=== PATIENT | male | born 1940 | race Caucasian/White ===

== ENCOUNTER 2020-03-16 12:53 | Outpatient (REF) | payer MEDICARE, OTHER, SELFPAY ==
--- NOTE | 2020-03-16 | MR_ITS ---
EXAMINATION: MRI OF THE BRAIN WITHOUT CONTRAST CLINICAL INFORMATION: MCI with memory loss. COMPARISON: CT scan of the head 09/13/2017. MRI scan of the brain 05/27/2010. TECHNIQUE: MRI of the brain was obtained using routine sequences without contrast. FINDINGS: No diffusion abnormalities are identified to suggest an acute or subacute infarct. No mass effect or midline shift is seen. The ventricles and sulci are commensurately prominent consistent with mild diffuse volume loss. This appears more prominent compared to prior imaging. There are scattered areas of increased T2 and FLAIR signal in the periventricular and subcortical white matter, consistent with progressive chronic microvascular ischemic changes. 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 There is mild prominence of the extra-axial CSF around the cerebral convexities. There are no discrete fluid collections. The brainstem appears normal. No pathologic magnetic susceptibility artifact is identified on the gradient refocused acquisition. The craniovertebral junction, marrow signal, and midline structures are normal. There have been bilateral lens extractions. The major intracranial flow-voids at the level of the unga of [place] are preserved. The dural venous sinus flow-voids are maintained. The mastoid air cells and paranasal sinuses are well-aerated. IMPRESSION: 1. There are no acute bleeds or territorial infarcts. No masses are demonstrated. 2. There are progressive chronic microvascular ischemic changes and diffuse volume loss.
== END 2020-03-16 12:54 | disposition home or self-care (01) ==
LOC: HO.MRI 12:53
PROVIDERS: PCP Internal Medicine; Visit Provider Nurse Practitioner Family
DX: G31.84 Mild cognitive impairment of uncertain or unknown etiology (principal)
CPT/HCPCS: 70551

== ENCOUNTER → 2020-04-19 10:29 | Outpatient (BNVA) | payer MEDICARE, OTHER, SELFPAY | PROVIDERS: PCP Internal Medicine; Visit Provider Internal Medicine Cardiovascular Disease | DX: R06.02 Shortness of breath (principal); I42.8 Other cardiomyopathies; I48.20 Chronic atrial fibrillation, unspecified; I44.7 Left bundle-branch block, unspecified | CPT/HCPCS: 99212 ==

== ENCOUNTER 2020-04-20 07:54 | Outpatient (REF) | payer MEDICARE, OTHER, SELFPAY ==
[2020-04-20 11:10] LABS: MANUAL DIFF FLAG NO
[2020-04-20 11:18] LABS: Basophils Percent Auto 0.3 % (0-2); Eosinophils Absolute Auto 0.2 X10*3/uL (0.0-0.4); Eosinophils Percent Auto 3.3 % (0-4); Hematocrit 44.7 % (42-52); Hemoglobin 14.9 g/dl (14.0-18.0); Imm Gran Abs Auto 0.03 X10*3/uL (0.00-0.03); Imm Gran Pct Auto 0.4 % (0.0-0.4); Lymphocytes Absolute Auto 1.4 X10*3/uL (1.2-4.9); Lymphocytes Percent Auto 20.4 % (20-40); Mean Corpuscular HGB Conc 33.3 g/dl (31.0-36.0); Mean Corpuscular Hemoglobin 31.2 pg (27.0-33.0); Mean Corpuscular Volume 93.7 fL (80-98); Mean Platelet Volume 10.9 fL (9.4-12.4); Monocytes Absolute Auto 0.8 X10*3/uL (0.1-1.2); Monocytes Percent Auto 11.9 % (2-11); Neutrophils Absolute Auto 4.3 X10*3/uL (2.0-8.3); Neutrophils Percent Auto 63.7 % (45-73); Platelet Count 203 X10*3/uL (160-400); Red Blood Count 4.77 X10*6/uL (4.60-5.80); Red Cell Distribution Width 13.4 % (11.0-16.0); White Blood Count 6.7 X10*3/uL (4.8-10.8)
[2020-04-20 11:35] LABS: Alanine Aminotransferase 29 U/L (0-40); Albumin Level 4.4 g/dL (3.5-5.0); Alkaline Phosphatase 83 U/L (39-117); Anion Gap 14 (12-20); Aspartate Amino Transferase 31 U/L (5-37); Bilirubin Total 0.6 mg/dL (0.0-1.0); Blood Urea Nitrogen 23 mg/dL (9-16); Carbon Dioxide 28 mmol/L (22-29); Chloride 103 mmol/L (96-108); Cholesterol 187 mg/dL; Estimated Glomerular Filt Rate 58; Glucose Fasting 77 mg/dL (60-99); HDL Cholesterol 54 mg/dL; LDL Cholesterol Calculated 114 mg/dl; Potassium 4.2 mmol/l (3.3-5.1); Sodium 141 mmol/L (135-145); Total Protein 7.3 g/dL (6.5-8.0); Triglycerides 99 mg/dL
[2020-04-20 11:52] LABS: Digoxin 0.3 ng/mL (0.8-2.0)
[2020-04-20 11:58] LABS: B Type Natriuretic Peptide 208 pg/mL (<100)
[2020-04-20 12:00] LABS: T4 Thyroxine 7.6 ug/dL (4.5-12.0); Thyroid Stimulating Hormone 3.68 uIU/mL (0.32-4.0)
== END 2020-04-20 07:55 | disposition home or self-care (01) ==
LOC: HO.HMGCLDS 07:54
PROVIDERS: PCP Internal Medicine; Visit Provider Internal Medicine Cardiovascular Disease
DX: I42.8 Other cardiomyopathies (principal); R06.02 Shortness of breath; I48.20 Chronic atrial fibrillation, unspecified; I42.9 Cardiomyopathy, unspecified; I48.91 Unspecified atrial fibrillation; I48.0 Paroxysmal atrial fibrillation
CPT/HCPCS: 36415; 80053; 80061; 80162; 83880; 84436; 84443; 85025

== ENCOUNTER → 2020-05-11 09:33 | Outpatient (REF) | payer MEDICARE, OTHER, SELFPAY ==
--- NOTE | 2020-05-11 09:38 | CA_ITS ---
Transthoracic Echocardiogram Patient (Last, First, Middle): Ki Tellez D Gender: Male Date of : 1940 Age: 80 Procedure Date: 05/11/2020 Procedure Type: Transthoracic Echocardiogram Location: OP Height: 180.34 cm Weight: 68.04 kg BSA: 1.87 m2 Heart Rate: bpm BP: 120 / 56 mmHg Field Nurse: Referring MD: Mor Mehta MD Symptoms: I48.20 - Chronic atrial fibrillation, unspecified Study Quality: Good ECG Rhythm: Sinus Conclusions: - The left ventricular systolic function is mild to moderately decreased. The visually estimated ejection fraction is between 40-45%. - There is mild to moderate aortic valve regurgitation. - There is mild to moderate mitral valve regurgitation. - There is mild tricuspid valve regurgitation. 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 Findings Left Ventricle Normal left ventricular cavity size. There is mildly increased left ventricular wall thickness. The left ventricular systolic function is mild to moderately decreased. The visually estimated ejection fraction is between 40-45%. There is paradoxical septal motion consistent with a left bundle branch block. Diastolic function is indeterminate on the basis of available data. Right Ventricle Normal right ventricular cavity size and systolic function. Atria The left atrium is mildly dilated. The right atrium is normal in size. Aortic Valve There is a normal trileaflet aortic valve. There is no aortic valve stenosis. There is mild to moderate aortic valve regurgitation. Mitral Valve The mitral valve appears normal. There is mild to moderate mitral valve regurgitation. There is no mitral valve stenosis. Pulmonic Valve The pulmonic valve was not well visualized. There is mild pulmonic valve regurgitation. Tricuspid Valve Normal tricuspid valve structure. There is mild tricuspid valve regurgitation. The pulmonary artery systolic pressure is normal. Great Vessels There is mild dilatation of the ascending aorta measuring 3.90 cm. Venous The inferior vena cava is normal in size and collapses greater than 50% with inspiration. Pericardium/Pleural There is no evidence of pericardial effusion. Prior Study Comparison No significant change compared to prior study dated: 09/30/2019. Measurements 2D Linear Measurements IVSd: 1.20 0.6-0.9/0.6-1.0 cm LVIDd: 4.64 3.9-5.3/4.2-5.9 cm LVIDd Index: 2.48 2.4-3.2/2.2-3.1 cm/m2 LVIDs: 3.69 2.0-3.6 cm LVPWd: 1.21 0.7-1.1 cm Ao Root: 3.60 2.1-3.5 cm LA Diam: 4.40 2.7-3.8/3.0-4.0 cm LAIDs Index: 2.35 1.5-2.3 cm/m2 LV Mass: 260.53 67-162/88-224 g LV Mass Index: 139.32 43-95/49-115 g/m2 LVOT Diam: 2.20 3.0+(-)1.3 cm 2D Systolic Function EF 4C: 40.20 >55% EF 2C: 58.40 >55% EF BiP: 47.30 >55% Mitral Valve MV Pk E: 0.89 MV Decel Time: 332.00 E'Medial: 5.32 E/E' Med: 16.70 Aortic Valve AoV Pk Bo: 1.02 AoV Mn Bo: 0.68 AoV VTI: 0.22 AoV Pk Grad: 4.00 Aov Mn Grad: 2.00 YUDELKA Cont.VTI: 2.80 LVOT LVOT Pk Bo: 0.74 LVOT Mn Bo: 0.49 LVOT VTI: 0.16 LVOT Pk Grad: 2.00 LVOT Mn Grad: 1.00 LVOT Diam: 2.20 LVOT Area: 3.80 Diastolic Function MV Pk E: 0.89 E'Medial: 5.32 E/E' Med: 16.70 Tricuspid Valve TR Pk Bo: 2.56 TR Pk Grad: 26.00 RA Press: 3.00 RVSP: 29.00 Great Vessels Aorta Ao Root-2D: 3.60 2.0-3.7 cm Ao Asc: 3.90 2.1-3.4 cm Pulmonary Valve PV Pk Bo: 1.07 Peak PV Grad: 5.00 Updated in Other Vendor System with Status of Final Baljit Wilson MD electronically signed on 05/11/2020 5:26:47 PM with status of Final
== END ==
LOC: HO.CARD 09:33
PROVIDERS: PCP Internal Medicine; Visit Provider Internal Medicine Cardiovascular Disease
DX: I44.7 Left bundle-branch block, unspecified (principal); I48.20 Chronic atrial fibrillation, unspecified; R06.02 Shortness of breath
CPT/HCPCS: 93306

== ENCOUNTER 2020-05-17 13:41 | Outpatient (REF) | payer MEDICARE, OTHER, SELFPAY ==
[2020-05-17 16:01] LABS: Prostate Specific Antigen < 0.05 ng/mL (<0.05-4.0)
== END 2020-05-17 13:42 | disposition home or self-care (01) ==
LOC: HO.HMGCLDS 13:41
PROVIDERS: PCP Internal Medicine; Visit Provider Urology
DX: Z85.46 Personal history of malignant neoplasm of prostate (principal); Z12.5 Encounter for screening for malignant neoplasm of prostate
CPT/HCPCS: 84153

== ENCOUNTER → 2020-05-18 14:10 | Outpatient (BNVA) | payer MEDICARE, OTHER, SELFPAY | PROVIDERS: PCP Internal Medicine; Visit Provider Internal Medicine Cardiovascular Disease | DX: I48.20 Chronic atrial fibrillation, unspecified (principal); I10 Essential (primary) hypertension; I42.8 Other cardiomyopathies; I44.7 Left bundle-branch block, unspecified; I35.1 Nonrheumatic aortic (valve) insufficiency | CPT/HCPCS: 99212 ==

== ENCOUNTER → 2020-05-24 11:21 | Outpatient (BNVA) | payer MEDICARE, OTHER, SELFPAY | PROVIDERS: PCP Internal Medicine; Visit Provider Urology | DX: Z13.89 Encounter for screening for other disorder (principal) | CPT/HCPCS: Q3014 ==

== ENCOUNTER 2020-10-19 09:10 | Outpatient (REF) | payer MEDICARE, OTHER, SELFPAY ==
[2020-10-19 11:27] LABS: MANUAL DIFF FLAG NO
[2020-10-19 11:33] LABS: Basophils Percent Auto 0.3 % (0-2); Eosinophils Absolute Auto 0.3 X10*3/uL (0.0-0.4); Eosinophils Percent Auto 3.7 % (0-4); Hemoglobin 14.9 g/dl (14.0-18.0); Imm Gran Abs Auto 0.02 X10*3/uL (0.00-0.03); Imm Gran Pct Auto 0.3 % (0.0-0.4); Lymphocytes Absolute Auto 1.3 X10*3/uL (1.2-4.9); Lymphocytes Percent Auto 18.1 % (20-40); Mean Corpuscular HGB Conc 32.4 g/dl (31.0-36.0); Mean Corpuscular Hemoglobin 30.8 pg (27.0-33.0); Mean Platelet Volume 10.8 fL (9.4-12.4); Monocytes Absolute Auto 0.8 X10*3/uL (0.1-1.2); Monocytes Percent Auto 10.9 % (2-11); Neutrophils Absolute Auto 4.8 X10*3/uL (2.0-8.3); Neutrophils Percent Auto 66.7 % (45-73); Platelet Count 210 X10*3/uL (160-400); Red Blood Count 4.84 X10*6/uL (4.60-5.80); Red Cell Distribution Width 13.3 % (11.0-16.0); White Blood Count 7.2 X10*3/uL (4.8-10.8)
[2020-10-19 11:51] LABS: B Type Natriuretic Peptide 319 pg/mL (<100)
[2020-10-19 12:12] LABS: Alanine Aminotransferase 27 U/L (0-40); Albumin Level 4.5 g/dL (3.5-5.0); Alkaline Phosphatase 97 U/L (39-117); Anion Gap 14 (12-20); Aspartate Amino Transferase 32 U/L (5-37); Bilirubin Total 0.8 mg/dL (0.0-1.0); Blood Urea Nitrogen 19 mg/dL (9-16); Calcium 9.3 mg/dL (8.4-10.2); Carbon Dioxide 28 mmol/L (22-29); Chloride 103 mmol/L (96-108); Cholesterol 191 mg/dL; Estimated Glomerular Filt Rate > 60; Free T4 (Free Thyroxine) 0.96 ng/dL (0.71-1.85); Glucose Random 77 mg/dL (60-115); HDL Cholesterol 58 mg/dL; LDL Cholesterol Calculated 105 mg/dl; Magnesium 2.3 mg/dL (1.6-2.6); Potassium 4.8 mmol/L (3.3-5.1); Sodium 140 mmol/L (135-145); Thyroid Stimulating Hormone 3.85 uIU/mL (0.32-4.0); Total Protein 7.6 g/dL (6.5-8.0); Triglycerides 143 mg/dL
[2020-10-19 12:40] LABS: Folate 18.8 ng/mL (> or = 4.0); Vitamin B12 644 pg/mL (200-900)
== END 2020-10-19 09:11 | disposition home or self-care (01) ==
LOC: HO.HMGCLDS 09:10
PROVIDERS: PCP Internal Medicine; Visit Provider Internal Medicine
DX: E78.00 Pure hypercholesterolemia, unspecified (principal); I48.20 Chronic atrial fibrillation, unspecified; R06.02 Shortness of breath; I10 Essential (primary) hypertension
CPT/HCPCS: 36415; 80053; 80061; 82607; 82746; 83735; 83880; 84439; 84443; 85025

== ENCOUNTER 2020-10-27 13:30 | Outpatient (RCR) | payer MEDICARE, OTHER, SELFPAY | END 2020-10-28 13:40 | disposition left against medical advice (07) | LOC: HO.SH 13:30 | PROVIDERS: Visit Provider Internal Medicine | DX: I69.911 Memory deficit following unspecified cerebrovascular disease (principal) | CPT/HCPCS: 92507 ==

== ENCOUNTER → 2020-11-16 12:27 | Outpatient (BNVA) | payer MEDICARE, OTHER, SELFPAY | PROVIDERS: PCP Internal Medicine; Visit Provider Internal Medicine Cardiovascular Disease | DX: I42.8 Other cardiomyopathies (principal); I48.20 Chronic atrial fibrillation, unspecified | CPT/HCPCS: 99212 ==

== ENCOUNTER 2020-11-17 09:16 | Outpatient (REF) | payer MEDICARE, OTHER, SELFPAY ==
[2020-11-17 11:37] LABS: Hematocrit 43.8 % (42-52); Hemoglobin 14.2 g/dl (14.0-18.0); Mean Corpuscular HGB Conc 32.4 g/dl (31.0-36.0); Mean Corpuscular Hemoglobin 30.2 pg (27.0-33.0); Mean Corpuscular Volume 93.2 fL (80-98); Mean Platelet Volume 10.8 fL (9.4-12.4); Platelet Count 196 X10*3/uL (160-400); Red Cell Distribution Width 13.5 % (11.0-16.0); White Blood Count 6.7 X10*3/uL (4.8-10.8)
[2020-11-17 11:45] LABS: Anion Gap 14 (12-20); Blood Urea Nitrogen 22 mg/dL (9-16); Calcium 9.2 mg/dL (8.4-10.2); Carbon Dioxide 27 mmol/L (22-29); Chloride 104 mmol/L (96-108); Estimated Glomerular Filt Rate > 60; Glucose Random 79 mg/dL (60-115); Potassium 4.5 mmol/L (3.3-5.1); Sodium 140 mmol/L (135-145)
[2020-11-17 13:30] LABS: Digoxin 0.3 ng/mL (0.8-2.0)
== END 2020-11-17 09:17 | disposition home or self-care (01) ==
LOC: HO.HMGCLDS 09:16
PROVIDERS: Internal Medicine Cardiovascular Disease; PCP Internal Medicine; Visit Provider Internal Medicine
DX: I42.8 Other cardiomyopathies (principal); I48.20 Chronic atrial fibrillation, unspecified
CPT/HCPCS: 36415; 80048; 80162; 85027

== ENCOUNTER 2020-11-22 10:57 | Outpatient (REF) | payer MEDICARE, OTHER, SELFPAY ==
--- NOTE | 2020-11-23 12:04 | MHC.AU.ANO ---
Adult Audiological Evaluation Date of Visit: 11/22/20 Circular Gang Saw Operator Used: Not Applicable Reason for Appointment: Ki was seen today for an audiologic re-evaluation, accompanied by his Angela. He was previously tested at this office in September 2015 with results showing bilateral symmetrical high frequency hearing loss. Hearing aids were recommended at that time and advised going through the '[facility] to receive hearing aids. Ki was not eligible for amplification through the [facility] and he chose not to pursue hearing aids. Angela reports increased hearing difficulties as well as newly diagnosed cognitive impairment. 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 Speech discrimination ability was 76% for the right ear and 72% for the left ear at 60 dB HL Ear History: Ear used on the phone: Right Ear Blocked/Full Sensation in Ear(s): Left Ear History of occupational noise exposure?: related noise exposure History: History: Yes Branch: [employer] Years in : 4-8 Years Medical History: Medical History: Prostate Cancer treated with surgery in 2004, Cognitive Impairment, Atrial Fibrilation, Mumps, Question of Stroke Allergies: YVONNE Inhibitors, Lisinopril, Diltiazem Medication List: Metoprolol, Pradaxa, Valsartan, Digoxin, Prevastatin Sodium, Alprazolam Otoscopy: Right Ear: Unremarkable Left Ear: Unremarkable Tympanometry: Tympanometry performed due to: Patient reports sensation that right ear is blocked. Right Ear: Normal Middle Ear System (Type A) Left Ear: Normal Middle Ear System (Type A) Otoacoustic Emissions Not performed at today's visit. Hearing Evaluation: Transducer(s) Used: Insert Earphones Bone Conduction Method: Conventional Audiometry Stimuli Used: Pure Tones Right Ear: Description of Hearing: Borderline normal hearing threshold at 250 Hz dropping to a profound high frequency sensorineural hearing loss Left Ear: Description of Hearing: Mild dropping to profound sensorineural hearing loss. There is a 5-20 dB decrease for most frequencies compared to right ear thresholds. Speech Recognition Threshold (SRT): Method Used: Monitored Live Voice Stimuli Used: Spondee Words Right Ear: 30 dB HL Left Ear: 35 dB HL Word Discrimination: Method: Recorded Lists Word Lists Used: NU-6 Right Ear: 84% at 70 dB HL Left Ear: 48% at 75 dB HL 64% at 80 dB HL Comparison: Compared to the most recent evaluation: Thresholds have decreased bilaterally, left ear greater than right. Word discrimination scores have decreased in the left ear. Interpretation of Results: The asymmetric profound high frequency sensorineural hearing loss with significant blocked sensation of the left ear is related to Ki's decreased speech discrimination ability. It is also likely Ki's newly diagnosed cognitive impairment will contribute to his speech understanding ability. Recommendations: - Due to asymmetric thresholds and speech discrimination, as well as blocked sensation of the left ear, advise medical consultation with Building Carpenter/Recruitment Director - Trial with amplification is recommended. - Medical clearance from a physician is required before fitting. - After obtaining medical clearance, if Ki would like to pursue amplification from this office, he may schedule a Hearing Aid Evaluation appointment - Audiological re-evaluation in one year. Will send a reminder card. Diagnosis: Primary Diagnosis: H90.3 Bilateral Sensorineural Hearing Loss Services Performed: Comprehensive Audiological Evaluation (CPT 10896) Tympanometry (CPT 80587) Signature: Provider: Cristiano Coffey, [facility]
--- NOTE | 2020-11-23 12:08 | MHC.AU.MED ---
Medical Clearance for Hearing Instrumentation Date: 11/23/20 Patient Name: Ki Tellez Date of : 1940 Primary Care Provider: Referring Provider: Joleen Boyd MD We have seen your patient on 11/23/20 and have determined that they are a candidate for amplification (See accompanying report). Specifically, they would benefit from: Hearing aid use in both ears There is a statute that addresses Medical Evaluation Requirements prior to fitting a patient with a hearing aid. According to [place] statute 265 CMR:6.03(1), (a) General. Except as provided in 265 CMR 6.03(1)(b), a coverage analyst shall not sell a hearing aid unless the prospective user has presented to the coverage analyst a written statement signed by a licensed physician that states that the patient's hearing loss has been medically evaluated and the patient may be considered a candidate for a hearing aid. The medical evaluation must have taken place within the preceding six months. Please note: Due to the [place] Statute referenced above, we cannot accept a signature other than that of a licensed physician. ASSOCIATE TRAINER and PA signatures cannot be accepted. I am in agreement with the above recommendation. There is no medical contraindication for hearing instrumentation. Physician Signature Date Physician Name (Printed)
== END 2020-11-22 10:58 | disposition home or self-care (01) ==
LOC: HO.SH 10:57
PROVIDERS: Visit Provider Internal Medicine
DX: H90.3 Sensorineural hearing loss, bilateral (principal)
CPT/HCPCS: 92557; 92567

== ENCOUNTER 2021-01-19 11:44 | Outpatient (REF) | payer MEDICARE, OTHER, SELFPAY ==
[2021-01-19 14:30] LABS: Blood Urea Nitrogen 23 mg/dL (9-16); Estimated Glomerular Filt Rate 56
== END 2021-01-19 11:45 | disposition home or self-care (01) ==
LOC: HO.HMGCLDS 11:44
PROVIDERS: Absent Provider Otolaryngology; PCP Internal Medicine; Visit Provider Internal Medicine
DX: H90.3 Sensorineural hearing loss, bilateral (principal)
CPT/HCPCS: 36415; 82565; 84520; 87086

== ENCOUNTER 2021-01-21 13:34 | Outpatient (REF) | payer MEDICARE, OTHER, SELFPAY ==
--- NOTE | ~2021-01-21 | MR_ITS ---
EXAMINATION: MR BRAIN WITHOUT AND WITH CONTRAST CLINICAL INFORMATION: Sensorineural hearing loss bilaterally. COMPARISON: Brain MRI from 03/16/2020. TECHNIQUE: Multiplanar, multisequential imaging was obtained without and with intravenous contrast. Intravenous contrast: Gadavist 7 mL. FINDINGS: No diffusion abnormality is seen. Very mild chronic white matter microangiopathic changes are stable with generalized right globe volume loss. No hydrocephalus. No mass effect or midline shift is evident. No extra-axial fluid collections are noted. The brainstem and cerebellum are normal. 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 There is no abnormal parenchymal or leptomeningeal enhancement. The VII and VIII cranial nerve complexes are normal in course and caliber. No signal abnormality is visualized within the inner ear structures on the precontrast axial T1-weighted sequence. Fluid signal is preserved within the cochlea, semicircular canals, and vestibule on the high-resolution axial FIESTA sequence. No cerebellopontine angle lesion is noted. There is no abnormal labyrinthine or intracanalicular enhancement on postcontrast imaging. The craniovertebral junction, marrow signal, and midline structures are normal. The gradient refocused acquisition is normal. The visualized portions of the major intracranial flow voids at the level of the tribe of [place] are preserved. The dural venous sinus flow voids are maintained. The mastoid air cells and paranasal sinuses are well aerated. MR/MR head/brain wo/w con IMPRESSION: No retrocochlear pathology. Mild chronic white matter microangiopathy and generalized parenchymal volume loss. No acute intracranial process.
== END 2021-01-21 13:35 | disposition home or self-care (01) ==
LOC: HO.MRI 13:34
PROVIDERS: PCP Internal Medicine; Visit Provider Otolaryngology
DX: H90.3 Sensorineural hearing loss, bilateral (principal)
CPT/HCPCS: 70553; A9585

== ENCOUNTER 2021-02-17 10:29 | Outpatient (REF) | payer SELFPAY ==
--- NOTE | 2021-02-17 11:51 | MHC.AU.HAS ---
Hearing Aid Evaluation Date of Visit: 02/17/21 Historical Information: Description of Hearing: Asymmetric normal /mild low frequency, dropping to profound high frequency sensorineural hearing loss with the left ear being 5-20 dB poorer than the right ear. Current personal amplification information, if applicable: None Summary: Patient was seen by Dr. Mejia and had an MRI which indicated no retrocohlear pathology. Medical clearance for binaural hearing aids was provided. He is accompanied by his Angela who is encouraging the hearing aid trial due to Ki's communication difficulties. Ki is not happy about the need for amplification, but is willing to do the trial period. Provided extensive counseling today regarding realistic expectations and the need for every day, all day use of the hearing aids. Discussed appropriate hearing aids and recommend the high level of technology as patient would have difficulty manipulating volume/program button, and his cognitive decline. Had patient practice insertion of the LILIYA with dome and he is able to insert. will help with care and batteries as needed. Hearing Aid Prescription: Based on the individual?s shared listening needs, communication environments, dexterity, desire for connectivity, and personal preferences, the following prescription for amplification has been made: Right ear: Business Executive: Phonak Model: Audeo P 90-13T Battery Size: 13 Color: Black Time Signal Wirer: #2 Medium Type of Dome: Open Left ear: Business Executive: Phonak Model: Audeo P 90-13T Battery Size: 13 Color: Black Time Signal Wirer: #2 Medium Type of Dome: Power Accessories/Assistive Technology Recommended: None Plan of Care: Patient wishes to purchase hearing aids as prescribed Action Taken/Action Needed: Hearing Instrument Fitting to be scheduled when materials arrive Primary Diagnosis: H90.3 Bilateral Sensorineural Hearing Loss Signature: Provider: Cristiano Coffey, [facility]
== END 2021-02-17 10:30 | disposition home or self-care (01) ==
LOC: HO.HAP 10:29
PROVIDERS: Visit Provider Internal Medicine
DX: Z46.1 Encounter for fitting and adjustment of hearing aid (principal); H90.3 Sensorineural hearing loss, bilateral
CPT/HCPCS: 92591

== ENCOUNTER 2021-03-02 10:30 | Outpatient (REF) | payer SELFPAY | END 2021-03-02 10:31 | disposition home or self-care (01) | LOC: HO.HAP 10:30 | PROVIDERS: PCP Internal Medicine; Visit Provider Otolaryngology | DX: Z46.1 Encounter for fitting and adjustment of hearing aid (principal); H90.3 Sensorineural hearing loss, bilateral | CPT/HCPCS: V5261 ==

== ENCOUNTER 2021-03-18 13:06 | Outpatient (REF) | payer SELFPAY | END 2021-03-18 13:07 | disposition home or self-care (01) | LOC: HO.HAP 13:06 | PROVIDERS: Visit Provider Internal Medicine | DX: Z13.89 Encounter for screening for other disorder (principal) ==

== ENCOUNTER 2021-04-27 15:57 | Outpatient (REF) | payer SELFPAY | END 2021-04-27 15:58 | disposition home or self-care (01) | LOC: HO.HAP 15:57 | PROVIDERS: Visit Provider Internal Medicine | DX: Z13.89 Encounter for screening for other disorder (principal) ==

== ENCOUNTER → 2021-05-05 13:04 | Outpatient (REF) | payer MEDICARE, OTHER, SELFPAY ==
--- NOTE | 2021-05-05 13:07 | CA_ITS ---
Transthoracic Echocardiogram Patient (Last, First, Middle): Ki Tellez D Gender: Male Date of : 1940 Age: 81 Procedure Date: 05/05/2021 Procedure Type: Transthoracic Echocardiogram Location: OP Height: 180.34 cm Weight: 68.04 kg BSA: 1.87 m2 Heart Rate: bpm BP: 158 / 72 mmHg Buffing Machine Tender: IDRIS Referring MD: Mor Mehta MD Weaver Wire Loom: Mor Mehta MD Symptoms: I42.8 - Other cardiomyopathies Study Quality: Fair ECG Rhythm: Atrial Fibrillation Conclusions: - 1. Normal LV systolic function with LVEF of 55-60% 2. Mild biatrial enlargement 3. Mild aortic regurgitation 4. Normal RV systolic pressure 5. Mildly dilated ascending aorta at 4.1 cm 6. No pericardial effusion Findings Left Ventricle Normal left ventricular size, thickness, and systolic function. The visually estimated ejection fraction is between 55-60%. Diastolic function is indeterminate on the basis of available data. Right Ventricle Normal right ventricular cavity size and systolic function. Atria Mild biatrial enlargement. There is no evidence of interatrial shunt. Aortic Valve There is mild thickening of the aortic valve. There is no aortic valve stenosis. There is mild aortic valve regurgitation. Mitral Valve There is mild anterior and posterior mitral leaflet thickening. There is mild mitral annular calcification. There is mild mitral valve regurgitation. There is no mitral valve stenosis. Pulmonic Valve The pulmonic valve was not well visualized. Tricuspid Valve Likely normal tricuspid valve structure and function. There is mild tricuspid valve regurgitation. The right ventricular systolic pressure is normal. The right ventricular systolic pressure is 30 mmHg. Normal right atrial pressure. There is no evidence of pulmonary hypertension. Great Vessels The pulmonary artery was not well visualized. There is mild dilatation of the ascending aorta measuring 4.10 cm. Venous The inferior vena cava is normal in size and collapses greater than 50% with inspiration. Pericardium/Pleural There is no evidence of pericardial effusion. Prior Study Comparison Changes noted compared to prior study dated: 05/11/2020. LV systolic function is in normal range Measurements 2D Linear Measurements IVSd: 1.16 0.6-0.9/0.6-1.0 cm LVIDd: 4.97 3.9-5.3/4.2-5.9 cm LVIDd Index: 2.66 2.4-3.2/2.2-3.1 cm/m2 LVIDs: 2.88 2.0-3.6 cm LVPWd: 1.15 0.7-1.1 cm Ao Root: 3.60 2.1-3.5 cm LA Diam: 4.10 2.7-3.8/3.0-4.0 cm LAIDs Index: 2.19 1.5-2.3 cm/m2 LV Mass: 273.59 67-162/88-224 g LV Mass Index: 146.30 43-95/49-115 g/m2 LVOT Diam: 2.20 3.0+(-)1.3 cm 2D Systolic Function EF 4C: 54.60 >55% EF 2C: 64.00 >55% EF BiP: 60.80 >55% Mitral Valve MV Pk E: 0.82 MV Decel Time: 202.00 E'Lateral: 12.60 E'Medial: 6.59 E/E' Med: 12.50 E/E' Lat: 6.50 PHT: 59.00 MVA PHT: 3.73 Decel Carver: 4.09 Aortic Valve AoV Pk Bo: 1.13 AoV Pk Grad: 5.00 LVOT LVOT Pk Bo: 0.93 LVOT Mn Bo: 0.61 LVOT VTI: 0.19 LVOT Pk Grad: 3.00 LVOT Mn Grad: 2.00 LVOT Diam: 2.20 LVOT Area: 3.80 Diastolic Function MV Pk E: 0.82 E'Medial: 6.59 E/E' Med: 12.50 E' Laterial: 12.60 E/E' Lat: 6.50 Right Ventricle TAPSE (mm): 2.16 Tricuspid Valve TR Pk Bo: 2.60 TR Pk Grad: 27.00 RA Press: 3.00 RVSP: 30.00 Great Vessels Aorta Ao Root-2D: 3.60 2.0-3.7 cm Ao Asc: 4.10 2.1-3.4 cm Updated in Other Vendor System with Status of Final Mor Mehta MD electronically signed on 05/05/2021 3:03:26 PM with status of Final
[2021-05-05 15:44] LABS: Prostate Specific Antigen < 0.05 ng/mL (<0.05-4.0)
== END ==
LOC: HO.CARD 13:04
PROVIDERS: Absent Provider Urology; PCP Internal Medicine; Visit Provider Internal Medicine Cardiovascular Disease
DX: Z12.5 Encounter for screening for malignant neoplasm of prostate (principal); I42.8 Other cardiomyopathies; C61 Malignant neoplasm of prostate
CPT/HCPCS: 36415; 84153; 93306

== ENCOUNTER → 2021-05-12 08:35 | Outpatient (BNVA) | payer MEDICARE, OTHER, SELFPAY | PROVIDERS: PCP Internal Medicine; Visit Provider Urology | DX: C61 Malignant neoplasm of prostate (principal) | CPT/HCPCS: Q3014 ==

== ENCOUNTER → 2021-06-10 11:27 | Outpatient (BNVA) | payer MEDICARE, OTHER, SELFPAY | PROVIDERS: PCP Internal Medicine; Referring Provider Internal Medicine; Visit Provider Internal Medicine Cardiovascular Disease | DX: I48.20 Chronic atrial fibrillation, unspecified (principal); I42.8 Other cardiomyopathies; Z79.01 Long term (current) use of anticoagulants | CPT/HCPCS: 93005; 99212 ==

== ENCOUNTER 2021-06-16 08:57 | Outpatient (REF) | payer MEDICARE, OTHER, SELFPAY ==
[2021-06-16 11:35] LABS: Hematocrit 46.2 % (42.0-52.0); Mean Corpuscular HGB Conc 32.5 g/dl (31.0-36.0); Mean Corpuscular Volume 95.5 fL (80.0-98.0); Mean Platelet Volume 11.1 fL (9.4-12.4); Platelet Count 204 X10*3/uL (160-400); Red Blood Count 4.84 X10*6/uL (4.60-5.80); Red Cell Distribution Width 13.8 % (11.0-16.0); White Blood Count 7.1 X10*3/uL (4.8-10.8)
[2021-06-16 11:57] LABS: Anion Gap 11 (12-20); Blood Urea Nitrogen 22 mg/dL (9-16); Calcium 9.2 mg/dL (8.4-10.2); Carbon Dioxide 30 mmol/L (22-29); Chloride 105 mmol/L (96-108); Estimated Glomerular Filt Rate 60; Glucose Random 82 mg/dL (60-115); Potassium 4.6 mmol/L (3.3-5.1); Sodium 141 mmol/L (135-145)
[2021-06-16 13:38] LABS: Digoxin < 0.3 ng/mL (0.8-2.0)
== END 2021-06-16 08:58 | disposition home or self-care (01) ==
LOC: HO.HMGCLDS 08:57
PROVIDERS: PCP Internal Medicine; Visit Provider Internal Medicine Cardiovascular Disease
DX: I48.20 Chronic atrial fibrillation, unspecified (principal); Z79.899 Other long term (current) drug therapy
CPT/HCPCS: 36415; 80048; 80162; 85027

== ENCOUNTER 2021-07-06 09:01 | Outpatient (REF) | payer MEDICARE, OTHER, SELFPAY ==
[2021-07-06 11:22] LABS: MANUAL DIFF FLAG NO
[2021-07-06 11:27] LABS: Basophils Percent Auto 0.3 % (0-2); Eosinophils Absolute Auto 0.3 X10*3/uL (0.0-0.4); Eosinophils Percent Auto 4.5 % (0-4); Hematocrit 43.2 % (42.0-52.0); Hemoglobin 14.1 g/dl (14.0-18.0); Imm Gran Abs Auto 0.03 X10*3/uL (0.00-0.03); Imm Gran Pct Auto 0.5 % (0.0-0.4); Lymphocytes Percent Auto 15.5 % (20-40); Mean Corpuscular HGB Conc 32.6 g/dl (31.0-36.0); Mean Corpuscular Hemoglobin 30.7 pg (27.0-33.0); Mean Corpuscular Volume 94.1 fL (80.0-98.0); Mean Platelet Volume 11.1 fL (9.4-12.4); Monocytes Absolute Auto 0.7 X10*3/uL (0.1-1.2); Neutrophils Absolute Auto 4.4 x10*3/uL (2.0-8.3); Neutrophils Percent Auto 68.2 % (45-73); Platelet Count 201 X10*3/uL (160-400); Red Blood Count 4.59 X10*6/uL (4.60-5.80); Red Cell Distribution Width 13.8 % (11.0-16.0); White Blood Count 6.5 X10*3/uL (4.8-10.8)
[2021-07-06 12:05] LABS: B Type Natriuretic Peptide 321 pg/mL (<100)
[2021-07-06 13:42] LABS: Alanine Aminotransferase 28 U/L (0-40); Albumin Level 4.4 g/dL (3.5-5.0); Alkaline Phosphatase 84 U/L (39-117); Anion Gap 11 (12-20); Aspartate Amino Transferase 33 U/L (5-37); Bilirubin Total 0.7 mg/dL (0.0-1.0); Carbon Dioxide 30 mmol/L (22-29); Chloride 107 mmol/L (96-108); Estimated Glomerular Filt Rate 55; Glucose Random 82 mg/dL (60-115); Potassium 4.6 mmol/L (3.3-5.1); Sodium 143 mmol/L (135-145); Total Protein 7.2 g/dL (6.5-8.0)
[2021-07-06 14:54] LABS: Blood Urea Nitrogen 17 mg/dL (9-16); Calcium 9.7 mg/dL (8.4-10.2)
== END 2021-07-06 09:02 | disposition home or self-care (01) ==
LOC: HO.HMGCLDS 09:01
PROVIDERS: Visit Provider Internal Medicine
DX: I42.8 Other cardiomyopathies (principal)
CPT/HCPCS: 36415; 80053; 83880; 85025

== ENCOUNTER 2021-10-10 12:29 | Outpatient (REF) | payer SELFPAY ==
--- NOTE | 2021-10-10 13:20 | MHC.AU.HFU ---
Hearing Instrument Follow-Up- Binaural Date of Visit: 10/10/21 Right Ear: Funeral Director'S Assistant: Phonak Model: Audeo P 90-13T Serial Number: [id number] Repair Warranty: 05/21/2024 Loss and Damage Warranty: 05/21/2024 Battery Size: 13 Color: Black Tour Counselor: #2 Medium Type of Dome: Small Power Type of Wax Guard: CeruShield Dispensed By: [facility] Date of Fittin03/02/2021 Left Ear: Funeral Director'S Assistant: Phonak Model: Audeo P 90-13T Serial Number: [id number] Repair Warranty: 05/21/2024 Loss and Damage Warranty: 05/21/2024 Battery Size: 13 Color: Black Tour Counselor: #2 Medium Type of Dome: Medium Power Type of Wax Guard: CeruShield Dispensed By: [facility] Date of Fittin03/02/2021 Follow-Up Summary: Hearing Aid Check - Patient's reports she is intermittently hearing an echo from the aids and patient is starting to have increased speech understanding difficulty. Both receivers are partially occluded with cerumen. Cleaned aids, microphones, contacts, and changed domes and wax guards with improved sound quality. Otoscopy shows cerumen around both canal benton, but able to visualize the tympanic membranes so did not perform cerumen removal today. Advised them to use the [id number] Ear Wax MD drops once a month to help reduced the amount of cerumen which my interfere with the sound quality of the aids. Also reminded if she hears the echo to make sure the aids are completely in the ear canals. If the aids are not in the canals properly, the aids produce an echo and sound/speech may be more muffled. Recommendations: Hearing instrument follow-up or maintenance as needed. Please contact our clinic with any questions or concerns. Diagnosis Code(s):Primary Diagnosis: H90.3 Bilateral Sensorineural Hearing Loss Signature:Provider: Ramirez Coffey [facility]
== END 2021-10-10 12:30 | disposition home or self-care (01) ==
LOC: HO.HAP 12:29
PROVIDERS: Visit Provider Internal Medicine
DX: Z13.89 Encounter for screening for other disorder (principal)

== ENCOUNTER → 2021-12-20 09:59 | Outpatient (BNVA) | payer MEDICARE, OTHER, SELFPAY | PROVIDERS: PCP Internal Medicine; Referring Provider Internal Medicine; Visit Provider Internal Medicine Cardiovascular Disease | DX: I48.20 Chronic atrial fibrillation, unspecified (principal); I44.7 Left bundle-branch block, unspecified; I42.8 Other cardiomyopathies; I77.810 Thoracic aortic ectasia | CPT/HCPCS: 99212 ==

== ENCOUNTER 2021-12-20 10:29 | Outpatient (REF) | payer MEDICARE, OTHER, SELFPAY ==
[2021-12-20 11:37] LABS: Anion Gap 12 (12-20); Blood Urea Nitrogen 19 mg/dL (9-16); Calcium 9.3 mg/dL (8.4-10.2); Carbon Dioxide 29 mmol/L (22-29); Chloride 105 mmol/L (96-108); Estimated Glomerular Filt Rate 60; Glucose Random 94 mg/dL (60-115); Potassium 4.3 mmol/L (3.3-5.1); Sodium 142 mmol/L (135-145)
[2021-12-20 12:12] LABS: Digoxin < 0.3 ng/mL (0.8-2.0)
== END 2021-12-20 10:30 | disposition home or self-care (01) ==
LOC: HO.LAB 10:29
PROVIDERS: PCP Internal Medicine; Visit Provider Internal Medicine Cardiovascular Disease
DX: I48.20 Chronic atrial fibrillation, unspecified (principal); Z79.899 Other long term (current) drug therapy
CPT/HCPCS: 36415; 80048; 80162; 99212

== ENCOUNTER 2022-01-05 08:52 | Outpatient (REF) | payer MEDICARE, OTHER, SELFPAY ==
[2022-01-05 11:37] LABS: MANUAL DIFF FLAG NO
[2022-01-05 11:47] LABS: Basophils Percent Auto 0.3 % (0-2); Eosinophils Absolute Auto 0.3 X10*3/uL (0.0-0.4); Eosinophils Percent Auto 3.4 % (0-4); Hematocrit 43.3 % (42.0-52.0); Hemoglobin 14.4 g/dl (14.0-18.0); Imm Gran Abs Auto 0.01 X10*3/uL (0.00-0.03); Imm Gran Pct Auto 0.1 % (0.0-0.4); Lymphocytes Absolute Auto 1.2 X10*3/uL (1.2-4.9); Lymphocytes Percent Auto 15.7 % (20-40); Mean Corpuscular HGB Conc 33.3 g/dl (31.0-36.0); Mean Corpuscular Hemoglobin 30.7 pg (27.0-33.0); Mean Corpuscular Volume 92.3 fL (80.0-98.0); Mean Platelet Volume 10.7 fL (9.4-12.4); Monocytes Absolute Auto 0.9 X10*3/uL (0.1-1.2); Monocytes Percent Auto 11.3 % (2-11); Neutrophils Absolute Auto 5.3 x10*3/uL (2.0-8.3); Neutrophils Percent Auto 69.2 % (45-73); Platelet Count 184 X10*3/uL (160-400); Red Blood Count 4.69 X10*6/uL (4.60-5.80); Red Cell Distribution Width 13.7 % (11.0-16.0); White Blood Count 7.7 X10*3/uL (4.8-10.8)
[2022-01-05 12:25] LABS: B Type Natriuretic Peptide 253 pg/mL (<100)
[2022-01-05 12:26] LABS: Alanine Aminotransferase 24 U/L (0-40); Albumin Level 4.3 g/dL (3.5-5.0); Alkaline Phosphatase 92 U/L (39-117); Anion Gap 15 (12-20); Aspartate Amino Transferase 28 U/L (5-37); Bilirubin Total 0.6 mg/dL (0.0-1.0); Blood Urea Nitrogen 18 mg/dL (9-16); Carbon Dioxide 26 mmol/L (22-29); Chloride 104 mmol/L (96-108); Cholesterol 181 mg/dL; Estimated Glomerular Filt Rate > 60; Glucose Random 86 mg/dL (60-115); HDL Cholesterol 54 mg/dL; LDL Cholesterol Calculated 100 mg/dl; Potassium 4.1 mmol/L (3.3-5.1); Sodium 141 mmol/L (135-145); Total Protein 7.2 g/dL (6.5-8.0); Triglycerides 138 mg/dL
[2022-01-05 12:33] LABS: Free T4 (Free Thyroxine) 0.99 ng/dL (0.71-1.85); Prostate Specific Antigen Scr < 0.05 ng/mL (<0.05-4.0); Thyroid Stimulating Hormone 4.53 uIU/mL (0.32-4.0)
[2022-01-05 14:10] LABS: Folate > 20.0 ng/mL (> or = 4.0); Vitamin B12 523 pg/mL (200-900)
== END 2022-01-05 08:53 | disposition home or self-care (01) ==
LOC: HO.HMGCLDS 08:52
PROVIDERS: PCP Internal Medicine; Visit Provider Internal Medicine
DX: E78.00 Pure hypercholesterolemia, unspecified (principal); Z12.5 Encounter for screening for malignant neoplasm of prostate
CPT/HCPCS: 36415; 80053; 80061; 82607; 82746; 83880; 84153; 84439; 84443; 85025

== ENCOUNTER 2022-04-18 13:27 | Outpatient (REF) | payer MEDICARE, OTHER, SELFPAY ==
--- NOTE | 2022-04-18 16:44 | MHC.AU.HFU ---
Hearing Instrument Follow-Up- Binaural Date of Visit: 04/18/22 Right Ear: Wind Farm Support Specialist: Phonak Audeo P 90-13T Black Serial #[id number] Repair Warranty: 05/21/2024 Loss and Damage Warranty: 05/21/2024 Service Plan: 05/21/2024 Battery Size: 13 Color: Black Land Appraiser: #2 Medium Type of Dome: Small Power Type of Mold: Small Power Dome Type of Wax Guard: CeruShield Dispensed By: [facility] Date of Fittin03/02/2021 Left Ear: Wind Farm Support Specialist:Phonak Audeo P 90-13T Black Serial #[id number] Repair Warranty: 05/21/2024 Loss and Damage Warranty: 05/21/2024 Service Plan: 05/21/2024 Battery Size: 13 Color: Black Land Appraiser: #2 Medium Type of Dome: Medium Power Type of Mold: Medium Power Dome Type of Wax Guard: CeruShield Dispensed By: [facility] Date of Fittin03/02/2021 Follow-Up Summary: Prior to audiologic re-evaluation, cleaned hearing aids, changed wax guards and domes, cleaned microphones and contacts. Both aids amplifying clearly. Reprogrammed both aids to today's test results. Recommendations: Recommendations: Hearing instrument follow-up or maintenance as needed. Please contact our clinic with any questions or concerns. Diagnosis Code(s): Primary Diagnosis: H90.3 Bilateral Sensorineural Hearing Loss Signature: Provider: Aryan Coffey, [facility]
== END 2022-04-18 13:28 | disposition home or self-care (01) ==
LOC: HO.SH 13:27
PROVIDERS: Visit Provider Internal Medicine
DX: Z01.118 Encounter for examination of ears and hearing with other abnormal findings (principal); H90.3 Sensorineural hearing loss, bilateral
CPT/HCPCS: 92557; 92567

== ENCOUNTER 2022-05-08 13:20 | Outpatient (REF) | payer MEDICARE, OTHER, SELFPAY ==
[2022-05-08 15:12] LABS: Prostate Specific Antigen < 0.10 ng/mL (<0.05-4.0)
== END 2022-05-08 13:21 | disposition home or self-care (01) ==
LOC: HO.HMGCLDS 13:20
PROVIDERS: PCP Internal Medicine; Visit Provider Urology
DX: Z12.5 Encounter for screening for malignant neoplasm of prostate (principal); N40.1 Benign prostatic hyperplasia with lower urinary tract symptoms; N13.8 Other obstructive and reflux uropathy
CPT/HCPCS: 36415; 84153

== ENCOUNTER 2022-05-12 14:44 | Outpatient (REF) | payer MEDICARE, OTHER, SELFPAY ==
[2022-05-12 16:53] LABS: Urine Cytology See Pathology rpt
== END 2022-05-12 14:45 | disposition home or self-care (01) ==
LOC: HO.LAB 14:44
PROVIDERS: Visit Provider Urology
DX: R31.29 Other microscopic hematuria (principal); C61 Malignant neoplasm of prostate
CPT/HCPCS: 88112; 99212

== ENCOUNTER → 2022-05-31 13:02 | Outpatient (REF) | payer MEDICARE, OTHER, SELFPAY ==
--- NOTE | 2022-05-31 13:11 | CA_ITS ---
Transthoracic Echocardiogram Patient (Last, First, Middle): Ki Tellez D Gender: Male Date of : 1940 Age: 82 Procedure Date: 05/31/2022 Procedure Type: Transthoracic Echocardiogram Location: OP Height: 180.34 cm Weight: 63.5 kg BSA: 1.81 m2 Heart Rate: 45 bpm BP: 150 / 90 mmHg Operative Supervisor: CHAITANYA Referring MD: Mor Mehta MD Symptoms: I48.20 - Chronic atrial fibrillation, unspecified Study Quality: Fair ECG Rhythm: Atrial Fibrillation Conclusions: - The left ventricular systolic function is mildly decreased. The calculated ejection fraction is 51% by biplane method. - No obvious valvular pathology seen on this study. - There is mild dilatation of the ascending aorta measuring 4.00 cm. - The inferior vena cava is mildly dilated and does not collapse with inspiration. Findings Left Ventricle Normal left ventricular cavity size. There is normal left ventricular wall thickness. The left ventricular systolic function is mildly decreased. The calculated ejection fraction is 51% by biplane method. There is mild global hypokinesis. Diastolic function is indeterminate on the basis of available data. Right Ventricle Mildly increased right ventricular cavity size. There is normal right ventricular systolic function. Atria The left atrium is normal in size. The right atrium is severely dilated. Aortic Valve There is a normal trileaflet aortic valve. There is no aortic valve stenosis. There is mild aortic valve regurgitation. Mitral Valve The mitral valve appears normal. There is trace mitral valve regurgitation. There is no mitral valve stenosis. Pulmonic Valve The pulmonic valve is likely normal. Tricuspid Valve Normal tricuspid valve structure. There is mild tricuspid valve regurgitation. There is no evidence of pulmonary hypertension. Great Vessels There is mild dilatation of the ascending aorta measuring 4.00 cm. Venous The inferior vena cava is mildly dilated and does not collapse with inspiration. Pericardium/Pleural There is no evidence of pericardial effusion. Prior Study Comparison Changes noted compared to prior study dated: 05/05/2021. Slight decrease in LVEF (but comparable to older studies); see IVC comments; right atrial size change. Recommendations, Care & Conclusions No obvious valvular pathology seen on this study. Measurements 2D Linear Measurements IVSd: 0.84 0.6-0.9/0.6-1.0 cm LVIDd: 5.44 3.9-5.3/4.2-5.9 cm LVIDd Index: 3.01 2.4-3.2/2.2-3.1 cm/m2 LVIDs: 3.36 2.0-3.6 cm LVPWd: 1.00 0.7-1.1 cm LA Diam: 3.80 2.7-3.8/3.0-4.0 cm LAIDs Index: 2.10 1.5-2.3 cm/m2 LV Mass: 232.35 67-162/88-224 g LV Mass Index: 128.37 43-95/49-115 g/m2 LVOT Diam: 2.20 3.0+(-)1.3 cm 2D Systolic Function EF 4C: 46.00 >55% EF 2C: 54.90 >55% EF BiP: 50.80 >55% Mitral Valve MV Pk E: 0.95 MV PK A: 0.33 MV Decel Time: 250.00 E/A: 2.90 E'Lateral: 12.00 E'Medial: 6.74 E/E' Med: 14.10 E/E' Lat: 7.90 PHT: 73.00 MVA PHT: 3.01 Decel Wirt: 3.80 Aortic Valve AoV Pk Bo: 0.99 AoV Mn Bo: 0.74 AoV VTI: 0.17 AoV Pk Grad: 4.00 Aov Mn Grad: 2.00 YUDELKA Cont.VTI: 2.96 AI Pk Bo: 4.90 AI Wirt: 1.47 LVOT LVOT Pk Bo: 0.70 LVOT Mn Bo: 0.51 LVOT VTI: 0.13 LVOT Pk Grad: 2.00 LVOT Mn Grad: 1.00 LVOT Diam: 2.20 LVOT Area: 3.80 Diastolic Function MV Pk E: 0.95 MV Pk A: 0.33 E/A: 2.90 E'Medial: 6.74 E/E' Med: 14.10 E' Laterial: 12.00 E/E' Lat: 7.90 Right Ventricle TAPSE (mm): 20.70 TVS' Bo: 10.70 Tricuspid Valve TR Pk Bo: 2.04 TR Pk Grad: 17.00 RA Press: 15.00 RVSP: 32.00 Great Vessels Aorta Sinus of Valsalva: 3.90 2.0-3.5 cm Ao Asc: 4.00 2.1-3.4 cm Pulmonary Valve PV Pk Bo: 1.03 Peak PV Grad: 4.00 Updated in Other Vendor System with Status of Final Baljit Wilson MD electronically signed on 06/02/2022 2:46:39 PM with status of Final
== END ==
LOC: HO.CARD 13:02
PROVIDERS: Visit Provider Internal Medicine Cardiovascular Disease
DX: I42.8 Other cardiomyopathies (principal); I44.7 Left bundle-branch block, unspecified; I48.20 Chronic atrial fibrillation, unspecified
CPT/HCPCS: 93306

== ENCOUNTER 2022-06-02 13:05 | Outpatient (REF) | payer MEDICARE, OTHER, SELFPAY ==
--- NOTE | ~2022-06-02 | US_ITS ---
EXAMINATION: US RETROPERITONEAL LIMITED (RENAL ONLY) CLINICAL INFORMATION: Other microscopic hematuria. COMPARISON: Ultrasound abdomen complete 03/26/2018. CT abdomen and pelvis 03/13/2016. X-ray KUB 03/12/2014. TECHNIQUE: Real-time imaging of the kidneys. Limited visualization due to bowel gas and body habitus. FINDINGS: RIGHT KIDNEY: 11.5 x 5.1 x 5.8 cm (SAG x AP x TRV). Lower pole 3.3 x 2.9 x 2.8 cm cyst, previously 2.5 x 2.2 x 2.8 cm. Prominent renal pyramids. Multiple tiny scattered echogenic foci may represent tiny vascular calcifications, artifact or calculi. LEFT KIDNEY: 11.4 x 4.9 x 5.3 cm (SAG x AP x TRV). Multiple renal cysts, largest upper pole 1.1 x 1.0 x 0.9 cm cyst difficult to fully characterize due to limited visualization and small size. Prominent renal pyramids. Multiple tiny scattered echogenic foci may represent tiny vascular calcifications, artifact or calculi. US/US retroperitoneal limited IMPRESSION: Bilateral renal cysts as detailed above, some of which are difficult to characterize due to limited visualization. CT scan recommended for further evaluation for this patient with hematuria. Prominent bilateral renal pyramids. Multiple tiny bilateral scattered echogenic renal foci may represent tiny vascular calcifications, artifact or calculi.
== END 2022-06-02 13:06 | disposition home or self-care (01) ==
LOC: HO.HMGCX 13:05
PROVIDERS: PCP Internal Medicine; Visit Provider Urology
DX: R31.29 Other microscopic hematuria (principal)
CPT/HCPCS: 76775

== ENCOUNTER → 2022-06-23 10:52 | Outpatient (BNVA) | payer MEDICARE, OTHER, SELFPAY | PROVIDERS: PCP Internal Medicine; Visit Provider Urology | DX: C61 Malignant neoplasm of prostate (principal) | CPT/HCPCS: Q3014 ==

== ENCOUNTER 2022-06-26 10:06 | Outpatient (REF) | payer MEDICARE, OTHER, SELFPAY ==
[2022-06-26 12:02] LABS: Digoxin 0.4 ng/mL (0.8-2.0)
[2022-06-26 12:28] LABS: Anion Gap 16 (12-20); Blood Urea Nitrogen 20 mg/dL (9-16); Calcium 9.4 mg/dL (8.4-10.2); Carbon Dioxide 29 mmol/L (22-29); Chloride 103 mmol/L (96-108); Estimated Glomerular Filt Rate 54; Glucose Random 182 mg/dL (60-115); Potassium 4.5 mmol/L (3.3-5.1); Sodium 143 mmol/L (135-145)
== END 2022-06-26 10:07 | disposition home or self-care (01) ==
LOC: HO.LAB 10:06
PROVIDERS: PCP Internal Medicine; Referring Provider Internal Medicine; Visit Provider Internal Medicine Cardiovascular Disease
DX: I48.20 Chronic atrial fibrillation, unspecified (principal); I42.8 Other cardiomyopathies; I77.810 Thoracic aortic ectasia; Z79.899 Other long term (current) drug therapy
CPT/HCPCS: 36415; 80048; 80162; 93005; 99212

== ENCOUNTER 2022-07-11 09:10 | Outpatient (REF) | payer MEDICARE, OTHER, SELFPAY ==
[2022-07-11 11:28] LABS: MANUAL DIFF FLAG NO
[2022-07-11 11:37] LABS: Basophils Percent Auto 0.4 % (0-2); Eosinophils Absolute Auto 0.3 X10*3/uL (0.0-0.4); Eosinophils Percent Auto 3.1 % (0-4); Hematocrit 42.3 % (42.0-52.0); Hemoglobin 14.2 g/dl (14.0-18.0); Imm Gran Abs Auto 0.03 X10*3/uL (0.00-0.03); Imm Gran Pct Auto 0.4 % (0.0-0.4); Lymphocytes Absolute Auto 1.4 X10*3/uL (1.2-4.9); Lymphocytes Percent Auto 16.9 % (20-40); Mean Corpuscular HGB Conc 33.6 g/dl (31.0-36.0); Mean Corpuscular Volume 92.4 fL (80.0-98.0); Mean Platelet Volume 10.2 fL (9.4-12.4); Monocytes Absolute Auto 0.8 X10*3/uL (0.1-1.2); Monocytes Percent Auto 9.5 % (2-11); Neutrophils Absolute Auto 5.7 x10*3/uL (2.0-8.3); Neutrophils Percent Auto 69.7 % (45-73); Platelet Count 260 X10*3/uL (160-400); Red Blood Count 4.58 X10*6/uL (4.60-5.80); Red Cell Distribution Width 13.7 % (11.0-16.0); White Blood Count 8.1 X10*3/uL (4.8-10.8)
[2022-07-11 12:05] LABS: Alanine Aminotransferase 25 U/L (0-40); Albumin Level 4.1 g/dL (3.5-5.0); Alkaline Phosphatase 97 U/L (39-117); Anion Gap 13 (12-20); Aspartate Amino Transferase 31 U/L (5-37); Bilirubin Total 0.5 mg/dL (0.0-1.0); Blood Urea Nitrogen 19 mg/dL (9-16); Carbon Dioxide 29 mmol/L (22-29); Chloride 104 mmol/L (96-108); Estimated Glomerular Filt Rate 53; Free T4 (Free Thyroxine) 1.01 ng/dL (0.71-1.85); Glucose Random 91 mg/dL (60-115); Potassium 4.7 mmol/L (3.3-5.1); Sodium 141 mmol/L (135-145); Thyroid Stimulating Hormone 3.22 uIU/mL (0.32-4.0); Total Protein 6.8 g/dL (6.5-8.0)
[2022-07-11 12:12] LABS: Digoxin 0.5 ng/mL (0.8-2.0)
== END 2022-07-11 09:11 | disposition home or self-care (01) ==
LOC: HO.HMGCLDS 09:10
PROVIDERS: PCP Internal Medicine; Visit Provider Internal Medicine
DX: I48.20 Chronic atrial fibrillation, unspecified (principal); Z79.899 Other long term (current) drug therapy
CPT/HCPCS: 36415; 80053; 80162; 84439; 84443; 85025

== ENCOUNTER 2022-12-25 10:49 | Outpatient (AMB) | payer MEDICARE, OTHER, SELFPAY ==
[2022-12-25 11:04] VITALS: BP 116/74; PULSE 37; BMI 22.5
--- NOTE | 2022-12-25 11:04 | MHC.OFFVIS ---
Intake Vital Signs 12/25/22 11:04 Height 5 ft 10 in Weight 156 lb 8.451 oz BMI 22.5 BP 116/74 Blood Pressure Location Lt brachial Position Sitting Pulse 37 L Intake Visit Reasons: 6M follow up Intake Note: 6 month follow-up feeling good Ela Teacher Required: No Allergies Kota Inhibitor Allergy (Intermediate, Verified 07/19/22 13:05) cough Diltiazem HCl CD Allergy (Unknown, Verified 07/19/22 13:05) unknown lisinopril Allergy (Unknown, Verified 07/19/22 13:05) cough dorzolamide Adverse Reaction (Intermediate, Verified 07/19/22 13:05) red eye Medication List - Last Reconciled 12/25/22 by Mor Mehta MD [CPAP As directed] dabigatran etexilate (Pradaxa) 150 mg PO BID 90 days digoxin 125 mcg PO DAILY donepezil 5 mg PO BEDTIME melatonin 5 mg PO PRN metoprolol tartrate 100 mg PO BID pravastatin 20 mg PO DAILY sertraline 50 mg PO valsartan 80 mg PO DAILY HPI HPI Comments History of Present Illness Details Ki comes for follow-up. No overt signs of heart failure. Denies any worsening shortness of breath, orthopnea, PND. Does complain of fatigue and the says that he is excessively sleepy. There might be issue with his CPAP machine, this is unclear. Her came in today and noted to have significant slow heart rate. He has been taking all his medications. No lightheadedness, syncope. No palpitations. No bleeding issues or neurologic events. [facility] Medical History Anxiety Aortic regurgitation Cholelithiasis Chronic atrial fibrillation Cognitive impairment CRVO (central retinal vein occlusion) Generalized anxiety disorder GERD (gastroesophageal reflux disease) History of prostate cancer HTN (hypertension) Hypercholesterolemia Insomnia Left bundle branch block Nonischemic cardiomyopathy Obstructive sleep apnea Prostate cancer Surgical History History of inguinal hernia repair History of prostatectomy Family History Father Diabetes Stroke Mother Diabetes Other Mental health disorder Substance use disorder Social History Housing: House Alcohol intake: never Patient Tobacco Use Status: Never used Tobacco e-Cigarette/Vaping Use: Never Used Second Hand Smoke Exposure: No service: No Current occupational status: retired Current occupational exposures/hazards: No Cognitive needs: No Hearing needs: Yes Vision needs: Yes Review of Systems Const Denies chills, Denies fatigue, Denies fever(s), Denies frequent falls, Denies weakness, Denies weight gain and Denies weight loss ENT Denies dizziness Card Denies chest pain, Denies leg edema, Denies lightheadedness, Denies palpitations, Denies dyspnea, Denies dyspnea on exertion, Denies orthopnea and Denies other (loss of consciousness) Resp Denies cough, Denies dyspnea and Denies dyspnea on exertion GI Denies hematochezia and Denies change in stool character Musc Denies abnormal gait, Denies muscle weakness, Denies numbness, Denies radiating pain into limb and Denies tingling Neuro Denies abnormal gait, Denies dizziness, Denies frequent falls, Denies numbness, Denies tingling and Denies weakness Endo Denies fatigue and Denies palpitations Physical Exam Vital Signs: Last Vital Signs Pulse 37 L 12/25/22 11:04 BP 116/74 12/25/22 11:04 BMI result Body Mass Index 22.5 Const General: cooperative, comfortable, no acute distress, alert, awake and well groomed Nutritional Appearance: thin Orientation/consciousness: patient oriented x3 Limitations: no limitations Neck Neck: Yes trachea midline, Yes supple and Yes no JVD Resp Effort & Inspection: normal respiratory effort Auscultation: clear to auscultation bilaterally Cardio Jugular venous distension: no JVD Rate: bradycardic Rhythm: abnormal rhythm irregularly irregular Heart sounds: S1 normal heart sound present and S2 normal heart sound present GI Auscultation: normal bowel sounds Skin General skin exam: no rashes or lesions noted and ecchymosis Neuro General: patient oriented x3 and no focal motor deficits Extrem General: Yes no clubbing, cyanosis or edema Psych Appearance: grossly normal Office Procedures EKG Details: EKG shows atrial fibrillation with slow ventricular response with heart rate of 37 beats per minute with left anterior fascicular block with lateral ST depression with T-wave inversion suggestive of digoxin effect [id number], Complete Assessment & Plan Assessment & Plan (1) Chronic atrial fibrillation: Comment: Echo January 2017 aortic regurg, MR, TR moderate EF 40-45% December 2017 echo LV dysfunction 40-45% moderate AR, MR, May 2018 34-40% AR, MR, TR echo August 2018 moderate LV dysfunction September 2019 moderate to severe left ventricular dysfunction mild AR, Holter May 2018 pauses 3-5 second Code(s): I48.20 - Chronic atrial fibrillation, unspecified Plan: Chronic atrial fibrillation with overcorrected rate. Will discontinue digoxin therapy at this point time. Also reduce metoprolol to 50 mg b.i.d.. Follow-up Holter monitor in 1 weeks time. Is no indication for pacing therapy at this point time. No signs or symptoms of heart failure. Continue full oral anticoagulation, currently on Pradaxa 150 mg b.i.d.. Quarterly renal function test should be pursued. (2) Nonischemic cardiomyopathy: Code(s): I42.8 - Other cardiomyopathies Plan: Nonischemic cardiomyopathy low normal LV ejection fraction 51% without any signs or symptoms of heart failure. Continue neurohormonal modulation with valsartan and metoprolol. Metoprolol has been reduced. Signs and symptoms of heart failure were discussed. (3) Ascending aorta dilatation: Comment: 4.1 cm 04/2021, May 2022The left ventricular systolic function is mildly decreased. The calculated ejection fraction is 51% by biplane method. - No obvious valvular pathology seen on this study. - There is mild dilatation of the ascending aorta measuring 4.00 cm. - The inferior vena cava is mildly dilated and does not collapse with inspiration. Code(s): I77.810 - Thoracic aortic ectasia Plan: Mild ascending aortic enlargement. No interventions required at this point time. Continue aggressive blood pressure control which is currently well optimized. Will follow up in the clinic in 3 months time, sooner p.r.n.. Thank you for allowing me to partake in his care Orders: Orders ECG 3 day holter monitor Today I48.20 - Chronic atrial fibrillation, unspecified Basic Metabolic Panel Today I48.20 - Chronic atrial fibrillation, unspecified Medications: Changed From metoprolol tartrate 100 mg PO BID 180 tabs 3RF To metoprolol tartrate 50 mg (1/2 x 100 mg) PO BID 180 tabs 3RF Discontinued digoxin Discontinued Reason: Doctor's Order 125 mcg PO DAILY 90 tabs 3RF Coding Level of Care Code Est Pt Level 4 (48598) Diagnoses Chronic atrial fibrillation I48.20 Nonischemic cardiomyopathy I42.8 Ascending aorta dilatation I77.810 CPT Codes EKG - CPT: 54225-[id number], Complete ([id number])
== END 2022-12-25 11:38 | disposition home or self-care (01) ==
PROVIDERS: Visit Provider Internal Medicine Cardiovascular Disease
DX: I48.20 Chronic atrial fibrillation, unspecified (principal); I42.8 Other cardiomyopathies; I77.810 Thoracic aortic ectasia
CPT/HCPCS: 93010; 99214

== ENCOUNTER 2022-12-25 10:49 | Outpatient (REF) | payer MEDICARE, OTHER, SELFPAY ==
[2022-12-25 14:57] LABS: Anion Gap 18 (12-20); Blood Urea Nitrogen 22 mg/dL (9-16); Calcium 10.1 mg/dL (8.4-10.2); Carbon Dioxide 24 mmol/L (22-29); Chloride 104 mmol/L (96-108); Estimated Glomerular Filt Rate 50; Glucose Random 77 mg/dL (60-115); Potassium 4.5 mmol/L (3.3-5.1); Sodium 141 mmol/L (135-145)
== END 2022-12-25 10:50 | disposition home or self-care (01) ==
LOC: HO.LAB 10:49
PROVIDERS: PCP Internal Medicine; Visit Provider Internal Medicine Cardiovascular Disease
DX: I48.20 Chronic atrial fibrillation, unspecified (principal); I42.8 Other cardiomyopathies; I77.810 Thoracic aortic ectasia
CPT/HCPCS: 36415; 80048; 93005; 99212

== ENCOUNTER 2023-01-02 14:50 | Outpatient (AMB) | payer MEDICARE, OTHER, SELFPAY ==
--- NOTE | 2023-01-02 14:57 | MHC.OFFVIS ---
Intake Vital Signs 01/02/23 14:58 Height 5 ft 10 in Weight 158 lb 4 oz BMI 22.7 BP 130/70 Blood Pressure Location Rt brachial Position Sitting Pulse 51 Pulse Source Pulse Oximeter Pulse Oximetry (%) 97 Oxygen Delivery Method Room Air Intake Visit Reasons: ENP-PT on CPAP - Confirmed Intake Note: Patient presents for evaluation for sleep apnea Allergies Kota Inhibitor Allergy (Intermediate, Verified 01/02/23 15:05) cough Diltiazem HCl CD Allergy (Unknown, Verified 01/02/23 15:05) unknown lisinopril Allergy (Unknown, Verified 01/02/23 15:05) cough dorzolamide Adverse Reaction (Intermediate, Verified 01/02/23 15:05) red eye HPI HPI Comments History of Present Illness Details 82 y/o male patient with Alzheimer and IVY presents with his for new in-person visit to manage IVY and readjust CPAP pressure. Home sleep study result was significant for moderate to severe degree of sleep apnea. (in 01/01/2019) The AHI was 28/hr and oxygen jose was 82%. He started APAP at [id number] and compliant with CPAP. However, his noticed that patient sleeps more during daytime and falls asleep easily. He sleeps more than 10 hrs at night without difficulties, but having more frequent nightmares recently. The CPAP compliance and therapy response (12/03/22-01/01/23) reviewed. The median pressure was 8.1 and the AHI was 13.6/hr. The apnea index was central 6 and obstructive 0.8. Pt's states that patient is very anxious to have titration study and does not want to undergo titration study. [facility] Medical History (Updated 01/15/23 @ 13:14 by Esther Truong CNP) Anxiety Aortic regurgitation Cholelithiasis Chronic atrial fibrillation Cognitive impairment CRVO (central retinal vein occlusion) Generalized anxiety disorder GERD (gastroesophageal reflux disease) History of prostate cancer HTN (hypertension) Hypercholesterolemia Insomnia Left bundle branch block Nonischemic cardiomyopathy Obstructive sleep apnea Prostate cancer Surgical History (Updated 01/02/23 @ 15:07 by ABHI Wells) History of inguinal hernia repair History of prostatectomy Hx of cholecystectomy Family History Father Diabetes Stroke Mother Diabetes Other Mental health disorder Substance use disorder Social History Housing: House Alcohol intake: never Patient Tobacco Use Status: Never used Tobacco e-Cigarette/Vaping Use: Never Used Second Hand Smoke Exposure: No service: No Current occupational status: retired Current occupational exposures/hazards: No Cognitive needs: No Hearing needs: Yes Vision needs: Yes Review of Systems Const All systems reviewed & are unremarkable except as noted in HPI and below Physical Exam Vital Signs: Last Vital Signs Pulse 51 01/02/23 14:58 BP 130/70 01/02/23 14:58 Pulse Ox 97 01/02/23 14:58 Oxygen Delivery Method Room Air 01/02/23 14:58 BMI result Body Mass Index 22.7 Const General: cooperative Nutritional Appearance: average body habitus Orientation/consciousness: patient oriented x3 Neck Neck: Yes full ROM and Yes supple Resp Effort & Inspection: normal respiratory effort and able to speak in complete sentences Neuro Other: hard of hearing. General: patient oriented x3 and moves all extremities Cranial nerves: Yes Normal facial strength present, Yes Midline tongue present, Yes Symmetric palate elevation present, Yes Ability to bilaterally rotate head present and Yes Ability to bilaterally elevate shoulders present Cognition (Neuro): normal cognition Psych Appearance: grossly normal Mental Status: mental status grossly normal Speech and movement: Normal speech and movement present Affect: Anxious affect present Attitude: cooperative Assessment & Plan Assessment & Plan (1) Obstructive sleep apnea: Comment: is on CPAP. Moderate to severe degree of sleep apnea. The AHI was 28/hr and oxygen jose was 82%. Code(s): G47.33 - Obstructive sleep apnea (adult) (pediatric) (2) Hypersomnia: Code(s): G47.10 - Hypersomnia, unspecified Plan Changed the CPAP pressure to 8cmH2O. Stressed compliance, use CPAP nightly and more than 4 hours. Advised patient to increase physical activity and engage more social and cognitive activities. Coding Level of Care Code New Pt Level 3 (50208) Diagnoses Obstructive sleep apnea G47.33 Hypersomnia G47.10
[2023-01-02 14:58] VITALS: BP 130/70; PULSE 51; O2SAT 97; BMI 22.7
== END 2023-01-02 15:34 | disposition home or self-care (01) ==
LOC: HO.HSMC 14:50
PROVIDERS: PCP Internal Medicine; Visit Provider Nurse Practitioner Family
DX: G47.33 Obstructive sleep apnea (adult) (pediatric) (principal); G47.10 Hypersomnia, unspecified
CPT/HCPCS: 99203

== ENCOUNTER → 2023-01-02 14:50 | Outpatient (BNVA) | payer MEDICARE, OTHER, SELFPAY | PROVIDERS: PCP Internal Medicine; Visit Provider Nurse Practitioner Family | DX: G47.33 Obstructive sleep apnea (adult) (pediatric) (principal); G47.10 Hypersomnia, unspecified; Z99.89 Dependence on other enabling machines and devices | CPT/HCPCS: 99202 ==

== ENCOUNTER → 2023-01-08 10:28 | Outpatient (REF) | payer MEDICARE, OTHER, SELFPAY ==
--- NOTE | 2023-01-08 10:31 | HM_ITS ---
Conclusion: 1. Patient was monitored for total period of 3 days 2. Baseline was atrial fibrillation with average heart of 74 beats per minute with overall good rate control 3. Multiple pauses noted, longest 4.2 seconds during late morning hours, none significant of greater than 5 seconds 4. Occasional PVCs noted with 2 salvos of 3 beat which could represent AFib with aberrant conduction 5. No patient reported events MTDD
== END ==
LOC: HO.CARD 10:28
PROVIDERS: PCP Internal Medicine; Visit Provider Internal Medicine Cardiovascular Disease
DX: I48.20 Chronic atrial fibrillation, unspecified (principal)
CPT/HCPCS: 93242

== ENCOUNTER → 2023-01-08 10:31 | Outpatient (BNV) | payer MEDICARE, OTHER, SELFPAY | PROVIDERS: PCP Internal Medicine; Visit Provider Internal Medicine Cardiovascular Disease | DX: I48.20 Chronic atrial fibrillation, unspecified (principal) | CPT/HCPCS: 93244 ==

== ENCOUNTER 2023-01-17 09:29 | Outpatient (REF) | payer MEDICARE, OTHER, SELFPAY ==
[2023-01-17 11:11] LABS: MANUAL DIFF FLAG NO
[2023-01-17 11:33] LABS: Basophils Percent Auto 0.4 % (0-2); Eosinophils Absolute Auto 0.3 X10*3/uL (0.0-0.4); Hematocrit 45.1 % (42.0-52.0); Hemoglobin 14.9 g/dl (14.0-18.0); Imm Gran Abs Auto 0.03 X10*3/uL (0.00-0.03); Imm Gran Pct Auto 0.4 % (0.0-0.4); Lymphocytes Absolute Auto 1.4 X10*3/uL (1.2-4.9); Lymphocytes Percent Auto 18.9 % (20-40); Mean Corpuscular Hemoglobin 30.6 pg (27.0-33.0); Mean Corpuscular Volume 92.6 fL (80.0-98.0); Mean Platelet Volume 10.8 fL (9.4-12.4); Monocytes Absolute Auto 0.7 X10*3/uL (0.1-1.2); Monocytes Percent Auto 9.3 % (2-11); Platelet Count 209 X10*3/uL (160-400); Red Blood Count 4.87 X10*6/uL (4.60-5.80); Red Cell Distribution Width 14.2 % (11.0-16.0); White Blood Count 7.5 X10*3/uL (4.8-10.8)
[2023-01-17 11:58] LABS: B Type Natriuretic Peptide 238 pg/mL (<100)
[2023-01-17 12:43] LABS: Folate 16.9 ng/mL (> or = 4.0); Vitamin B12 685 pg/mL (200-900)
[2023-01-17 12:47] LABS: Alanine Aminotransferase 37 U/L (0-40); Albumin Level 4.4 g/dL (3.5-5.0); Alkaline Phosphatase 96 U/L (39-117); Anion Gap 13 (12-20); Aspartate Amino Transferase 35 U/L (5-37); Bilirubin Total 0.5 mg/dL (0.0-1.0); Blood Urea Nitrogen 20 mg/dL (9-16); Calcium 9.7 mg/dL (8.4-10.2); Carbon Dioxide 27 mmol/L (22-29); Chloride 104 mmol/L (96-108); Cholesterol 198 mg/dL (<200); Estimated Glomerular Filt Rate 59; Glucose Random 84 mg/dL (60-115); HDL Cholesterol 58 mg/dL (>40); LDL Cholesterol Calculated 116 mg/dL (<100); Potassium 4.1 mmol/L (3.3-5.1); Sodium 140 mmol/L (135-145); Total Protein 7.7 g/dL (6.5-8.0); Triglycerides 121 mg/dL (<150)
[2023-01-17 12:48] LABS: Free T4 (Free Thyroxine) 0.88 ng/dL (0.71-1.85); Thyroid Stimulating Hormone 3.09 uIU/mL (0.32-4.0)
== END 2023-01-17 09:30 | disposition home or self-care (01) ==
LOC: HO.HMGCLDS 09:29
PROVIDERS: PCP Internal Medicine; Visit Provider Internal Medicine
DX: E78.00 Pure hypercholesterolemia, unspecified (principal); I10 Essential (primary) hypertension
CPT/HCPCS: 36415; 80053; 80061; 82607; 82746; 83880; 84439; 84443; 85025

== ENCOUNTER 2023-01-23 14:04 | Outpatient (AMB) | payer MEDICARE, OTHER, SELFPAY ==
--- NOTE | 2023-01-23 14:05 | A.OFFPC_ITS ---
Vital Signs 01/23/23 14:07 Height 5 ft 10 in Weight 157 lb 2 oz BMI 22.5 BP 119/70 Blood Pressure Location Lt brachial Position Sitting Pulse 76 Pulse Source Pulse Oximeter Pulse Oximetry (%) 98 Oxygen Delivery Method Room Air Intake Visit Reasons: 6m F/U atrial fibrillation, Allergies Kota Inhibitor Allergy (Intermediate, Verified 01/23/23 14:06) cough Diltiazem HCl CD Allergy (Unknown, Verified 01/23/23 14:06) unknown lisinopril Allergy (Unknown, Verified 01/23/23 14:06) cough dorzolamide Adverse Reaction (Intermediate, Verified 01/23/23 14:06) red eye Medication List - Last Reconciled 01/23/23 by Joleen Boyd MD [CPAP As directed] dabigatran etexilate (Pradaxa) 150 mg PO BID 90 days dabigatran etexilate (Pradaxa) 150 mg PO DAILY donepezil 5 mg PO BEDTIME melatonin 5 mg PO PRN metoprolol tartrate 50 mg (1/2 x 100 mg) PO BID 90 days pravastatin 20 mg PO DAILY sertraline 50 mg PO valsartan 80 mg PO DAILY Tobacco use date assessed: 07/19/22 Fall risk assessment: No Falls in past year Last assessed Fall Risk: 01/23/23 Dental Screening Dental Screen Date: 01/23/23 Did you have a dental visit in the last 12 months?: Yes Did you have a dental problem in the last 6 months where you did not have access to dental care?: No Was dental information given to patient?: Patient has dentist HPI 6m F/U atrial fibrillation, HPI Details 82-year-old male with hypertension, chronic atrial fibrillation, hypercholesterolemia obstructive sleep apnea GERD prostate cancer ascending aorta dilatation frontal lobe dementia and adjustment disorder with depressed mood coming in for follow-up. Last seen in June 2022 blood work was requested. Review of the notes have been following up with sleep medicine and has been compliant with CPAP but on follow-up with the Neurology pressure has been changed to 8 cm water. Patient had a Holter test in Decemberatient was monitored for total period of 3 days 2. Baseline was atrial fibrillation with average heart of 74 beats per minute with overall good rate control 3. Multiple pauses noted, longest 4.2 seconds during late morning hours, none significant of greater than 5 seconds 4. Occasional PVCs noted with 2 salvos of 3 beat which could represent AFib with aberrant conduction 5. No patient reported events patient has seen Cardiology for follow-up in November 2022 no signs of heart failure does have excessive sleepiness and most likely from the CPAP . discontinued digoxin reduced metoprolol to 50 mg twice a day. Quarterly renal function test [facility] Medical History (Updated 01/23/23 @ 14:45 by Joleen Boyd MD) Anxiety Aortic regurgitation Cholelithiasis Chronic atrial fibrillation Cognitive impairment CRVO (central retinal vein occlusion) Generalized anxiety disorder GERD (gastroesophageal reflux disease) History of prostate cancer HTN (hypertension) Hypercholesterolemia Hypersomnia Insomnia Left bundle branch block Nonischemic cardiomyopathy Obstructive sleep apnea Prostate cancer Surgical History (Updated 01/02/23 @ 15:07 by ABHI Wells) History of inguinal hernia repair History of prostatectomy Hx of cholecystectomy Family History Father Diabetes Stroke Mother Diabetes Other Mental health disorder Substance use disorder Social History Housing: House Alcohol intake: never Patient Tobacco Use Status: Never used Tobacco e-Cigarette/Vaping Use: Never Used Second Hand Smoke Exposure: No service: No Current occupational status: retired Current occupational exposures/hazards: No Cognitive needs: No Hearing needs: Yes Vision needs: Yes Questionnaire PHQ-9 Over the last 2 weeks, how often have you been bothered by any of the following problems? 1. Little interest or pleasure in doing things: nearly every day 2. Feeling down, depressed, or hopeless: not at all 3. Trouble falling or staying asleep, or sleeping too much: nearly every day 4. Feeling tired or having little energy: nearly every day 5. Poor appetite or overeating: not at all 6. Feeling bad about yourself - or that you are a failure or have let yourself or your family down: not at all 7. Trouble concentrating on things, such as reading the newspaper or watching television: not at all 8. Moving or speaking so slowly that other people could have noticed. Or the opposite - being so fidgety or restless that you have been moving around a lot more than usual: not at all 9. Thoughts that you would be better off or of hurting yourself in some way: not at all Total score: 9 Depression Screening Interpretation: Positive Source: Developed by Drs. Ken Iyer, Hitesh Geller and colleagues, with an educational junie from [employer]. Thrive Questionnaire Date Thrive assessed: 07/19/22 AUDIT C Alcohol Use Questionnaire (AUDIT-C) 1. How often do you have a drink containing alcohol?: Never Total Score: 0 MATTHEW-7 AMB Questionnaire MATTHEW-7 Date MATTHEW - 7 assessed: 07/19/22 Source: Developed by Drs. Ken Iyer, Hitesh Geller and colleagues, with an educational junie from [employer]. Physical exam (Primary Care) Vital Signs: Last Vital Signs Pulse 76 01/23/23 14:07 BP 119/70 01/23/23 14:07 Pulse Ox 98 01/23/23 14:07 Oxygen Delivery Method Room Air 01/23/23 14:07 BMI result Body Mass Index 22.5 Tobacco/Smoking Status: Tobacco use Status Tobacco use date assessed 07/19/22 01/23/23 14:13 Patient Tobacco Use Status Never used Tobacco 01/23/23 14:13 e-Cigarette/Vaping Use Never Used 01/23/23 14:13 PHQ-9: PHQ-9 Score PHQ-9: Total score 9 01/23/23 14:14 Depression Screening Interpretation: Positive Thrive Assessment: Date of Thrive Assessment Date Thrive assessed 07/19/22 01/23/23 14:13 Const General: alert; No acute distress HENMT Other: Impacted cerumen left side Eyes Conjunctivae: conjunctivae normal Resp Auscultation: clear to auscultation bilaterally Cardio Other: Controlled rate irregular rate and rhythm GI Inspection: Yes normal to inspection Extrem General: Yes normal to inspection and No edema Office Procedures Cerumen Removal From which ear canal was the cerumen removed: left Removal: otoscope w/curette and cerumen loop/spoon Notes: patient tolerated procedure well, no complications and ear canal clear [id number] Wax Removal by Spoon/Curette Assessment and Plan Assessment & Plan (1) Chronic atrial fibrillation: Comment: Echo January 2017 aortic regurg, MR, TR moderate EF 40-45% December 2017 echo LV dysfunction 40-45% moderate AR, MR, May 2018 34-40% AR, MR, TR echo August 2018 moderate LV dysfunction September 2019 moderate to severe left ventricular dysfunction mild AR, Holter May 2018 pauses 3-5 second Code(s): I48.20 - Chronic atrial fibrillation, unspecified Plan: Continue with anticoagulation patient continues to follow-up with Cardiology and digoxin discontinued (2) HTN (hypertension): Code(s): I10 - Essential (primary) hypertension Qualifiers: Hypertension type: essential hypertension Qualified Code(s): I10 - Essential (primary) hypertension Plan: Continue with blood pressure medication. Decrease salt intake and exercise patient is taking valsartan 80 mg once a day metoprolol is 50 mg twice a day as per Cardiology (3) Nonischemic cardiomyopathy: Comment: 05/2022 EF 51 % Code(s): I42.8 - Other cardiomyopathies Plan: Continue with follow-up with cardiology low normal ejection fraction (4) Hypercholesterolemia: Code(s): E78.00 - Pure hypercholesterolemia, unspecified Plan: Avoid fried foods, chicken skin, eggs, butter margarine, pastries and meat. Be it pork or beef they have a lot of cholesterol patient is on pravastatin 20 mg once a day LDL goal of less than 130 (5) Obstructive sleep apnea: Comment: is on CPAP. Moderate to severe degree of sleep apnea. The AHI was 28/hr and oxygen jose was 82%. Code(s): G47.33 - Obstructive sleep apnea (adult) (pediatric) Plan: Continue with his CPAP more than 4 hours a night adjustment done by Neurology (6) GERD (gastroesophageal reflux disease): Code(s): K21.9 - Gastro-esophageal reflux disease without esophagitis Plan: Avoid the foods that causes that usually spicy foods, tomato products, juices, coffee, soda and foods that your sensitive to. After eating do not lie down, allow 3-4 hours before in lie down. And keep the head of bed above 30 degrees to avoid the acid from going up. (7) Generalized anxiety disorder: Code(s): F41.1 - Generalized anxiety disorder Plan: Continue with present medication (8) Ascending aorta dilatation: Comment: 4.1 cm 04/2021, May 2022The left ventricular systolic function is mildly decreased. The calculated ejection fraction is 51% by biplane method. - No obvious valvular pathology seen on this study. - There is mild dilatation of the ascending aorta measuring 4.00 cm. - The inferior vena cava is mildly dilated and does not collapse with inspiration. Code(s): I77.810 - Thoracic aortic ectasia Plan: This is continued to be monitored by Cardiology (9) Frontal lobe dementia: Code(s): G31.09 - Other frontotemporal neurocognitive disorder; F02.80 - Dementia in other diseases classified elsewhere, unspecified severity, without behavioral disturbance, psychotic disturbance, mood disturbance, and anxiety Plan: Neurology continues with donepezil (10) Impacted cerumen, left ear: Code(s): H61.22 - Impacted cerumen, left ear Plan: Scoop used TM intact left ear (11) Hearing deficit: Code(s): H91.90 - Unspecified hearing loss, unspecified ear Plan: Hearing test requested Orders: Orders Comprehensive Met. Panel 4 Months I48.20 - Chronic atrial fibrillation, unspecified B Type Natriuretic Peptide 4 Months I48.20 - Chronic atrial fibrillation, unspecified Complete Blood Count Auto Diff 6 Months E78.00 - Pure hypercholesterolemia, unspecified Comprehensive Met. Panel 6 Months E78.00 - Pure hypercholesterolemia, unspecified Free T4 (Free Thyroxine) 6 Months E78.00 - Pure hypercholesterolemia, unspecified Thyroid Stimulating Hormone 6 Months E78.00 - Pure hypercholesterolemia, unspecified Vitamin B12 and Folate 6 Months E78.00 - Pure hypercholesterolemia, unspecified Lipid Panel 6 Months E78.00 - Pure hypercholesterolemia, unspecified B Type Natriuretic Peptide 6 Months E78.00 - Pure hypercholesterolemia, unspecified Referrals Speech and Hearing Referral H91.90 - Unspecified hearing loss, unspecified ear Medications: New cholecalciferol (vitamin D3) 50 mcg PO DAILY 90 caps 3RF 90 days E55.9 - Vitamin D deficiency, unspecified, H91.90 - Unspecified hearing loss, unspecified ear B-complex with vitamin C 1 cap PO DAILY 30 caps 0RF H91.90 - Unspecified hearing loss, unspecified ear Coding Level of Care Code Est Pt Level 4 (77778) Diagnoses Chronic atrial fibrillation I48.20 HTN (hypertension) I10 Hypertension type: essential hypertension Nonischemic cardiomyopathy I42.8 Hypercholesterolemia E78.00 Obstructive sleep apnea G47.33 GERD (gastroesophageal reflux disease) K21.9 Generalized anxiety disorder F41.1 Ascending aorta dilatation I77.810 Frontal lobe dementia G31.09; F02.80 Impacted cerumen, left ear H61.22 Hearing deficit H91.90 CPT Codes Office Procedure - CPT: 03681-Ltx Wax Removal by Spoon/Curette ([id number]) Additional Codes PHQ-9 - 83579 - PHQ-9 Billing: Y ([id number])
[2023-01-23 14:07] VITALS: BP 119/70; PULSE 76; O2SAT 98; BMI 22.5
== END 2023-01-23 14:44 | disposition home or self-care (01) ==
PROVIDERS: Visit Provider Internal Medicine
DX: I10 Essential (primary) hypertension (principal); K21.9 Gastro-esophageal reflux disease without esophagitis; I48.20 Chronic atrial fibrillation, unspecified; H61.22 Impacted cerumen, left ear; I42.8 Other cardiomyopathies; I77.810 Thoracic aortic ectasia; G31.09 Other frontotemporal neurocognitive disorder; F02.80 Dementia in other diseases classified elsewhere, unspecified severity, without behavioral disturbance, psychotic disturbance, mood disturbance, and anxiety; E78.00 Pure hypercholesterolemia, unspecified; G47.33 Obstructive sleep apnea (adult) (pediatric); F41.1 Generalized anxiety disorder
CPT/HCPCS: 69210; 99214

== ENCOUNTER 2023-02-27 11:23 | Outpatient (AMB) | payer MEDICARE, OTHER, SELFPAY ==
--- NOTE | 2023-02-27 11:29 | MHC.OFFVIS ---
Intake Vital Signs 02/27/23 11:34 Weight 158 lb 8 oz BP 110/80 Blood Pressure Location Lt brachial Position Sitting Pulse 55 Pulse Source Pulse Oximeter Pulse Oximetry (%) 97 Oxygen Delivery Method Room Air Intake Visit Reasons: 2 mnts f/u appt for sleep - Confirmed Intake Note: F/U IVY Special Education Preschool Teacher Required: No Allergies Kota Inhibitor Allergy (Intermediate, Verified 02/27/23 11:32) cough Diltiazem HCl CD Allergy (Unknown, Verified 02/27/23 11:32) unknown lisinopril Allergy (Unknown, Verified 02/27/23 11:32) cough dorzolamide Adverse Reaction (Intermediate, Verified 02/27/23 11:32) red eye HPI HPI Comments History of Present Illness Details 82 y/o male patient with Alzheimer and IVY presents with his for follow up of IVY and CPAP. Pt's reports that patient fell from bed couple of times at night and started melatonin. He is on melatonin 4 mg and he did not fall from bed since he start melatonin and sleeps better. The CPAP compliance and therapy response (11/29/22-02/26/23) reviewed. He is on CPAP at 8cmH2O. The usage days 100 % and the average usage hours 10 hrs 50 min. AHI was 13.8/hr, the apnea index was central 6.5 and obstructive 1.5. Pt's states that he is more alert during daytime than before. ON LICENSE OF [facility] Medical History Hypersomnia Anxiety Prostate cancer Aortic regurgitation CRVO (central retinal vein occlusion) GERD (gastroesophageal reflux disease) Obstructive sleep apnea Cholelithiasis Cognitive impairment Generalized anxiety disorder Insomnia History of prostate cancer Hypercholesterolemia Left bundle branch block Nonischemic cardiomyopathy HTN (hypertension) Chronic atrial fibrillation Surgical History Hx of cholecystectomy History of prostatectomy History of inguinal hernia repair Family History Father Diabetes Stroke Mother Diabetes Other Mental health disorder Substance use disorder Social History Housing: House Alcohol intake: never Patient Tobacco Use Status: Never used Tobacco e-Cigarette/Vaping Use: Never Used Second Hand Smoke Exposure: No service: No Current occupational status: retired Current occupational exposures/hazards: No Cognitive needs: No Hearing needs: Yes Vision needs: Yes Review of Systems Const All systems reviewed & are unremarkable except as noted in HPI and below Physical Exam Vital Signs: Last Vital Signs Pulse 55 02/27/23 11:34 BP 110/80 02/27/23 11:34 Pulse Ox 97 02/27/23 11:34 Oxygen Delivery Method Room Air 02/27/23 11:34 Const General: cooperative Nutritional Appearance: average body habitus Orientation/consciousness: patient oriented x3 Neck Neck: Yes full ROM and Yes supple Resp Effort & Inspection: normal respiratory effort and able to speak in complete sentences Neuro Other: hard of hearing. General: patient oriented x3 and moves all extremities Cranial nerves: Yes Normal facial strength present, Yes Midline tongue present, Yes Symmetric palate elevation present, Yes Ability to bilaterally rotate head present and Yes Ability to bilaterally elevate shoulders present Cognition (Neuro): normal cognition Psych Appearance: grossly normal Mental Status: mental status grossly normal Speech and movement: Normal speech and movement present Affect: Anxious affect present Attitude: cooperative Assessment & Plan Assessment & Plan (1) Obstructive sleep apnea: Comment: is on CPAP. Moderate to severe degree of sleep apnea. The AHI was 28/hr and oxygen jose was 82%. 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 Stressed compliance, use CPAP nightly and more than 4 hours. Continue to take melatonin 4 mg qHS to treat REM behavior. Advised patient to increase physical activity and engage more social and cognitive activities. Coding Level of Care Code Est Pt Level 3 (05447) Diagnoses Obstructive sleep apnea G47.33 Hypersomnia G47.10 REM behavioral disorder G47.52
[2023-02-27 11:34] VITALS: BP 110/80; PULSE 55; O2SAT 97
== END 2023-02-27 11:55 | disposition home or self-care (01) ==
PROVIDERS: PCP Internal Medicine; Visit Provider Nurse Practitioner Family
DX: G47.33 Obstructive sleep apnea (adult) (pediatric) (principal); G47.10 Hypersomnia, unspecified; G47.52 REM sleep behavior disorder
CPT/HCPCS: 99213

== ENCOUNTER → 2023-02-27 11:23 | Outpatient (BNVA) | payer MEDICARE, OTHER, SELFPAY | PROVIDERS: PCP Internal Medicine; Visit Provider Nurse Practitioner Family | DX: G30.9 Alzheimer's disease, unspecified (principal); G47.33 Obstructive sleep apnea (adult) (pediatric); R29.6 Repeated falls; Z99.89 Dependence on other enabling machines and devices | CPT/HCPCS: 99212 ==

== ENCOUNTER 2023-03-28 10:28 | Outpatient (AMB) | payer MEDICARE, OTHER, SELFPAY ==
[2023-03-28 10:31] VITALS: BP 114/70; PULSE 58; BMI 22.8
--- NOTE | 2023-03-28 10:31 | A.OFFVIS_ITS ---
Intake Vital Signs 03/28/23 10:31 Height 5 ft 10 in Weight 158 lb 11.725 oz BMI 22.8 BP 114/70 Blood Pressure Location Lt brachial Position Sitting Pulse 58 Intake Visit Reasons: 3 MOM FUP AFTER HOLTER +LABS. Intake Note: 3 month follow-up after holter feeling good Central Supply Clerk Required: No Fireworks Display Specialist: Fireworks Display Specialist Present Accompanied by: Spouse Allergies Kota Inhibitor Allergy (Intermediate, Verified 02/27/23 11:32) cough Diltiazem HCl CD Allergy (Unknown, Verified 02/27/23 11:32) unknown lisinopril Allergy (Unknown, Verified 02/27/23 11:32) cough dorzolamide Adverse Reaction (Intermediate, Verified 02/27/23 11:32) red eye Medication List - Last Reconciled 03/28/23 by Mor Mehta MD B-complex with vitamin C 1 cap PO DAILY cholecalciferol (vitamin D3) 50 mcg PO DAILY 90 days [CPAP As directed] dabigatran etexilate (Pradaxa) 150 mg PO BID 90 days donepezil 5 mg PO BEDTIME melatonin 4 mg PO PRN memantine 5 mg PO BID metoprolol tartrate 50 mg (1/2 x 100 mg) PO BID 90 days pravastatin 20 mg PO DAILY sertraline 50 mg PO valsartan 80 mg PO DAILY HPI HPI Comments History of Present Illness Details Ki comes for follow-up. He is accompanied by his . He continues to have cognitive issues. However with exercise activities doing very well. Denies any exertional chest pain or shortness of breath. No orthopnea, PND, leg edema. Takes all his medications. No bleeding issues or neurologic events. No falls. His most recent Holter monitor shows good rate control. [facility] Medical History Hypersomnia Anxiety Prostate cancer Aortic regurgitation CRVO (central retinal vein occlusion) GERD (gastroesophageal reflux disease) Obstructive sleep apnea Cholelithiasis Cognitive impairment Generalized anxiety disorder Insomnia History of prostate cancer Hypercholesterolemia Left bundle branch block Nonischemic cardiomyopathy HTN (hypertension) Chronic atrial fibrillation Surgical History Hx of cholecystectomy History of prostatectomy History of inguinal hernia repair Family History Father Diabetes Stroke Mother Diabetes Other Mental health disorder Substance use disorder Social History Housing: House Alcohol intake: never Patient Tobacco Use Status: Never used Tobacco e-Cigarette/Vaping Use: Never Used Second Hand Smoke Exposure: No service: No Current occupational status: retired Current occupational exposures/hazards: No Cognitive needs: No Hearing needs: Yes Vision needs: Yes Review of Systems Const Denies chills, Denies fatigue, Denies fever(s), Denies frequent falls, Denies weakness, Denies weight gain and Denies weight loss ENT Denies dizziness Card Denies chest pain, Denies leg edema, Denies lightheadedness, Denies palpitations, Denies dyspnea, Denies dyspnea on exertion, Denies orthopnea and Denies other (loss of consciousness) Resp Denies cough, Denies dyspnea and Denies dyspnea on exertion GI Denies hematochezia and Denies change in stool character Musc Denies abnormal gait, Denies muscle weakness, Denies numbness, Denies radiating pain into limb and Denies tingling Neuro Denies abnormal gait, Denies dizziness, Denies frequent falls, Denies numbness, Denies tingling and Denies weakness Endo Denies fatigue and Denies palpitations Physical Exam Vital Signs: Last Vital Signs Pulse 58 03/28/23 10:31 BP 114/70 03/28/23 10:31 BMI result Body Mass Index 22.8 Const General: cooperative, comfortable, no acute distress, alert, awake and well groomed Nutritional Appearance: thin Orientation/consciousness: patient oriented x3 Limitations: no limitations Neck Neck: Yes trachea midline, Yes supple and Yes no JVD Resp Effort & Inspection: normal respiratory effort Auscultation: clear to auscultation bilaterally Cardio Jugular venous distension: no JVD Rate: bradycardic Rhythm: abnormal rhythm irregularly irregular Heart sounds: S1 normal heart sound present and S2 normal heart sound present GI Auscultation: normal bowel sounds Skin General skin exam: no rashes or lesions noted and ecchymosis Neuro General: patient oriented x3 and no focal motor deficits Extrem General: Yes no clubbing, cyanosis or edema Psych Appearance: grossly normal Assessment & Plan Assessment & Plan (1) Chronic atrial fibrillation: Comment: Echo January 2017 aortic regurg, MR, TR moderate EF 40-45% December 2017 echo LV dysfunction 40-45% moderate AR, MR, May 2018 34-40% AR, MR, TR echo August 2018 moderate LV dysfunction September 2019 moderate to severe left ventricular dysfunction mild AR, Holter May 2018 pauses 3-5 second Code(s): I48.20 - Chronic atrial fibrillation, unspecified Plan: Chronic now rate control atrial fibrillation on metoprolol therapy. Has failed rhythm control approach. Continue full oral anticoagulation with Pradaxa 150 mg b.i.d. which is tolerated well. Quarterly renal function test should be pursued for guiding the dose of Pradaxa. For any GFR less than 30 mL/minute Pradaxa can be reduced to 75 mg b.i.d.. (2) Cardiomyopathy: Code(s): I42.9 - Cardiomyopathy, unspecified Plan: Prior cardiomyopathy with [id number] LV systolic dysfunction. Clinically LV ejection fraction is improved to 51% on current neurohormonal modulation with metoprolol and valsartan. Continue the same. No signs or symptoms of heart failure. These were discussed with the patient patient's . Continue aggressive rate control approach as above. (3) Ascending aorta dilatation: Comment: 4.1 cm 04/2021, May 2022The left ventricular systolic function is mildly decreased. The calculated ejection fraction is 51% by biplane method. - No obvious valvular pathology seen on this study. - There is mild dilatation of the ascending aorta measuring 4.00 cm. - The inferior vena cava is mildly dilated and does not collapse with inspiration. Code(s): I77.810 - Thoracic aortic ectasia Plan: Mild ascending aortic enlargement. Will continue monitor by echocardiogram. Follow-up in 1 year's time. Continue aggressive blood pressure control which is currently well optimized. Follow up in the clinic in 1 year's time, sooner p.r.n.. Thank you for allowing me to partake in his care Coding Level of Care Code Est Pt Level 4 (39946) Diagnoses Chronic atrial fibrillation I48.20 Cardiomyopathy I42.9 Ascending aorta dilatation I77.810
== END 2023-03-28 10:54 | disposition home or self-care (01) ==
PROVIDERS: PCP Internal Medicine; Visit Provider Internal Medicine Cardiovascular Disease
DX: I48.20 Chronic atrial fibrillation, unspecified (principal); I42.9 Cardiomyopathy, unspecified; I77.810 Thoracic aortic ectasia
CPT/HCPCS: 99214

== ENCOUNTER → 2023-03-28 10:28 | Outpatient (BNVA) | payer MEDICARE, OTHER, SELFPAY | PROVIDERS: PCP Internal Medicine; Visit Provider Internal Medicine Cardiovascular Disease | DX: I48.20 Chronic atrial fibrillation, unspecified (principal); I42.9 Cardiomyopathy, unspecified; I77.810 Thoracic aortic ectasia; Z79.01 Long term (current) use of anticoagulants | CPT/HCPCS: 99212 ==

== ENCOUNTER 2023-05-11 12:10 | Outpatient (REF) | payer MEDICARE, OTHER, SELFPAY ==
[2023-05-11 14:10] LABS: B Type Natriuretic Peptide 481 pg/mL (<100)
[2023-05-11 14:13] LABS: Alanine Aminotransferase 23 U/L (0-40); Alkaline Phosphatase 92 U/L (39-117); Anion Gap 9 (12-20); Aspartate Amino Transferase 26 U/L (5-37); Bilirubin Total 0.4 mg/dL (0.0-1.0); Blood Urea Nitrogen 21 mg/dL (9-16); Calcium 9.5 mg/dL (8.4-10.2); Carbon Dioxide 32 mmol/L (22-29); Chloride 104 mmol/L (96-108); Estimated Glomerular Filt Rate 52; Glucose Random 126 mg/dL (60-115); Potassium 4.5 mmol/L (3.3-5.1); Sodium 140 mmol/L (135-145); Total Protein 7.5 g/dL (6.5-8.0)
== END 2023-05-11 12:11 | disposition home or self-care (01) ==
LOC: HO.HMGCLDS 12:10
PROVIDERS: PCP Internal Medicine; Visit Provider Internal Medicine
DX: I48.20 Chronic atrial fibrillation, unspecified (principal)
CPT/HCPCS: 36415; 80053; 83880

== ENCOUNTER 2023-06-07 14:25 | Outpatient (REF) | payer MEDICARE, OTHER, SELFPAY ==
--- NOTE | 2023-06-08 07:44 | MHC.AU.HA3 ---
Hearing Instrument Follow-Up- Binaural Date of Visit: 06/07/23 Right Ear: Karl, Model, Color, Serial Number: Curt Florez P [id number] SN: [id number] Color: Black Loom Inspector Repair Warranty: 05/21/2024 Loom Inspector Loss and Damage Warranty: 05/21/2024 [facility] Service Plan: 05/21/2024 Battery Size: 13 Orthodontic Lab Technician/Slim Tube: 2M Earmold/Dome/CShell/SlimTip:Small power dome with retention tail Type of Wax Guard: CeruShield Dispensed By: [facility] Date of Fittin03/02/2021 Left Ear: Karl, Model, Color, Serial Number: Curt Florez P 90-13T SN: [id number] Color: Black Loom Inspector Repair Warranty: 05/21/2024 Loom Inspector Loss and Damage Warranty: 05/21/2024 [facility] Service Plan: 05/21/2024 Battery Size: 13 Orthodontic Lab Technician/Slim Tube: 2M Earmold/Dome/CShell/SlimTip: Medium power dome with retention tail Type of Wax Guard: CeruShield Dispensed By: [facility] Date of Fittin03/02/2021 Follow-Up Summary: Ki returned for routine hearing aid maintenance following an updated hearing test. Hearing thresholds are stable; however, speech discrimination has decreased. Upon inspection, left hearing aid was not working due to occluded wax guard and retention tail was not on properly. Cleaned both hearing aids. Replaced domes, wax guards, and retention tails. Vacuumed microphones. Ran through dehumidifier. A listening check demonstrated hearing aids are amplifying clearly. Ki noticed an immediate improvement in sound quality after cleaning. Did not make programming adjustments as hearing is stable. Ki has dementia and his , Angela, inserts/removes and cleans the hearing aids for him. Reinstructed Angela on how to change wax guards and domes. Angela reported that they had been using EarWax MD drops 1x/month as recommended at last appointment. She is unsure if the drops are effective. Otoscopy clear today as Ki recently had wax removed at his PCP's office. Recommended discontinuing drops for now and will reassess at next appointment. Reviewed end of warranty on 05/21/2024 Bebeto Miller will schedule one additional clean and check in about 9 months prior to the warranty expiring. Recommendations: Hearing instrument follow-up or maintenance as needed. Please contact our clinic with any questions or concerns. Diagnosis Code(s): Primary Diagnosis: H90.3 Bilateral Sensorineural Hearing Loss Signature: Provider: Aryan Morales, [facility]
== END 2023-06-07 14:26 | disposition home or self-care (01) ==
LOC: HO.SH 14:25
PROVIDERS: Visit Provider Internal Medicine
DX: Z01.118 Encounter for examination of ears and hearing with other abnormal findings (principal); H90.3 Sensorineural hearing loss, bilateral
CPT/HCPCS: 92552; 92556

== ENCOUNTER 2023-06-14 11:58 | Outpatient (REF) | payer MEDICARE, OTHER, SELFPAY ==
[2023-06-14 14:19] LABS: Prostate Specific Antigen < 0.10 ng/mL (<0.05-4.0)
== END 2023-06-14 11:59 | disposition home or self-care (01) ==
LOC: HO.HMGCLDS 11:58
PROVIDERS: PCP Internal Medicine; Visit Provider Urology
DX: C61 Malignant neoplasm of prostate (principal); Z12.5 Encounter for screening for malignant neoplasm of prostate
CPT/HCPCS: 36415; 84153

== ENCOUNTER 2023-06-20 10:55 | Outpatient (AMB) | payer MEDICARE, OTHER, SELFPAY ==
--- NOTE | 2023-06-20 11:00 | MHC.OFFVIS ---
Intake Intake Visit Reasons: 1Y PSA(SET) Intake Note: Patient is Present for Follow Up PSA Urology Medication: None Antibiotic Allergies:None Blood Thinners:none Allergies Kota Inhibitor Allergy (Intermediate, Verified 06/20/23 11:03) cough Diltiazem HCl CD Allergy (Unknown, Verified 06/20/23 11:03) unknown lisinopril Allergy (Unknown, Verified 06/20/23 11:03) cough dorzolamide Adverse Reaction (Intermediate, Verified 06/20/23 11:03) red eye HPI HPI Comments History of Present Illness Details Ki is a pleasant male. He is a patient of Dr. Boyd. He is seen for following urologic conditions - prostate cancer - microscopic hematuria Stable bladder emptying Continues to encourage 4 glasses of water per day P.r.n. follow-up Microscopic hematuria Imaging - 06/19 renal ultrasound bilateral cysts, bilateral scattered echogenic foci Cytology - 06/19 NAD On anticoagulation - afib Prostate cancer - radical prostatectomy 2001 Radical prostatectomy 2001 - Per the does have some developing dementia PSA remains undetectable Has been on yearly review PSA 05/18 <0.1, 06/20 <0.1 Prior evaluation for hematuria negative Prior nocturia which responded to CPAP for sleep apnea PFSH Medical History Hypersomnia Anxiety Prostate cancer Aortic regurgitation CRVO (central retinal vein occlusion) GERD (gastroesophageal reflux disease) Obstructive sleep apnea Cholelithiasis Cognitive impairment Generalized anxiety disorder Insomnia History of prostate cancer Hypercholesterolemia Left bundle branch block Nonischemic cardiomyopathy HTN (hypertension) Chronic atrial fibrillation Surgical History Hx of cholecystectomy History of prostatectomy History of inguinal hernia repair Family History Father Diabetes Stroke Mother Diabetes Other Mental health disorder Substance use disorder Social History Housing: House Alcohol intake: never Patient Tobacco Use Status: Never used Tobacco e-Cigarette/Vaping Use: Never Used Second Hand Smoke Exposure: No service: No Current occupational status: retired Current occupational exposures/hazards: No Cognitive needs: No Hearing needs: Yes Vision needs: Yes Review of Systems Const Denies chills and Denies fever(s) Card Reports no additional complaints and Denies syncope Resp Denies cough GI Denies abdominal pain and Denies heartburn Reports as per HPI and Denies change in libido Neuro Denies syncope Psych Denies change in libido Endo Denies change in libido Physical Exam Const General: cooperative, healthy appearing, comfortable and no acute distress Orientation/consciousness: patient oriented x3 HEENT Face and sinus: Yes normal facial exam Mouth: moist mucous membranes Neck Neck: Yes normal visual inspection, Yes full ROM and Yes trachea midline Chest Chest palpation & inspection: normal inspection of the chest Resp Effort & Inspection: normal respiratory effort, able to speak in complete sentences and no respiratory distress GI Inspection: Yes normal to inspection Back/Spine/Pelvis Cervical Spine: normal cervical lordosis Thoracic/Lumbar Spine: thoracic and lumbar spine normal to inspection Skin General skin exam: no rashes or lesions noted Neuro General: patient oriented x3, gait normal, tone normal and moves all extremities Extrem General: Yes normal to inspection and Yes capillary refill normal Assessment & Plan Assessment & Plan (1) Microscopic hematuria: Code(s): R31.29 - Other microscopic hematuria Plan P.r.n. follow-up Patient Instructions: Imaging studies, laboratory and physical exam results were discussed and reviewed in detail. No major barriers to patient understanding were identified. An opportunity to ask questions regarding the treatment plan was provided. All questions were answered. The patient expressed understanding and agreement with the above treatment plan. The patient is aware they should contact our office by phone for worsening of their current condition or the appearance of new urologic symptoms. Compliance is encouraged with any medications and followup testing that is ordered. It is a privilege to participate in the urologic care of your patient. If you have any questions or concerns regarding treatment for the above conditions, or other urologic issues, please do not hesitate to contact me. The office telephone contact is [phone]. This note is constructed using voice recognition software. While every effort has been made to ensure accuracy electronic engineering technician errors may have been included. Yours sincerely, Dr Leeroy Abraham MD, [facility] - Urology Providers of Expert, Compassionate Care for the Genitourinary System Coding Level of Care Code Est Pt Level 4 (07663) Diagnoses Microscopic hematuria R31.29
== END 2023-06-20 11:27 | disposition home or self-care (01) ==
PROVIDERS: Visit Provider Urology
DX: R31.29 Other microscopic hematuria (principal)
CPT/HCPCS: 99213

== ENCOUNTER → 2023-06-20 10:55 | Outpatient (BNVA) | payer MEDICARE, OTHER, SELFPAY | PROVIDERS: Visit Provider Urology | DX: R31.29 Other microscopic hematuria (principal) | CPT/HCPCS: 99212 ==

== ENCOUNTER 2023-07-05 12:57 | Outpatient (AMB) | payer MEDICARE, OTHER, SELFPAY ==
--- NOTE | 2023-07-05 13:04 | A.OFFVIS_ITS ---
Intake Vital Signs 07/05/23 13:12 Height 5 ft 10 in Weight 162 lb 2 oz BMI 23.3 BP 120/80 Blood Pressure Location Lt brachial Position Sitting Pulse 61 Pulse Source Pulse Oximeter Pulse Oximetry (%) 98 Oxygen Delivery Method Room Air Intake Visit Reasons: 4 mnts f/u appt - LVM Intake Note: Patient presents for 4 month f/u. occasionally has nightmares and knocks over CPAP machine. Called [employer] to change settings because the machine wasn't giving strong enough air flow like it use too Allergies Kota Inhibitor Allergy (Intermediate, Verified 07/05/23 13:11) cough Diltiazem HCl CD Allergy (Unknown, Verified 07/05/23 13:11) unknown lisinopril Allergy (Unknown, Verified 07/05/23 13:11) cough dorzolamide Adverse Reaction (Intermediate, Verified 07/05/23 13:11) red eye HPI HPI Comments History of Present Illness Details 83 y/o male patient with Alzheimer and O SA presents with his for follow up of IVY and CPAP. Pt's reports that patient's sleep behavior calmed down with melatonin 4 mg and no falls from bed. The CPAP compliance and therapy response (06/05/23-07/04/23) reviewed. He is on CPAP at 7 cmH2O. The usage days 100 % and the average usage hours 11 hrs. AHI was 20 /hr, the apnea index was central 11.5 and obstructive 5.3. Pt's states that he usually sleep well at night, but he still very tired and keeps falling asleep during daytime. FORMERLY [facility], [facility] Medical History Hypersomnia Anxiety Prostate cancer Aortic regurgitation CRVO (central retinal vein occlusion) GERD (gastroesophageal reflux disease) Obstructive sleep apnea Cholelithiasis Cognitive impairment Generalized anxiety disorder Insomnia History of prostate cancer Hypercholesterolemia Left bundle branch block Nonischemic cardiomyopathy HTN (hypertension) Chronic atrial fibrillation Surgical History Hx of cholecystectomy History of prostatectomy History of inguinal hernia repair Family History Father Diabetes Stroke Mother Diabetes Other Mental health disorder Substance use disorder Social History Housing: House Alcohol intake: never Patient Tobacco Use Status: Never used Tobacco e-Cigarette/Vaping Use: Never Used Second Hand Smoke Exposure: No service: No Current occupational status: retired Current occupational exposures/hazards: No Cognitive needs: No Hearing needs: Yes Vision needs: Yes Review of Systems Const All systems reviewed & are unremarkable except as noted in HPI and below Physical Exam Vital Signs: Last Vital Signs Pulse 61 07/05/23 13:12 BP 120/80 07/05/23 13:12 Pulse Ox 98 07/05/23 13:12 Oxygen Delivery Method Room Air 07/05/23 13:12 BMI result Body Mass Index 23.3 Const General: cooperative Nutritional Appearance: average body habitus Orientation/consciousness: patient oriented x3 Neck Neck: Yes full ROM and Yes supple Resp Effort & Inspection: normal respiratory effort and able to speak in complete sentences Neuro Other: hard of hearing. General: patient oriented x3 and moves all extremities Cranial nerves: Yes Normal facial strength present, Yes Midline tongue present, Yes Symmetric palate elevation present, Yes Ability to bilaterally rotate head present and Yes Ability to bilaterally elevate shoulders present Cognition (Neuro): normal cognition Psych Appearance: grossly normal Mental Status: mental status grossly normal Speech and movement: Normal speech and movement present Affect: Anxious affect present Attitude: cooperative Assessment & Plan Assessment & Plan (1) Obstructive sleep apnea: Comment: is on CPAP. Moderate to severe degree of sleep apnea. The AHI was 28/hr and oxygen jose was 82%. Code(s): G47.33 - Obstructive sleep apnea (adult) (pediatric) (2) Hypersomnia: Code(s): G47.10 - Hypersomnia, unspecified (3) REM behavioral disorder: Code(s): G47.52 - REM sleep behavior disorder Plan Pt already tried many different CPAP setting, but not helpful to treat his complex sleep apnea. Advised patient to try CPAP titration study to find optimal CPAP pressure. Continue to take melatonin 4 mg qHS to treat REM behavior. Advised patient to increase physical activity and engage more social and cognitive activities. Orders: Orders RT PSG in-lab sleep titration 07/05/23 G47.33 - Obstructive sleep apnea (adult) (pediatric) Coding Level of Care Code Est Pt Level 4 (94755) Diagnoses Obstructive sleep apnea G47.33 Hypersomnia G47.10 REM behavioral disorder G47.52
[2023-07-05 13:12] VITALS: BP 120/80; PULSE 61; O2SAT 98; BMI 23.3
== END 2023-07-05 13:38 | disposition home or self-care (01) ==
PROVIDERS: PCP Internal Medicine; Visit Provider Nurse Practitioner Family
DX: G47.33 Obstructive sleep apnea (adult) (pediatric) (principal); G47.10 Hypersomnia, unspecified; G47.52 REM sleep behavior disorder
CPT/HCPCS: 99214

== ENCOUNTER → 2023-07-05 12:57 | Outpatient (BNVA) | payer MEDICARE, OTHER, SELFPAY | PROVIDERS: PCP Internal Medicine; Visit Provider Nurse Practitioner Family | DX: G47.33 Obstructive sleep apnea (adult) (pediatric) (principal); G47.10 Hypersomnia, unspecified; G47.52 REM sleep behavior disorder | CPT/HCPCS: 99212 ==

== ENCOUNTER 2023-07-18 09:37 | Outpatient (REF) | payer MEDICARE, OTHER, SELFPAY ==
[2023-07-18 13:19] LABS: MANUAL DIFF FLAG NO
[2023-07-18 13:36] LABS: Basophils Percent Auto 0.3 % (0-2); Eosinophils Absolute Auto 0.3 X10*3/uL (0.0-0.4); Hematocrit 43.4 % (42.0-52.0); Hemoglobin 14.2 g/dl (14.0-18.0); Imm Gran Abs Auto 0.03 X10*3/uL (0.00-0.03); Imm Gran Pct Auto 0.4 % (0.0-0.4); Lymphocytes Absolute Auto 1.3 X10*3/uL (1.2-4.9); Lymphocytes Percent Auto 18.8 % (20-40); Mean Corpuscular HGB Conc 32.7 g/dl (31.0-36.0); Mean Corpuscular Hemoglobin 30.5 pg (27.0-33.0); Mean Corpuscular Volume 93.3 fL (80.0-98.0); Mean Platelet Volume 11.2 fL (9.4-12.4); Monocytes Absolute Auto 0.8 X10*3/uL (0.1-1.2); Neutrophils Absolute Auto 4.5 x10*3/uL (2.0-8.3); Neutrophils Percent Auto 65.5 % (45-73); Platelet Count 197 X10*3/uL (160-400); Red Blood Count 4.65 X10*6/uL (4.60-5.80); Red Cell Distribution Width 14.7 % (11.0-16.0); White Blood Count 6.9 X10*3/uL (4.8-10.8)
[2023-07-18 13:40] LABS: B Type Natriuretic Peptide 370 pg/mL (<100)
[2023-07-18 14:09] LABS: Alanine Aminotransferase 27 U/L (0-40); Albumin Level 4.1 g/dL (3.5-5.0); Alkaline Phosphatase 100 U/L (39-117); Anion Gap 13 (12-20); Aspartate Amino Transferase 31 U/L (5-37); Bilirubin Total 0.4 mg/dL (0.0-1.0); Blood Urea Nitrogen 22 mg/dL (9-16); Calcium 9.3 mg/dL (8.4-10.2); Carbon Dioxide 28 mmol/L (22-29); Chloride 104 mmol/L (96-108); Cholesterol 181 mg/dL (<200); Estimated Glomerular Filt Rate 55; Glucose Random 95 mg/dL (60-115); HDL Cholesterol 56 mg/dL (>40); LDL Cholesterol Calculated 104 mg/dL (<100); Potassium 4.1 mmol/L (3.3-5.1); Sodium 141 mmol/L (135-145); Total Protein 7.5 g/dL (6.5-8.0); Triglycerides 109 mg/dL (<150)
[2023-07-18 14:26] LABS: Free T4 (Free Thyroxine) 0.88 ng/dL (0.71-1.85); Thyroid Stimulating Hormone 3.21 uIU/mL (0.32-4.0)
[2023-07-18 14:50] LABS: Folate 14.5 ng/mL (> or = 4.0); Vitamin B12 759 pg/mL (200-900)
== END 2023-07-18 09:38 | disposition home or self-care (01) ==
LOC: HO.HMGCLDS 09:37
PROVIDERS: PCP Internal Medicine; Visit Provider Internal Medicine
DX: E78.00 Pure hypercholesterolemia, unspecified (principal)
CPT/HCPCS: 36415; 80053; 80061; 82607; 82746; 83880; 84439; 84443; 85025

== ENCOUNTER 2023-07-26 12:59 | Outpatient (AMB) | payer MEDICARE, OTHER, SELFPAY ==
[2023-07-26 13:00] VITALS: BP 122/70; PULSE 60; BMI 22.7
--- NOTE | 2023-07-26 13:00 | A.OFFPC_ITS ---
Vital Signs 07/26/23 13:00 Height 5 ft 10 in Weight 158 lb 0.8 oz BMI 22.7 BP 122/70 Blood Pressure Location Lt brachial Position Sitting Pulse 60 Pulse Source Pulse Oximeter Oxygen Delivery Method Room Air Intake Visit Reasons: 6mth f/u Intake Note: Patient is here to follow up on 6 months Water Pollution Specialist Required: No Allergies Kota Inhibitor Allergy (Intermediate, Verified 07/26/23 13:01) cough Diltiazem HCl CD Allergy (Unknown, Verified 07/26/23 13:01) unknown lisinopril Allergy (Unknown, Verified 07/26/23 13:01) cough dorzolamide Adverse Reaction (Intermediate, Verified 07/26/23 13:01) red eye Tobacco use date assessed: 07/26/23 Fall risk assessment: 1 Fall in past year (05/31/2023) Last assessed Fall Risk: 07/26/23 Dental Screening Dental Screen Date: 07/26/23 HPI 6mth f/u HPI Details 83-year-old male with frontal lobe demen tia, generalized anxiety disorder chronic atrial fibrillation hypertension nonischemic cardiomyopathy hypercholesterolemia obstructive sleep apnea GERD and ascending aorta dilatation coming in for follow-up. Last seen in December 2022. Patient follows up with Neurology very compliant with CPAP and has been advised to retest patient also follows up with urology yearly for the hematuria history of prostate cancer PSA remains undetectable. Patient also has followed up with Cardiology after the Holter exercise activity excellent Holter shows good rate control on metoprolol on Pradaxa quarterly renal function continue to monitor renal function left ventricular ejection fraction improved to 51% continue with metoprolol and valsartan May 2022 echocardiogram. fall out of bed february 07, 2023 concern about bruise R arm. had covid last year off cPAP PFSH Medical History Hypersomnia Anxiety Prostate cancer Aortic regurgitation CRVO (central retinal vein occlusion) GERD (gastroesophageal reflux disease) Obstructive sleep apnea Cholelithiasis Cognitive impairment Generalized anxiety disorder Insomnia History of prostate cancer Hypercholesterolemia Left bundle branch block Nonischemic cardiomyopathy HTN (hypertension) Chronic atrial fibrillation Surgical History Hx of cholecystectomy History of prostatectomy History of inguinal hernia repair Family History Father Diabetes Stroke Mother Diabetes Other Mental health disorder Substance use disorder Social History Housing: House Alcohol intake: never Patient Tobacco Use Status: Never used Tobacco e-Cigarette/Vaping Use: Never Used Second Hand Smoke Exposure: No service: No Current occupational status: retired Current occupational exposures/hazards: No Cognitive needs: No Hearing needs: Yes Vision needs: Yes Questionnaire Thrive Questionnaire Date Thrive assessed: 07/26/23 I am a: Patient What is your living situation today?: I have a steady place to live Within the past 12 months, did the food you bought not last and you didn't have the money to get more?: Never true Within the past 12 months, did you worry whether your food would run out before you got money to buy more?: Never true Do you have trouble paying for medicines?: No Do you have trouble getting transportation to medical appointments?: No Do you have trouble paying your heating and electricity bill?: No Do you have trouble taking care of your child, family member or friend?: No Do you have trouble with day-to-day activities such as bathing, preparing meals, shopping, managing finances, etc.?: No Are you currently unemployed and looking for a job?: No Are you interested in more education?: No Please select the resources that you would like help with: None THRIVE Score: 0 AUDIT C Alcohol Use Questionnaire (AUDIT-C) 1. How often do you have a drink containing alcohol?: Never Total Score: 0 MATTHEW-7 AMB Questionnaire MATTHEW-7 Date MATTHEW - 7 assessed: 07/26/23 Source: Developed by Drs. Ken Iyer, Marycruz Tovar, Hitesh Thompson and colleagues, with an educational junie from [employer]. Physical exam (Primary Care) Vital Signs: Last Vital Signs Pulse 60 07/26/23 13:00 BP 122/70 07/26/23 13:00 Oxygen Delivery Method Room Air 07/26/23 13:00 BMI result Body Mass Index 22.7 Tobacco/Smoking Status: Tobacco use Status Tobacco use date assessed 07/26/23 07/26/23 13:10 Patient Tobacco Use Status Never used Tobacco 07/26/23 13:10 e-Cigarette/Vaping Use Never Used 07/26/23 13:10 Thrive Assessment: Date of Thrive Assessment Date Thrive assessed 07/26/23 07/26/23 13:10 Const General: alert; No acute distress Eyes Conjunctivae: conjunctivae normal Resp Auscultation: clear to auscultation bilaterally Cardio Rate: regular rate Rhythm: regular rhythm GI Inspection: Yes normal to inspection Extrem General: Yes normal to inspection and No edema Assessment and Plan Assessment & Plan (1) Chronic atrial fibrillation: Comment: Echo January 2017 aortic regurg, MR, TR moderate EF 40-45% December 2017 echo LV dysfunction 40-45% moderate AR, MR, May 2018 34-40% AR, MR, TR echo August 2018 moderate LV dysfunction September 2019 moderate to severe left ventricular dysfunction mild AR, Holter May 2018 pauses 3-5 second Code(s): I48.20 - Chronic atrial fibrillation, unspecified Plan: Continue with anticoagulation quarterly renal function (2) HTN (hypertension): Code(s): I10 - Essential (primary) hypertension Qualifiers: Hypertension type: essential hypertension Qualified Code(s): I10 - Essential (primary) hypertension Plan: Continue with blood pressure medication. Decrease salt intake and exercise presently on valsartan 80 mg once a day metoprolol 50 mg twice a day (3) Nonischemic cardiomyopathy: Comment: 05/2022 EF 51 % Code(s): I42.8 - Other cardiomyopathies Plan: Patient is continuously being monitored by Cardiology and echocardiogram will be ordered (4) Hypercholesterolemia: Code(s): E78.00 - Pure hypercholesterolemia, unspecified Plan: Avoid fried foods, chicken skin, eggs, butter margarine, pastries and meat. Be it pork or beef they have a lot of cholesterol on pravastatin 20 mg once a day (5) Obstructive sleep apnea: Comment: is on CPAP. Moderate to severe degree of sleep apnea. The AHI was 28/hr and oxygen jose was 82%. Code(s): G47.33 - Obstructive sleep apnea (adult) (pediatric) Plan: Patient being followed up with Neurology and advised to repeat testing (6) GERD (gastroesophageal reflux disease): Code(s): K21.9 - Gastro-esophageal reflux disease without esophagitis Plan: Avoid the foods that causes that usually spicy foods, tomato products, juices, coffee, soda and foods that your sensitive to. After eating do not lie down, allow 3-4 hours before in lie down. And keep the head of bed above 30 degrees to avoid the acid from going up. (7) Prostate cancer: Comment: 2001 radical prostatectomy Code(s): C61 - Malignant neoplasm of prostate Plan: Continue to follow-up with urology (8) Generalized anxiety disorder: Code(s): F41.1 - Generalized anxiety disorder Plan: Continue with present medication (9) Ascending aorta dilatation: Comment: 4.1 cm 04/2021, May 2022The left ventricular systolic function is mildly decreased. The calculated ejection fraction is 51% by biplane method. - No obvious valvular pathology seen on this study. - There is mild dilatation of the ascending aorta measuring 4.00 cm. - The inferior vena cava is mildly dilated and does not collapse with inspiration. Code(s): I77.810 - Thoracic aortic ectasia Plan: Continue to be monitored by echocardiogram (10) Frontal lobe dementia: Code(s): G31.09 - Other frontotemporal neurocognitive disorder; F02.80 - Dementia in other diseases classified elsewhere, unspecified severity, without behavioral disturbance, psychotic disturbance, mood disturbance, and anxiety Plan: Patient placed on memantine and donepezil under neurology. Orders: Orders Comprehensive Met. Panel 3 Months I48.20 - Chronic atrial fibrillation, unspecified Complete Blood Count Auto Diff 3 Months I48.20 - Chronic atrial fibrillation, unspecified Coding Level of Care Code Est Pt Level 4 (96419) Diagnoses Chronic atrial fibrillation I48.20 Essential hypertension I10 Hypertension type: essential hypertension Nonischemic cardiomyopathy I42.8 Hypercholesterolemia E78.00 Obstructive sleep apnea G47.33 GERD (gastroesophageal reflux disease) K21.9 Prostate cancer C61 Generalized anxiety disorder F41.1 Ascending aorta dilatation I77.810 Frontal lobe dementia G31.09; F02.80
== END 2023-07-26 13:54 | disposition home or self-care (01) ==
PROVIDERS: PCP Internal Medicine; Visit Provider Internal Medicine
DX: I48.20 Chronic atrial fibrillation, unspecified (principal); I42.8 Other cardiomyopathies; C61 Malignant neoplasm of prostate; I77.810 Thoracic aortic ectasia; G31.09 Other frontotemporal neurocognitive disorder; F02.80 Dementia in other diseases classified elsewhere, unspecified severity, without behavioral disturbance, psychotic disturbance, mood disturbance, and anxiety; I10 Essential (primary) hypertension; E78.00 Pure hypercholesterolemia, unspecified; G47.33 Obstructive sleep apnea (adult) (pediatric); K21.9 Gastro-esophageal reflux disease without esophagitis; F41.1 Generalized anxiety disorder
CPT/HCPCS: 99214

== ENCOUNTER → 2023-07-31 19:30 | Outpatient (REF) | payer MEDICARE, OTHER, SELFPAY | LOC: HO.SL 19:30 | PROVIDERS: PCP Internal Medicine; Visit Provider Nurse Practitioner Family | DX: G47.33 Obstructive sleep apnea (adult) (pediatric) (principal) | CPT/HCPCS: 95811 ==

== ENCOUNTER → 2023-07-31 21:08 | Outpatient (BNV) | payer MEDICARE, OTHER, SELFPAY | PROVIDERS: PCP Internal Medicine; Visit Provider Psychiatry & Neurology Neurology | DX: G47.33 Obstructive sleep apnea (adult) (pediatric) (principal) | CPT/HCPCS: 95811 ==

== ENCOUNTER → 2023-09-16 19:30 | Outpatient (REF) | payer MEDICARE, OTHER, SELFPAY | LOC: HO.SL 19:30 | PROVIDERS: PCP Internal Medicine; Visit Provider Nurse Practitioner Family | DX: G47.33 Obstructive sleep apnea (adult) (pediatric) (principal) | CPT/HCPCS: 95811 ==

== ENCOUNTER → 2023-09-16 20:23 | Outpatient (BNV) | payer MEDICARE, OTHER, SELFPAY | PROVIDERS: PCP Internal Medicine; Visit Provider Psychiatry & Neurology Neurology | DX: G47.33 Obstructive sleep apnea (adult) (pediatric) (principal) | CPT/HCPCS: 95811 ==

== ENCOUNTER 2023-10-18 11:20 | Outpatient (REF) | payer MEDICARE, OTHER, SELFPAY ==
[2023-10-18 13:16] LABS: MANUAL DIFF FLAG NO
[2023-10-18 13:29] LABS: Basophils Percent Auto 0.3 % (0-2); Eosinophils Absolute Auto 0.3 X10*3/uL (0.0-0.4); Hematocrit 42.3 % (42.0-52.0); Imm Gran Abs Auto 0.02 X10*3/uL (0.00-0.03); Imm Gran Pct Auto 0.3 % (0.0-0.4); Lymphocytes Absolute Auto 0.9 X10*3/uL (1.2-4.9); Lymphocytes Percent Auto 14.8 % (20-40); Mean Corpuscular HGB Conc 33.1 g/dl (31.0-36.0); Mean Corpuscular Hemoglobin 30.8 pg (27.0-33.0); Mean Corpuscular Volume 93.2 fL (80.0-98.0); Mean Platelet Volume 10.9 fL (9.4-12.4); Monocytes Absolute Auto 0.5 X10*3/uL (0.1-1.2); Neutrophils Absolute Auto 4.6 x10*3/uL (2.0-8.3); Neutrophils Percent Auto 72.6 % (45-73); Platelet Count 190 X10*3/uL (160-400); Red Blood Count 4.54 X10*6/uL (4.60-5.80); Red Cell Distribution Width 14.3 % (11.0-16.0); White Blood Count 6.3 X10*3/uL (4.8-10.8)
[2023-10-18 13:51] LABS: Alanine Aminotransferase 34 U/L (0-40); Albumin Level 4.1 g/dL (3.5-5.0); Alkaline Phosphatase 87 U/L (39-117); Anion Gap 13 (12-20); Aspartate Amino Transferase 32 U/L (5-37); Bilirubin Total 0.4 mg/dL (0.0-1.0); Blood Urea Nitrogen 23 mg/dL (9-16); Calcium 9.7 mg/dL (8.4-10.2); Carbon Dioxide 28 mmol/L (22-29); Chloride 104 mmol/L (96-108); Estimated Glomerular Filt Rate 55; Glucose Random 121 mg/dL (60-115); Potassium 4.3 mmol/L (3.3-5.1); Sodium 141 mmol/L (135-145); Total Protein 7.3 g/dL (6.5-8.0)
== END 2023-10-18 11:21 | disposition home or self-care (01) ==
LOC: HO.HMGCLDS 11:20
PROVIDERS: PCP Internal Medicine; Visit Provider Internal Medicine
DX: I48.20 Chronic atrial fibrillation, unspecified (principal)
CPT/HCPCS: 36415; 80053; 85025

== ENCOUNTER 2024-01-09 13:16 | Outpatient (REF) | payer MEDICARE, OTHER, SELFPAY ==
[2024-01-09 16:26] LABS: Hematocrit 39.3 % (42.0-52.0); Hemoglobin 12.9 g/dl (14.0-18.0); Mean Corpuscular HGB Conc 32.8 g/dl (31.0-36.0); Mean Corpuscular Hemoglobin 30.9 pg (27.0-33.0); Mean Platelet Volume 10.9 fL (9.4-12.4); Platelet Count 199 X10*3/uL (160-400); Red Blood Count 4.18 X10*6/uL (4.60-5.80); Red Cell Distribution Width 15.3 % (11.0-16.0); White Blood Count 10.1 X10*3/uL (4.8-10.8)
[2024-01-09 16:43] LABS: Anion Gap 12 (12-20); Blood Urea Nitrogen 29 mg/dL (9-16); Calcium 9.5 mg/dL (8.4-10.2); Carbon Dioxide 23 mmol/L (22-29); Chloride 110 mmol/L (96-108); Estimated Glomerular Filt Rate 53; Glucose Random 78 mg/dL (60-115); Sodium 141 mmol/L (135-145)
[2024-01-09 17:03] LABS: B Type Natriuretic Peptide 1295 pg/mL (<100)
== END 2024-01-09 13:17 | disposition home or self-care (01) ==
LOC: HO.HMGCLDS 13:16
PROVIDERS: PCP Internal Medicine; Visit Provider Internal Medicine Cardiovascular Disease
DX: Z13.89 Encounter for screening for other disorder (principal)
CPT/HCPCS: 36415; 80048; 83880; 85027

== ENCOUNTER 2024-01-12 02:11 | Inpatient (IN) | payer MEDICARE, OTHER, SELFPAY ==
[2024-01-12] VITALS (12 sets, daily range): BP systolic 115–158; BP diastolic 86–105; PULSE 88–118; RESP 18–31; TEMP 36.1–37.3; O2SAT 91–99; BMI 22.8; BMI 22.9
--- NOTE | 2024-01-12 | ECG_ITS ---
Test Reason : WEAKNESS Blood Pressure : / mmHG Vent. Rate : 101 BPM Atrial Rate : 000 BPM P-R Int : 000 ms QRS Dur : 136 ms QT Int : 348 ms P-R-T Axes : 000 -41 126 degrees QTc Int : 451 ms Atrial fibrillation with rapid ventricular response with premature ventricular or aberrantly conducted complexes Left axis deviation Non-specific intra-ventricular conduction block Minimal voltage criteria for LVH, may be normal variant ( Syed product ) Possible Lateral infarct , age undetermined Abnormal ECG When compared with ECG of 08-APR-2014 15:29, Questionable change in QRS duration Borderline criteria for Lateral infarct are now Present Referred By: Generic ED Physician Electronically Signed By:DEIDRE PRATT
--- NOTE | ~2024-01-12 | XR_ITS ---
EXAMINATION: XR CHEST CLINICAL INFORMATION: Weakness. Tachycardia. Tachypnea. COMPARISON: 06/12/2012 TECHNIQUE: Frontal view of the chest was obtained. FINDINGS: The lung volumes are relatively low. The cardiac silhouette appears to be enlarged. There is pulmonary vascular congestion. There are basilar increased markings and faint lower lung field opacities. There is blunting of the costophrenic angles. The bony structures and soft tissues are unremarkable. XR/XR chest 1V IMPRESSION: The cardiac silhouette appears to be enlarged. There is pulmonary vascular congestion, bibasilar increased markings and faint lower lung field opacities. Consider interstitial edema. Developing infiltrates considered less likely. There is blunting of the costophrenic angles likely represent small pleural effusions.
[2024-01-12 02:46] LABS: MANUAL DIFF FLAG NO
[2024-01-12 02:47] LABS: Basophils Percent Auto 0.2 % (0-2); Hematocrit 36.4 % (42.0-52.0); Hemoglobin 12.2 g/dl (14.0-18.0); Imm Gran Abs Auto 0.06 X10*3/uL (0.00-0.03); Imm Gran Pct Auto 0.5 % (0.0-0.4); Lymphocytes Absolute Auto 0.6 X10*3/uL (1.2-4.9); Lymphocytes Percent Auto 4.8 % (20-40); Mean Corpuscular HGB Conc 33.5 g/dl (31.0-36.0); Mean Corpuscular Hemoglobin 31.2 pg (27.0-33.0); Mean Corpuscular Volume 93.1 fL (80.0-98.0); Mean Platelet Volume 10.3 fL (9.4-12.4); Monocytes Absolute Auto 0.6 X10*3/uL (0.1-1.2); Monocytes Percent Auto 5.4 % (2-11); Neutrophils Absolute Auto 10.2 x10*3/uL (2.0-8.3); Neutrophils Percent Auto 89.1 % (45-73); Platelet Count 204 X10*3/uL (160-400); Red Blood Count 3.91 X10*6/uL (4.60-5.80); Red Cell Distribution Width 15.7 % (11.0-16.0); White Blood Count 11.5 X10*3/uL (4.8-10.8)
[2024-01-12 02:53] LABS: INTERNATIONAL NORM RATIO 1.2 (0.9-1.1); Prothrombin Time 15.1 SEC (11.1-13.3)
[2024-01-12 02:55] LABS: Partial Thromboplastin Time 39.1 SEC (26.0-36.8)
[2024-01-12 02:58] LABS: Anion Gap 18 (12-20); Blood Urea Nitrogen 43 mg/dL (9-16); Calcium 9.9 mg/dL (8.4-10.2); Carbon Dioxide 19 mmol/L (22-29); Chloride 113 mmol/L (96-108); Creatinine Clr Calc Pharmacy 33.6; Estimated Glomerular Filt Rate 39; Glucose Random 179 mg/dL (60-115); Potassium 5.1 mmol/L (3.3-5.1); Sodium 145 mmol/L (135-145)
--- NOTE | 2024-01-12 03:16 | ED_ITS ---
HPI - General Adult General Chief complaint: General Medical Stated complaint: weakness/shaking-shivering Time Seen by Provider: 01/12/24 03:15 Source: family Mode of arrival: ambulatory History of Present Illness ED Provider: mary HPI narrative: Patient's history of dementia, anxiety, hypertension, chronic atrial fibrillation rate controlled on metoprolol on Pradaxa, cardiomyopathy brought by his for increased weakness tremors sweating feeling weak and tired on arrival patient noted to be in AFib with heart rate 110 denied any chest pain Related Data Home Medications ?Medication ?Instructions ?Recorded ?Confirmed sertraline 50 mg tablet 50 mg PO 06/26/22 03/28/23 donepezil 10 mg tablet 5 mg PO BEDTIME 07/19/22 03/28/23 melatonin 5 mg capsule 4 mg PO PRN 02/27/23 03/28/23 memantine 5 mg tablet 5 mg PO BID 03/28/23 03/28/23 Previous Rx's ?Medication ?Instructions ?Recorded CPAP #1 ea 10/26/20 B-complex with vitamin C 1 cap PO DAILY #30 caps 01/23/23 cholecalciferol (vitamin D3) 50 50 mcg PO DAILY 90 days #90 caps 01/23/23 mcg (2,000 unit) capsule dabigatran etexilate 150 mg 150 mg PO BID #180 caps 04/02/23 capsule (Pradaxa) metoprolol tartrate 50 mg tablet 50 mg PO BID 90 days #180 tabs 04/04/23 pravastatin 20 mg tablet 20 mg PO DAILY #90 tabs 07/06/23 valsartan 80 mg tablet 80 mg PO DAILY #90 tabs 08/07/23 trazodone 50 mg tablet 50 mg PO BEDTIME PRN sleep 30 days 08/31/23 #30 tabs Allergies Allergy/AdvReac Type Severity Reaction Status Date / Time Kota Inhibitor Allergy Intermediate cough Verified 01/12/24 02:20 Diltiazem HCl CD Allergy Unknown unknown Verified 01/12/24 02:20 lisinopril Allergy Unknown cough Verified 01/12/24 02:20 dorzolamide AdvReac Intermediate red eye Verified 01/12/24 02:20 Review of Systems 2 Review of Systems: Yes all other systems are reviewed and are negative PMFSH Past Medical History Medical History Hypersomnia Anxiety Prostate cancer Aortic regurgitation CRVO (central retinal vein occlusion) GERD (gastroesophageal reflux disease) Obstructive sleep apnea Cholelithiasis Cognitive impairment Generalized anxiety disorder Insomnia History of prostate cancer Hypercholesterolemia Left bundle branch block Nonischemic cardiomyopathy HTN (hypertension) Chronic atrial fibrillation Surgical History Hx of cholecystectomy History of prostatectomy History of inguinal hernia repair Family History Family History Father Diabetes Stroke Mother Diabetes Other Mental health disorder Substance use disorder Social History Social History Housing: House Alcohol intake: never Patient Tobacco Use Status: Never used Tobacco Smoked in Last 30 Days: No e-Cigarette/Vaping Use: Never Used Second Hand Smoke Exposure: No Use of substances other than those prescribed or required for medical reasons: No Advance Directives: No Advance Directives Information Provided: Yes Nutrition Risks: No Nutritional Risk service: No Current occupational status: retired Current occupational exposures/hazards: No Cognitive needs: No Hearing needs: Yes Vision needs: Yes Physical Exam ED Vital Signs: Vital Signs - 24 hr 01/12/24 02:13 01/12/24 03:46 01/12/24 03:49 Temperature 97.8 F 98.1 F Pulse Rate 112 H 106 H 109 H Respiratory Rate 20 29 H Blood Pressure 130/87 117/88 126/86 Pulse Oximetry 93 91 L Oxygen Delivery Method Room Air Room Air BMI result Body Mass Index 22.8 Appearance: Alert. Oriented X2-3. No acute distress. Eyes: PERRLA, No Nystagmus ENT: Pharynx normal. Oral Mucosa moist Neck: Normal inspection. Neck supple. CVS: Tachycardic irregularly irregular. Pulses normal. Respiratory: No respiratory distress. Equal air entry bilateral, bilateral rales at bases Abdomen: Soft and nontender. Bowel sounds are present, no mass palpable, no CVA tenderness Skin: Skin warm and dry. Normal skin color. Normal skin turgor. Extremities: No lower extremity edema. No calf tenderness Neuro: Oriented X 2-3. No motor deficit. No sensory deficit.No cerebellar signs , cranial nerves II-XII intact Medications Administered Discontinued Medications Generic Name Dose Route Start Last Admin Trade Name Freq PRN Reason Stop Dose Admin Diltiazem HCl 10 mg 01/12/24 03:23 01/12/24 03:46 Diltiazem Hcl 50 Mg/10 Ml Vial IVPUSH 01/12/24 03:24 10 mg STAT STA Administration Furosemide 60 mg 01/12/24 05:35 01/12/24 05:49 Furosemide 100 Mg/10 Ml Vial IVPUSH 01/12/24 05:36 60 mg ONCE ONE Administration Protocol Sodium Chloride 1,000 mls @ 999 mls/hr 01/12/24 03:25 01/12/24 04:46 Ns IV 01/12/24 04:25 Infused .Q1H1M ONE Infusion Metoprolol Tartrate 5 mg 01/12/24 05:04 01/12/24 05:16 Metoprolol Tartrate 5 Mg/5 Ml Vial IVPUSH 01/12/24 05:05 5 mg ONCE ONE Administration Protocol Medical Decision Making Medical Decision Making MDM Narrative: Atrial fibrillation with rapid ventricular rate with fluid overload with CHF responded to IV Cardizem and small dose of Lopressor. During stay in the ER patient became short of breath already seen by hospitalist was placed on CPAP will be admitted to the floor for CHF exacerbation with AFib with rapid VR patient's BNP has increased from 370 baseline to 1295 on 01/08 to 2146 today Differential Diagnosis Differential Diagnoses: The differential diagnosis associated with the presentation includes Admission/Observation Consideration of admission/observation: Escalation of care including admission/observation considered Consult Healthcare Provider Management of the patient was discussed with: Hospitalist Lab Data [facility] Lab Attestation statement: I reviewed the patient's lab results. 01/12/24 02:38 01/12/24 02:38 Labs: Lab Results 01/12/24 01/12/24 Range/Units 02:38 05:31 WBC 11.5 H (4.8-10.8) X10*3/uL RBC 3.91 L (4.60-5.80) X10*6/uL Hgb 12.2 L (14.0-18.0) g/dl Hct 36.4 L (42.0-52.0) % MCV 93.1 (80.0-98.0) fL MCH 31.2 (27.0-33.0) pg MCHC 33.5 (31.0-36.0) g/dl RDW 15.7 (11.0-16.0) % Plt Count 204 (160-400) X10*3/uL MPV 10.3 (9.4-12.4) fL Immature Gran % (Auto) 0.5 H (0.0-0.4) % Neut % (Auto) 89.1 H (45-73) % Lymph % (Auto) 4.8 L (20-40) % Clark % (Auto) 5.4 (2-11) % Eos % (Auto) 0.0 (0-4) % Baso % (Auto) 0.2 (0-2) % Lymph # (Auto) 0.6 L (1.2-4.9) X10*3/uL Clark # (Auto) 0.6 (0.1-1.2) X10*3/uL Eos # (Auto) 0.0 (0.0-0.4) X10*3/uL Baso # (Auto) 0.0 (0.0-0.2) X10*3/uL Abs Immat Gran (auto) 0.06 H (0.00-0.03) X10*3/uL Absolute Neuts (auto) 10.2 H (2.0-8.3) x10*3/uL Absolute Nucleated RBC 0.000 (0.0-0.012) X10*3/uL Nucleated RBC % (auto) 0.0 (0.0-0.2) /100WBC PT 15.1 H (11.1-13.3) SEC INR 1.2 H (0.9-1.1) APTT 39.1 H (26.0-36.8) SEC Sodium 145 (135-145) mmol/L Potassium 5.1 D (3.3-5.1) mmol/L Chloride 113 H (96-108) mmol/L Carbon Dioxide 19 L (22-29) mmol/L Anion Gap 18 (12-20) BUN 43 H (9-16) mg/dL Creatinine 1.68 H (0.5-1.4) mg/dL Estim Creat Clear Calc 33.6 Estimated GFR 39 Random Glucose 179 H (60-115) mg/dL Calcium 9.9 (8.4-10.2) mg/dL Magnesium 2.2 (1.6-2.6) mg/dL Total Bilirubin 0.7 (0.0-1.0) mg/dL Direct Bilirubin 0.3 (0.0-0.5) mg/dL AST 74 H (5-37) U/L ALT 91 H (0-40) U/L Alkaline Phosphatase 116 (39-117) U/L Troponin I High Sens 31.0 (<3.5-35.0) ng/L B-Natriuretic Peptide 2146 H (<100) pg/mL Total Protein 7.0 (6.5-8.0) g/dL Albumin 4.1 (3.5-5.0) g/dL COVID-19 ([facility]) Negative (Negative) COVID-19 Clin Com See Note Independent Interpretation I performed an independent interpretation of an: EKG and Plain X-Ray Interpretation: Atrial fibrillation with ventricular rate of 101 beats per minute left axis deviation LVH no acute STT wave changes no acute ischemia Radiology Impression Discussion of test interpretation with radiology: I have reviewed the radiologist's reading. Radiologist Impression: [place] [id number] XRay Report Signed Patient: Ki Tellez MR#: [id number] : 1940 Acct:[id number] Age/Sex: 83 / M ADM Date: 01/12/24 Loc: .ED Attending Dr: Ordering Physician: Generic ED Physician Date of Service: 01/12/24 Procedure(s): XR chest 1V Accession Number(s): [id number] cc: Generic ED Physician; Joleen Boyd MD~ EXAMINATION: XR CHEST CLINICAL INFORMATION: Weakness. Tachycardia. Tachypnea. COMPARISON: 06/12/2012 TECHNIQUE: Frontal view of the chest was obtained. FINDINGS: The lung volumes are relatively low. The cardiac silhouette appears to be enlarged. There is pulmonary vascular congestion. There are basilar increased markings and faint lower lung field opacities. There is blunting of the costophrenic angles. The bony structures and soft tissues are unremarkable. XR/XR chest 1V IMPRESSION: The cardiac silhouette appears to be enlarged. There is pulmonary vascular congestion, bibasilar increased markings and faint lower lung field opacities. Consider interstitial edema. Developing infiltrates considered less likely. There is blunting of the costophrenic angles likely represent small pleural effusions. Critical Care Time Critical Care Time Critical Care Time: Yes Total Critical Care Time: 55 Attestation: The patient was critically ill with a high probability of imminent or life threatening deterioration. I spent greater than 60???minutes of discontinuous time evaluating the patient,delivering critical care at the bedside, discussing and evaluating pertinent data with consultants. Critical care time does not include time spent performing separately billable procedures or teaching. Total time spent performing critical care was 55???minutes. Discharge Plan Discharge Clinical Impression: Atrial fibrillation with rapid ventricular response, Acute exacerbation of CHF (congestive heart failure) Patient Disposition: Admitted As Inpatient
[2024-01-12 03:40] LABS: Alanine Aminotransferase 91 U/L (0-40); Albumin Level 4.1 g/dL (3.5-5.0); Alkaline Phosphatase 116 U/L (39-117); Aspartate Amino Transferase 74 U/L (5-37); Bilirubin Direct 0.3 mg/dL (0.0-0.5); Bilirubin Total 0.7 mg/dL (0.0-1.0); Magnesium 2.2 mg/dL (1.6-2.6)
[2024-01-12] MEDS: 0.9 % Sodium Chloride 1,000 ML 999 ML IV (03:45)
[2024-01-12] MEDS: dilTIAZem HCL 50 MG/10 ML VIAL 10 MG IVPUSH (03:46)
[2024-01-12] MEDS: Metoprolol Tartrate 5 MG/5 ML VIAL IVPUSH ×2 (05:16→14:56)
--- NOTE | 2024-01-12 05:37 | P.HPHOSP_ITS ---
History of Present Illness Date of Service: 01/12/24 Chief Complaint: Dyspnea This is a 83-year-old male with pertinent history of chronic atrial fibrillation on Pradaxa, cardiomyopathy with moderate LV dysfunction, hypertension, unspecified dementia, IVY on CPAP, mood disorder, mixed hyperlipidemia who was brought to the emergency department for evaluation of dyspnea. Patient is a poor historian due to underlying dementia and history obtained with the help of at bedside. Patient does endorse dyspnea which is worse when lying flat. The states that she noticed that patient was extremely short of breath while was walking to the end of his driveway. The called anesthesia assistant's office and got outpatient blood work done. Patient continued to be short of breath throughout the week. Minimal cough. He was also found to be shaking. No fever or chills. He denies chest discomfort, abdominal pain or changes in urinary or bowel habits. In the emergency department, imaging with pulmonary edema and BNP found to be elevated. Patient also found to be in AFib with RVR Review of Systems 2 Review of Systems: Yes Unobtainable due to mental condition [facility] Medical History Hypersomnia Anxiety Prostate cancer Aortic regurgitation CRVO (central retinal vein occlusion) GERD (gastroesophageal reflux disease) Obstructive sleep apnea Cholelithiasis Cognitive impairment Generalized anxiety disorder Insomnia History of prostate cancer Hypercholesterolemia Left bundle branch block Nonischemic cardiomyopathy HTN (hypertension) Chronic atrial fibrillation Family History Father Diabetes Stroke Mother Diabetes Other Mental health disorder Substance use disorder Surgical History Hx of cholecystectomy History of prostatectomy History of inguinal hernia repair Social History Housing: House Alcohol intake: never Patient Tobacco Use Status: Never used Tobacco Smoked in Last 30 Days: No e-Cigarette/Vaping Use: Never Used Second Hand Smoke Exposure: No Use of substances other than those prescribed or required for medical reasons: No Advance Directives: No Advance Directives Information Provided: Yes Nutrition Risks: No Nutritional Risk service: No Current occupational status: retired Current occupational exposures/hazards: No Cognitive needs: No Hearing needs: Yes Vision needs: Yes Meds Allergies Allergy/AdvReac Type Severity Reaction Status Date / Time Kota Inhibitor Allergy Intermediate cough Verified 01/12/24 02:20 Diltiazem HCl CD Allergy Unknown unknown Verified 01/12/24 02:20 lisinopril Allergy Unknown cough Verified 01/12/24 02:20 dorzolamide AdvReac Intermediate red eye Verified 01/12/24 02:20 Home Medications ?Medication ?Instructions ?Recorded ?Confirmed ?Last Taken ?Type sertraline 50 mg tablet 50 mg PO 06/26/22 03/28/23 Unknown History donepezil 10 mg tablet 5 mg PO BEDTIME 07/19/22 03/28/23 Unknown History melatonin 5 mg capsule 4 mg PO PRN 02/27/23 03/28/23 Unknown History memantine 5 mg tablet 5 mg PO BID 03/28/23 03/28/23 Unknown History Physical Exam 2 Vital Signs and Narrative: Vital Signs: Last Vital Signs Temp 98.1 F 01/12/24 03:49 Pulse 109 H 01/12/24 03:49 Resp 29 H 01/12/24 03:49 BP 126/86 01/12/24 03:49 Pulse Ox 91 L 01/12/24 03:49 O2 Del Method Room Air 01/12/24 03:49 BMI result Body Mass Index 22.8 Elderly male lying in bed in no distress Neck supple Regular rate and rhythm, S1-S2 heard Bilateral crackles appreciated Abdomen soft nontender, no guarding, no rigidity Patient is awake, alert and oriented to self, disoriented to place, time and person ; no focal motor deficit Psych: Normal mood Minimal pedal edema Results Labs 01/12/24 02:38 01/12/24 02:38 Labs: Laboratory Results - last 24 hr 01/12/24 02:38 MCV 93.1 MCH 31.2 MCHC 33.5 RDW 15.7 Plt Count 204 MPV 10.3 Immature Gran % (Auto) 0.5 H Neut % (Auto) 89.1 H Lymph % (Auto) 4.8 L [place] % (Auto) 5.4 Eos % (Auto) 0.0 Baso % (Auto) 0.2 Lymph # (Auto) 0.6 L [place] # (Auto) 0.6 Eos # (Auto) 0.0 Baso # (Auto) 0.0 Abs Immat Gran (auto) 0.06 H Absolute Neuts (auto) 10.2 H Absolute Nucleated RBC 0.000 Nucleated RBC % (auto) 0.0 PT 15.1 H INR 1.2 H APTT 39.1 H Anion Gap 18 Estim Creat Clear Calc 33.6 Estimated GFR 39 Random Glucose 179 H Calcium 9.9 Magnesium 2.2 Total Bilirubin 0.7 Direct Bilirubin 0.3 AST 74 H ALT 91 H Alkaline Phosphatase 116 Troponin I High Sens 31.0 Total Protein 7.0 Albumin 4.1 Imaging Radiologist's Impressions: Impressions Chest X-Ray 01/12/24 02:50 IMPRESSION: The cardiac silhouette appears to be enlarged. There is pulmonary vascular congestion, bibasilar increased markings and faint lower lung field opacities. Consider interstitial edema. Developing infiltrates considered less likely. There is blunting of the costophrenic angles likely represent small pleural effusions. Assessment and Plan (1) CHF (congestive heart failure): Status: Acute (2) Atrial fibrillation with RVR: Status: Acute Plan This is a 83-year-old male with pertinent history of chronic atrial fibrillation on Pradaxa, cardiomyopathy with moderate LV dysfunction, hypertension, unspecified dementia, IVY on CPAP, mood disorder, mixed hyperlipidemia who was brought to the emergency department for evaluation of dyspnea. #. Acute decompensated congestive heart failure in a patient with cardiomyopathy with moderate LV dysfunction: Will admit patient and initiate IV diuresis. Strict I's and O's. Low-salt diet. Obtaining transthoracic echocardiogram. Patient on beta-roderick and ARB #. Chronic AFib with RVR in the setting of above: Patient given IV diltiazem and IV metoprolol in the ER. Continue to monitor. On Pradaxa #. Acute kidney injury stage I, cardiorenal type 1 in the setting of CHF: Monitor creatinine and urine output with IV diuresis. Avoid nephrotoxins. #. Hypertension: Continue home antihypertensives. Hold losartan in the setting of EMILY #. Reactive leukocytosis. No sepsis #. Dementia, unspecified: On memantine and donepezil. Maintain sleep-wake cycle #. IVY: Continue CPAP at bedtime #. Mixed hyperlipidemia: On statin #. Mood disorder: Continue home mood stabilizers Med rec pending DVT prophylaxis: Pradaxa DNR/DNI. Discussed with patient and at bedside Admit as inpatient and will require two night minimum hospital stay for IV diuresis, monitoring of kidney function (as above), which is not possible in a lesser acute setting. Quality Stroke Does the patient have a stroke diagnosis?: No VTE Prior VTE?: No VTE Risk Level:: Medical - moderate - high VTE Device Contraindication: Treatment Not Indicated VTE Drug Contraindication: N/A - Med Ordered
[2024-01-12] MEDS: Furosemide 100 MG/10 ML VIAL 60 MG IVPUSH (05:49)
[2024-01-12 05:51] LABS: COVID-19 Test Negative (Negative); IDNOW Serial# 6674DD1D
[2024-01-12 05:52] LABS: B Type Natriuretic Peptide 2146 pg/mL (<100)
--- NOTE | 2024-01-12 07:35 | PC.NURSE ---
patient in room ED 8, assumed care of patient at 0645. patient found in room yelling help, this RN went to bedside, patient cpap disconnected. patient cpap reconnected and patient coached on slow breathing, sats now 97% on cpap. patient order for casillas placement, attempted to place 14 fr after previous nurse has unsuccessful placement. This RN attempted Casillas insertion, unable to place casillas, small amount of blood noted after attempt. [place] cath placed on patient instead. patient noted to be in afib rate 100s-110s. patient now resting quietly in bed, cpap on. family at bedside
--- NOTE | 2024-01-12 08:51 | PM.EVENT ---
Event Note Date of Service: 01/12/24 Event Note: This is a 83-year-old male with pertinent history of chronic atrial fibrillation on Pradaxa, cardiomyopathy with moderate LV dysfunction, hypertension, unspecified dementia, IVY on CPAP, mood disorder, mixed hyperlipidemia who was brought to the emergency department for evaluation of dyspnea. Acute decompensated congestive heart failure in a patient with cardiomyopathy with moderate LV dysfunction IV diuresis. Strict I's and O's. Low-salt diet. transthoracic echocardiogram ordered Patient on beta-roderick and ARB cardiology consultation Chronic AFib with RVR in the setting of above Patient given IV diltiazem and IV metoprolol in the ER. continue metoprolol On Pradaxa Acute kidney injury stage I, cardiorenal type 1 in the setting of CHF Monitor creatinine and urine output with IV diuresis. Avoid nephrotoxins. Hypertension Continue home antihypertensives. Hold losartan in the setting of EMILY Reactive leukocytosis No sepsis Dementia, unspecified On memantine and donepezil. Maintain sleep-wake cycle IVY Continue CPAP at bedtime Mixed hyperlipidemia On statin Mood disorder Continue home mood stabilizers DVT prophylaxis: Fer Attending Dr. Chavez DNR/DNI. Discussed with patient and at bedside Admit as inpatient and will require two night minimum hospital stay for IV diuresis, monitoring of kidney function (as above), which is not possible in a lesser acute setting. Time Spent With Patient Time: Total time managing care of this patient today ____ minutes.
--- NOTE | 2024-01-12 08:56 | PHA.MEDREC ---
Addendum entered by Isak Sagastume RPh 01/12/24 09:20: [facility] reviewed Original Note: Pharmacy Consult ? Medication Reconciliation Pharmacy has completed the medication reconciliation. Spoke with Angela at bedside. She had a medication list from home. She confirmed his donepezil is cut in half for a TDD of 5 mg. Confirmed melatonin dose of 4 mg every night at bedtime. Patient is not taking trazodone. Angela says he normally takes his morning medications after his breakfast. He last had all of his medications yesterday and she also has the pills with her here too.
[2024-01-12 12:49] LABS: Appearance Urine Clear; Glucose Urine UA Negative (Negative); Leukocyte Esterase Urine Trace (Negative); Nitrite Urine Negative (Negative); UMIC TRIGGER UACC YES; Urine Blood Large (3+) (Negative); Urine Ketones Negative (Negative); Urine Protein Trace mg/dL (Neg-Trace)
[2024-01-12 12:50] LABS: Color Urine Yellow
[2024-01-12 12:51] LABS: Bacteria Urine None Seen (None Seen); Hyaline Casts Urine 0-2 /LPF (0-2); RBC Urine >20 /HPF (0-2); Squamous Epithelial Cell Urine 0-2 /HPF (0-2); UACC Culture Trigger YES
[2024-01-12] MEDS: Sertraline HCL 50 MG TABLET PO (13:30)
[2024-01-12] MEDS: Metoprolol Tartrate 50 MG TABLET PO ×2 (13:30→21:15)
[2024-01-12] MEDS: 0.9 % Sodium Chloride Flush 3 ML SYRINGE IVFLUSH ×2 (14:56→21:15)
[2024-01-12] MEDS: Dabigatran Etexilate Mesylate 150 MG CAPSULE PO (21:14)
[2024-01-12] MEDS: Donepezil HCl 5 MG TABLET PO (21:14)
[2024-01-12] MEDS: Melatonin 3 MG TABLET 6 MG PO (21:14)
[2024-01-12] MEDS: Acetaminophen 325 MG TABLET 650 MG PO (21:15)
[2024-01-12] MEDS: Memantine HCl 5 MG TABLET PO (21:15)
[2024-01-13] VITALS (7 sets, daily range): BP systolic 104–131; BP diastolic 70–93; PULSE 89–115; RESP 18–20; TEMP 36.3–36.9; O2SAT 93–98
[2024-01-13 01:58] LABS: Glucose, Whole Blood 143 mg/dL (60-115)
[2024-01-13 07:01] LABS: Hematocrit 38.6 % (42.0-52.0); Hemoglobin 12.7 g/dl (14.0-18.0); Mean Corpuscular HGB Conc 32.9 g/dl (31.0-36.0); Mean Corpuscular Hemoglobin 31.5 pg (27.0-33.0); Mean Corpuscular Volume 95.8 fL (80.0-98.0); Mean Platelet Volume 10.7 fL (9.4-12.4); Platelet Count 220 X10*3/uL (160-400); Red Blood Count 4.03 X10*6/uL (4.60-5.80); Red Cell Distribution Width 15.7 % (11.0-16.0); White Blood Count 14.3 X10*3/uL (4.8-10.8)
[2024-01-13 07:07] LABS: Anion Gap 22 (12-20); Blood Urea Nitrogen 60 mg/dL (9-16); Calcium 9.6 mg/dL (8.4-10.2); Carbon Dioxide 16 mmol/L (22-29); Chloride 110 mmol/L (96-108); Creatinine Clr Calc Pharmacy 28.2; Estimated Glomerular Filt Rate 32; Glucose Random 123 mg/dL (60-115); Potassium 4.1 mmol/L (3.3-5.1); Sodium 144 mmol/L (135-145)
[2024-01-13 09:01] LABS: B Type Natriuretic Peptide 2700 pg/mL (<100)
[2024-01-13] MEDS: Cholecalciferol (Vitamin D3) 25 MCG TABLET 50 MCG PO (09:25)
[2024-01-13] MEDS: Metoprolol Tartrate 25 MG TABLET 75 MG PO ×2 (09:25→19:57)
[2024-01-13] MEDS: Dabigatran Etexilate Mesylate 150 MG CAPSULE PO (09:25)
[2024-01-13] MEDS: Pravastatin Sodium 20 MG TABLET PO (09:25)
[2024-01-13] MEDS: Sertraline HCL 50 MG TABLET PO (09:25)
[2024-01-13] MEDS: Memantine HCl 5 MG TABLET PO ×2 (09:25→19:57)
[2024-01-13] MEDS: Furosemide 40 MG/4 ML VIAL IVPUSH (09:25)
[2024-01-13] MEDS: Multivitamin TABLET 1 TAB PO (09:25)
[2024-01-13] MEDS: 0.9 % Sodium Chloride Flush 3 ML SYRINGE IVFLUSH ×2 (09:26→19:57)
--- NOTE | 2024-01-13 10:29 | P.CONCA_ITS ---
History of Present Illness History of Present Illness Date of Service: 01/13/24 Chief complaint: Dyspnea Narrative: This is a cardiology consultation regarding possible congestive heart failure. Patient is generally seen by Dr. Mehta. History of chronic atrial fibrillation; cardiomyopathy and ascending aortic dilatation. Apparently, he has not been doing good over the last week. Lot of tiredness and exertion. Increasing shortness of breath. Subsequently, admitted for further care. Per admission documentation, thought to be in pulmonary edema/had elevated BNP and also had atrial fibrillation with rapid ventricular response. Patient not able to give much information mainly discussed with . Review of Systems 2 Review of Systems: Yes all other systems are reviewed and are negative Constitutional: Constitutional: Reports as per HPI, Reports no additional constitutional complaints, Reports fatigue, Reports lethargy and Reports weakness Eyes: Eyes: Reports as per HPI and Denies no additional eye complaints ENT: Denies system reviewed and no additional complaints, except as documented and Reports as per HPI Cardiovascular: Cardiovascular: Reports as per HPI, Reports no additional cardiovascular complaints, Denies acrocyanosis, Denies cool extremities, Denies chest pain, Denies leg edema, Denies lightheadedness, Denies palpitations and Reports dyspnea Respiratory: Respiratory: Reports as per HPI, Denies no additional respiratory complaints and Reports dyspnea Gastrointestinal: Gastrointestinal: Reports as per HPI and Denies no additional gastrointestinal complaints Genitourinary: Genitourinary: Reports no additional male genitourinary complaints and Reports as per HPI Musculoskeletal: Musculoskeletal: Reports no additional musculoskeletal complaints and Reports as per HPI Integumentary/Breasts: Skin/Breast: Reports system reviewed and no additional complaints, except as docu Neurologic: Reports system reviewed and no additional complaints, except as documented, Reports as per HPI and Reports weakness Psychiatric: Psychiatric: Reports no additional psychiatric complaints and Reports as per HPI Endocrine: Endocrine: Reports no additional endocrine complaints, Reports as per HPI, Reports fatigue and Denies palpitations Hematologic/Lymphatic: Hematologic/Lymphatic: Reports no additional hematologic/lymphatic complaints and Reports as per HPI Allergic/Immunologic: Allergic/Immunologic: Reports no additional allergic/immunologic complaints and Reports as per HPI PMF Past Medical History Medical History Hypersomnia Anxiety Prostate cancer Aortic regurgitation CRVO (central retinal vein occlusion) GERD (gastroesophageal reflux disease) Obstructive sleep apnea Cholelithiasis Cognitive impairment Generalized anxiety disorder Insomnia History of prostate cancer Hypercholesterolemia Left bundle branch block Nonischemic cardiomyopathy HTN (hypertension) Chronic atrial fibrillation Family History Family History Father Diabetes Stroke Mother Diabetes Other Mental health disorder Substance use disorder Surgical History Surgical History Hx of cholecystectomy History of prostatectomy History of inguinal hernia repair Social History Social History Household Members: Spouse Housing: House Do you presently have visiting nurse or other home services: No Alcohol intake: never Patient Tobacco Use Status: Never used Tobacco e-Cigarette/Vaping Use: Never Used Second Hand Smoke Exposure: No service: No Current occupational status: retired Current occupational exposures/hazards: No Cognitive needs: No Hearing needs: Yes Vision needs: Yes Meds Allergies Allergy/AdvReac Type Severity Reaction Status Date / Time Kota Inhibitor Allergy Intermediate cough Verified 01/12/24 02:20 Diltiazem HCl CD Allergy Unknown unknown Verified 01/12/24 02:20 lisinopril Allergy Unknown cough Verified 01/12/24 02:20 dorzolamide AdvReac Intermediate red eye Verified 01/12/24 02:20 Active Medications: Current Medications Acetaminophen (Acetaminophen 325 Mg Tablet) 650 mg PO Q6H PRN PRN Reason: Pain, Mild (Pain Scale 1-3), fever or headache Last Admin: 01/12/24 21:15 Dose: 650 mg Calcium Carbonate (Calcium Carbonate 750 Mg Tab.Chew) 750 mg PO Q4H PRN PRN Reason: Heartburn Dabigatran (Dabigatran Etexilate Mesylate 150 Mg Capsule) 150 mg PO BID FILIBERTO Last Admin: 01/13/24 09:25 Dose: 150 mg Donepezil HCl (Donepezil Hcl 5 Mg Tablet) 5 mg PO BEDTIME FILIBERTO Last Admin: 01/12/24 21:14 Dose: 5 mg Furosemide (Furosemide 40 Mg/4 Ml Vial) 40 mg IVPUSH DAILY FILIBERTO; Protocol Last Admin: 01/13/24 09:25 Dose: 40 mg Magnesium Hydroxide (Milk Of Magnesia 30 Ml Oral.Susp) 30 ml PO DAILY PRN PRN Reason: Constipation Melatonin (Melatonin 3 Mg Tablet) 6 mg PO BEDTIME PRN PRN Reason: Insomnia Last Admin: 01/12/24 21:14 Dose: 6 mg Memantine (Memantine Hcl 5 Mg Tablet) 5 mg PO BID [facility] Last Admin: 01/13/24 09:25 Dose: 5 mg Metoprolol Tartrate (Metoprolol Tartrate 25 Mg Tablet) 75 mg PO BID [facility]; Protocol Last Admin: 01/13/24 09:25 Dose: 75 mg Multivitamins/Vitamin C (Multivitamin Tablet) 1 tab PO DAILY [facility] Last Admin: 01/13/24 09:25 Dose: 1 tab Ondansetron HCl (Ondansetron Hcl 4 Mg/2 Ml Vial) 4 mg IVPUSH Q8H PRN PRN Reason: Nausea and Vomiting Pravastatin Sodium (Pravastatin Sodium 20 Mg Tablet) 20 mg PO DAILY [facility] Last Admin: 01/13/24 09:25 Dose: 20 mg Sertraline HCl (Sertraline Hcl 50 Mg Tablet) 50 mg PO DAILY [facility] Last Admin: 01/13/24 09:25 Dose: 50 mg Sodium Chloride (0.9 % Sodium Chloride Flush 3 Ml Syringe) [facility] Last Admin: 01/13/24 09:26 Dose: 3 ml Vitamin D (Cholecalciferol (Vitamin D3) 25 Mcg Tablet) 50 mcg PO DAILY [facility] Last Admin: 01/13/24 09:25 Dose: 50 mcg Home Medications ?Medication ?Instructions ?Recorded ?Confirmed ?Last Taken ?Type sertraline 50 mg tablet 50 mg PO DAILY 06/26/22 01/12/24 01/11/24 History donepezil 10 mg tablet 5 mg PO BEDTIME 07/19/22 01/12/24 01/11/24 History memantine 5 mg tablet 5 mg PO BID 03/28/23 01/12/24 01/11/24 History melatonin 1 mg tablet 4 mg PO BEDTIME 01/12/24 01/12/24 01/11/24 History vitamin B complex 1 cap PO DAILY 01/12/24 01/12/24 01/11/24 History Physical Exam 2 Vital Signs: Vital Signs: Last Vital Signs Temp 97.4 F 01/13/24 07:32 Pulse 112 H 01/13/24 09:25 Resp 18 01/13/24 07:32 BP 131/93 H 01/13/24 09:25 Pulse Ox 93 01/13/24 07:32 O2 Del Method Nasal Cannula 01/13/24 07:32 O2 Flow Rate 4.5 01/13/24 07:32 BMI result Body Mass Index 22.9 Const: General: comfortable and no acute distress O rientation/consciousness: patient oriented x3 HEENT: Other: Unremarkable Head: Yes normal to inspection Neck: Neck: Yes normal visual inspection Chest: Chest palpation & inspection: normal inspection of the chest Resp: Auscultation: clear to auscultation bilaterally Cardio: Palpation: normal PMI Heart sounds: S1 normal heart sound present, S2 normal heart sound present, no gallops, no murmurs and no rubs GI: Palpation (GI): Soft to palpation Back/Spine/Pelvis: Other: unremarkable Skin: General skin exam: no rashes or lesions noted Neuro: General: patient oriented x3 Extrem: General: Yes normal to inspection Psych: Mental Status: mental status grossly normal Objective Labs and Meds 01/13/24 06:20 01/13/24 06:20 Lab results: Laboratory Results - last 24 hr 01/12/24 01/13/24 01/13/24 11:20 01:54 06:20 WBC 14.3 H RBC 4.03 L Hgb 12.7 L Hct 38.6 L MCV 95.8 MCH 31.5 MCHC 32.9 RDW 15.7 Plt Count 220 MPV 10.7 Absolute Nucleated RBC 0.000 Nucleated RBC % (auto) 0.0 Sodium 144 Potassium 4.1 Chloride 110 H Carbon Dioxide 16 L Anion Gap 22 H BUN 60 H Creatinine 2.02 H Estim Creat Clear Calc 28.2 Estimated GFR 32 POC Glucose 143 H Random Glucose 123 H Calcium 9.6 B-Natriuretic Peptide Urine Color Yellow Urine Appearance Clear Urine pH 5.0 Ur Specific [place] 1.010 Urine Protein Trace Urine Glucose (UA) Negative Urine Ketones Negative Urine Blood Large (3+) H Urine Nitrite Negative Ur Leukocyte Esterase Trace H Urine RBC >20 H Urine WBC 6-10 H Ur Squamous Epith Cells 0-2 Urine Bacteria None Seen Hyaline Casts 0-2 01/13/24 08:21 WBC RBC Hgb Hct MCV MCH MCHC RDW Plt Count MPV Absolute Nucleated RBC Nucleated RBC % (auto) Sodium Potassium Chloride Carbon Dioxide Anion Gap BUN Creatinine Estim Creat Clear Calc Estimated GFR POC Glucose Random Glucose Calcium B-Natriuretic Peptide 2700 H Urine Color Urine Appearance Urine pH Ur Specific [place] Urine Protein Urine Glucose (UA) Urine Ketones Urine Blood Urine Nitrite Ur Leukocyte Esterase Urine RBC Urine WBC Ur Squamous Epith Cells Urine Bacteria Hyaline Casts ECG Interpretation: EKG with atrial fibrillation at a rate of 101/Min. Nonspecific interventricular conduction defect. Assessment and Plan (1) Atrial fibrillation with RVR: Status: Acute Per last Holter from 2022, atrial fibrillation with an average rate of 74/Min. Per office EKG from 2022, rate was 37/Min. Currently, much higher rates. Unclear if that is the reason for his symptoms. At home, on metoprolol 50 mg b.i.d.. This has been increased to 75 mg b.i.d.. May not be able to add digoxin as the kidney function is abnormal. Will need to monitor rates on telemetry and further go up on the metoprolol dosing. Hold off on valsartan. Adjust Pradaxa for kidney function. (2) Acute on chronic diastolic (congestive) heart failure: Status: Acute Could be related to atrial fibrillation rapid ventricular response. Do not think he has to volume overload at this time. As the kidney function is going up, stop IV diuretics. Plan Discussed with at bedside. Procedures Date of Service Date of Service: 01/13/24
--- NOTE | 2024-01-13 11:09 | P.PNIM_ITS ---
Subjective Subjective Date of Service: 01/13/24 Review of Systems Follow up sob feeling better today sitting up in bed Physical Exam 2 Vital Signs: Vital Signs: Last Vital Signs Temp 97.4 F 01/13/24 07:32 Pulse 112 H 01/13/24 09:25 Resp 18 01/13/24 07:32 BP 131/93 H 01/13/24 09:25 Pulse Ox 93 01/13/24 07:32 O2 Del Method Nasal Cannula 01/13/24 07:32 O2 Flow Rate 4.5 01/13/24 07:32 BMI result Body Mass Index 22.9 Appearing in no acute distress lung sounds are clear to auscultation heart regular rate rhythm, clear S1, S2 positive bowel sounds, abdomen is soft, nontender neuro patient is alert x3, no focal deficits Objective Data Active Medications Acetaminophen (Acetaminophen 325 Mg Tablet) 650 mg PO Q6H PRN PRN Reason: Pain, Mild (Pain Scale 1-3), fever or headache Last Admin: 01/12/24 21:15 Dose: 650 mg Documented By: JASMYN Calcium Carbonate (Calcium Carbonate 750 Mg Tab.Chew) 750 mg PO Q4H PRN PRN Reason: Heartburn Dabigatran (Dabigatran Etexilate Mesylate 150 Mg Capsule) 150 mg PO BID [facility] Last Admin: 01/13/24 09:25 Dose: 150 mg Documented By: ROBERT Donepezil HCl (Donepezil Hcl 5 Mg Tablet) 5 mg PO BEDTIME [facility] Last Admin: 01/12/24 21:14 Dose: 5 mg Documented By: JASMYN Magnesium Hydroxide (Milk Of Magnesia 30 Ml Oral.Susp) 30 ml PO DAILY PRN PRN Reason: Constipation Melatonin (Melatonin 3 Mg Tablet) 6 mg PO BEDTIME PRN PRN Reason: Insomnia Last Admin: 01/12/24 21:14 Dose: 6 mg Documented By: JASMYN Memantine (Memantine Hcl 5 Mg Tablet) 5 mg PO BID [facility] Last Admin: 01/13/24 09:25 Dose: 5 mg Documented By: ROBERT Metoprolol Tartrate (Metoprolol Tartrate 25 Mg Tablet) 75 mg PO BID [facility]; Protocol Last Admin: 01/13/24 09:25 Dose: 75 mg Documented By: ROBERT Multivitamins/Vitamin C (Multivitamin Tablet) 1 tab PO DAILY [facility] Last Admin: 01/13/24 09:25 Dose: 1 tab Documented By: ROBERT Ondansetron HCl (Ondansetron Hcl 4 Mg/2 Ml Vial) 4 mg IVPUSH Q8H PRN PRN Reason: Nausea and Vomiting Pravastatin Sodium (Pravastatin Sodium 20 Mg Tablet) 20 mg PO DAILY [facility] Last Admin: 01/13/24 09:25 Dose: 20 mg Documented By: ROBERT Sertraline HCl (Sertraline Hcl 50 Mg Tablet) 50 mg PO DAILY [facility] Last Admin: 01/13/24 09:25 Dose: 50 mg Documented By: ROBERT Sodium Chloride (0.9 % Sodium Chloride Flush 3 Ml Syringe) 3 ml IVFLUSH QSHIFT [facility] Last Admin: 01/13/24 09:26 Dose: 3 ml Documented By: ROBERT Vitamin D (Cholecalciferol (Vitamin D3) 25 Mcg Tablet) 50 mcg PO DAILY [facility] Last Admin: 01/13/24 09:25 Dose: 50 mcg Documented By: ROBERT Labs 01/13/24 06:20 01/13/24 06:20 Labs: Laboratory Results - last 24 hr 01/12/24 01/13/24 01/13/24 11:20 01:54 06:20 MCV 95.8 MCH 31.5 MCHC 32.9 RDW 15.7 Plt Count 220 MPV 10.7 Absolute Nucleated RBC 0.000 Nucleated RBC % (auto) 0.0 Anion Gap 22 H Estim Creat Clear Calc 28.2 Estimated GFR 32 POC Glucose 143 H Random Glucose 123 H Calcium 9.6 B-Natriuretic Peptide Urine Color Yellow Urine Appearance Clear Urine pH 5.0 Ur Specific [place] 1.010 Urine Protein Trace Urine Glucose (UA) Negative Urine Ketones Negative Urine Blood Large (3+) H Urine Nitrite Negative Ur Leukocyte Esterase Trace H Urine RBC >20 H Urine WBC 6-10 H Ur Squamous Epith Cells 0-2 Urine Bacteria None Seen Hyaline Casts 0-2 01/13/24 08:21 MCV MCH MCHC RDW Plt Count MPV Absolute Nucleated RBC Nucleated RBC % (auto) Anion Gap Estim Creat Clear Calc Estimated GFR POC Glucose Random Glucose Calcium B-Natriuretic Peptide 2700 H Urine Color Urine Appearance Urine pH Ur Specific [place] Urine Protein Urine Glucose (UA) Urine Ketones Urine Blood Urine Nitrite Ur Leukocyte Esterase Urine RBC Urine WBC Ur Squamous Epith Cells Urine Bacteria Hyaline Casts Microbiology Microbiology Results: Microbiology 01/12/24 11:20 Urine Culture - Final Urine clean catch - Clean Catch Midstream No growth. Assessment and Plan (1) Acute on chronic diastolic (congestive) heart failure: Status: Acute Plan This is a 83-year-old male with pertinent history of chronic atrial fibrillation on Pradaxa, cardiomyopathy with moderate LV dysfunction, hypertension, unspecified dementia, IYV on CPAP, mood disorder, mixed hyperlipidemia who was brought to the emergency department for evaluation of dyspnea. Acute decompensated congestive heart failure in a patient with cardiomyopathy with moderate LV dysfunction IV diuresis stopped as pt doesnot appear in florid overload today and renal function worsening Strict I's and O's. Low-salt diet. transthoracic echocardiogram ordered Patient on beta-roderick and ARB cardiology consultation Chronic AFib with RVR in the setting of above Patient given IV diltiazem and IV metoprolol in the ER. continue metoprolol, increased to 75 mg BID On Pradaxa, renally dosed (home dose 150 BID) Acute kidney injury stage I, cardiorenal type 1 in the setting of CHF Monitor creatinine and urine output with IV diuresis. lasix stopped Avoid nephrotoxins. Hypertension Continue home antihypertensives. Hold losartan in the setting of EMILY Reactive leukocytosis No sepsis Dementia, unspecified On memantine and donepezil. Maintain sleep-wake cycle IVY Continue CPAP at bedtime Mixed hyperlipidemia On statin Mood disorder Continue home mood stabilizers DVT prophylaxis: Fer Attending Dr. Chavez DNR/DNI. Discussed with patient and at bedside Quality Stroke Does the patient have a stroke diagnosis?: No VTE Prior VTE?: No VTE Risk Level:: Medical - moderate - high VTE Device Contraindication: Treatment Not Indicated VTE Drug Contraindication: N/A - Med Ordered
[2024-01-13 18:39] LABS: B Type Natriuretic Peptide 2579 pg/mL (<100)
[2024-01-13] MEDS: Donepezil HCl 5 MG TABLET PO (19:56)
[2024-01-13] MEDS: Acetaminophen 325 MG TABLET 650 MG PO (19:56)
[2024-01-13] MEDS: Melatonin 3 MG TABLET 6 MG PO (19:57)
[2024-01-14 03:03] VITALS: BP 116/82; PULSE 112; RESP 20; TEMP 36.1; O2SAT 100
--- NOTE | 2024-01-14 07:00 | CA_ITS ---
Transthoracic Echocardiogram Patient (Last, First, Middle): Ki Tellez D Gender: Male Date of : 1940 Age: 83 Procedure Date: 01/14/2024 Procedure Type: Transthoracic Echocardiogram Location: [facility] Height: 180.34 cm Weight: 74.39 kg BSA: 1.94 m2 Heart Rate: bpm BP: 116 / 82 mmHg Cable Installation Technician: CHAITANYA Referring MD: Anne Prescott MD Symptoms: CHF Study Quality: Technically Difficult ECG Rhythm: Atrial Fibrillation Conclusions: - Normal left ventricular cavity size. There is mildly increased left ventricular wall thickness. The left ventricular systolic function is severely decreased. The visually estimated ejection fraction is between 20-25%. - There is paradoxical septal motion consistent with a left bundle branch block. - Normal right ventricular cavity size. - There is moderate to severely decreased right ventricular systolic function. - Significantly elevated right atrial pressure. - Mild pulmonary hypertension is present. - There is mild dilatation of the ascending aorta measuring 4.00 cm. Findings Left Ventricle Normal left ventricular cavity size. There is mildly increased left ventricular wall thickness. The left ventricular systolic function is severely decreased. The visually estimated ejection fraction is between 20 25%. There is severe global hypokinesis. There is paradoxical septal motion consistent with a left bundle branch block. Diastolic function is indeterminate on the basis of available data. Right Ventricle Normal right ventricular cavity size. There is moderate to severely decreased right ventricular systolic function. Atria The left atrium is moderately dilated. The right atrium is moderately dilated. Aortic Valve There is a normal trileaflet aortic valve. There is no aortic valve stenosis. There is trace (trivial) aortic valve regurgitation. Mitral Valve The anterior mitral leaflet has restricted mobility and the posterior mitral leaflet has restricted mobility. There is moderate mitral valve regurgitation. There is no mitral valve stenosis. Pulmonic Valve The pulmonic valve is normal. There is trace pulmonic valve regurgitation. Tricuspid Valve Normal tricuspid valve structure. There is moderate tricuspid valve regurgitation. The right ventricular systolic pressure is 42 mmHg. Significantly elevated right atrial pressure. Mild pulmonary hypertension is present. Great Vessels There is mild dilatation of the ascending aorta measuring 4.00 cm. Venous The inferior vena cava is dilated and does not collapse with inspiration. Pericardium/Pleural There is no evidence of pericardial effusion. Prior Study Comparison Changes noted compared to prior study dated: 05/31/2022. EF severely reduced Measurements 2D Linear Measurements IVSd: 1.12 0.6-0.9/0.6-1.0 cm LVIDd: 5.15 3.9-5.3/4.2-5.9 cm LVIDd Index: 2.65 2.4-3.2/2.2-3.1 cm/m2 LVIDs: 4.67 2.0-3.6 cm LVPWd: 1.21 0.7-1.1 cm LA Diam: 4.20 2.7-3.8/3.0-4.0 cm LAIDs Index: 2.16 1.5-2.3 cm/m2 LV Mass: 293.19 67-162/88-224 g LV Mass Index: 151.13 43-95/49-115 g/m2 LVOT Diam: 2.20 3.0+(-)1.3 cm 2D Systolic Function EF 4C: 31.20 >55% EF 2C: 44.50 >55% EF BiP: 39.10 >55% Mitral Valve MV Pk E: 0.92 MV Decel Time: 162.00 E'Lateral: 7.36 E'Medial: 3.98 E/E' Med: 23.10 E/E' Lat: 12.50 PHT: 47.00 MVA PHT: 4.68 Decel Vernon: 5.69 MR Vol - PW Dopp: 24.86 MR VTI: 1.13 MR ERO: 22.00 MR Alias Bo: 0.39 MR RAD: 0.60 Aortic Valve AoV Pk Bo: 0.77 AoV Mn Bo: 0.58 AoV VTI: 0.11 AoV Pk Grad: 2.00 Aov Mn Grad: 1.00 YUDELKA Cont.VTI: 2.59 LVOT LVOT Pk Bo: 0.62 LVOT Mn Bo: 0.42 LVOT VTI: 0.07 LVOT Pk Grad: 2.00 LVOT Mn Grad: 1.00 LVOT Diam: 2.20 LVOT Area: 3.80 Diastolic Function MV Pk E: 0.92 E'Medial: 3.98 E/E' Med: 23.10 E' Laterial: 7.36 E/E' Lat: 12.50 Right Ventricle TAPSE (mm): 6.07 TVS' Bo: 5.53 Tricuspid Valve TR Pk Bo: 2.58 TR Pk Grad: 27.00 RA Press: 15.00 RVSP: 42.00 Great Vessels Aorta Sinus of Valsalva: 3.60 2.0-3.5 cm Ao Asc: 4.00 2.1-3.4 cm Ao Arch: 3.40 Pulmonary Valve PV Pk Bo: 0.72 Peak PV Grad: 2.00 Updated in Other Vendor System with Status of Final Amilcar Hyman MD electronically signed on 01/14/2024 2:54:22 PM with status of Final
[2024-01-14 08:00] VITALS: BP 120/89; PULSE 119; RESP 20; TEMP 36.3; O2SAT 93
--- NOTE | 2024-01-14 08:40 | MHC.CM.PN ---
Addendum entered by Jenny Cornell 01/14/24 08:43: Per Angela, Patient completed a HCP with his Buck Presser; Dr. Boyd did not have a copy. Angela is agreeable to provide CM with a copy of the HCP when she visits next. Original Note: CM met with Patient and /HCP/Angela at bedside and addressed IMM with them (original was given to Patient and a copy has been placed on the chart). 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 Patient will benefit from a PT Eval to assist with disposition. CM has initiated and will follow for dc planning. PCP is Dr. Joleen Boyd. will transport if dc'd to home.
--- NOTE | 2024-01-14 09:07 | P.PNIM_ITS ---
Subjective Subjective Date of Service: 01/14/24 Review of Systems Follow up sob feeling better today sitting up in bed Physical Exam 2 Vital Signs: Vital Signs: Last Vital Signs Temp 97.3 F 01/14/24 08:00 Pulse 119 H 01/14/24 08:00 Resp 20 01/14/24 08:00 BP 120/89 01/14/24 08:00 Pulse Ox 93 01/14/24 08:00 O2 Del Method Room Air 01/14/24 08:00 O2 Flow Rate 4.5 01/14/24 03:03 BMI result Body Mass Index 22.9 Appearing in no acute distress lung sounds are clear to auscultation heart regular rate rhythm, clear S1, S2 positive bowel sounds, abdomen is soft, nontender neuro patient is alert, intermittently confused Objective Data Active Medications Acetaminophen (Acetaminophen 325 Mg Tablet) 650 mg PO Q6H PRN PRN Reason: Pain, Mild (Pain Scale 1-3), fever or headache Last Admin: 01/13/24 19:56 Dose: 650 mg Documented By: KAY Calcium Carbonate (Calcium Carbonate 750 Mg Tab.Chew) 750 mg PO Q4H PRN PRN Reason: Heartburn Dabigatran (Dabigatran Etexilate Mesylate 75 Mg Capsule) 75 mg PO BID [facility] TO [facility] Last Admin: 01/13/24 19:57 Dose: 75 mg Documented By: KAY Donepezil HCl (Donepezil Hcl 5 Mg Tablet) 5 mg PO BEDTIME [facility] Last Admin: 01/13/24 19:56 Dose: 5 mg Documented By: KAY Magnesium Hydroxide (Milk Of Magnesia 30 Ml Oral.Susp) 30 ml PO DAILY PRN PRN Reason: Constipation Melatonin (Melatonin 3 Mg Tablet) 6 mg PO BEDTIME PRN PRN Reason: Insomnia Last Admin: 01/13/24 19:57 Dose: 6 mg Documented By: KAY Comments: Sleep Memantine (Memantine Hcl 5 Mg Tablet) 5 mg PO BID [facility] Last Admin: 01/13/24 19:57 Dose: 5 mg Documented By: KAY Metoprolol Tartrate (Metoprolol Tartrate 25 Mg Tablet) 75 mg PO BID [facility]; Protocol Last Admin: 01/13/24 19:57 Dose: 75 mg Documented By: KAY Multivitamins/Vitamin C (Multivitamin Tablet) 1 tab PO DAILY [facility] Last Admin: 01/13/24 09:25 Dose: 1 tab Documented By: ROBERT Ondansetron HCl (Ondansetron Hcl 4 Mg/2 Ml Vial) 4 mg IVPUSH Q8H PRN PRN Reason: Nausea and Vomiting Pravastatin Sodium (Pravastatin Sodium 20 Mg Tablet) 20 mg PO DAILY [facility] Last Admin: 01/13/24 09:25 Dose: 20 mg Documented By: ROBERT Sertraline HCl (Sertraline Hcl 50 Mg Tablet) 50 mg PO DAILY [facility] Last Admin: 01/13/24 09:25 Dose: 50 mg Documented By: ROBERT Sodium Chloride (0.9 % Sodium Chloride Flush 3 Ml Syringe) 3 ml IVFLUSH QSHIFT [facility] Last Admin: 01/13/24 19:57 Dose: 3 ml Documented By: KAY Vitamin D (Cholecalciferol (Vitamin D3) 25 Mcg Tablet) 50 mcg PO DAILY [facility] Last Admin: 01/13/24 09:25 Dose: 50 mcg Documented By: ROBERT Labs 01/13/24 06:20 01/14/24 08:41 Labs: Laboratory Results - last 24 hr 01/13/24 18:11 B-Natriuretic Peptide 2579 H Microbiology Microbiology Results: Microbiology 01/12/24 11:20 Urine Culture - Final Urine clean catch - Clean Catch Midstream No growth. Assessment and Plan (1) Acute on chronic diastolic (congestive) heart failure: Status: Acute Plan This is a 83-year-old male with pertinent history of chronic atrial fibrillation on Pradaxa, cardiomyopathy with moderate LV dysfunction, hypertension, unspecified dementia, IVY on CPAP, mood disorder, mixed hyperlipidemia who was brought to the emergency department for evaluation of dyspnea. Acute decompensated congestive heart failure in a patient with cardiomyopathy with moderate LV dysfunction IV diuresis stopped as pt does not appear in florid overload today and renal function worsening Strict I's and O's. Low-salt diet. transthoracic echocardiogram pending Patient on beta-roderick and ARB cardiology consultation> patient not volume overloaded, stopped diuretics, monitor kidney function Chronic AFib with RVR in the setting of above Patient given IV diltiazem and IV metoprolol in the ER. continue metoprolol, increased to 75 mg BID On Pradaxa, renally dosed (home dose 150 BID) Acute kidney injury stage I, cardiorenal type 1 in the setting of CHF Monitor creatinine and urine output with IV diuresis. lasix stopped Avoid nephrotoxins. Hypertension Continue home antihypertensives. Hold losartan in the setting of EMILY Reactive leukocytosis No sepsis Dementia, unspecified On memantine and donepezil. Maintain sleep-wake cycle IVY Continue CPAP at bedtime Mixed hyperlipidemia On statin Mood disorder Continue home mood stabilizers DISPO PT consult DVT prophylaxis: Fer Attending Dr. Chavez DNR/DNI. Discussed with patient and at bedside Quality Stroke Does the patient have a stroke diagnosis?: No VTE Prior VTE?: No VTE Risk Level:: Medical - moderate - high VTE Device Contraindication: Treatment Not Indicated VTE Drug Contraindication: N/A - Med Ordered
[2024-01-14 09:14] LABS: Anion Gap 15 (12-20); Blood Urea Nitrogen 62 mg/dL (9-16); Calcium 8.7 mg/dL (8.4-10.2); Chloride 107 mmol/L (96-108); Creatinine Clr Calc Pharmacy 38.7; Estimated Glomerular Filt Rate 46; Glucose Random 131 mg/dL (60-115); Sodium 140 mmol/L (135-145)
[2024-01-14 09:38] LABS: Carbon Dioxide 20 mmol/L (22-29); Potassium 3.1 mmol/L (3.3-5.1)
[2024-01-14] MEDS: Metoprolol Tartrate 25 MG TABLET 75 MG PO (09:39)
[2024-01-14] MEDS: Pravastatin Sodium 20 MG TABLET PO (09:40)
[2024-01-14] MEDS: Cholecalciferol (Vitamin D3) 25 MCG TABLET 50 MCG PO (09:40)
[2024-01-14] MEDS: Multivitamin TABLET 1 TAB PO (09:40)
[2024-01-14] MEDS: Sertraline HCL 50 MG TABLET PO (09:40)
[2024-01-14] MEDS: 0.9 % Sodium Chloride Flush 3 ML SYRINGE IVFLUSH ×3 (09:40→21:21)
[2024-01-14] MEDS: Memantine HCl 5 MG TABLET PO ×2 (09:40→21:21)
[2024-01-14 12:00] VITALS: BP 103/75; PULSE 111; RESP 20; TEMP 36.6; O2SAT 97
[2024-01-14] MEDS: Potassium Chloride ER 20 MEQ TAB.ER.PRT 40 MEQ PO (12:22)
--- NOTE | 2024-01-14 13:29 | PM.PNCARD ---
Subjective Subjective Date of Service: 01/14/24 Interval history: Seen and examined at bedside. He was getting echocardiography and was lying flat in bed. Physical Exam Vital Signs: Last Vital Signs Temp 97.8 F 01/14/24 12:00 Pulse 111 H 01/14/24 12:00 Resp 20 01/14/24 12:00 BP 103/75 01/14/24 12:00 Pulse Ox 97 01/14/24 12:00 O2 Del Method Nasal Cannula 01/14/24 12:00 O2 Flow Rate 3 01/14/24 12:00 BMI result Body Mass Index 22.9 GENERAL APPEARANCE: in no acute distress, laying flat in bed. NECK: no carotid bruit, no significant jugular venous distention. SKIN: no suspicious lesions, warm and dry. HEART: no murmurs, irregular rate and rhythm. LUNGS: clear to auscultation bilaterally. ABDOMEN: soft, nontender. EXTREMITIES: no edema. PERIPHERAL PULSES: equal. NEUROLOGIC: No gross deficits, AAO X 3 Objective Labs and Meds 01/13/24 06:20 01/14/24 08:41 Lab results: Laboratory Results - last 24 hr 01/13/24 01/14/24 18:11 08:41 Sodium 140 Potassium 3.1 L D Chloride 107 Carbon Dioxide 20 L Anion Gap 15 BUN 62 H Creatinine 1.47 H Estim Creat Clear Calc 38.7 Estimated GFR 46 Random Glucose 131 H Calcium 8.7 D B-Natriuretic Peptide 2579 H Progress Note: A&P Assessment and plan (1) Acute on chronic diastolic (congestive) heart failure: Status: Acute (2) Atrial fibrillation with RVR: Status: Acute Plan Pleasant 83 year gentleman who has known history of cardiomyopathy with last ejection fraction of 51% and chronic atrial fibrillation (previous attempts to keep sinus rhythm failed) who is presenting with shortness of breath. Clinically was felt to be in congestive heart failure on admission and was diuresed but creatinine worsened. He was seen by our team and advice was to stop the diuretics as creatinine was worsening and he did not appear to be in that bad congestive heart failure. Currently laying flat in bed. He is getting echocardiography which we will review. Heart rates are better controlled with 75 mg twice a day of metoprolol. Would target heart rate less than 120. Avoid diltiazem. Hypokalemic and we can not use digoxin currently. Replete the potassium and add spironolactone as creatinine improves further. We will follow along with you. Thank you for allowing me to participate in the care of your patient. Please feel free to contact me if you have any questions. Time Spent With Patient Time: Total time managing care of this patient today ____ minutes. Progress Note: Quality Stroke Does the patient have a stroke diagnosis?: No Procedures Date of Service Date of Service: 01/14/24
[2024-01-14 15:08] VITALS: BP 114/74; PULSE 110; RESP 20; TEMP 36.7; O2SAT 97
[2024-01-14] MEDS: Spironolactone 25 MG TABLET PO (16:04)
[2024-01-14] MEDS: Furosemide 40 MG/4 ML VIAL IVPUSH (18:16)
[2024-01-14 18:43] LABS: B Type Natriuretic Peptide 1756 pg/mL (<100)
[2024-01-14 19:05] VITALS: BP 148/76; PULSE 85; RESP 20; TEMP 36.2; O2SAT 94
[2024-01-14 21:19] VITALS: BP 105/70; PULSE 114
[2024-01-14] MEDS: Melatonin 3 MG TABLET 6 MG PO (21:19)
[2024-01-14] MEDS: Donepezil HCl 5 MG TABLET PO (21:19)
[2024-01-14] MEDS: Metoprolol Tartrate 50 MG TABLET PO (21:19)
[2024-01-14] MEDS: Acetaminophen 325 MG TABLET 650 MG PO (21:20)
[2024-01-15] VITALS (7 sets, daily range): BP systolic 106–158; BP diastolic 63–99; PULSE 107–129; RESP 15–20; TEMP 36.1–36.6; O2SAT 96–98
[2024-01-15 06:57] LABS: Anion Gap 14 (12-20); B Type Natriuretic Peptide 1602 pg/mL (<100); Blood Urea Nitrogen 54 mg/dL (9-16); Calcium 8.7 mg/dL (8.4-10.2); Carbon Dioxide 24 mmol/L (22-29); Chloride 107 mmol/L (96-108); Creatinine Clr Calc Pharmacy 42.5; Estimated Glomerular Filt Rate 51; Glucose Random 97 mg/dL (60-115); Potassium 3.5 mmol/L (3.3-5.1); Sodium 141 mmol/L (135-145)
--- NOTE | 2024-01-15 09:37 | MHC.CM.PN ---
A copy of the HCP has been uploaded into [facility] and placed on the chart.
[2024-01-15] MEDS: Memantine HCl 5 MG TABLET PO ×2 (10:32→20:07)
[2024-01-15] MEDS: Sertraline HCL 50 MG TABLET PO (10:32)
[2024-01-15] MEDS: Cholecalciferol (Vitamin D3) 25 MCG TABLET 50 MCG PO (10:32)
[2024-01-15] MEDS: Multivitamin TABLET 1 TAB PO (10:33)
[2024-01-15] MEDS: Potassium Chloride ER 20 MEQ TAB.ER.PRT PO (10:33)
[2024-01-15] MEDS: Pravastatin Sodium 20 MG TABLET PO (10:33)
[2024-01-15] MEDS: Spironolactone 25 MG TABLET PO (10:33)
[2024-01-15] MEDS: 0.9 % Sodium Chloride Flush 3 ML SYRINGE IVFLUSH ×2 (10:34→17:29)
[2024-01-15] MEDS: Furosemide 40 MG/4 ML VIAL IVPUSH ×2 (10:34→17:24)
[2024-01-15] MEDS: Metoprolol Tartrate 50 MG TABLET PO ×2 (10:34→20:07)
--- NOTE | 2024-01-15 10:42 | PM.PNCARD ---
Subjective Subjective Date of Service: 01/15/24 Interval history: Seen examined at bedside. Denying any symptoms. Has dementia and poor memory. Physical Exam Vital Signs: Last Vital Signs Temp 97.2 F 01/15/24 08:00 Pulse 127 H 01/15/24 08:00 Resp 20 01/15/24 08:00 BP 147/99 H 01/15/24 08:00 Pulse Ox 96 01/15/24 08:00 O2 Del Method Room Air 01/15/24 08:00 O2 Flow Rate 3 01/15/24 04:00 BMI result Body Mass Index 22.9 GENERAL APPEARANCE: in no acute distress NECK: no carotid bruit, ++JVD. SKIN: no suspicious lesions, warm and dry. HEART: no murmurs, irregular rate and rhythm. LUNGS: clear to auscultation bilaterally. ABDOMEN: soft, nontender. EXTREMITIES: no edema. PERIPHERAL PULSES: equal. NEUROLOGIC: No gross deficits. Objective Labs and Meds 01/13/24 06:20 01/15/24 06:20 Lab results: Laboratory Results - last 24 hr 01/14/24 01/15/24 18:15 06:20 Sodium 141 Potassium 3.5 Chloride 107 Carbon Dioxide 24 Anion Gap 14 BUN 54 H Creatinine 1.34 Estim Creat Clear Calc 42.5 Estimated GFR 51 Random Glucose 97 Calcium 8.7 B-Natriuretic Peptide 1756 H 1602 H Progress Note: A&P Assessment and plan (1) Acute exacerbation of CHF (congestive heart failure): Status: Acute (2) Atrial fibrillation with RVR: Status: Acute Plan [age] year gentleman presenting for congestive heart failure. He has known history of chronic atrial fibrillation with mild cardiomyopathy in the past. In May 2022 EF was 50%. He is now presenting with acute decompensated congestive heart failure. EF by echocardiography is 20 25%. He has a left bundle-branch block which is new and he has dyssynchrony on echocardiography which is likely cause for his cardiomyopathy. Clinically volume overloaded. Continue with IV diuretics. I's and O's need to be monitored closely because if he is not making enough urine then we may have to increase the dose of diuretics. Started him on Entresto and spironolactone. Monitor potassium closely. Previously was on digoxin but due to some bradycardic episodes it was discontinued. 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 I think we should not titrate beta-blockers currently. He is creatinine worsened to intubation because of IV diltiazem and IV metoprolol which was given to him. Please do not give any IV beta-roderick or diltiazem going forward. We will follow along with you. Thank you for allowing me to participate in the care of your patient. Please feel free to contact me if you have any questions. Time Spent With Patient Time: Total time managing care of this patient today ____ minutes. Progress Note: Quality Stroke Does the patient have a stroke diagnosis?: No Procedures Date of Service Date of Service: 01/15/24
--- NOTE | 2024-01-15 10:46 | HO.PM.IMPN ---
Subjective Subjective Date of Service: 01/15/24 Review of Systems Follow up sob feeling better today sitting up in bed Physical Exam Vital Signs: Vital Signs: Last Vital Signs Temp 97.2 F 01/15/24 08:00 Pulse 127 H 01/15/24 08:00 Resp 20 01/15/24 08:00 BP 147/99 H 01/15/24 08:00 Pulse Ox 96 01/15/24 08:00 O2 Del Method Room Air 01/15/24 08:00 O2 Flow Rate 3 01/15/24 04:00 BMI result Body Mass Index 22.9 Appearing in no acute distress lung sounds are clear to auscultation heart regular rate rhythm, clear S1, S2 positive bowel sounds, abdomen is soft, nontender neuro patient is alert, confused Objective Data Active Medications Acetaminophen (Acetaminophen 325 Mg Tablet) 650 mg PO Q6H PRN PRN Reason: Pain, Mild (Pain Scale 1-3), fever or headache Last Admin: 01/14/24 21:20 Dose: 650 mg Documented By: BRENDA Calcium Carbonate (Calcium Carbonate 750 Mg Tab.Chew) 750 mg PO Q4H PRN PRN Reason: Heartburn Dabigatran (Dabigatran Etexilate Mesylate 75 Mg Capsule) 75 mg PO BID [facility] Last Admin: 01/15/24 10:32 Dose: 75 mg Documented By: IRINEO Donepezil HCl (Donepezil Hcl 5 Mg Tablet) 5 mg PO BEDTIME [facility] Last Admin: 01/14/24 21:19 Dose: 5 mg Documented By: BRENDA Furosemide (Furosemide 40 Mg/4 Ml Vial) 40 mg IVPUSH BID@0900,1800 [facility]; Protocol Last Admin: 01/15/24 10:34 Dose: 40 mg Documented By: IRINEO Magnesium Hydroxide (Milk Of Magnesia 30 Ml Oral.Susp) 30 ml PO DAILY PRN PRN Reason: Constipation Melatonin (Melatonin 3 Mg Tablet) 6 mg PO BEDTIME PRN PRN Reason: Insomnia Last Admin: 01/14/24 21:19 Dose: 6 mg Documented By: BRENDA Memantine (Memantine Hcl 5 Mg Tablet) 5 mg PO BID [facility] Last Admin: 01/15/24 10:32 Dose: 5 mg Documented By: IRINEO Metoprolol Tartrate (Metoprolol Tartrate 50 Mg Tablet) 50 mg PO BID [facility]; Protocol Last Admin: 01/15/24 10:34 Dose: 50 mg Documented By: IRINEO Multivitamins/Vitamin C (Multivitamin Tablet) 1 tab PO DAILY [facility] Last Admin: 01/15/24 10:33 Dose: 1 tab Documented By: IRINEO Ondansetron HCl (Ondansetron Hcl 4 Mg/2 Ml Vial) 4 mg IVPUSH Q8H PRN PRN Reason: Nausea and Vomiting Potassium Chloride (Potassium Chloride Er 20 Meq Tab.Er.Prt) 20 meq PO DAILY [facility] Last Admin: 01/15/24 10:33 Dose: 20 meq Documented By: IRINEO Pravastatin Sodium (Pravastatin Sodium 20 Mg Tablet) 20 mg PO DAILY [facility] Last Admin: 01/15/24 10:33 Dose: 20 mg Documented By: IRINEO Sacubitril/Valsartan (Sacubitril/Valsartan 1 Tab Tablet) 1 tab PO BID [facility]; Protocol Sertraline HCl (Sertraline Hcl 50 Mg Tablet) 50 mg PO DAILY [facility] Last Admin: 01/15/24 10:32 Dose: 50 mg Documented By: IRINEO Sodium Chloride (0.9 % Sodium Chloride Flush 3 Ml Syringe) 3 ml IVFLUSH QSHIFT [facility] Last Admin: 01/15/24 10:34 Dose: 3 ml Documented By: IRINEO Spironolactone (Spironolactone 25 Mg Tablet) 25 mg PO DAILY [facility]; Protocol Last Admin: 01/15/24 10:33 Dose: 25 mg Documented By: IRINEO Vitamin D (Cholecalciferol (Vitamin D3) 25 Mcg Tablet) 50 mcg PO DAILY [facility] Last Admin: 01/15/24 10:32 Dose: 50 mcg Documented By: IRINEO Labs 01/13/24 06:20 01/15/24 06:20 Labs: Laboratory Results - last 24 hr 01/14/24 01/15/24 18:15 06:20 Anion Gap 14 Estim Creat Clear Calc 42.5 Estimated GFR 51 Random Glucose 97 Calcium 8.7 B-Natriuretic Peptide 1756 H 1602 H Assessment and Plan (1) Acute on chronic diastolic (congestive) heart failure: Status: Acute Plan This is a 83-year-old male with pertinent history of chronic atrial fibrillation on Pradaxa, cardiomyopathy with moderate LV dysfunction, hypertension, unspecified dementia, IVY on CPAP, mood disorder, mixed hyperlipidemia who was brought to the emergency department for evaluation of dyspnea. Acute decompensated congestive heart failure with reduced ejection fraction Strict I's and O's. Low-salt diet. transthoracic echocardiogram>EF 20-25% with severe global hypokinesis Patient on beta-roderick and ARB cardiology consultation> patient still volume overloaded, continue diuretics Chronic AFib with RVR in the setting of above Patient given IV diltiazem and IV metoprolol in the ER. continue metoprolol, increased to 75 mg BID On Pradaxa, renally dosed (home dose 150 BID) Acute kidney injury stage I, cardiorenal type 1 in the setting of CHF. Improving Monitor creatinine and urine output with IV diuresis. lasix stopped Avoid nephrotoxins. Hypertension Continue home antihypertensives. Hold losartan in the setting of EMILY Reactive leukocytosis No sepsis Dementia, unspecified On memantine and donepezil. Maintain sleep-wake cycle IVY Continue CPAP at bedtime Mixed hyperlipidemia On statin Mood disorder Continue home mood stabilizers DISPO PT consult DVT prophylaxis: Pradabhavik Attending Dr. Zheng DNR/DNI. Discussed with patient and at bedside Quality Stroke Does the patient have a stroke diagnosis?: No VTE Prior VTE?: No VTE Risk Level:: Medical - moderate - high VTE Device Contraindication: Treatment Not Indicated VTE Drug Contraindication: N/A - Med Ordered
[2024-01-15] MEDS: Sacubitril/Valsartan 24/26 1 TAB TABLET PO ×2 (13:34→20:07)
[2024-01-15] MEDS: Donepezil HCl 5 MG TABLET PO (20:07)
[2024-01-15] MEDS: Melatonin 3 MG TABLET 6 MG PO (20:07)
[2024-01-16] VITALS (9 sets, daily range): BP systolic 86–117; BP diastolic 52–73; PULSE 92–119; RESP 18–20; TEMP 36–36.4; O2SAT 96–99
[2024-01-16] MEDS: 0.9 % Sodium Chloride Flush 3 ML SYRINGE IVFLUSH ×2 (01:08→20:38)
[2024-01-16 06:48] LABS: Anion Gap 13 (12-20); Blood Urea Nitrogen 40 mg/dL (9-16); Calcium 8.6 mg/dL (8.4-10.2); Carbon Dioxide 27 mmol/L (22-29); Chloride 105 mmol/L (96-108); Creatinine Clr Calc Pharmacy 53.7; Estimated Glomerular Filt Rate > 60; Glucose Random 93 mg/dL (60-115); Potassium 3.2 mmol/L (3.3-5.1); Sodium 142 mmol/L (135-145)
[2024-01-16] MEDS: Metoprolol Tartrate 50 MG TABLET PO ×2 (09:13→20:33)
[2024-01-16] MEDS: Multivitamin TABLET 1 TAB PO (09:13)
[2024-01-16] MEDS: Memantine HCl 5 MG TABLET PO ×2 (09:13→20:32)
[2024-01-16] MEDS: Potassium Chloride ER 20 MEQ TAB.ER.PRT PO (09:13)
[2024-01-16] MEDS: Sertraline HCL 50 MG TABLET PO (09:13)
[2024-01-16] MEDS: Spironolactone 25 MG TABLET PO ×2 (09:13→20:33)
[2024-01-16] MEDS: Sacubitril/Valsartan 24/26 1 TAB TABLET PO ×2 (09:13→20:32)
[2024-01-16] MEDS: Pravastatin Sodium 20 MG TABLET PO (09:13)
[2024-01-16] MEDS: Cholecalciferol (Vitamin D3) 25 MCG TABLET 50 MCG PO (09:13)
[2024-01-16] MEDS: Furosemide 40 MG/4 ML VIAL IVPUSH (09:24)
--- NOTE | 2024-01-16 10:18 | MHC.CM.PN ---
Per ROUNDS discussion, Patient is not yet medically cleared for dc (IV Lasix); home with new vna is the goal and CM will continue to follow.
--- NOTE | 2024-01-16 11:59 | HO.PM.IMPN ---
Subjective Subjective Date of Service: 01/16/24 Interval History: Slowly responding therapy. No acute issues overnight Review of Systems Denies chest pain Denies shortness of breath Denies fever chills Denies nausea vomiting diarrhea Physical Exam Vital Signs: Vital Signs: Last Vital Signs Temp 97.4 F 01/16/24 11:05 Pulse 92 01/16/24 11:05 Resp 20 01/16/24 11:05 BP 110/60 01/16/24 11:05 Pulse Ox 97 01/16/24 11:05 O2 Del Method Nasal Cannula 01/16/24 11:05 O2 Flow Rate 3 01/16/24 11:05 BMI result Body Mass Index 22.9 Const: Other: Awake alert no acute distress mildly confused Resp: Other: Bibasilar crackles 3 finger breaths below inferior scapular border Cardio: Other: Irregularly irregular. No S4; positive S1-S2, no S3 murmurs rubs or gallops GI: Other: Soft nontender nondistended normoactive bowel sounds Extrem: Other: No edema bilaterally Objective Data Active Medications Acetaminophen (Acetaminophen 325 Mg Tablet) 650 mg PO Q6H PRN PRN Reason: Pain, Mild (Pain Scale 1-3), fever or headache Last Admin: 01/14/24 21:20 Dose: 650 mg Documented By: BRENDA Calcium Carbonate (Calcium Carbonate 750 Mg Tab.Chew) 750 mg PO Q4H PRN PRN Reason: Heartburn Dabigatran (Dabigatran Etexilate Mesylate 75 Mg Capsule) 75 mg PO BID [facility] Last Admin: 01/16/24 09:13 Dose: 75 mg Documented By: GERALDO Donepezil HCl (Donepezil Hcl 5 Mg Tablet) 5 mg PO BEDTIME [facility] Last Admin: 01/15/24 20:07 Dose: 5 mg Documented By: NANO Furosemide (Furosemide 40 Mg/4 Ml Vial) 40 mg IVPUSH BID@0900,1800 [facility]; Protocol Last Admin: 01/16/24 09:24 Dose: 40 mg Documented By: GERALDO Magnesium Hydroxide (Milk Of Magnesia 30 Ml Oral.Susp) 30 ml PO DAILY PRN PRN Reason: Constipation Melatonin (Melatonin 3 Mg Tablet) 6 mg PO BEDTIME PRN PRN Reason: Insomnia Last Admin: 01/15/24 20:07 Dose: 6 mg Documented By: NANO Memantine (Memantine Hcl 5 Mg Tablet) 5 mg PO BID [facility] Last Admin: 01/16/24 09:13 Dose: 5 mg Documented By: GERALDO Metoprolol Tartrate (Metoprolol Tartrate 50 Mg Tablet) 50 mg PO BID [facility]; Protocol Last Admin: 01/16/24 09:13 Dose: 50 mg Documented By: GERALDO Multivitamins/Vitamin C (Multivitamin Tablet) 1 tab PO DAILY [facility] Last Admin: 01/16/24 09:13 Dose: 1 tab Documented By: GERALDO Ondansetron HCl (Ondansetron Hcl 4 Mg/2 Ml Vial) 4 mg IVPUSH Q8H PRN PRN Reason: Nausea and Vomiting Potassium Chloride (Potassium Chloride Er 20 Meq Tab.Er.Prt) 20 meq PO DAILY [facility] Last Admin: 01/16/24 09:13 Dose: 20 meq Documented By: EGRALDO Pravastatin Sodium (Pravastatin Sodium 20 Mg Tablet) 20 mg PO DAILY [facility] Last Admin: 01/16/24 09:13 Dose: 20 mg Documented By: GERALDO Sacubitril/Valsartan (Sacubitril/Valsartan 1 Tab Tablet) 1 tab PO BID [facility]; Protocol Last Admin: 01/16/24 09:13 Dose: 1 tab Documented By: GERALDO Sertraline HCl (Sertraline Hcl 50 Mg Tablet) 50 mg PO DAILY [facility] Last Admin: 01/16/24 09:13 Dose: 50 mg Documented By: GERALDO Sodium Chloride (0.9 % Sodium Chloride Flush 3 Ml Syringe) 3 ml IVFLUSH QSHIFT [facility] Last Admin: 01/16/24 01:08 Dose: 3 ml Documented By: LOPEZ Spironolactone (Spironolactone 25 Mg Tablet) 25 mg PO BID [facility]; Protocol Vitamin D (Cholecalciferol (Vitamin D3) 25 Mcg Tablet) 50 mcg PO DAILY [facility] Last Admin: 01/16/24 09:13 Dose: 50 mcg Documented By: GERALDO Labs 01/13/24 06:20 01/16/24 06:26 Labs: Laboratory Results - last 24 hr 01/16/24 06:26 Anion Gap 13 Estim Creat Clear Calc 53.7 Estimated GFR > 60 Random Glucose 93 Calcium 8.6 Assessment and Plan (1) Acute exacerbation of CHF (congestive heart failure): Status: Acute (2) Atrial fibrillation with rapid ventricular response: Status: Acute Plan This is a 83-year-old male with pertinent history of chronic atrial fibrillation on Pradaxa, cardiomyopathy with moderate LV dysfunction, hypertension, unspecified dementia, IVY on CPAP, mood disorder, mixed hyperlipidemia who was brought to the emergency department for evaluation of dyspnea. 1.Acute decompensated systolic congestive heart failure/reduced ejection fraction -transthoracic echocardiogram>EF 20-25% with severe global hypokinesis -does not appear to be in a negative fluid balance by I/O -continue current Lasix dosing 2. AFib with RVR (chronic) -acceptable rate control on current therapy -continue oral beta blockade; avoid IV calcium channel blockers/IV beta blockers at per cardiac recommendation -continue renally dosed Pradaxa 3.Acute kidney injury -has returned to baseline -continue IV Lasix dosing -follow renals/divalents 4.Hypertension -acceptable control on current therapies. Avoid [place] ARB and NSAIDs Pradaxa DNR DNI Requires ongoing hospitalization for IV diuresis and cardiac monitoring Quality Stroke Does the patient have a stroke diagnosis?: No VTE Prior VTE?: No VTE Risk Level:: Medical - moderate - high VTE Device Contraindication: Treatment Not Indicated VTE Drug Contraindication: N/A - Med Ordered
[2024-01-16] MEDS: 0.9 % Sodium Chloride 500 ML IV (16:30)
--- NOTE | 2024-01-16 16:31 | PM.EVENT ---
Event Note Date of Service: 01/16/24 Event Note: Notified by nursing that patient's BP was 86/52. Repeat manual checks were 84/63 on both arms. Patient seen and evaluated where he is asymptomatic, resting comfortably in recliner. Denies lightheadedness or dizziness. Mentation appears at baseline. Patient is admitted to the hospital for acute decompensated diastolic heart failure and is being aggressively diuresed with Lasix 40 mg IV b.i.d.. Upon physical examination, patient noted to have irregularly irregular rhythm but was tachycardic. Will hold diuretics for now, and give 500 mL IVF bolus. Time Spent With Patient Time: Total time managing care of this patient today ____ minutes.
[2024-01-16] MEDS: Donepezil HCl 5 MG TABLET PO (20:33)
[2024-01-17] VITALS (7 sets, daily range): BP systolic 95–163; BP diastolic 66–101; PULSE 106–121; RESP 18–20; TEMP 36.1–37.1; O2SAT 94–99
[2024-01-17 06:49] LABS: Anion Gap 13 (12-20); Blood Urea Nitrogen 34 mg/dL (9-16); Calcium 8.7 mg/dL (8.4-10.2); Carbon Dioxide 25 mmol/L (22-29); Chloride 106 mmol/L (96-108); Creatinine Clr Calc Pharmacy 52.7; Estimated Glomerular Filt Rate > 60; Glucose Random 100 mg/dL (60-115); Potassium 3.6 mmol/L (3.3-5.1); Sodium 140 mmol/L (135-145)
[2024-01-17] MEDS: Sacubitril/Valsartan 24/26 1 TAB TABLET PO ×2 (09:45→21:01)
[2024-01-17] MEDS: Cholecalciferol (Vitamin D3) 25 MCG TABLET 50 MCG PO (09:45)
[2024-01-17] MEDS: Sertraline HCL 50 MG TABLET PO (09:45)
[2024-01-17] MEDS: Spironolactone 25 MG TABLET PO ×2 (09:45→21:00)
[2024-01-17] MEDS: Metoprolol Tartrate 50 MG TABLET PO ×2 (09:45→21:01)
[2024-01-17] MEDS: Multivitamin TABLET 1 TAB PO (09:46)
[2024-01-17] MEDS: Potassium Chloride ER 20 MEQ TAB.ER.PRT PO (09:46)
[2024-01-17] MEDS: Memantine HCl 5 MG TABLET PO ×2 (09:46→21:00)
[2024-01-17] MEDS: Pravastatin Sodium 20 MG TABLET PO (09:46)
[2024-01-17] MEDS: 0.9 % Sodium Chloride Flush 3 ML SYRINGE IVFLUSH ×3 (09:46→21:02)
[2024-01-17] MEDS: Furosemide 40 MG TABLET PO (12:38)
--- NOTE | 2024-01-17 13:44 | P.PNIM_ITS ---
Subjective Subjective Date of Service: 01/17/24 Interval History: Seen and examined this morning Follow-up for CHF, atrial fibrillation with rapid ventricular response Overnight patient with low blood pressure likely due to medication and received IV fluid Patient with history of dementia, poor historian. Denies shortness of breath, chest pain, palpitations Review of Systems Review of Systems: Yes all other systems are reviewed and are negative Constitutional Constitutional: Denies fever(s) ENT Ears, Nose, Mouth, and Throat: Denies dizziness Cardiovascular Cardiovascular: Denies chest pain and Denies dyspnea Respiratory Respiratory: Denies dyspnea Neurologic Neurologic: Denies dizziness Physical Exam 2 Vital Signs: Vital Signs: Last Vital Signs Temp 97.6 F 01/17/24 12:00 Pulse 117 H 01/17/24 12:00 Resp 20 01/17/24 12:00 BP 101/66 01/17/24 12:00 Pulse Ox 96 01/17/24 12:00 O2 Del Method Room Air 01/17/24 12:00 O2 Flow Rate 2 01/17/24 08:00 BMI result Body Mass Index 22.9 Const: General: alert and awake Nutritional Appearance: average body habitus Orientation/consciousness: oriented to person Resp: Effort & Inspection: normal respiratory effort, able to speak in complete sentences, no respiratory distress and no use of accessory muscles Cardio: Other: Irregularly irregular Rate: tachycardic GI: Inspection: No distended Palpation (GI): Soft to palpation and nontender Neuro: General: oriented to person, moves all extremities and CN's II-XI intact bilaterally Extrem: General: Yes no pedal edema Objective Data Active Medications Acetaminophen (Acetaminophen 325 Mg Tablet) 650 mg PO Q6H PRN PRN Reason: Pain, Mild (Pain Scale 1-3), fever or headache Last Admin: 01/14/24 21:20 Dose: 650 mg Documented By: BRENDA Calcium Carbonate (Calcium Carbonate 750 Mg Tab.Chew) 750 mg PO Q4H PRN PRN Reason: Heartburn Dabigatran (Dabigatran Etexilate Mesylate 75 Mg Capsule) 75 mg PO BID [facility] Last Admin: 01/17/24 09:45 Dose: 75 mg Documented By: ADITYA Donepezil HCl (Donepezil Hcl 5 Mg Tablet) 5 mg PO BEDTIME [facility] Last Admin: 01/16/24 20:33 Dose: 5 mg Documented By: LOPEZ Furosemide (Furosemide 40 Mg Tablet) 40 mg PO DAILY [facility]; Protocol Last Admin: 01/17/24 12:38 Dose: 40 mg Documented By: ACOSTA Magnesium Hydroxide (Milk Of Magnesia 30 Ml Oral.Susp) 30 ml PO DAILY PRN PRN Reason: Constipation Melatonin (Melatonin 3 Mg Tablet) 6 mg PO BEDTIME PRN PRN Reason: Insomnia Last Admin: 01/15/24 20:07 Dose: 6 mg Documented By: NANO Memantine (Memantine Hcl 5 Mg Tablet) 5 mg PO BID [facility] Last Admin: 01/17/24 09:46 Dose: 5 mg Documented By: ADITYA Metoprolol Tartrate (Metoprolol Tartrate 50 Mg Tablet) 50 mg PO BID [facility]; Protocol Last Admin: 01/17/24 09:45 Dose: 50 mg Documented By: ADITYA Multivitamins/Vitamin C (Multivitamin Tablet) 1 tab PO DAILY [facility] Last Admin: 01/17/24 09:46 Dose: 1 tab Documented By: ADITYA Ondansetron HCl (Ondansetron Hcl 4 Mg/2 Ml Vial) 4 mg IVPUSH Q8H PRN PRN Reason: Nausea and Vomiting Potassium Chloride (Potassium Chloride Er 20 Meq Tab.Er.Prt) 20 meq PO DAILY [facility] Last Admin: 01/17/24 09:46 Dose: 20 meq Documented By: ADITYA Pravastatin Sodium (Pravastatin Sodium 20 Mg Tablet) 20 mg PO DAILY [facility] Last Admin: 01/17/24 09:46 Dose: 20 mg Documented By: ADITYA Sacubitril/Valsartan (Sacubitril/Valsartan 1 Tab Tablet) 1 tab PO BID [facility]; Protocol Last Admin: 01/17/24 09:45 Dose: 1 tab Documented By: ADITYA Sertraline HCl (Sertraline Hcl 50 Mg Tablet) 50 mg PO DAILY [facility] Last Admin: 01/17/24 09:45 Dose: 50 mg Documented By: ADITYA Sodium Chloride (0.9 % Sodium Chloride Flush 3 Ml Syringe) 3 ml IVFLUSH QSHIFT [facility] Last Admin: 01/17/24 09:46 Dose: 3 ml Documented By: ADITYA Spironolactone (Spironolactone 25 Mg Tablet) 25 mg PO BID [facility]; Protocol Last Admin: 01/17/24 09:45 Dose: 25 mg Documented By: ADITYA Vitamin D (Cholecalciferol (Vitamin D3) 25 Mcg Tablet) 50 mcg PO DAILY [facility] Last Admin: 01/17/24 09:45 Dose: 50 mcg Documented By: ADITYA Labs 01/13/24 06:20 01/17/24 06:22 Labs: Laboratory Results - last 24 hr 01/17/24 06:22 Anion Gap 13 Estim Creat Clear Calc 52.7 Estimated GFR > 60 Random Glucose 100 Calcium 8.7 Assessment and Plan (1) Acute exacerbation of CHF (congestive heart failure): Status: Acute (2) Atrial fibrillation with rapid ventricular response: Status: Acute Plan This is a 83-year-old male with pertinent history of chronic atrial fibrillation on Pradaxa, cardiomyopathy with moderate LV dysfunction, hypertension, unspecified dementia, IVY on CPAP, mood disorder, mixed hyperlipidemia who was brought to the emergency department for evaluation of dyspnea. Acute decompensated congestive heart failure with reduced ejection fraction Strict I's and O's. Low-salt diet. transthoracic echocardiogram>EF 20-25% with severe global hypokinesis Patient on beta-roderick cardiology following Started on Entresto, Aldactone this admission Low blood pressure with IV Lasix, transitioned to p.o. Lasix and monitor blood pressure closely Chronic AFib with RVR in the setting of above Patient given IV diltiazem and IV metoprolol in the ER. continue home dose of metoprolol, do not give IV BB or CCB, do not increase dose of BB and no digoxin per cardiology On Pradaxa, renal function improved we will returned to full dose Acute kidney injury stage I, cardiorenal type 1 in the setting of CHF. Improving resolved Avoid nephrotoxins. Hypokalemia Improved with replacement Hypertension Continue home antihypertensives. Reactive leukocytosis No sepsis Dementia, unspecified On memantine and donepezil. Maintain sleep-wake cycle IVY Continue CPAP at bedtime Mixed hyperlipidemia On statin Mood disorder Continue home mood stabilizers DISPO PT consult - home with PT services DVT prophylaxis: Fer Attending Dr. Zheng DNR/DNI. Discussed with patient and at bedside Quality Stroke Does the patient have a stroke diagnosis?: No VTE Prior VTE?: No VTE Risk Level:: Medical - moderate - high VTE Device Contraindication: Treatment Not Indicated VTE Drug Contraindication: N/A - Med Ordered
--- NOTE | 2024-01-17 15:04 | PM.PNCARD ---
Subjective Subjective Date of Service: 01/17/24 Interval history: Seen examined at bedside. Sleeping without oxygen. Improved significantly. Physical Exam Vital Signs: Last Vital Signs Temp 97.6 F 01/17/24 12:00 Pulse 117 H 01/17/24 12:00 Resp 20 01/17/24 12:00 BP 101/66 01/17/24 12:00 Pulse Ox 96 01/17/24 12:00 O2 Del Method Room Air 01/17/24 12:00 O2 Flow Rate 2 01/17/24 08:00 BMI result Body Mass Index 22.9 GENERAL APPEARANCE: in no acute distress NECK: no carotid bruit, no significant JVD. SKIN: no suspicious lesions, warm and dry. HEART: no murmurs, irregular rate and rhythm. LUNGS: clear to auscultation bilaterally. ABDOMEN: soft, nontender. EXTREMITIES: no edema. PERIPHERAL PULSES: equal. NEUROLOGIC: No gross deficits. Objective Labs and Meds 01/13/24 06:20 01/17/24 06:22 Lab results: Laboratory Results - last 24 hr 01/17/24 06:22 Sodium 140 Potassium 3.6 Chloride 106 Carbon Dioxide 25 Anion Gap 13 BUN 34 H Creatinine 1.08 Estim Creat Clear Calc 52.7 Estimated GFR > 60 Random Glucose 100 Calcium 8.7 Progress Note: A&P Assessment and plan (1) Acute exacerbation of CHF (congestive heart failure): Status: Acute (2) Atrial fibrillation with rapid ventricular response: Status: Acute Plan [age] year gentleman with persistent atrial fibrillation and congestive heart failure. ECHO has shown cardiomyopathy. He has left bundle-branch block. Overall clinically improving. He has low blood pressures yesterday and required some IV fluids. His Lasix IV has been discontinued. I think he can be started on 40 mg daily Lasix. Continue rest of his medications as before. Metoprolol titration may need to hypotension. He previously had bradycardic episodes and I would avoid any digoxin currently. Target heart rates below 120s. He has advanced dementia and is not a candidate for any aggressive procedures/therapies. Thank you for allowing me to participate in the care of your patient. Please feel free to contact me if you have any questions. Time Spent With Patient Time: Total time managing care of this patient today ____ minutes. Progress Note: Quality Stroke Does the patient have a stroke diagnosis?: No Procedures Date of Service Date of Service: 01/17/24
[2024-01-17] MEDS: Dabigatran Etexilate Mesylate 150 MG CAPSULE PO (21:01)
[2024-01-17] MEDS: Donepezil HCl 5 MG TABLET PO (21:01)
[2024-01-18 03:22] VITALS: BP 117/78; PULSE 118; RESP 20; TEMP 36.2; O2SAT 95
[2024-01-18 07:20] VITALS: BP 125/87; PULSE 112; RESP 17; TEMP 36.3; O2SAT 96
[2024-01-18] MEDS: Dabigatran Etexilate Mesylate 150 MG CAPSULE PO (09:02)
[2024-01-18] MEDS: Multivitamin TABLET 1 TAB PO (09:02)
[2024-01-18] MEDS: Sertraline HCL 50 MG TABLET PO (09:02)
[2024-01-18] MEDS: Sacubitril/Valsartan 24/26 1 TAB TABLET PO (09:02)
[2024-01-18] MEDS: Metoprolol Tartrate 50 MG TABLET PO (09:02)
[2024-01-18] MEDS: Cholecalciferol (Vitamin D3) 25 MCG TABLET 50 MCG PO (09:02)
[2024-01-18] MEDS: Furosemide 40 MG TABLET PO (09:03)
[2024-01-18] MEDS: Spironolactone 25 MG TABLET PO (09:03)
[2024-01-18] MEDS: Memantine HCl 5 MG TABLET PO (09:03)
[2024-01-18] MEDS: Pravastatin Sodium 20 MG TABLET PO (09:03)
[2024-01-18] MEDS: 0.9 % Sodium Chloride Flush 3 ML SYRINGE IVFLUSH (09:03)
--- NOTE | 2024-01-18 09:09 | PM.DS ---
DS: Providers Provider Date of Service: 01/18/24 Date of admission: 01/12/24 05:35 Date of discharge: 01/18/24 Primary care physician: Joleen Boyd MD Consults: 01/12/24 12:31 Consult to Cardiology Routine Consulting Provider: [facility] Reason for consultation: CHF [facility] clinician: Rowena López DS: Diagnosis Discharge Diagnosis (1) Acute exacerbation of CHF (congestive heart failure): Status: Acute (2) Atrial fibrillation with rapid ventricular response: Status: Acute DS: Summary Hospital Course Hospital Course: From H&P on the day of admission This is a 83-year-old male with pertinent history of chronic atrial fibrillation on Pradaxa, cardiomyopathy with moderate LV dysfunction, hypertension, unspecified dementia, IVY on CPAP, mood disorder, mixed hyperlipidemia who was brought to the emergency department for evaluation of dyspnea. Patient is a poor historian due to underlying dementia and history obtained with the help of at bedside. Patient does endorse dyspnea which is worse when lying flat. The states that she noticed that patient was extremely short of breath while was walking to the end of his driveway. The called manager client support's office and got outpatient blood work done. Patient continued to be short of breath throughout the week. Minimal cough. He was also found to be shaking. No fever or chills. He denies chest discomfort, abdominal pain or changes in urinary or bowel habits. In the emergency department, imaging with pulmonary edema and BNP found to be elevated. Patient also found to be in AFib with RVR Acute decompensated congestive heart failure with reduced ejection fraction repeat echocardiogram showing reduction in EF to 20-25% with severe global hypokinesis seen by cardiology and started on Entresto, Aldactone this admission. was treated with IV lasix but then had an episode of low blood pressure. he was transitioned to p.o. Lasix and blood pressure remained stable. Chronic AFib with RVR Patient given IV diltiazem and IV metoprolol in the ER. He was continued on home dose of metoprolol. Due to history of bradycardia it was recommended not give to give IV BB or CCB, or increase dose of BB and to avoid digoxin per cardiology. HR is still above goal but given his age, dementia and underlying medical conditions, his HR is deemed to be acceptable at this time. Due to underlying dementia the benefit of discharging him home to a known environment outweighs the risk of continuing to keep him in the hospital. Family is in agreement and is eager to get him home. Acute kidney injury stage I, cardiorenal type 1 in the setting of CHF resolved Hypokalemia Improved with replacement Time Attestation Discharge Coordination Time (in mins): 36 Quality: Safe Use of Opioids Does Pt have an Active Cancer Diagnosis on the Problem List?: No Quality: Stroke Does the patient have a stroke diagnosis?: No Physical Exam Vital Signs: Vital Signs: Last Vital Signs Temp 97.4 F 01/18/24 07:20 Pulse 112 H 01/18/24 07:20 Resp 17 01/18/24 07:20 BP 125/87 01/18/24 07:20 Pulse Ox 96 01/18/24 07:20 O2 Del Method Room Air 01/18/24 07:20 O2 Flow Rate 2 01/17/24 08:00 BMI result Body Mass Index 22.9 Const: General: cooperative, comfortable, no acute distress, alert and awake Nutritional Appearance: average body habitus Orientation/consciousness: oriented to person Resp: Effort & Inspection: normal respiratory effort, able to speak in complete sentences, no respiratory distress and no use of accessory muscles Cardio: Other: Irregularly irregular Rate: tachycardic GI: Inspection: No distended Palpation (GI): Soft to palpation and nontender Neuro: General: oriented to person, moves all extremities and CN's II-XI intact bilaterally Extrem: General: Yes no pedal edema Discharge Plan Discharge Anticipated Discharge Date/Time: 01/18/24 09:28 Patient Disposition: Home Health Service Discharge Diagnosis: Atrial fibrillation with rapid ventricular response Acute on chronic heart failure Referrals: Amilcar Hyman MD [Physician] - 1 Week Po,Joleen Brock MD [Primary Care Provider] - 1 Week Discharge Medications: New Entresto 24-26 mg Tablet 1 tab PO BID 90 Days Qty: 180 0RF Protocol: Hold for SBP< HOLD for SBP < : 90 spironolactone 25 mg Tablet 25 mg PO BID 90 Days Qty: 180 0RF Protocol: Hold for SBP< HOLD for SBP < : 90 furosemide 40 mg Tablet 40 mg PO DAILY 90 Days Qty: 90 0RF Protocol: Hold for SBP< HOLD for SBP < : 90 metoprolol succinate [Toprol XL] 100 mg tablet extended release 24 hr 100 mg PO DAILY 90 Days Qty: 90 0RF Continued dabigatran etexilate [Pradaxa] 150 mg capsule 150 mg PO BID Qty: 180 3RF pravastatin 20 mg tablet 20 mg PO DAILY Qty: 90 3RF vitamin B complex Capsule 1 cap PO DAILY melatonin 1 mg Tablet 4 mg PO BEDTIME cholecalciferol (vitamin D3) 50 mcg (2,000 unit) capsule 50 mcg PO DAILY 90 Days Qty: 90 3RF donepezil 10 mg tablet 5 mg PO BEDTIME sertraline 50 mg tablet 50 mg PO DAILY memantine 5 mg tablet 5 mg PO BID Discontinued metoprolol tartrate 50 mg tablet 50 mg PO BID 90 Days Qty: 180 3RF valsartan 80 mg tablet 80 mg PO DAILY Qty: 90 3RF No Action (DME) CPAP See Rx Instructions .Route .MEDSUPPLY Qty: 1 0RF Rx Instructions: As directed Discharge Orders: Discharge Order (Routine); Ordered 01/18/24 Ordered By: Rowena López Activity on Discharge: As tolerated Stand Alone Forms: Patient Portal Discharge page Print Language: Fijian Care Plan Goals: See below Health Concerns: Acute on chronic heart failure with reduced ejection fraction Atrial fibrillation with rapid ventricular response Plan of Treatment: Some adjustments have been made to your medication: Stopped taking metoprolol twice daily, this has been changed to long-acting metoprolol once daily Stop taking valsartan Start taking Entresto, lasix and spironolactone call to schedule follow up appointment with PCP and with cardiology Assessment: See discharge summary
--- NOTE | 2024-01-18 09:19 | PM.PNCARD ---
Subjective Subjective Date of Service: 01/18/24 Interval history: Seen and examined at bedside. Feeling better. In Afib with RVR. Physical Exam Vital Signs: Last Vital Signs Temp 97.4 F 01/18/24 07:20 Pulse 112 H 01/18/24 07:20 Resp 17 01/18/24 07:20 BP 125/87 01/18/24 07:20 Pulse Ox 96 01/18/24 07:20 O2 Del Method Room Air 01/18/24 07:20 O2 Flow Rate 2 01/17/24 08:00 BMI result Body Mass Index 22.9 GENERAL APPEARANCE: in no acute distress NECK: no carotid bruit, no significant JVD. SKIN: no suspicious lesions, warm and dry. HEART: no murmurs, irregular rate and rhythm. LUNGS: clear to auscultation bilaterally. ABDOMEN: soft, nontender. EXTREMITIES: no edema. PERIPHERAL PULSES: equal. NEUROLOGIC: No gross deficits. Objective Labs and Meds 01/13/24 06:20 01/17/24 06:22 Progress Note: A&P Assessment and plan (1) Acute exacerbation of CHF (congestive heart failure): Status: Acute (2) Atrial fibrillation with rapid ventricular response: Status: Acute Plan 83-year-old gentleman with persistent atrial fibrillation and congestive heart failure. ECHO has shown cardiomyopathy. He has left bundle-branch block. Overall clinically improving. Difficult to control rates because had bradycardia in the past and has been on Aricept and Namenda for dementia. change to toprol XL 100. I am not adding another AV garrison blockers due to concern for bradycardia which has happened in the past. The was updated about this plan and was agreeable. He has advanced dementia and is not a candidate for any aggressive procedures/therapies. Thank you for allowing me to participate in the care of your patient. Please feel free to contact me if you have any questions. Time Spent With Patient Time: Total time managing care of this patient today ____ minutes. Progress Note: Quality Stroke Does the patient have a stroke diagnosis?: No Procedures Date of Service Date of Service: 01/18/24
--- NOTE | 2024-01-18 09:29 | P.F2F_ITS ---
Service Date Service Date: 01/18/24 Encounter Date of encounter: 01/18/24 Reasons for Services Signs and symptoms assessed: Needs [place] [facility] for [facility] education/medication management and physical therapy for strengthening Reason for [facility]: medication management Reason for physical therapy: home safety and mobility and therapeutic exercises Overseeing Care: Joleen Boyd Homebound: Leaving the home is medically contraindicated at this time without the asist of a device and/or another person due th the listed conditions above and below. Reason homebound: poor balance / fall risk Certification: Based on the above findings, I certify that this patient is confined to the home and needs intermittent [facility] [facility] care, physical therapy and/or speech therapy, or continues to need occupational therapy. The patient is under my care, and I have initiated the establishment of the plan of care. The patient will be followed by a physician who will periodically review the plan of care. Time Spent With Patient Time: Total time managing care of this patient today ____ minutes.
--- NOTE | 2024-01-18 10:35 | MHC.CM.PN ---
Patient has been medically cleared for dc to home today, with services. A referral was made to [facility], who has been made aware of today's dc. IMM addressed at bedside with Patient and his and the original was given to them and a copy placed on the chart.
[2024-01-18 11:25] VITALS: BP 91/62; PULSE 101; RESP 18; TEMP 36.6; O2SAT 95
== END 2024-01-18 12:26 | disposition home health service (06) | DRG 291 ==
LOC: HO.ED 03:15 → HO.EDOVER 06:05 → HO.IMC 07:58
PROVIDERS: Nurse Practitioner Acute Care; Admitting Provider Student in an Organized Health Care Education/Training Program; Emergency Provider Internal Medicine; PCP Internal Medicine; Visit Provider Physician Assistant Medical
DX: I11.0 Hypertensive heart disease with heart failure (principal); I50.33 Acute on chronic diastolic (congestive) heart failure; I48.19 Other persistent atrial fibrillation; N17.9 Acute kidney failure, unspecified; I42.9 Cardiomyopathy, unspecified; Z66 Do not resuscitate; E78.2 Mixed hyperlipidemia; E87.6 Hypokalemia; I95.9 Hypotension, unspecified; G47.33 Obstructive sleep apnea (adult) (pediatric); F03.90 Unspecified dementia, unspecified severity, without behavioral disturbance, psychotic disturbance, mood disturbance, and anxiety; Z79.01 Long term (current) use of anticoagulants; Z79.899 Other long term (current) drug therapy
CPT/HCPCS: 36415; 71045; 80048; 80076; 81001; 82947; 83735; 83880; 84484; 85025; 85027; 85610; 85730; 87086; 87635; 93005; 93306; 94660; 97116; 97161; 99285; C1758; J1940

== ENCOUNTER 2024-01-12 05:35 | Outpatient (BNV) | payer MEDICARE, OTHER, SELFPAY | END 2024-01-14 07:00 | PROVIDERS: Admitting Provider Student in an Organized Health Care Education/Training Program; Emergency Provider Internal Medicine; PCP Internal Medicine; Visit Provider Internal Medicine Cardiovascular Disease | DX: I34.0 Nonrheumatic mitral (valve) insufficiency (principal); I36.1 Nonrheumatic tricuspid (valve) insufficiency; I44.7 Left bundle-branch block, unspecified; R93.1 Abnormal findings on diagnostic imaging of heart and coronary circulation | CPT/HCPCS: 93306 ==

== ENCOUNTER → 2024-01-12 05:35 | Outpatient (BNV) | payer MEDICARE, OTHER, SELFPAY | PROVIDERS: Admitting Provider Student in an Organized Health Care Education/Training Program; Emergency Provider Internal Medicine; PCP Internal Medicine; Visit Provider Student in an Organized Health Care Education/Training Program | DX: I50.9 Heart failure, unspecified (principal); I48.91 Unspecified atrial fibrillation | CPT/HCPCS: 99223; 99231; 99232; 99239; 99499; G0180 ==

== ENCOUNTER → 2024-01-12 05:35 | Outpatient (BNV) | payer MEDICARE, OTHER, SELFPAY | PROVIDERS: Admitting Provider Student in an Organized Health Care Education/Training Program; Emergency Provider Internal Medicine; PCP Internal Medicine; Visit Provider Internal Medicine | DX: I50.9 Heart failure, unspecified (principal); I48.91 Unspecified atrial fibrillation | CPT/HCPCS: 99223; 99233 ==

== ENCOUNTER 2024-01-24 12:56 | Outpatient (AMB) | payer MEDICARE, OTHER, SELFPAY ==
--- NOTE | 2024-01-24 12:58 | MHC.PC.OV ---
Vital Signs 01/24/24 12:59 Height 5 ft 11 in Weight 156 lb BMI 21.8 BP 112/52 L Blood Pressure Location Lt brachial Position Sitting Pulse 56 Pulse Source Pulse Oximeter Pulse Oximetry (%) 100 Oxygen Delivery Method Room Air Intake Visit Reasons: [facility] 01/17 Dyspnea Allergies Kota Inhibitor Allergy (Intermediate, Verified 01/24/24 13:02) cough Diltiazem HCl CD Allergy (Unknown, Verified 01/24/24 13:02) unknown lisinopril Allergy (Unknown, Verified 01/24/24 13:02) cough dorzolamide Adverse Reaction (Intermediate, Verified 01/24/24 13:02) red eye Tobacco use date assessed: 07/26/23 Fall risk assessment: No Falls in past year Last assessed Fall Risk: 01/24/24 Dental Screening Dental Screen Date: 07/26/23 HPI [facility] 01/17 Dyspnea HPI Details 83-year-old male with atrial fibrillation hypertension cardiomyopathy hypercholesterolemia obstructive sleep apnea GERD history of prostate cancer generalized anxiety disorder with frontal lobe dementia coming in for follow-up. Last seen in 07/17/2023. Review of the notes was in the hospital in January 18 2024 for admission for shortness of breath. Noted pulmonary edema BNP elevated. Atrial fibrillation was having rapid ventricular rate. Echocardiogram done EF of 25 % with severe global hypokinesis started on Entresto Aldactone and Lasix as for the atrial fibrillation diltiazem and metoprolol . Sleep study done in August 2023 showing sleep apnea with recommendation of APAP 10-20 patient did see neurology also donepezil and memantine. Patient has also seen urology for the PSA/prostate cancer and microscopic hematuria [facility] Information Date of Discharge 01/18/24 Discharged From [facility] Interactive Contact Date (Reference documentation from this date) 01/24/24 [facility] Medical History (Updated 01/24/24 @ 13:27 by Joleen Boyd MD) Acute on chronic diastolic (congestive) heart failure Congestive heart failure with reduced left ventricular function, NYHA class 3 Acute exacerbation of CHF (congestive heart failure) Hypersomnia Anxiety Prostate cancer Aortic regurgitation CRVO (central retinal vein occlusion) GERD (gastroesophageal reflux disease) Obstructive sleep apnea Cholelithiasis Cognitive impairment Generalized anxiety disorder Insomnia History of prostate cancer Hypercholesterolemia Left bundle branch block Nonischemic cardiomyopathy HTN (hypertension) Chronic atrial fibrillation Surgical History Hx of cholecystectomy History of prostatectomy History of inguinal hernia repair Family History Father Diabetes Stroke Mother Diabetes Other Mental health disorder Substance use disorder Social History Household Members: Spouse Housing: House Do you presently have visiting nurse or other home services: No Alcohol intake: never Patient Tobacco Use Status: Never used Tobacco Tobacco use type: Cigarette e-Cigarette/Vaping Use: Never Used Second Hand Smoke Exposure: No service: Yes Current occupational status: retired Current occupational exposures/hazards: No Cognitive needs: No Hearing needs: Yes Vision needs: Yes Questionnaire Thrive Questionnaire Date Thrive assessed: 01/14/24 MATTHEW-7 AMB Questionnaire MATTHEW-7 Date MATTHEW - 7 assessed: 07/26/23 Source: Developed by Drs. Ken Iyer, Marycruz Tovar, Hitesh Thompson and colleagues, with an educational junie from [employer]. Physical exam (Primary Care) Vital Signs: Last Vital Signs Pulse 56 01/24/24 12:59 BP 112/52 L 01/24/24 12:59 Pulse Ox 100 01/24/24 12:59 Oxygen Delivery Method Room Air 01/24/24 12:59 BMI result Body Mass Index 21.8 Tobacco/Smoking Status: Tobacco use Status Tobacco use date assessed 07/26/23 01/24/24 13:01 Patient Tobacco Use Status Never used Tobacco 01/24/24 13:01 Tobacco use type Cigarette 01/24/24 13:04 e-Cigarette/Vaping Use Never Used 01/24/24 13:01 Thrive Assessment: Date of Thrive Assessment Date Thrive assessed 01/14/24 01/24/24 13:01 Const General: alert; No acute distress HENMT Other: impacted cerumen L ear Eyes Conjunctivae: conjunctivae normal Resp Auscultation: clear to auscultation bilaterally Cardio Rate: regular rate Rhythm: regular rhythm GI Inspection: Yes normal to inspection Extrem General: Yes normal to inspection and No edema Office Procedures Cerumen Removal From which ear canal was the cerumen removed: left Removal: otoscope w/curette, cerumen loop/spoon and other 19903-Vhm Wax Removal by Spoon/Curette Immunizations tetanus-diphtheria toxoids-Td 2 Lf unit-2 Lf unit/0.5 mL IM suspension Performing Provider: Joleen Boyd MD Performing Location: [facility] Administered by: Rowena Dee CMA on 01/24/24 13:54 Dose Route Admin Location Dispensed Lot Number Expiration Date NDC Telecommunications Clerk 0.5 mL IM Left Deltoid 0.5 mL [id number] 07/07/24 [address]-2 [employer] VIS Given Date VIS Provided VIS Publication Date 01/24/24 Single Vaccine 20 Eligibility Eligibility Date Funding Source Not VFC Eligible 01/24/24 [facility] Assessment and Plan Assessment & Plan (1) Congestive heart failure with reduced left ventricular function, NYHA class 3: Code(s): I50.20 - Unspecified systolic (congestive) heart failure Plan: Patient presently on diuretics, weigh daily continue with present medication and continue to follow-up with cardiology (2) Frontal lobe dementia: Code(s): G31.09 - Other frontotemporal neurocognitive disorder; F02.80 - Dementia in other diseases classified elsewhere, unspecified severity, without behavioral disturbance, psychotic disturbance, mood disturbance, and anxiety Plan: Continuing with present medications placed on memantine and donepezil (3) Prostate cancer: Comment: 2001 radical prostatectomy Code(s): C61 - Malignant neoplasm of prostate Plan: Continue to follow-up with urology (4) Nonischemic cardiomyopathy: Comment: 05/2022 EF 51 % Code(s): I42.8 - Other cardiomyopathies Plan: Patient has been placed on Entresto spironolactone (5) Obstructive sleep apnea: Comment: Severe degree of sleep apnea. The AHI was 47/hr and oxygen jose was 84%. Code(s): G47.33 - Obstructive sleep apnea (adult) (pediatric) Plan: Continue with the APAP (6) Hearing deficit: Code(s): H91.90 - Unspecified hearing loss, unspecified ear (7) Impacted cerumen, left ear: Code(s): H61.22 - Impacted cerumen, left ear Plan: scoop and otoscope used TM intact Orders: Orders Magnesium Today I50.33 - Acute on chronic diastolic (congestive) heart failure Phosphorus Today I50.33 - Acute on chronic diastolic (congestive) heart failure Td State Immunization Today Z23 - Encounter for immunization B Type Natriuretic Peptide Today I50.33 - Acute on chronic diastolic (congestive) heart failure Comprehensive Met. Panel Today I50.33 - Acute on chronic diastolic (congestive) heart failure Referrals Speech and Hearing Referral H91.90 - Unspecified hearing loss, unspecified ear Coding Level of Care Code Est Pt Level 4 (84313) Diagnoses Congestive heart failure with reduced left ventricular function, NYHA class 3 I50.20 Frontal lobe dementia G31.09; F02.80 Prostate cancer C61 Nonischemic cardiomyopathy I42.8 Obstructive sleep apnea G47.33 Hearing deficit H91.90 Impacted cerumen, left ear H61.22 CPT Codes Office Procedure - CPT: 45469-Xcz Wax Removal by Spoon/Curette ([id number])
[2024-01-24 12:59] VITALS: BP 112/52; PULSE 56; O2SAT 100; BMI 21.8
== END 2024-01-24 14:08 | disposition home or self-care (01) ==
PROVIDERS: PCP Internal Medicine; Visit Provider Internal Medicine
DX: I50.20 Unspecified systolic (congestive) heart failure (principal); G31.09 Other frontotemporal neurocognitive disorder; F02.80 Dementia in other diseases classified elsewhere, unspecified severity, without behavioral disturbance, psychotic disturbance, mood disturbance, and anxiety; Z23 Encounter for immunization; C61 Malignant neoplasm of prostate; I42.8 Other cardiomyopathies; H61.22 Impacted cerumen, left ear; G47.33 Obstructive sleep apnea (adult) (pediatric); H91.90 Unspecified hearing loss, unspecified ear
CPT/HCPCS: 69210; 90471; 90714; 99214

== ENCOUNTER 2024-01-28 13:07 | Outpatient (REF) | payer MEDICARE, OTHER, SELFPAY ==
[2024-01-28 13:30] LABS: Anion Gap 12 (12-20); Blood Urea Nitrogen 17 mg/dL (9-16); Calcium 9.7 mg/dL (8.4-10.2); Carbon Dioxide 26 mmol/L (22-29); Chloride 104 mmol/L (96-108); Estimated Glomerular Filt Rate 51; Glucose Random 123 mg/dL (60-115); Potassium 4.1 mmol/L (3.3-5.1); Sodium 138 mmol/L (135-145)
== END 2024-01-28 13:08 | disposition home or self-care (01) ==
LOC: HO.LNP 13:07
PROVIDERS: Visit Provider Physician Assistant Medical
DX: I50.33 Acute on chronic diastolic (congestive) heart failure (principal)
CPT/HCPCS: 80048

== ENCOUNTER 2024-02-08 13:44 | Outpatient (AMB) | payer MEDICARE, OTHER, SELFPAY ==
[2024-02-08 13:45] VITALS: BP 110/62; PULSE 71; BMI 20.9
--- NOTE | 2024-02-08 13:45 | MHC.OFFVIS ---
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: No Accompanied by: Spouse Allergies Kota Inhibitor Allergy (Intermediate, Verified 01/24/24 13:02) cough Diltiazem HCl CD Allergy (Unknown, Verified 01/24/24 13:02) unknown lisinopril Allergy (Unknown, Verified 01/24/24 13:02) cough dorzolamide Adverse Reaction (Intermediate, Verified 01/24/24 13:02) red eye Medication List - Last Reconciled 02/08/24 by CASEY Mc cholecalciferol (vitamin D3) 50 mcg PO DAILY 90 days [CPAP As directed] dabigatran etexilate (Pradaxa) 150 mg PO BID donepezil 5 mg PO BEDTIME furosemide 40 mg See Protocol PO DAILY 90 days melatonin 4 mg PO BEDTIME memantine 5 mg PO BID metoprolol succinate ER (Toprol XL) 100 mg PO DAILY 90 days pravastatin 20 mg PO DAILY sacubitril-valsartan 24-26 mg (Entresto) 1 tab See Protocol PO BID 90 days sertraline 50 mg PO DAILY spironolactone 25 mg See Protocol PO BID 90 days vitamin B complex 1 cap PO DAILY HPI HPI follow-up [facility] dc dx CHF: Details: Ki is an 83-year-old male with past medical history of dementia, hypertension, hyperlipidemia, left bundle branch block, nonischemic cardiomyopathy, chronic atrial fibrillation, sleep apnea with CPAP use, mildly dilated ascending aorta who was recently admitted to [facility] with increased weakness and shortness of breath initially requiring CPAP use. He was treated for decompensated heart failure. He was diuresed and sent home with Lasix 40 mg daily. An echocardiogram showed a reduction in EF down to 20-25%. He had AFib RVR that was managed for rate control. Today he reports he has been doing well since his hospital discharge. He actually can not recall being in the hospital. He says he feels good and denies symptoms of chest discomfort, palpitations, shortness of breath. His is present and she does most of the talking. She confirms she has not witnessed any shortness of breath since his hospital discharge. Prior to the admission he was having some fatigue and shortness of breath. He currently has no PND, orthopnea or edema. He is compliant with his CPAP. He ambulates steady and has had no falls. He has had no bleeding issues with Pradaxa use. Takes all medications as directed. [facility] Medical History Acute on chronic diastolic (congestive) heart failure Congestive heart failure with reduced left ventricular function, NYHA class 3 Hypersomnia Anxiety Prostate cancer Aortic regurgitation CRVO (central retinal vein occlusion) GERD (gastroesophageal reflux disease) Obstructive sleep apnea Cholelithiasis Cognitive impairment Generalized anxiety disorder Insomnia History of prostate cancer Hypercholesterolemia Left bundle branch block Nonischemic cardiomyopathy HTN (hypertension) Chronic atrial fibrillation Surgical History Hx of cholecystectomy History of prostatectomy History of inguinal hernia repair Family History Father Diabetes Stroke Mother Diabetes Other Mental health disorder Substance use disorder Social History Household Members: Spouse Housing: House Do you presently have visiting nurse or other home services: No Alcohol intake: never Patient Tobacco Use Status: Never used Tobacco Tobacco use type: Cigarette e-Cigarette/Vaping Use: Never Used Second Hand Smoke Exposure: No service: Yes Current occupational status: retired Current occupational exposures/hazards: No Cognitive needs: No Hearing needs: Yes Vision needs: Yes Review of Systems Const All systems reviewed & are unremarkable except as noted in HPI and below Denies chills, Denies fatigue, Denies fever(s), Denies frequent falls, Denies weakness, Denies weight gain and Denies weight loss ENT Denies dizziness Card Denies chest pain, Denies leg edema, Denies lightheadedness, Denies palpitations, Denies dyspnea and Denies dyspnea on exertion Resp Denies cough, Denies dyspnea and Denies dyspnea on exertion GI Denies hematochezia Musc Denies abnormal gait, Denies muscle weakness, Denies numbness, Denies radiating pain into limb and Denies tingling Neuro Denies abnormal gait, Denies dizziness, Denies frequent falls, Denies numbness, Denies tingling and Denies weakness Endo Denies fatigue and Denies palpitations Physical Exam Vital Signs: Last Vital Signs Pulse 71 02/08/24 13:45 BP 110/62 02/08/24 13:45 BMI result Body Mass Index 20.9 Const Other: Has dementia - forgetfull General: cooperative, healthy appearing, comfortable and no acute distress Neck Neck: Yes normal visual inspection Resp Effort & Inspection: normal respiratory effort Auscultation: clear to auscultation bilaterally, no rales, no rhonchi and no wheezes Cardio Jugular venous distension: no JVD Rate: regular rate Rhythm: regular rhythm Heart sounds: S1 normal heart sound present, S2 normal heart sound present, no murmurs and no rubs GI Inspection: Yes normal to inspection Skin General skin exam: no rashes or lesions noted Extrem General: Yes normal to inspection and No no pedal edema Psych Appearance: grossly normal Mental Status: mental status grossly normal Speech and movement: Normal speech and movement present Office Procedures EKG Details: Today, read by me, atrial fibrillation, left anterior fascicular block, septal Q, nonspecific ST and T-wave abnormality, rate 71 [id number], Complete Assessment & Plan Assessment & Plan (1) Heart failure with reduced ejection fraction: Code(s): I50.20 - Unspecified systolic (congestive) heart failure Category: Medical Plan: Recent [facility] admission for increasing weakness and shortness of breath. He additionally did require CPAP. His BNP was as high as 2700. Chest x-ray showed findings of pulmonary vascular congestion, interstitial edema. Echocardiogram showed EF 20-25%, paradoxical septal motion of left bundle branch block, moderate to severe decrease in the RV systolic function, elevated right atrial pressure, mild pulmonary hypertension, ascending aorta 4 cm. Last prior echo was 05/31/2022 which showed EF 51%. ( He has a history of having nonischemic cardiomyopathy in the past). He was diuresed and sent home with Lasix 40 mg daily. He was started on spironolactone, his valsartan was changed to Entresto and he was continued on metoprolol XL. Labs done, following hospital discharge, on 01/28/2024 showed potassium 4.1, creatinine 1.34. His BNP following discharge had come down to 16 O2. On exam today he does not appear fluid overloaded. Spent time reviewing the diagnosis of congestive heart failure with patient and . Instructed on home weight monitoring, low-salt diet, signs and symptoms of heart failure. With his advanced dementia he is not a good candidate for invasive therapies/cardiac catheterization. Will continue with med management for cardiomyopathy. No med changes made at this time. Cardiology follow-up in 2 months, sooner if needed. Will check labs in 2-3 weeks, BMP, BNP. (2) Atrial fibrillation with rapid ventricular response: Code(s): I48.91 - Unspecified atrial fibrillation Category: Medical Plan: History of chronic atrial fibrillation. Rate was elevated initially during recent hospital admission. He was managed with rate control. Upon discharge he was back on metoprolol XL 100 mg daily. Is on Pradaxa for anticoagulation. No bleeding issues reported. EKG done today showing AFib, rate 71. (3) Cardiomyopathy: Code(s): I42.9 - Cardiomyopathy, unspecified Category: Medical Plan: As above (4) Ascending aorta dilatation: Comment: Code(s): I77.810 - Thoracic aortic ectasia Category: Medical Plan: Mild dilation of the ascending aorta. Recent echo showing ascending aorta 4 cm. This is similar to prior echocardiograms without any recent change. (5) Left bundle branch block: Code(s): I44.7 - Left bundle-branch block, unspecified Category: Medical Plan: Left bundle branch block noted on prior EKGs and present during last echo. EKG from today is showing a left anterior fascicular block. Left bundle branch block may be intermittent. This may be contributing to his reduced EF. Continue with neurohormonal modulation. (6) HTN (hypertension): Code(s): I10 - Essential (primary) hypertension Category: Medical Qualifiers: Hypertension type: essential hypertension Qualified Code(s): I10 - Essential (primary) hypertension Plan: Well controlled at this time. No med changes made (7) Hospital discharge follow-up: Code(s): Z09 - Encounter for follow-up examination after completed treatment for conditions other than malignant neoplasm Category: Medical Plan: As above Plan Time spent on chart review, documentation, interview and assessment. Orders: Orders Basic Metabolic Panel 2 Weeks I50.20 - Unspecified systolic (congestive) heart failure B Type Natriuretic Peptide 2 Weeks I50.20 - Unspecified systolic (congestive) heart failure Coding Level of Care Code Est Pt Level 4 (93111) Diagnoses Heart failure with reduced ejection fraction I50.20 Atrial fibrillation with rapid ventricular response I48.91 Cardiomyopathy I42.9 Ascending aorta dilatation I77.810 Left bundle branch block I44.7 Essential hypertension I10 Hypertension type: essential hypertension Hospital discharge follow-up Z09 CPT Codes EKG - CPT: [id number]-[id number], Complete ([id number]) Time Spent (min) 36
== END 2024-02-08 14:27 | disposition home or self-care (01) ==
PROVIDERS: PCP Internal Medicine; Visit Provider Nurse Practitioner Family
DX: I50.20 Unspecified systolic (congestive) heart failure (principal); I48.91 Unspecified atrial fibrillation; I42.9 Cardiomyopathy, unspecified; I77.810 Thoracic aortic ectasia; I44.7 Left bundle-branch block, unspecified; I10 Essential (primary) hypertension; Z09 Encounter for follow-up examination after completed treatment for conditions other than malignant neoplasm
CPT/HCPCS: 93010; 99214

== ENCOUNTER → 2024-02-08 13:44 | Outpatient (BNVA) | payer MEDICARE, OTHER, SELFPAY | PROVIDERS: PCP Internal Medicine; Visit Provider Nurse Practitioner Family | DX: I44.7 Left bundle-branch block, unspecified (principal); I42.8 Other cardiomyopathies; I48.20 Chronic atrial fibrillation, unspecified; I11.0 Hypertensive heart disease with heart failure; I77.810 Thoracic aortic ectasia; I50.20 Unspecified systolic (congestive) heart failure; E78.5 Hyperlipidemia, unspecified; G47.30 Sleep apnea, unspecified; Z09 Encounter for follow-up examination after completed treatment for conditions other than malignant neoplasm; Z99.89 Dependence on other enabling machines and devices | CPT/HCPCS: 93005; 99212 ==

== ENCOUNTER 2024-02-20 12:49 | Outpatient (AMB) | payer MEDICARE, OTHER, SELFPAY ==
[2024-02-20 13:02] VITALS: BMI 20.9
--- NOTE | 2024-02-20 13:02 | A.OFFVIS_ITS ---
Vital Signs 02/20/24 13:02 Height 5 ft 11 in Weight 150 lb BMI 20.9 Intake Visit Reasons: 4m follow up Intake Note: Patient presents for 4 month follow up Allergies Kota Inhibitor Allergy (Intermediate, Verified 02/20/24 13:09) cough Diltiazem HCl CD Allergy (Unknown, Verified 02/20/24 13:09) unknown lisinopril Allergy (Unknown, Verified 02/20/24 13:09) cough dorzolamide Adverse Reaction (Intermediate, Verified 02/20/24 13:09) red eye HPI Comments Details: 83-yr-old male presents for follow-up visit of sleep apnea. Pt is accaompanied by his , who assist w/ history. Pt did have a hospitalization in late Dec for CHF exacerbation, where he was not able to use his CPAP machine. Pt and states since and before has has been using his CPAP well. Pt did undergo in-lab PAP titration study as he was previously having high residual AHI and central apneas, titration study showed best response to APAP [id number]. Thus, PAP settings were changed to APAP [id number], which resulted in significant decrease in in overall and central sleep apneas. Note he had slightly increased residual central apneas, however after the hospitalization, his overall and central apneas have reduced. He does continue to sleep a good portion of the day, but pt is overall doing ok w/ this schedule. No recent REM sleep behaviors. He is doing well on Melatonin. He is f/b Dr Veliz at [facility] for his dementia- on donepazil and memantine w/o adverse effect. [employer] Compliance Report Usage 01/21/2024 - 02/19/2024 Usage days 30/30 days (100%) >= 4 hours 30 days (100%) < 4 hours 0 days (0%) Usage hours 346 hours 48 minutes Average usage (total days) 11 hours 34 minutes Average usage (days used) 11 hours 34 minutes Median usage (days used) 11 hours 37 minutes Total used hours (value since last reset - 02/19/2024) 18,099 hours AirSense 10 AutoSet Serial number [id number] Mode AutoSet Min Pressure 10 cmH2O Max Pressure 20 cmH2O EPR Fulltime EPR level 3 Response Soft Therapy Pressure - cmH2O Median: 10.6 95th percentile: 12.2 Maximum: 13.7 Leaks - L/min Median: 0.0 95th percentile: 5.0 Maximum: 119.4 Events per hour AI: 4.0 HI: 0.9 AHI: 4.9 Apnea Index Central: 3.3 Obstructive: 0.4 Unknown: 0.2 PFSH Medical History Acute on chronic diastolic (congestive) heart failure Congestive heart failure with reduced left ventricular function, NYHA class 3 Hypersomnia Anxiety Prostate cancer Aortic regurgitation CRVO (central retinal vein occlusion) GERD (gastroesophageal reflux disease) Obstructive sleep apnea Cholelithiasis Cognitive impairment Generalized anxiety disorder Insomnia History of prostate cancer Hypercholesterolemia Left bundle branch block Nonischemic cardiomyopathy HTN (hypertension) Chronic atrial fibrillation Surgical History Hx of cholecystectomy History of prostatectomy History of inguinal hernia repair Family History Father Diabetes Stroke Mother Diabetes Other Mental health disorder Substance use disorder Social History Household Members: Spouse Housing: House Do you presently have visiting nurse or other home services: No Alcohol intake: never Patient Tobacco Use Status: Never used Tobacco Tobacco use type: Cigarette e-Cigarette/Vaping Use: Never Used Second Hand Smoke Exposure: No service: Yes Current occupational status: retired Current occupational exposures/hazards: No Cognitive needs: No Hearing needs: Yes Vision needs: Yes Physical Exam Vital Signs: BMI result Body Mass Index 20.9 Const General: no acute distress HEENT Other: Mallampati stage Resp Effort & Inspection: normal respiratory effort and able to speak in complete sentences Neuro Other: Alert and oriented to . Responding appropriately. Defers to his for most answers. STM lapses. Psych Mental Status: mental status grossly normal Speech and movement: Clear speech present Attitude: cooperative Assessment & Plan Assessment & Plan (1) Obstructive sleep apnea: Comment: Severe degree of sleep apnea. The AHI was 47/hr and oxygen jose was 84%. Code(s): G47.33 - Obstructive sleep apnea (adult) (pediatric) Category: Medical (2) REM behavioral disorder: Code(s): G47.52 - REM sleep behavior disorder Category: Medical Plan Continue APAP 10-20 cmH2O nightly > 4 hours, as pt continues to have good clinical effect from use.. Continue Melatonin q evening. Sleep hygiene and education shared w/ /pt. Clean CPAP machine and supplies routinely. Change CPAP supplies routinely. Pt to contact us or respiratory company with any questions or concerns. Will review PAP compliance report in 3 months. to notify us if she she's increase in CPAP's red face alerts. Pt to follow-up in 6 months or sooner prn. Coding Level of Care Code Est Pt Level 3 (03327) Diagnoses Obstructive sleep apnea G47.33 REM behavioral disorder G47.52
== END 2024-02-20 13:49 | disposition home or self-care (01) ==
PROVIDERS: PCP Internal Medicine; Visit Provider Nurse Practitioner Family
DX: G47.33 Obstructive sleep apnea (adult) (pediatric) (principal); G47.52 REM sleep behavior disorder
CPT/HCPCS: 99213

== ENCOUNTER → 2024-02-20 12:49 | Outpatient (BNVA) | payer MEDICARE, OTHER, SELFPAY | PROVIDERS: PCP Internal Medicine; Visit Provider Nurse Practitioner Family | DX: G47.33 Obstructive sleep apnea (adult) (pediatric) (principal); G47.52 REM sleep behavior disorder | CPT/HCPCS: 99212 ==

== ENCOUNTER 2024-02-28 13:55 | Outpatient (REF) | payer MEDICARE, OTHER, SELFPAY ==
--- NOTE | 2024-02-28 16:21 | MHC.AU.HA3 ---
Hearing Instrument Follow-Up- Binaural Date of Visit: 02/28/24 Right Ear: Karl, Model, Color, Serial Number: Curt Florez P [id number] SN: [id number] Color: Black Television Service Engineer Repair Warranty: 05/21/2024 Television Service Engineer Loss and Damage Warranty: 05/21/2024 [facility] Service Plan: 05/21/2024 Battery Size: 13 Wind Farm Designer/Slim Tube: 2M Earmold/Dome/CShell/SlimTip:Small power dome with retention tail Type of Wax Guard: CeruShield Dispensed By: [facility] Date of Fittin03/02/2021 Left Ear: Karl, Model, Color, Serial Number: Curt Florez P [id number] SN: [id number] Color: Black Television Service Engineer Repair Warranty: 05/21/2024 Television Service Engineer Loss and Damage Warranty: 05/21/2024 [facility] Service Plan: 05/21/2024 Battery Size: 13 Wind Farm Designer/Slim Tube: 2M Earmold/Dome/CShell/SlimTip: Medium power dome with retention tail Type of Wax Guard: CeruShield Dispensed By: [facility] Date of Fittin03/02/2021 Follow-Up Summary: Ki is here with his , scheduled for evaluation. Last tested 2023. reports recent hospitalization, questions change in hearing. Notes increased need to repeat herself. Threshold check reveals stable thresholds. Cleaned and checked aids. Found wax in left annual campaign manager, debris in larry ports. Cleaned aids, vacuumed receivers, ran through dehumidifier; changed domes, wax guards, and tails. Listening check positive. Ki reports they sound good. Reviewed wax guard change with . Reminded of end of warranty and future charge for services. Recommendations: Recommendations: Hearing instrument follow-up or maintenance as needed. Diagnosis Code(s): Primary Diagnosis: H90.3 Bilateral Sensorineural Hearing Loss Signature: Provider: Aryan Beck, [facility]
== END 2024-02-28 13:56 | disposition home or self-care (01) ==
LOC: HO.SH 13:55
PROVIDERS: Visit Provider Internal Medicine
DX: Z01.118 Encounter for examination of ears and hearing with other abnormal findings (principal); H90.3 Sensorineural hearing loss, bilateral
CPT/HCPCS: 92552

== ENCOUNTER 2024-03-25 10:53 | Outpatient (REF) | payer MEDICARE, OTHER, SELFPAY ==
[2024-03-25 14:05] LABS: Alanine Aminotransferase 51 U/L (0-40); Albumin Level 4.4 g/dL (3.5-5.0); Alkaline Phosphatase 90 U/L (39-117); Anion Gap 13 (12-20); Aspartate Amino Transferase 45 U/L (5-37); Bilirubin Total 0.4 mg/dL (0.0-1.0); Blood Urea Nitrogen 28 mg/dL (9-16); Calcium 9.7 mg/dL (8.4-10.2); Carbon Dioxide 27 mmol/L (22-29); Chloride 104 mmol/L (96-108); Estimated Glomerular Filt Rate 39; Glucose Random 80 mg/dL (60-115); Magnesium 2.2 mg/dL (1.6-2.6); Phosphorus 3.3 mg/dL (2.7-4.5); Potassium 4.3 mmol/L (3.3-5.1); Sodium 140 mmol/L (135-145); Total Protein 7.7 g/dL (6.5-8.0)
[2024-03-25 14:16] LABS: B Type Natriuretic Peptide 255 pg/mL (<100)
== END 2024-03-25 10:54 | disposition home or self-care (01) ==
LOC: HO.HMGCLDS 10:53
PROVIDERS: PCP Internal Medicine; Visit Provider Internal Medicine
DX: I50.33 Acute on chronic diastolic (congestive) heart failure (principal)
CPT/HCPCS: 36415; 80053; 83735; 83880; 84100

== ENCOUNTER 2024-03-26 13:48 | Outpatient (AMB) | payer MEDICARE, OTHER, SELFPAY ==
--- NOTE | 2024-03-26 13:50 | MHC.PC.OV ---
Vital Signs 03/26/24 13:51 Height 5 ft 11 in Weight 150 lb BMI 20.9 BP 110/68 Blood Pressure Location Lt brachial Position Sitting Pulse 52 Pulse Source Pulse Oximeter Pulse Oximetry (%) 98 Oxygen Delivery Method Room Air Intake Visit Reasons: 2 Month Follow Up Intake Note: Patient here for a 2 month follow up Global President Required: No Accompanied by: Spouse Allergies Kota Inhibitor Allergy (Intermediate, Verified 03/26/24 13:52) cough Diltiazem HCl CD Allergy (Unknown, Verified 03/26/24 13:52) unknown lisinopril Allergy (Unknown, Verified 03/26/24 13:52) cough dorzolamide Adverse Reaction (Intermediate, Verified 03/26/24 13:52) red eye Tobacco use date assessed: 07/26/23 Fall risk assessment: No Falls in past year Last assessed Fall Risk: 03/26/24 Dental Screening Dental Screen Date: 03/26/24 Did you have a dental visit in the last 12 months?: No Did you have a dental problem in the last 6 months where you did not have access to dental care?: No Was dental information given to patient?: Patient has dentist HPI 2 Month Follow Up HPI Details 84-year-old male with frontal lobe dementia congestive heart failure prostate cancer nonischemic cardiomyopathy obstructive sleep apnea coming in for follow-up. January 24 2024 seen. Review of the notes seen Neurology for the Alzheimer's presently on donepezil and memantine patient also follows up for the sleep apnea AHI of 47 on APAP 10-20 cm water continuing with melatonin. Patient has seen Cardiology also in February 07 for follow-up on congestive heart failure having shortness of breath diuresed with Lasix. Echocardiogram showed reduction in EF 20-25% placed on spironolactone, changed to Entresto continued on metoprolol not a good candidate for invasive procedure. Continuing with med management for cardiomyopathy on anticoagulation with Pradaxa [facility] Medical History Acute on chronic diastolic (congestive) heart failure Congestive heart failure with reduced left ventricular function, NYHA class 3 Hypersomnia Anxiety Prostate cancer Aortic regurgitation CRVO (central retinal vein occlusion) GERD (gastroesophageal reflux disease) Obstructive sleep apnea Cholelithiasis Cognitive impairment Generalized anxiety disorder Insomnia History of prostate cancer Hypercholesterolemia Left bundle branch block Nonischemic cardiomyopathy HTN (hypertension) Chronic atrial fibrillation Surgical History Hx of cholecystectomy History of prostatectomy History of inguinal hernia repair Family History Father Diabetes Stroke Mother Diabetes Other Mental health disorder Substance use disorder Social History Household Members: Spouse Housing: House Do you presently have visiting nurse or other home services: No Alcohol intake: never Patient Tobacco Use Status: Never used Tobacco Tobacco use type: Cigarette e-Cigarette/Vaping Use: Never Used Second Hand Smoke Exposure: No service: Yes Current occupational status: retired Current occupational exposures/hazards: No Cognitive needs: No Hearing needs: Yes Vision needs: Yes Questionnaire Thrive Questionnaire Date Thrive assessed: 01/14/24 MATTHEW-7 AMB Questionnaire MATTHEW-7 Date MATTHEW - 7 assessed: 07/26/23 Source: Developed by Drs. Ken Iyer, Marycruz Tovar, Hitesh Thompson and colleagues, with an educational junie from [employer]. Physical exam (Primary Care) Vital Signs: Last Vital Signs Pulse 52 03/26/24 13:51 BP 110/68 03/26/24 13:51 Pulse Ox 98 03/26/24 13:51 Oxygen Delivery Method Room Air 03/26/24 13:51 BMI result Body Mass Index 20.9 Tobacco/Smoking Status: Tobacco use Status Tobacco use date assessed 07/26/23 03/26/24 13:59 Patient Tobacco Use Status Never used Tobacco 03/26/24 13:59 Tobacco use type Cigarette 03/26/24 13:59 e-Cigarette/Vaping Use Never Used 03/26/24 13:59 Thrive Assessment: Date of Thrive Assessment Date Thrive assessed 01/14/24 03/26/24 13:59 Const General: alert; No acute distress Eyes Conjunctivae: conjunctivae normal Resp Auscultation: clear to auscultation bilaterally Cardio Rate: regular rate Rhythm: regular rhythm GI Inspection: Yes normal to inspection Extrem General: Yes normal to inspection and No edema Office Procedures Flu Questionnaire Does the patient have a severe egg allergy?: No Immunizations Fluarix Triv [id number] (PF) 45 mcg (15 mcg x 3)/0.5 mL IM syringe Performing Provider: Joleen Boyd MD Performing Location: [facility] [place] [facility] Documented (not given) by: ABHI Tellez on 03/26/24 14:01 Reason Not Given: Patient Refused Coding Level of Care Code Est Pt Level 4 (77162) Diagnoses Chronic atrial fibrillation I48.20 Essential hypertension I10 Hypertension type: essential hypertension Nonischemic cardiomyopathy I42.8 Hypercholesterolemia E78.00 Obstructive sleep apnea G47.33 GERD (gastroesophageal reflux disease) K21.9 Frontal lobe dementia G31.09; F02.80 Heart failure with reduced ejection fraction I50.20 Assessment & Plan Assessment & Plan (1) Chronic atrial fibrillation: Comment: Echo January 2017 aortic regurg, MR, TR moderate EF 40-45% December 2017 echo LV dysfunction 40-45% moderate AR, MR, May 2018 34-40% AR, MR, TR echo August 2018 moderate LV dysfunction September 2019 moderate to severe left ventricular dysfunction mild AR, Holter May 2018 pauses 3-5 second Code(s): I48.20 - Chronic atrial fibrillation, unspecified Category: Medical Plan: Continue with anticoagulation with Pradaxa. (2) HTN (hypertension): Code(s): I10 - Essential (primary) hypertension Category: Medical Qualifiers: Hypertension type: essential hypertension Qualified Code(s): I10 - Essential (primary) hypertension Plan: Continue with blood pressure medication. Decrease salt intake and exercise on metoprolol 100 mg once a day Entresto spironolactone (3) Nonischemic cardiomyopathy: Comment: 05/2022 EF 51 % Code(s): I42.8 - Other cardiomyopathies Category: Medical Plan: Control the cholesterol, weight, blood pressure continuing with spironolactone Entresto and furosemide (4) Hypercholesterolemia: Code(s): E78.00 - Pure hypercholesterolemia, unspecified Category: Medical Plan: Avoid fried foods, chicken skin, eggs, butter margarine, pastries and meat. Be it pork or beef they have a lot of cholesterol on pravastatin 20 mg once a day (5) Obstructive sleep apnea: Comment: Severe degree of sleep apnea. The AHI was 47/hr and oxygen jose was 84%. Code(s): G47.33 - Obstructive sleep apnea (adult) (pediatric) Category: Medical Plan: Continue to use the CPAP more than 4 hours a night and benefits from this patient follows up with Neurology (6) GERD (gastroesophageal reflux disease): Code(s): K21.9 - Gastro-esophageal reflux disease without esophagitis Category: Medical Plan: Avoid the foods that causes that usually spicy foods, tomato products, juices, coffee, soda and foods that your sensitive to. After eating do not lie down, allow 3-4 hours before in lie down. And keep the head of bed above 30 degrees to avoid the acid from going up. (7) Frontal lobe dementia: Code(s): G31.09 - Other frontotemporal neurocognitive disorder; F02.80 - Dementia in other diseases classified elsewhere, unspecified severity, without behavioral disturbance, psychotic disturbance, mood disturbance, and anxiety Category: Medical Plan: Patient has been placed on donepezil and memantine (8) Heart failure with reduced ejection fraction: Code(s): I50.20 - Unspecified systolic (congestive) heart failure Category: Medical Plan: Continue with diuretics on Entresto metoprolol and spironolactone Orders: Orders Influenza [id number] Immunization Today Z23 - Encounter for immunization B Type Natriuretic Peptide 3 Months I48.91 - Unspecified atrial fibrillation Comprehensive Met. Panel 3 Months I48.91 - Unspecified atrial fibrillation Magnesium 3 Months I48.91 - Unspecified atrial fibrillation Medications: Refilled metoprolol succinate ER (Toprol XL) 100 mg PO DAILY 90 days 90 tabs 3RF I48.91 - Unspecified atrial fibrillation spironolactone 25 mg See Protocol PO BID 90 days 180 tabs 3RF I48.91 - Unspecified atrial fibrillation furosemide 40 mg See Protocol PO DAILY 90 days 90 tabs 3RF I48.91 - Unspecified atrial fibrillation sacubitril-valsartan 24-26 mg (Entresto) 1 tab See Protocol PO BID 90 days 180 tabs 3RF I48.91 - Unspecified atrial fibrillation
[2024-03-26 13:51] VITALS: BP 110/68; PULSE 52; O2SAT 98; BMI 20.9
== END 2024-03-26 14:41 | disposition home or self-care (01) ==
LOC: HO.HMCH 13:48
PROVIDERS: PCP Internal Medicine; Visit Provider Internal Medicine
DX: I48.20 Chronic atrial fibrillation, unspecified (principal); I42.8 Other cardiomyopathies; G31.09 Other frontotemporal neurocognitive disorder; F02.80 Dementia in other diseases classified elsewhere, unspecified severity, without behavioral disturbance, psychotic disturbance, mood disturbance, and anxiety; I50.20 Unspecified systolic (congestive) heart failure; I11.0 Hypertensive heart disease with heart failure; E78.00 Pure hypercholesterolemia, unspecified; G47.33 Obstructive sleep apnea (adult) (pediatric); K21.9 Gastro-esophageal reflux disease without esophagitis

== ENCOUNTER → 2024-03-26 13:48 | Outpatient (BNVA) | payer MEDICARE, OTHER, SELFPAY | PROVIDERS: PCP Internal Medicine; Visit Provider Internal Medicine | DX: I48.20 Chronic atrial fibrillation, unspecified (principal); I42.8 Other cardiomyopathies; E78.00 Pure hypercholesterolemia, unspecified; K21.9 Gastro-esophageal reflux disease without esophagitis; G31.09 Other frontotemporal neurocognitive disorder; F02.80 Dementia in other diseases classified elsewhere, unspecified severity, without behavioral disturbance, psychotic disturbance, mood disturbance, and anxiety; I11.0 Hypertensive heart disease with heart failure; I50.20 Unspecified systolic (congestive) heart failure; G47.33 Obstructive sleep apnea (adult) (pediatric) | CPT/HCPCS: 99212 ==

== ENCOUNTER 2024-04-11 11:22 | Outpatient (REF) | payer MEDICARE, OTHER, SELFPAY ==
[2024-04-11 13:43] LABS: B Type Natriuretic Peptide 212 pg/mL (<100)
[2024-04-11 13:56] LABS: Anion Gap 8 (12-20); Blood Urea Nitrogen 31 mg/dL (9-16); Calcium 9.2 mg/dL (8.4-10.2); Carbon Dioxide 32 mmol/L (22-29); Chloride 100 mmol/L (96-108); Estimated Glomerular Filt Rate 44; Glucose Random 83 mg/dL (60-115); Potassium 4.3 mmol/L (3.3-5.1); Sodium 136 mmol/L (135-145)
== END 2024-04-11 11:23 | disposition home or self-care (01) ==
LOC: HO.HMGCLDS 11:22
PROVIDERS: PCP Internal Medicine; Visit Provider Nurse Practitioner Family
DX: I50.20 Unspecified systolic (congestive) heart failure (principal)
CPT/HCPCS: 36415; 80048; 83880

== ENCOUNTER 2024-04-17 12:38 | Outpatient (AMB) | payer MEDICARE, OTHER, SELFPAY ==
[2024-04-17 12:40] VITALS: BP 110/70; PULSE 62; BMI 20.9
--- NOTE | 2024-04-17 12:40 | A.OFFVIS_ITS ---
Vital Signs 04/17/24 12:40 Height 5 ft 11 in Weight 149 lb 14.629 oz BMI 20.9 BP 110/70 Blood Pressure Location Lt brachial Position Sitting Pulse 62 Intake Visit Reasons: 1 yr s/p echo Intake Note: Follow-up after seeing Maryan in Jan and after echo feeling good Smoking Tobacco Cutter Operator Required: No Forging Die Finisher: Forging Die Finisher Present Accompanied by: Spouse Allergies Kota Inhibitor Allergy (Intermediate, Verified 03/26/24 13:52) cough Diltiazem HCl CD Allergy (Unknown, Verified 03/26/24 13:52) unknown lisinopril Allergy (Unknown, Verified 03/26/24 13:52) cough dorzolamide Adverse Reaction (Intermediate, Verified 03/26/24 13:52) red eye Medication List - Last Reconciled 04/17/24 by Mor Mehta MD cholecalciferol (vitamin D3) 50 mcg PO DAILY 90 days [CPAP As directed] dabigatran etexilate (Pradaxa) 150 mg PO BID donepezil 5 mg PO BEDTIME furosemide 40 mg See Protocol PO DAILY 90 days melatonin 4 mg PO BEDTIME memantine 5 mg PO BID metoprolol succinate ER (Toprol XL) 100 mg PO DAILY 90 days pravastatin 20 mg PO DAILY sacubitril-valsartan 24-26 mg (Entresto) 1 tab See Protocol PO BID 90 days sertraline 50 mg PO DAILY spironolactone 25 mg See Protocol PO BID 90 days timolol maleate 0.5% 1 drp ophthalmic (eye) DAILY vitamin B complex 1 cap PO DAILY HPI Comments Details: Ki comes for follow-up, accompanied by his . He continues to have had progressive cognitive dysfunction as per the . This limits his ability to take it himself. is taking excellent care of him. His weight has remained stable between 146-147 lb. There has been no worsening heart failure symptoms. No worsening leg edema, abdominal distention, shortness of breath, orthopnea, PND. No lightheadedness, syncope. Tolerating his medications well. His creatinine is remained stable. says that he is having trouble swallowing Pradaxa, being a capsule this can not be broken into half. He is taking all his other medications. No prolonged palpitations. Goes out for a walk for 20 minutes and after that he gets tired. [facility] Medical History (Updated 04/17/24 @ 13:15 by Mor Mehta MD) Acute on chronic diastolic (congestive) heart failure Congestive heart failure with reduced left ventricular function, NYHA class 3 Hypersomnia Anxiety Prostate cancer Aortic regurgitation CRVO (central retinal vein occlusion) GERD (gastroesophageal reflux disease) Obstructive sleep apnea Cholelithiasis Cognitive impairment Generalized anxiety disorder Insomnia History of prostate cancer Hypercholesterolemia Left bundle branch block Nonischemic cardiomyopathy HTN (hypertension) Chronic atrial fibrillation Surgical History Hx of cholecystectomy History of prostatectomy History of inguinal hernia repair Family History Father Diabetes Stroke Mother Diabetes Other Mental health disorder Substance use disorder Social History Household Members: Spouse Housing: House Do you presently have visiting nurse or other home services: No Alcohol intake: never Patient Tobacco Use Status: Never used Tobacco Tobacco use type: Cigarette e-Cigarette/Vaping Use: Never Used Second Hand Smoke Exposure: No service: Yes Current occupational status: retired Current occupational exposures/hazards: No Cognitive needs: No Hearing needs: Yes Vision needs: Yes Review of Systems Const Denies chills, Denies fatigue, Denies fever(s), Denies frequent falls, Denies weakness, Denies weight gain and Denies weight loss ENT Denies dizziness Card Denies chest pain, Denies leg edema, Denies lightheadedness, Denies palpitations, Denies dyspnea, Denies dyspnea on exertion, Denies orthopnea and Denies other (loss of consciousness) Resp Denies cough, Denies dyspnea and Denies dyspnea on exertion GI Denies hematochezia and Denies change in stool character Musc Denies abnormal gait, Denies muscle weakness, Denies numbness, Denies radiating pain into limb and Denies tingling Neuro Denies abnormal gait, Reports confusion, Denies dizziness, Denies frequent falls, Denies numbness, Denies tingling and Denies weakness Psych Reports confusion Endo Denies fatigue and Denies palpitations Physical Exam Vital Signs: Last Vital Signs Pulse 62 04/17/24 12:40 BP 110/70 04/17/24 12:40 BMI result Body Mass Index 20.9 Const Other: Has dementia - forgetfull General: cooperative, healthy appearing, comfortable, no acute distress, confusion and well groomed Nutritional Appearance: thin Orientation/consciousness: confusion Limitations: no limitations Neck Neck: Yes trachea midline, Yes supple and Yes no JVD Resp Effort & Inspection: normal respiratory effort Auscultation: clear to auscultation bilaterally, no rales, no rhonchi and no wheezes Cardio Jugular venous distension: no JVD Rhythm: abnormal rhythm irregularly irregular Heart sounds: S1 normal heart sound present, S2 normal heart sound present, no murmurs and no rubs GI Inspection: Yes normal to inspection Skin General skin exam: no rashes or lesions noted Neuro General: no focal motor deficits and confusion Extrem General: Yes normal to inspection and No no pedal edema Psych Appearance: grossly normal Mental Status: mental status grossly normal Speech and movement: Normal speech and movement present Assessment & Plan Assessment & Plan (1) Heart failure with reduced ejection fraction: Code(s): I50.20 - Unspecified systolic (congestive) heart failure Category: Medical Plan: Heart failure with reduced ejection fraction, clinically euvolemic and well compensated. Doing well. Discussed with about heart failure management. Daily weight monitoring avoidance salt loading was discussed additional diuretics as need be. Will uptitrate Entresto to 49-51 mg b.i.d.. Follow-up blood work in 2 weeks time. Continue metoprolol at current dose. Rate is adequately controlled. Continue spironolactone. His renal function has remained stabilized and therefore would not change his medications. Hold off on Jardiance therapy. Continue current Lasix 40 mg. Goals of therapy were discussed. Discussed about potentially using cardiac rehab, patient declines. Continue maintain activity level as tolerated. (2) Chronic atrial fibrillation: Comment: Echo January 2017 aortic regurg, MR, TR moderate EF 40-45% December 2017 echo LV dysfunction 40-45% moderate AR, MR, May 2018 34-40% AR, MR, TR echo August 2018 moderate LV dysfunction September 2019 moderate to severe left ventricular dysfunction mild AR, Holter May 2018 pauses 3-5 second Code(s): I48.20 - Chronic atrial fibrillation, unspecified Category: Medical Plan: Chronic atrial fibrillation, currently rate control with metoprolol. Continue the same. Having trouble using Pradaxa and inability to swallow. Will switch to Eliquis 2.5 mg b.i.d. given creatinine above 1.5 and age above 80. Continue monitor renal function on a quarterly basis. Will follow up in the clinic in 6 months time, sooner p.r.n.. Thank you for allowing me to partake in his care Medications: New apixaban (Eliquis) 2.5 mg PO BID 60 tabs 5RF sacubitril-valsartan 49-51 mg (Entresto) 1 tab PO BID 60 tabs 5RF Discontinued dabigatran etexilate (Pradaxa) Discontinued Reason: Doctor's Order 150 mg PO BID 180 caps 3RF sacubitril-valsartan 24-26 mg (Entresto) Discontinued Reason: Doctor's Order 1 tab See Protocol PO BID 90 days 180 tabs 3RF I48.91 - Unspecified atrial fibrillation Coding Level of Care Code Est Pt Level 4 (91359) Complex EM visit Add On G2211 Diagnoses Heart failure with reduced ejection fraction I50.20 Chronic atrial fibrillation I48.20
== END 2024-04-17 13:12 | disposition home or self-care (01) ==
PROVIDERS: PCP Internal Medicine; Visit Provider Internal Medicine Cardiovascular Disease
DX: I50.20 Unspecified systolic (congestive) heart failure (principal); I48.20 Chronic atrial fibrillation, unspecified
CPT/HCPCS: 99214; G2211

== ENCOUNTER → 2024-04-17 12:38 | Outpatient (BNVA) | payer MEDICARE, OTHER, SELFPAY | PROVIDERS: PCP Internal Medicine; Visit Provider Internal Medicine Cardiovascular Disease | DX: I50.20 Unspecified systolic (congestive) heart failure (principal); I48.20 Chronic atrial fibrillation, unspecified | CPT/HCPCS: 99212 ==

== ENCOUNTER 2024-05-05 10:27 | Outpatient (REF) | payer MEDICARE, OTHER, SELFPAY ==
[2024-05-05 14:01] LABS: Anion Gap 10 (12-20); Blood Urea Nitrogen 24 mg/dL (9-16); Calcium 9.6 mg/dL (8.4-10.2); Carbon Dioxide 30 mmol/L (22-29); Chloride 102 mmol/L (96-108); Estimated Glomerular Filt Rate 53; Glucose Random 124 mg/dL (60-115); Potassium 4.4 mmol/L (3.3-5.1); Sodium 138 mmol/L (135-145)
== END 2024-05-05 10:28 | disposition home or self-care (01) ==
LOC: HO.HMGCLDS 10:27
PROVIDERS: PCP Internal Medicine; Visit Provider Internal Medicine Cardiovascular Disease
DX: I50.20 Unspecified systolic (congestive) heart failure (principal)
CPT/HCPCS: 36415; 80048

== ENCOUNTER 2024-06-27 11:21 | Outpatient (REF) | payer MEDICARE, OTHER, SELFPAY ==
[2024-06-27 14:14] LABS: B Type Natriuretic Peptide 243 pg/mL (<100)
[2024-06-27 14:17] LABS: Alanine Aminotransferase 29 U/L (0-40); Albumin Level 4.4 g/dL (3.5-5.0); Alkaline Phosphatase 96 U/L (39-117); Anion Gap 14 (12-20); Aspartate Amino Transferase 35 U/L (5-37); Bilirubin Total 0.4 mg/dL (0.0-1.0); Blood Urea Nitrogen 36 mg/dL (9-16); Calcium 10.3 mg/dL (8.4-10.2); Carbon Dioxide 27 mmol/L (22-29); Chloride 105 mmol/L (96-108); Estimated Glomerular Filt Rate 51; Glucose Random 78 mg/dL (60-115); Magnesium 2.4 mg/dL (1.6-2.6); Potassium 4.6 mmol/L (3.3-5.1); Sodium 141 mmol/L (135-145); Total Protein 7.9 g/dL (6.5-8.0)
== END 2024-06-27 11:22 | disposition home or self-care (01) ==
LOC: HO.HMGCLDS 11:21
PROVIDERS: PCP Internal Medicine; Visit Provider Internal Medicine
DX: I48.91 Unspecified atrial fibrillation (principal)
CPT/HCPCS: 36415; 80053; 83735; 83880

== ENCOUNTER → 2024-07-04 14:02 | Outpatient (BNVA) | payer MEDICARE, OTHER, SELFPAY | PROVIDERS: PCP Internal Medicine; Visit Provider Internal Medicine | DX: I48.20 Chronic atrial fibrillation, unspecified (principal); I42.8 Other cardiomyopathies; E78.00 Pure hypercholesterolemia, unspecified; G47.33 Obstructive sleep apnea (adult) (pediatric); K21.9 Gastro-esophageal reflux disease without esophagitis; I11.0 Hypertensive heart disease with heart failure; I50.20 Unspecified systolic (congestive) heart failure; F02.80 Dementia in other diseases classified elsewhere, unspecified severity, without behavioral disturbance, psychotic disturbance, mood disturbance, and anxiety; G31.09 Other frontotemporal neurocognitive disorder; N64.4 Mastodynia; F41.1 Generalized anxiety disorder; K62.5 Hemorrhage of anus and rectum; K59.00 Constipation, unspecified | CPT/HCPCS: 96127; 99212 ==

== ENCOUNTER 2024-09-04 12:51 | Outpatient (REF) | payer MEDICARE, OTHER, SELFPAY ==
--- NOTE | ~2024-09-04 | US_ITS ---
EXAMINATION: MM DIAGNOSTIC DIGITAL BREAST TOMOSYNTHESIS, BILATERAL CLINICAL INFORMATION: Bilateral mastodynia family history of breast cancer. COMPARISON: Mammography: Comparison is made with relevant prior exams. TECHNIQUE: Digital breast mammography with tomosynthesis is performed in both the craniocaudal and mediolateral oblique views along with computer-aided detection (CAD). FINDINGS: The breasts are heterogeneously dense, which may obscure small masses (ACR BI-RADS breast composition Category c). There is bilateral retroareolar diffuse gynecomastia. No suspicious calcifications or other abnormal findings. Targeted color Doppler ultrasound scanning in the bilateral retroareolar regions demonstrates bilateral retroareolar gynecomastia. Within the left breast at 3:00 3 cm from nipple there is a questionable hypoechoic oval solid mass versus area of gynecomastia measuring 6 x 6 mm. Results are provided to the patient at time of visit by the technologist. US/US breast BI limited mamm only IMPRESSION: 1. Bilateral retroareolar gynecomastia. Benign. Recommend clinical evaluation follow-up. 2. Solid mass versus area of gynecomastia 3:00 3 cm from the nipple measuring up to 6 mm. Recommend ultrasound-guided core needle biopsy at this time for confirmation. The findings and recommendations were discussed with the patient the procedure will be scheduled. ASSESSMENT: BI-RADS BI-RADS 4 - Suspicious finding RECOMMENDATION: Biopsy recommended This patient's information was entered into a reminder system with a target due date for their next mammogram. Electronically signed by: Cara Duran DO 09/05/2024 03:21 PM EDT
== END 2024-09-04 12:52 | disposition home or self-care (01) ==
LOC: HO.MAMMO 12:51
PROVIDERS: PCP Internal Medicine; Visit Provider Internal Medicine
DX: N64.4 Mastodynia (principal)
CPT/HCPCS: 76642; 77062; 77066

== ENCOUNTER → 2024-09-04 13:00 | Outpatient (BNV) | payer MEDICARE, OTHER, SELFPAY | PROVIDERS: PCP Internal Medicine; Visit Provider Internal Medicine | DX: N64.4 Mastodynia (principal); Z80.3 Family history of malignant neoplasm of breast | CPT/HCPCS: 76642; 77066; G0279 ==

== ENCOUNTER 2024-09-09 15:16 | Outpatient (AMB) | payer MEDICARE, OTHER, SELFPAY ==
--- NOTE | 2024-09-09 15:03 | MHC.OFFVIS ---
Intake Visit Reasons: 6 month follow up sleep Intake Note: Patient presents month follow up IVY. Compliance in chart. 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: No Accompanied by: Self / Same As Patient Allergies Kota Inhibitor Allergy (Intermediate, Verified 07/04/24 14:23) cough Diltiazem HCl CD Allergy (Unknown, Verified 07/04/24 14:23) unknown lisinopril Allergy (Unknown, Verified 07/04/24 14:23) cough dorzolamide Adverse Reaction (Intermediate, Verified 07/04/24 14:23) red eye Medication List - Last Reconciled 09/09/24 by DEBRA Singer apixaban (Eliquis) 2.5 mg PO BID cholecalciferol (vitamin D3) 50 mcg PO DAILY 90 days [CPAP As directed] donepezil 5 mg PO BEDTIME furosemide 40 mg See Protocol PO DAILY 90 days hydrocortisone 2.5% (Proctosol HC) 1 appl DC BID-QID PRN melatonin 4 mg PO BEDTIME memantine 5 mg PO BID metoprolol succinate ER (Toprol XL) 100 mg PO DAILY 90 days pravastatin 20 mg PO DAILY sacubitril-valsartan 49-51 mg (Entresto) 1 tab PO BID sertraline 50 mg PO DAILY spironolactone 25 mg See Protocol PO BID 90 days timolol maleate 0.5% 1 drp ophthalmic (eye) DAILY vitamin B complex 1 cap PO DAILY HPI Comments Details: 84-yr-old male presents for follow-up visit of sleep apnea. Pt is accompanied by his , who assist w/ history. Patient continues to use CPAP nightly. He does tend to sleep a lot. Very occasionally may wake up in state that he does not understand why his is waking him up as he did not sleep. Occasionally, his may hear the CPAP mask making noise, but this does not typically disturb patient. Today, review of CPAP compliance report reveals elevated residual AHI of 10 per hour, predominantly central sleep apnea. No recent REM sleep behaviors. He is doing well on Melatonin. He is f/b Dr Veliz at [facility] for his dementia- on donepazil and memantine w/o adverse effect. [employer] Respiratory Compliance Report Usage 08/10/2024 - 09/08/2024 Usage days 30/30 days (100%) >= 4 hours 30 days (100%) < 4 hours 0 days (0%) Average usage (days used) 11 hours 3 minutes AirSense 10 AutoSet Serial number [id number] Mode AutoSet Min Pressure 10 cmH2O Max Pressure 20 cmH2O EPR Fulltime EPR level 3 Response Soft Maximum pressure 14.9 cm H2O Average leaks less than 1 L/min Residual AHI 10.5 per hour [facility] Medical History (Updated 07/04/24 @ 14:39 by Joleen Boyd MD) Acute on chronic diastolic (congestive) heart failure Congestive heart failure with reduced left ventricular function, NYHA class 3 Hypersomnia Anxiety Prostate cancer Aortic regurgitation CRVO (central retinal vein occlusion) GERD (gastroesophageal reflux disease) Obstructive sleep apnea Cholelithiasis Cognitive impairment Generalized anxiety disorder Insomnia History of prostate cancer Hypercholesterolemia Left bundle branch block Nonischemic cardiomyopathy HTN (hypertension) Chronic atrial fibrillation Surgical History Hx of cholecystectomy History of prostatectomy History of inguinal hernia repair Family History Father Diabetes Stroke Mother Diabetes Other Mental health disorder Substance use disorder Social History Household Members: Spouse Housing: House Do you presently have visiting nurse or other home services: No Alcohol intake: never Patient Tobacco Use Status: Never used Tobacco Tobacco use type: Cigarette e-Cigarette/Vaping Use: Never Used Second Hand Smoke Exposure: No service: Yes Current occupational status: retired Current occupational exposures/hazards: No Cognitive needs: No Hearing needs: Yes Vision needs: Yes Physical Exam Const General: no acute distress Resp Effort & Inspection: able to speak in complete sentences Neuro Other: Alert, offers simple appropriate responses Psych Mental Status: mental status grossly normal Speech and movement: Clear speech present Attitude: cooperative Telehealth Telehealth Telehealth Platform: Telephone Location of provider rendering services: practice address Location of patient: address on file Patient Identification confirmed using: Name, : Yes Telehealth method: voice only Patient verbally consented to treatment: Yes Patient verbally consented to billing insurance company: Yes Patient informed of any privacy concerns related to visit: Yes Results Reviewed Results Reviewed: Assessment & Plan Assessment & Plan (1) Obstructive sleep apnea: Comment: Severe degree of sleep apnea. The AHI was 47/hr and oxygen jose was 84%. Code(s): G47.33 - Obstructive sleep apnea (adult) (pediatric) Category: Medical (2) REM behavioral disorder: Code(s): G47.52 - REM sleep behavior disorder Category: Medical Plan Adjusted APAP setting via [employer]med in hopes this reduces residual AHI and central sleep apneas: Discontinue APAP 10-20 cmH2O with EPR 3 Trial APAP 8-20 cm H2O with EPR 3- we will check compliance report in approximately 1 week to check effectiveness of these changes. alerted to notify us sooner if she notices an increase in ?red face alerts. Advised that she does not have to wake patient up, if the CPAP mask is leaking, and is not bothering the patient. On review of the PAP compliance report, the leaking is not associated with increased residual AHI. Continue to use PAP therapy nightly > 4 hours, as pt continues to have good clinical effect from use.. Continue Melatonin q evening. Encouraged to engage patient in cognitive and socially stimulating activities during the day, increase exposure to sunlight or even a SAD style lamp. Sleep hygiene and education previously shared w/ /pt. Clean CPAP machine and supplies routinely. Change CPAP supplies routinely. Continue to use distilled water in CPAP water tank reservoir Pt to contact us or respiratory company with any questions or concerns. Pt to follow-up in 6 months or sooner prn. Coding Level of Care Code Tele Est Pt Level 4 (38177) Diagnoses Obstructive sleep apnea G47.33 REM behavioral disorder G47.52
== END 2024-09-09 16:07 | disposition home or self-care (01) ==
LOC: HO.HSMS 15:16
PROVIDERS: PCP Internal Medicine; Visit Provider Nurse Practitioner Family
DX: G47.33 Obstructive sleep apnea (adult) (pediatric) (principal); G47.52 REM sleep behavior disorder
CPT/HCPCS: 99214

== ENCOUNTER → 2024-09-09 15:16 | Outpatient (BNVA) | payer MEDICARE, OTHER, SELFPAY | PROVIDERS: PCP Internal Medicine; Visit Provider Nurse Practitioner Family ==

== ENCOUNTER → 2024-09-29 10:21 | Outpatient (RCR) | payer MEDICARE, OTHER, SELFPAY ==
--- NOTE | 2020-05-12 14:48 | MHC.SL.LAN ---
Addendum entered and electronically signed by Cristiano Daley 07/05/20 11:31: This is an adult speech language cognition evaluation. Original Note: Referring Provider: Liana Veliz DNP Reason for Referral Mild cognitive impairment Type of Treatment: 65777 Standardized Cognitive Performance Testing, per hour Onset of Symptoms/Illness: 05/05/20 Date Plan of Treatment Created: 05/05/20 Date Treatment Started: 05/05/20 Medical Diagnosis: Pt is an 80 year old male who was referred for a speech/language/cognitive evaluation by his neurologist for concerns regarding an increase in memory deficits. Ki's most recent neurology appointment was on 04/06/20 in which he received a score of 16/22 on the [facility] Blind, indicating a mild cognitive impairment. Ki's , Angela has noticed an increase in short term memory difficulties which are affecting his everyday functioning. He recently underwent imaging on 03/16/20 to identify any possible lesion/specific atrophy pattern that could account for his mild cognitive impairment which revealed mild volume loss and scattered microvascular changes with chronic lacunar infarct . Per pt's spouse report, Ki's memory difficulties began in 2013 and have progressively worsened over time. Primary Speech Language Pathology Diagnosis: I69.911 Memory deficit Past Medical History Pt has a past medical history significant for the following: Cholelithiasis Chronic atrial fibrillation Cognitive impairment CRVO (central retinal vein occlusion) Generalized anxiety disorder GERD (gastroesophageal reflux disease) History of prostate cancer HTN (hypertension) Hypercholesterolemia Insomnia Left bundle branch block Nonischemic cardiomyopathy Language Preferred Language: [place]ian Assessment of Expressive and Receptive Language Language Evaluation: Ki's expressive and receptive language were not formally assessed this date Assessment of Voice and Resonance: Ki's voice was not formally assessed this date, however his vocal quality appeared WFL based on clinical judgement. Voice Pitch: Normal Voice Loudness: Normal Voice Phonatory-based Quality: Normal Nasal Resonance: Normal Oral Resonance: Normal Voice Other Observations: Assessment of Cognitive Functioning Ki was evaluated using the Cognitive Linguistic Quick Test (CLQT) to assess five domains of cognition: attention, memory, language, executive functions, and visuospatial skills. The CLQT provides an overall measure of cognitive-linguistic function and may be used to identify an individual?s cognitive strengths and weaknesses. The CLQT consists of 10 tasks: personal facts, symbol cancellation, confrontation naming, clock drawing, story retelling, symbol trails, generative naming, design memory, mazes, and design generation. Ki achieved the following in each of the five domains: Attention: The attention score consists of the following subtests: symbol cancellation, story retelling, symbol trails, design memory, mazes, and design generation. A Score of 160-215 is considered WNL. Ki achieved a composite score of 180, indicating that he is within the normal range of functioning. Memory: The memory score consists of the following subtests: personal facts, story retelling, generative naming, and design memory. A score of 141-185 is considered WNL. Ki achieved a score of 126, indicating a mild cognitive impairment in the area of memory. Executive Functions: The executive functions score consists of the following subtests: symbol trails, generative naming, mazes, and design generation. A score of 19-40 is considered WNL. Ki achieved a score of 23, indicating that he is within the normal range of functioning. Language: The language score consists of the following subtests: personal facts, confrontation naming, story retell, and generative naming. A score of 28-37 is considered WNL. Ki achieved a score of 28, indicating that he is within the normal range of functioning. Visuospatial Skills: The visuospatial skills score consists of the following subtests: symbol cancellation, symbol trails, design memory, mazes, and design generation. A score of 62-105 is considered WNL. Ki achieved a score of 76, indicating a he is within the normal range of functioning. Clock Drawing Severity Ratings: A score of 11-13 is considered WNL. Ki achieved a score of 9, indicating a mild cognitive impairment for this subtest. 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 Based on the results of this evaluation, Ki presents with a mild cognitive impairment. The domain of memory is the area impacted most. Ki demonstrated difficulty with immediate recall of a story. When retelling the story, he was observed to omit zarate details which negatively impacted his overall score. Throughout the course of the evaluation, Ki appeared frustrated with the tasks that he was asked to complete. Initially, when asked why he was here he stated, ?I don?t know, because my scheduled the appointment?. Over the course of the evaluation, Ki perseverated on the fact that he is 80 years old and is unwilling to change anything. Ki?s , Angela voiced her concerns regarding his motivation to participate in therapy and what therapy would entail. STEWARD/STEWARDESS LOUNGE reiterated the importance of motivation to participate in therapy and carry over the compensatory strategies into everyday life to achieve the best outcome. At this time, Ki does not appear interested in pursuing treatment, however his is very motivated and willing to help with carryover, thus skilled speech therapy is recommended to help improve Ki?s progressive memory loss. Impressions and Recommendations Recommendation for Speech Therapy: Text Comment: Frequency/Duration: 12 weekly sessions Date Range for Service Requested: Time to Reassess: 3 months Notes: Tetryl Wringer Operator Goal: Ki will utilize strategies to improve recall of information. Goal #1 : Ki will participate in education regarding different strategies to improve recall of information with 100% participation and minimal cues. Status of Goal #1 : New Goal Goal #2 : Ki will identify and describe 4/5 memory strategies (rehearsal, chunking, association, visualization, and note taking) with 80% accuracy and minimal cues. Status of Goal #2: New Goal Goal #3 : Ki will utilize memory strategies (rehearsal, chunking, association, visualization, and note taking) during structured activities with 80% accuracy and minimal cues. Status of Goal #3: New Goal Other Recommended Referrals : It is recommended that Ki follow up with an consultant in ergonomics and safety to obtain a hearing aid evaluation, as hearing loss can correlate to progression of memory impairment. It is also recommended that Ki receive a neuro-psychological evaluation, as he does have a history of anxiety and depression which could be contributing to his mild cognitive impairment. Patient Education Completed: Yes Patient/Caregiver Education: Described Results of Evaluation Patient expressed understanding of evaluation Family/Caregivers expressed understanding of results Family/Caregivers expressed agreement with goals and treatment plan Comment: Barriers to Learning: Ki is not motivated and perseverated on the fact that he is 80 years old and is not willing to change anything at this time. Stock Checker Clinican/Clinical Fellow: Yes: Mala Blanton M.A., [facility]-[employer] Supervisory Statement: Yes Speech Language Pathologist: Petra Sainz M.A., [facility]-ST[facility]
--- NOTE | 2020-07-14 12:32 | MHC.SL.LAN ---
Addendum entered by Mala Blanton MA 07/14/20 12:41: Adult Cognitive Evaluation Original Note: Referring Provider: Liana Veliz DNP Reason for Referral Mild cognitive impairment Type of Treatment: 61988 Standardized Cognitive Performance Testing, per hour Onset of Symptoms/Illness: 08/26/13 Date Plan of Treatment Created: 05/05/20 Date Treatment Started: 05/05/20 Medical Diagnosis: Pt is an 80 year old male who was referred for a speech/language/cognitive evaluation by his neurologist for concerns regarding an increase in memory deficits. Ki's most recent neurology appointment was on 04/06/20 in which he received a score of 16/22 on the [facility] Blind, indicating a mild cognitive impairment. Ki's , Angela has noticed an increase in short term memory difficulties which are affecting his everyday functioning. He recently underwent imaging on 03/16/20 to identify any possible lesion/specific atrophy pattern that could account for his mild cognitive impairment which revealed mild volume loss and scattered microvascular changes with chronic lacunar infarct . Per pt's spouse report, Ki's memory difficulties began in 2013 and have progressively worsened over time. Primary Speech Language Pathology Diagnosis: I69.911 Memory deficit Secondary Speech Language Pathology Diagnosis: Language Preferred Language: [place] Language: Past Medical History: Cholelithiasis Chronic atrial fibrillation Cognitive impairment CRVO (central retinal vein occlusion) Generalized anxiety disorder GERD (gastroesophageal reflux disease) History of prostate cancer HTN (hypertension) Hypercholesterolemia Insomnia Left bundle branch block Nonischemic cardiomyopathy Obstructive sleep apnea Oral Motor Screen: Oral Motor Exam Unremarkable Assessment of Voice and Resonance: Voice Pitch: Normal Voice Loudness: Normal Voice Phonatory-based Quality: Normal Nasal Resonance: Normal Oral Resonance: Normal Voice Other Observations: Ki's voice was not formally assessed this date, however was subjectively judged to be WFL. Assessment of Expressive and Receptive Language Ki's expressive and receptive language was not formally assessed this date. Assessment of Cognitive Functions Ki was evaluated using the Cognitive Linguistic Quick Test (CLQT) to assess five domains of cognition: attention, memory, language, executive functions, and visuospatial skills. The CLQT provides an overall measure of cognitive-linguistic function and may be used to identify an individual?s cognitive strengths and weaknesses. The CLQT consists of 10 tasks: personal facts, symbol cancellation, confrontation naming, clock drawing, story retelling, symbol trails, generative naming, design memory, mazes, and design generation. Ki achieved the following in each of the five domains: Attention: The attention score consists of the following subtests: symbol cancellation, story retelling, symbol trails, design memory, mazes, and design generation. A Score of 160-215 is considered WNL. Ki achieved a composite score of 180, indicating that he is within the normal range of functioning. Memory: The memory score consists of the following subtests: personal facts, story retelling, generative naming, and design memory. A score of 141-185 is considered WNL. Ki achieved a score of 126, indicating a mild cognitive impairment in the area of memory. Executive Functions: The executive functions score consists of the following subtests: symbol trails, generative naming, mazes, and design generation. A score of 19-40 is considered WNL. Ki achieved a score of 23, indicating that he is within the normal range of functioning. Language: The language score consists of the following subtests: personal facts, confrontation naming, story retell, and generative naming. A score of 28-37 is considered WNL. Ki achieved a score of 28, indicating that he is within the normal range of functioning. Visuospatial Skills: The visuospatial skills score consists of the following subtests: symbol cancellation, symbol trails, design memory, mazes, and design generation. A score of 62-105 is considered WNL. Ki achieved a score of 76, indicating a he is within the normal range of functioning. Clock Drawing Severity Ratings: A score of 11-13 is considered WNL. Ki achieved a score of 9, indicating a mild cognitive impairment for this subtest. 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 Based on the results of this evaluation, Ki presents with a mild cognitive impairment. The domain of memory is the area impacted most. Ki demonstrated difficulty with immediate recall of a story. When retelling the story, he was observed to omit zarate details which negatively impacted his overall score. Throughout the course of the evaluation, Ki appeared frustrated with the tasks that he was asked to complete. Initially, when asked why he was here he stated, ?I don?t know, because my scheduled the appointment?. Over the course of the evaluation, Ki perseverated on the fact that he is 80 years old and is unwilling to change anything. Ki?s , Angela voiced her concerns regarding his motivation to participate in therapy and what therapy would entail. WINDROWER OPERATOR reiterated the importance of motivation to participate in therapy and carry over the compensatory strategies into everyday life to achieve the best outcome. At this time, Ki does not appear interested in pursuing treatment, however his is very motivated and willing to help with carryover, thus skilled speech therapy is recommended to help improve Ki?s progressive memory loss. Impressions and Recommendations Recommendation for Speech Therapy: It is recommended that Ki participate in 12 weekly sessions Text Comment: Frequency/Duration: 12 weekly sessions Date Range for Service Requested: Time to Reassess: 3 months Notes: Usp Goal: Ki will utilize strategies to improve recall of information. Goal #1 : Ki will participate in education regarding different strategies to improve recall of information with 100% participation and minimal cues. Status of Goal #1 : New Goal Goal #2 : Ki will identify and describe 4/5 memory strategies (rehearsal, chunking, association, visualization, and note taking) with 80% accuracy and minimal cues. Status of Goal #2: New Goal Goal #3 : Ki will utilize memory strategies (rehearsal, chunking, association, visualization, and note taking) during structured activities with 80% accuracy and minimal cues. Status of Goal #3: New Goal Other Recommended Referrals : It is recommended that Ki follow up with an adjunct sociology professor to obtain a hearing aid evaluation, as hearing loss can correlate to progression of memory impairment. It is also recommended that Ki receive a neuropsychological evaluation, as he does have a history of anxiety and depression which could be contributing to his mild cognitive impairment. Patient Education Completed: Yes Patient/Caregiver Education: Described Results of Evaluation Patient expressed understanding of evaluation Family/Caregivers expressed understanding of results Family/Caregivers expressed agreement with goals and treatment plan Comment: Barriers to Learning: Ki is not motivated and perseverated on the fact that he is 80 years old and is not willing to change anything at this time. Customer Engagement Analyst Clinican/Clinical Fellow: Yes: Mala Blanton M.A., [facility]-WINDROWER OPERATOR Supervisory Statement: Yes Speech Language Pathologist: Petra Sainz M.A., [facility]-WINDROWER OPERATOR
== END | disposition home or self-care (01) ==
LOC: HO.SH 05-05 13:27
PROVIDERS: Visit Provider Nurse Practitioner Family
DX: G31.84 Mild cognitive impairment of uncertain or unknown etiology (principal)
CPT/HCPCS: 96125

== ENCOUNTER 2024-10-01 09:49 | Outpatient (REF) | payer MEDICARE, OTHER, SELFPAY ==
[2024-10-01 13:40] LABS: MANUAL DIFF FLAG NO
[2024-10-01 13:53] LABS: Basophils Percent Auto 0.4 % (0-2); Eosinophils Absolute Auto 0.3 X10*3/uL (0.0-0.4); Hematocrit 41.9 % (42.0-52.0); Hemoglobin 13.7 g/dl (14.0-18.0); Imm Gran Abs Auto 0.02 X10*3/uL (0.00-0.03); Imm Gran Pct Auto 0.3 % (0.0-0.4); Lymphocytes Absolute Auto 1.2 X10*3/uL (1.2-4.9); Lymphocytes Percent Auto 17.1 % (20-40); Mean Corpuscular HGB Conc 32.7 g/dl (31.0-36.0); Mean Corpuscular Hemoglobin 31.8 pg (27.0-33.0); Mean Corpuscular Volume 97.2 fL (80.0-98.0); Monocytes Absolute Auto 0.7 X10*3/uL (0.1-1.2); Monocytes Percent Auto 10.2 % (2-11); Neutrophils Absolute Auto 4.7 x10*3/uL (2.0-8.3); Platelet Count 206 X10*3/uL (160-400); Red Blood Count 4.31 X10*6/uL (4.60-5.80); Red Cell Distribution Width 13.2 % (11.0-16.0)
[2024-10-01 13:55] LABS: B Type Natriuretic Peptide 203 pg/mL (<100)
[2024-10-01 14:09] LABS: Alanine Aminotransferase 28 U/L (0-40); Albumin Level 4.4 g/dL (3.5-5.0); Alkaline Phosphatase 86 U/L (39-117); Anion Gap 12 (12-20); Aspartate Amino Transferase 33 U/L (5-37); Bilirubin Total 0.4 mg/dL (0.0-1.0); Blood Urea Nitrogen 33 mg/dL (9-16); Calcium 9.5 mg/dL (8.4-10.2); Carbon Dioxide 28 mmol/L (22-29); Chloride 104 mmol/L (96-108); Cholesterol 193 mg/dL (<200); Estimated Glomerular Filt Rate 44; Glucose Random 93 mg/dL (60-115); HDL Cholesterol 55 mg/dL (>40); LDL Cholesterol Calculated 107 mg/dL (<100); Magnesium 2.4 mg/dL (1.6-2.6); Potassium 4.7 mmol/L (3.3-5.1); Sodium 139 mmol/L (135-145); Total Protein 7.4 g/dL (6.5-8.0); Triglycerides 157 mg/dL (<150)
[2024-10-01 14:30] LABS: Thyroid Stimulating Hormone 3.92 uIU/mL (0.32-4.0)
[2024-10-01 14:39] LABS: Folate 14.9 ng/mL (> or = 4.0); Vitamin B12 706 pg/mL (200-900)
== END 2024-10-01 09:50 | disposition home or self-care (01) ==
LOC: HO.HMGCLDS 09:49
PROVIDERS: PCP Internal Medicine; Visit Provider Internal Medicine
DX: I50.20 Unspecified systolic (congestive) heart failure (principal); E78.00 Pure hypercholesterolemia, unspecified
CPT/HCPCS: 36415; 80053; 80061; 82607; 82746; 83735; 83880; 84439; 84443; 85025

== ENCOUNTER 2024-10-09 10:58 | Outpatient (REF) | payer MEDICARE, OTHER, SELFPAY ==
--- NOTE | ~2024-10-09 | US_ITS ---
PROCEDURE: ULTRASOUND-GUIDED LEFT BREAST BIOPSY CLINICAL INFORMATION: Hypoechoic irregular area at 3:00 3 cm from the nipple in the left breast. COMPARISON: [facility] on PACS. TECHNIQUE: The details of the procedure, as well as the risks, benefits, and alternatives to the procedure were explained to the patient in detail and all of her questions were answered, after which, written informed consent was obtained. PROCEDURE: Prior to the procedure, sonography revealed hypoechoic ill-defined mass at 3:00 3 cm from the nipple in the left breast. A time-out was performed, the lesion intended for biopsy was targeted and the skin of the left breast was then prepped and draped in the usual sterile fashion. Using sonographic guidance, sterile technique, and 1% lidocaine without epinephrine for local anesthesia, a total of 4 cores were obtained through the targeted area with a 14-gauge biopsy device. At the completion of tissue sampling, a single coil metallic clip was deposited at the biopsy site. An appropriate sample was obtained. No postprocedure mammogram performed. The patient tolerated the procedure well and, after assuring adequate hemostasis, was discharged in good condition after reviewing postbiopsy breast care instructions. Final pathology results are pending. US/US breast ndl core biopsy LT IMPRESSION: 1. Uncomplicated sonographically-guided core biopsy of the left breast. 2. Final pathology results are pending. A separate report with final recommendations will be issued once these results are made available. Electronically signed by: Cara Duran DO 10/09/2024 12:05 PM EDT
[2024-10-09] MEDS: Lidocaine HCl 1 % 20 ML VIAL 9 ML SUBCUT (11:57)
[2024-10-09] MEDS: Sodium Bicarbonate 8.4% 50 MEQ/50 ML VIAL SUBCUT (11:58)
== END 2024-10-09 10:59 | disposition home or self-care (01) ==
LOC: HO.MAMMO 10:58
PROVIDERS: PCP Internal Medicine; Visit Provider Internal Medicine
DX: N64.4 Mastodynia (principal); N63.25 Unspecified lump in the left breast, overlapping quadrants; I11.0 Hypertensive heart disease with heart failure; I50.20 Unspecified systolic (congestive) heart failure; C61 Malignant neoplasm of prostate; G47.33 Obstructive sleep apnea (adult) (pediatric); I48.20 Chronic atrial fibrillation, unspecified; I42.8 Other cardiomyopathies; E78.00 Pure hypercholesterolemia, unspecified; K21.9 Gastro-esophageal reflux disease without esophagitis; F41.1 Generalized anxiety disorder; G31.09 Other frontotemporal neurocognitive disorder; F02.80 Dementia in other diseases classified elsewhere, unspecified severity, without behavioral disturbance, psychotic disturbance, mood disturbance, and anxiety; Z79.01 Long term (current) use of anticoagulants; Z79.899 Other long term (current) drug therapy; Z99.89 Dependence on other enabling machines and devices
CPT/HCPCS: 19083; 88305; 96127; 99212; A4648; J2003

== ENCOUNTER → 2024-10-09 11:00 | Outpatient (BNV) | payer MEDICARE, OTHER, SELFPAY | PROVIDERS: PCP Internal Medicine; Visit Provider Internal Medicine | DX: R92.8 Other abnormal and inconclusive findings on diagnostic imaging of breast (principal) | CPT/HCPCS: 19083 ==

== ENCOUNTER 2024-10-09 12:53 | Outpatient (AMB) | payer MEDICARE, OTHER, SELFPAY ==
[2024-10-09 12:55] VITALS: BP 108/62; PULSE 73; O2SAT 97; BMI 21.8
--- NOTE | 2024-10-09 12:55 | A.OFFPC_ITS ---
Vital Signs 10/09/24 12:55 Height 5 ft 11 in Weight 156 lb BMI 21.8 BP 108/62 Blood Pressure Location Lt brachial Position Sitting Pulse 73 Pulse Source Pulse Oximeter Pulse Oximetry (%) 97 Oxygen Delivery Method Room Air Intake Visit Reasons: A fib, CHF Allergies Kota Inhibitor Allergy (Intermediate, Verified 10/09/24 12:56) cough Diltiazem HCl CD Allergy (Unknown, Verified 10/09/24 12:56) unknown lisinopril Allergy (Unknown, Verified 10/09/24 12:56) cough dorzolamide Adverse Reaction (Intermediate, Verified 10/09/24 12:56) red eye Tobacco use date assessed: 10/09/24 Fall risk assessment: 1 Fall in past year Last assessed Fall Risk: 10/09/24 Dental Screening Dental Screen Date: 10/09/24 Did you have a dental visit in the last 12 months?: No Did you have a dental problem in the last 6 months where you did not have access to dental care?: No Was dental information given to patient?: Patient has dentist [facility] Medical History (Updated 10/09/24 @ 13:23 by Joleen Boyd MD) Acute on chronic diastolic (congestive) heart failure Congestive heart failure with reduced left ventricular function, NYHA class 3 Hypersomnia Anxiety Prostate cancer Aortic regurgitation CRVO (central retinal vein occlusion) GERD (gastroesophageal reflux disease) Obstructive sleep apnea Cholelithiasis Cognitive impairment Generalized anxiety disorder Insomnia History of prostate cancer Hypercholesterolemia Left bundle branch block Nonischemic cardiomyopathy HTN (hypertension) Chronic atrial fibrillation Surgical History Hx of cholecystectomy History of prostatectomy History of inguinal hernia repair Family History Father Diabetes Stroke Mother Diabetes Other Mental health disorder Substance use disorder Social History Household Members: Spouse Housing: House Do you presently have visiting nurse or other home services: No Alcohol intake: never Patient Tobacco Use Status: Never used Tobacco Tobacco use type: Cigarette e-Cigarette/Vaping Use: Never Used Second Hand Smoke Exposure: No service: Yes Current occupational status: retired Current occupational exposures/hazards: No Cognitive needs: No Hearing needs: Yes Vision needs: Yes Questionnaire PHQ-9 Over the last 2 weeks, how often have you been bothered by any of the following problems? 1. Little interest or pleasure in doing things: not at all 2. Feeling down, depressed, or hopeless: not at all 3. Trouble falling or staying asleep, or sleeping too much: not at all 4. Feeling tired or having little energy: nearly every day 5. Poor appetite or overeating: not at all 6. Feeling bad about yourself - or that you are a failure or have let yourself or your family down: not at all 7. Trouble concentrating on things, such as reading the newspaper or watching television: nearly every day 8. Moving or speaking so slowly that other people could have noticed. Or the opposite - being so fidgety or restless that you have been moving around a lot more than usual: nearly every day 9. Thoughts that you would be better off or of hurting yourself in some way: not at all Total score: 9 Depression Screening Interpretation: Positive Depression Screening Done: Yes Source: Developed by Drs. Ken Iyer, Marycruz Tovar, Hitesh Thompson and colleagues, with an educational junie from [employer]. Thrive Questionnaire Date Thrive assessed: 10/02/24 I am a: Patient What is your living situation today?: I have a steady place to live Within the past 12 months, did the food you bought not last and you didn't have the money to get more?: Never true Within the past 12 months, did you worry whether your food would run out before you got money to buy more?: Never true Do you have trouble paying for medicines?: No Do you have trouble getting transportation to medical appointments?: No Do you have trouble paying your heating and electricity bill?: No Do you have trouble taking care of your child, family member or friend?: No Do you have trouble with day-to-day activities such as bathing, preparing meals, shopping, managing finances, etc.?: Yes Are you currently unemployed and looking for a job?: No Are you interested in more education?: No Please select the resources that you would like help with: None Currently or been in a relationship where the following occur: No concerns reported THRIVE Score: 0 AUDIT C Alcohol Use Questionnaire (AUDIT-C) 1. How often do you have a drink containing alcohol?: Never 2. How many drinks containing alcohol do you have on a typical day when you are drinking?: 1 or 2 3. How often do you have six or more drinks on one occasion?: Never Total Score: 0 MATTHEW-7 AMB Questionnaire MATTHEW-7 Date MATTHEW - 7 assessed: 07/04/24 Feeling nervous, anxious, or on edge: 0 = Not at all Not being able to stop or control worryin = Not at all Worrying too much about different things: 0 = Not at all Trouble relaxin = Not at all Being so restless that it is hard to sit still: 0 = Not at all Becoming easily annoyed or irritable: 0 = Not at all Feeling afraid as if something awful might happen: 0 = Not at all Total MATTHEW-7 score (0-4 normal; 5-9 mild; 10-14 moderate; 15-21 severe): 0 Source: Developed by Drs. Ken Iyer, Marycruz Tovar, Hitesh Thompson and colleagues, with an educational junie from [employer]. Physical exam (Primary Care) Vital Signs: Last Vital Signs Pulse 73 10/09/24 12:55 BP 108/62 10/09/24 12:55 Pulse Ox 97 10/09/24 12:55 Oxygen Delivery Method Room Air 10/09/24 12:55 BMI result Body Mass Index 21.8 Tobacco/Smoking Status: Tobacco use Status Tobacco use date assessed 10/09/24 10/09/24 13:00 Patient Tobacco Use Status Never used Tobacco 10/09/24 13:00 Tobacco use type Cigarette 10/09/24 13:00 e-Cigarette/Vaping Use Never Used 10/09/24 13:00 PHQ-9: PHQ-9 Score PHQ-9: Total score 9 10/09/24 13:26 Depression Screening Interpretation: Positive Thrive Assessment: Date of Thrive Assessment Date Thrive assessed 10/02/24 10/09/24 13:00 Currently or been in a relationship where the following occur: No concerns reported Const General: alert; No acute distress Eyes Conjunctivae: conjunctivae normal Resp Auscultation: clear to auscultation bilaterally Cardio Rate: regular rate Rhythm: regular rhythm GI Inspection: Yes normal to inspection Extrem General: Yes normal to inspection and No edema Coding Level of Care Code Est Pt Level 4 (58640) Complex EM visit Add On G2211 Diagnoses Heart failure with reduced ejection fraction I50.20 Breast mass N63.0 Prostate cancer C61 Obstructive sleep apnea G47.33 Chronic atrial fibrillation I48.20 Essential hypertension I10 Hypertension type: essential hypertension Nonischemic cardiomyopathy I42.8 Hypercholesterolemia E78.00 GERD (gastroesophageal reflux disease) K21.9 Generalized anxiety disorder F41.1 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 The AHI was 47/hr and oxygen jose was 84%. Code(s): G47.33 - Obstructive sleep apnea (adult) (pediatric) Category: Medical Plan: Continue to use the CPAP more than 4 hours a night and benefits from this. Patient follows up with Neurology (5) Chronic atrial fibrillation: Comment: Echo January 2017 aortic regurg, MR, TR moderate EF 40-45% December 2017 echo LV dysfunction 40-45% moderate AR, MR, May 2018 34-40% AR, MR, TR echo August 2018 moderate LV dysfunction September 2019 moderate to severe left ventricular dysfunction mild AR, Holter May 2018 pauses 3-5 second Code(s): I48.20 - Chronic atrial fibrillation, unspecified Category: Medical Plan: Continue with anticoagulation Eliquis continue to monitor renal function (6) HTN (hypertension): Code(s): I10 - Essential (primary) hypertension Category: Medical Qualifiers: Hypertension type: essential hypertension Qualified Code(s): I10 - Essential (primary) hypertension Plan: Continue with blood pressure medication. Decrease salt intake and exercise metoprolol 100 mg once a day (7) Nonischemic cardiomyopathy: Comment: 05/2022 EF 51 % Code(s): I42.8 - Other cardiomyopathies Category: Medical Plan: Continue to monitor. On Entresto (8) Hypercholesterolemia: Code(s): E78.00 - Pure hypercholesterolemia, unspecified Category: Medical Plan: Avoid fried foods, chicken skin, eggs, butter margarine, pastries and meat. Be it pork or beef they have a lot of cholesterol LDL goal of less than 100 and tri glyceride of less than 150 patient on pravastatin 20 mg once a day (9) GERD (gastroesophageal reflux disease): Code(s): K21.9 - Gastro-esophageal reflux disease without esophagitis Category: Medical Plan: Avoid the foods that causes that usually spicy foods, tomato products, juices, coffee, soda and foods that your sensitive to. After eating do not lie down, allow 3-4 hours before in lie down. And keep the head of bed above 30 degrees to avoid the acid from going up. (10) Generalized anxiety disorder: Code(s): F41.1 - Generalized anxiety disorder Category: Medical Plan: Continue with sertraline (11) Frontal lobe dementia: Code(s): G31.09 - Other frontotemporal neurocognitive disorder; F02.80 - Dementia in other diseases classified elsewhere, unspecified severity, without behavioral disturbance, psychotic disturbance, mood disturbance, and anxiety Category: Medical Plan: Patient on memantine and the donepezil Plan History of Present Illness The patient is an 84-year-old male presenting for a follow-up examination for multiple health issues. His medical history is significant for essential hypertension, atrial fibrillation, and nonischemic cardiomyopathy. He also suffers from hypercholesterolemia and gastroesophageal reflux disease. Previously in 2024, he reported breast pain, leading to an ultrasound and biopsy that indicated retroareolar gynecomastia with the possibility of a solid mass. This patient has a history of prostate cancer, diagnosed in 2001, alongside a d iagnosis of generalized anxiety disorder. He is known to have an ascending aorta dilation and experiences congestive heart failure, monitored through various diagnostic measures. Renal function is compromised, as demonstrated by borderline-chronic kidney disease parameters. Additionally, the patient has improved hemoglobin levels from 12.2 g/dL to 13.7 g/dL over recent years, reducing prior concerns for anemia. Furthermore, he is managing obstructive sleep apnea with a CPAP device whose settings were recently adjusted. He is on an established medication regimen, including Entresto, spironolactone, pravastatin, and others, addressing these chronic conditions. Health Maintenance - Ongoing surveillance of renal function with creatinine and GFR monitoring. - Adjustments in CPAP usage to minimize apnea-hypopnea index. - Active management of lipid profile with pravastatin aiming for LDL <100 and triglycerides <150. - Monitoring anemia levels through blood tests with periodic follow-up. - Encouragement of dietary adjustments for cholesterol and overall health improvement. Social History - Exercise: The patient walks daily, generally fatigued after 20 minutes. - Weight and Nutrition Management: Patient's nutrition includes beef approximately twice a day with overall stable weight maintenance. Review of Systems - Cardiovascular: Reports fatigue. - Respiratory: Denies issues with breath while using CPAP. - Gastrointestinal: Reports symptoms consistent with reflux. - Hematology: Reports stable but mildly fluctuating anemia levels. - Musculoskeletal: Reports breast pain prior to biopsy. - Neurological: Reports dementia symptoms. - Psychiatric: Reports generalized anxiety symptoms. - Endocrine: Denies changes in metabolic symptoms. - Other: Reports improved renal function indicators and sleeps heavily. Physical Exam Results - Labs: Hemoglobin 13.7 g/dL; Creatinine 1.52 mg/dL; GFR 44 mL/min; Triglycerides 157 mg/dL; Cholesterol 107 mg/dL; BNP 203. - Imaging: Breast ultrasound indicating retroareolar gynecomastia with a potential solid mass. - Diagnostic Tests: Sleep study adjustments as noted in recent neurology follow- up. Plan For heart failure, hypertension, and atrial fibrillation management, I recommend continuing with Entresto, spironolactone, furosemide, and metoprolol. Anticoagulation remains with Eliquis while creatinine levels and GFR will be closely monitored. We will increase pravastatin to 40 mg for optimizing cholesterol levels, targeting an LDL of under 100 mg/dL. His CPAP settings remain crucial for sleep apnea management, with neurologist evaluations to ensure effectiveness. Surveillance and potential intervention for the breast mass identified in gynecomastia depend on upcoming biopsy results. Ongoing annual appointments will be scheduled to verify renal functions and cardiovascular markers, alongside sustaining nutritional guidance and physical activity routines. The prophylactic shingles vaccine will be reconsidered based on individual patient circumstances. Patient was informed and verbally consented to the use of an ambient scribe for clinic note documentation during this visit. Discussion Notes During our discussion, I addressed the patient?s management of multiple chronic conditions, including cardiovascular, renal, and respiratory issues. I highlighted the importance of monitoring renal function closely because of the use of diuretics and kidney status, emphasizing the role of laboratory diagnostics in guiding management. I informed the patient about increasing pravastatin dosage for better hypercholesterolemia management to achieve LDL goals. We also discussed the necessity of using CPAP therapy consistently for obstructive sleep apnea control after settings adjustments. Additionally, we addressed the plan for ongoing monitoring of the breast mass identified in gynecomastia with emphasis on patient portal updates. Discussion included the potential for shingles vaccination with a focus on current preventive measures and patient comfort in decision-making. Future follow-ups are planned to evaluate therapeutic efficacy and ensure ongoing comprehensive care, maintaining close communication regarding emergent health changes. Patient Instructions - Continue taking prescribed medications, including Entresto, spironolactone, furosemide, and Eliquis. - Use CPAP daily for more than 4 hours to manage sleep apnea. - Increase pravastatin dosage to 40 mg, and pick it up at the pharmacy. - Monitor health changes through the patient portal and contact the clinic for results or concerns. - Continue daily walking and maintain current nutrition. - No urgent changes necessary for anemia; maintain awareness of overall wellness. - Discuss shingles vaccine options and follow up as comfortable. - Schedule for further lab work, including kidney function tests, in three months. Orders: Orders Comprehensive Met. Panel 3 Months E78.00 - Pure hypercholesterolemia, unspecified Lipid Panel 3 Months E78.00 - Pure hypercholesterolemia, unspecified Complete Blood Count Auto Diff 3 Months E78.00 - Pure hypercholesterolemia, unspecified Free T4 (Free Thyroxine) 3 Months E78.00 - Pure hypercholesterolemia, unspecified B Type Natriuretic Peptide 3 Months E78.00 - Pure hypercholesterolemia, unspecified Thyroid Stimulating Hormone 3 Months E78.00 - Pure hypercholesterolemia, unspecified Medications: Changed From pravastatin 20 mg PO DAILY 90 tabs 3RF E78.00 - Pure hypercholesterolemia, unspecified To pravastatin 40 mg PO DAILY 90 tabs 3RF E78.00 - Pure hypercholesterolemia, unspecified
== END 2024-10-09 13:41 | disposition home or self-care (01) ==
LOC: HO.HMCH 12:54
PROVIDERS: PCP Internal Medicine; Visit Provider Internal Medicine
DX: I50.20 Unspecified systolic (congestive) heart failure (principal); C61 Malignant neoplasm of prostate; I48.20 Chronic atrial fibrillation, unspecified; I42.8 Other cardiomyopathies; G31.09 Other frontotemporal neurocognitive disorder; F02.80 Dementia in other diseases classified elsewhere, unspecified severity, without behavioral disturbance, psychotic disturbance, mood disturbance, and anxiety; G47.33 Obstructive sleep apnea (adult) (pediatric); I10 Essential (primary) hypertension; E78.00 Pure hypercholesterolemia, unspecified; K21.9 Gastro-esophageal reflux disease without esophagitis; F41.1 Generalized anxiety disorder; N64.4 Mastodynia

== ENCOUNTER 2024-10-16 13:56 | Outpatient (AMB) | payer MEDICARE, OTHER, SELFPAY ==
[2024-10-16 14:06] VITALS: BP 120/80; PULSE 62; BMI 21.8
--- NOTE | 2024-10-16 14:06 | MHC.OFFVIS ---
Vital Signs 10/16/24 14:06 Height 5 ft 11 in Weight 156 lb 8.451 oz BMI 21.8 BP 120/80 Blood Pressure Location Lt brachial Position Sitting Pulse 62 Intake Visit Reasons: 6 mth fu Intake Note: 6 month follow-up feeling good Naturopathic Oncology Provider: Naturopathic Oncology Provider Present Accompanied by: Spouse Allergies Kota Inhibitor Allergy (Intermediate, Verified 10/09/24 12:56) cough Diltiazem HCl CD Allergy (Unknown, Verified 10/09/24 12:56) unknown lisinopril Allergy (Unknown, Verified 10/09/24 12:56) cough dorzolamide Adverse Reaction (Intermediate, Verified 10/09/24 12:56) red eye Medication List - Last Reconciled 10/16/24 by Mor Mehta MD apixaban (Eliquis) 2.5 mg PO BID cholecalciferol (vitamin D3) 50 mcg PO DAILY 90 days [CPAP As directed] donepezil 5 mg PO BEDTIME furosemide 40 mg See Protocol PO DAILY 90 days hydrocortisone 2.5% (Proctosol HC) 1 appl [place] BID-QID PRN melatonin 4 mg PO BEDTIME memantine 5 mg PO BID metoprolol succinate ER (Toprol XL) 100 mg PO DAILY 90 days pravastatin 40 mg PO DAILY sacubitril-valsartan 49-51 mg (Entresto) 1 tab PO BID sertraline 50 mg PO DAILY spironolactone 25 mg See Protocol PO BID 90 days timolol maleate 0.5% 1 drp ophthalmic (eye) DAILY vitamin B complex 1 cap PO DAILY HPI Comments Details: Ki comes for follow-up. He is accompanied by his . He has had no hospitalization last 6 months. Denies any worsening shortness of breath, orthopnea, PND, leg edema. Weight has remained stable. He has a good appetite. No prolonged palpitation irregular heartbeat. As per the when he gets up the 1st time he gets little wobbly. No reported lightheadedness or syncopal episodes. Takes all his medications. No bleeding issues or neurologic events. [facility] Medical History (Updated 10/09/24 @ 13:23 by Joleen Boyd MD) Acute on chronic diastolic (congestive) heart failure Congestive heart failure with reduced left ventricular function, NYHA class 3 Hypersomnia Anxiety Prostate cancer Aortic regurgitation CRVO (central retinal vein occlusion) GERD (gastroesophageal reflux disease) Obstructive sleep apnea Cholelithiasis Cognitive impairment Generalized anxiety disorder Insomnia History of prostate cancer Hypercholesterolemia Left bundle branch block Nonischemic cardiomyopathy HTN (hypertension) Chronic atrial fibrillation Surgical History Hx of cholecystectomy History of prostatectomy History of inguinal hernia repair Family History Father Diabetes Stroke Mother Diabetes Other Mental health disorder Substance use disorder Social History Household Members: Spouse Housing: House Do you presently have visiting nurse or other home services: No Alcohol intake: never Patient Tobacco Use Status: Never used Tobacco Tobacco use type: Cigarette e-Cigarette/Vaping Use: Never Used Second Hand Smoke Exposure: No service: Yes Current occupational status: retired Current occupational exposures/hazards: No Cognitive needs: No Hearing needs: Yes Vision needs: Yes Review of Systems Const Denies chills, Denies fatigue, Denies fever(s), Denies frequent falls, Denies weakness, Denies weight gain and Denies weight loss ENT Denies dizziness Card Denies chest pain, Denies leg edema, Denies lightheadedness, Denies palpitations, Denies dyspnea, Denies dyspnea on exertion, Denies orthopnea and Denies other (loss of consciousness) Resp Denies cough, Denies dyspnea and Denies dyspnea on exertion GI Denies hematochezia and Denies change in stool character Musc Denies abnormal gait, Denies muscle weakness, Denies numbness, Denies radiating pain into limb and Denies tingling Neuro Denies abnormal gait, Reports confusion, Denies dizziness, Denies frequent falls, Denies numbness, Denies tingling and Denies weakness Psych Reports confusion Endo Denies fatigue and Denies palpitations Physical Exam Vital Signs: Last Vital Signs Pulse 62 10/16/24 14:06 BP 120/80 10/16/24 14:06 BMI result Body Mass Index 21.8 Const Other: Has dementia - forgetfull General: cooperative, healthy appearing, comfortable, no acute distress, confusion and well groomed Nutritional Appearance: thin Orientation/consciousness: confusion Limitations: no limitations Neck Neck: Yes trachea midline, Yes supple and Yes no JVD Resp Effort & Inspection: normal respiratory effort Auscultation: clear to auscultation bilaterally, no rales, no rhonchi and no wheezes Cardio Jugular venous distension: no JVD Rhythm: abnormal rhythm irregularly irregular Heart sounds: S1 normal heart sound present, S2 normal heart sound present, no murmurs and no rubs GI Inspection: Yes normal to inspection Skin General skin exam: no rashes or lesions noted Neuro General: no focal motor deficits and confusion Extrem General: Yes normal to inspection and No no pedal edema Psych Appearance: grossly normal Mental Status: mental status grossly normal Speech and movement: Normal speech and movement present Assessment & Plan Assessment & Plan (1) Heart failure with reduced ejection fraction: Code(s): I50.20 - Unspecified systolic (congestive) heart failure Category: Medical Plan: Heart failure with reduced ejection fraction with severe LV systolic dysfunction by last echocardiogram in this elderly gentleman. He has had no hospitalization last 6 months. Clinically doing well. Clinically euvolemic and well compensated. Continue current neurohormonal modulation with metoprolol as well as spironolactone and Entresto therapy. Continue current diuretic dose. Daily weight monitoring avoidance salt loading was discussed. Goals of therapy were discussed. Encouraged to maintain activity level as tolerated. Regular physical activity was discussed. Advised to call me with worsening symptoms. Can not further up optimize neurohormonal modulation due to lower blood pressure. (2) Chronic atrial fibrillation: Comment: Echo January 2017 aortic regurg, MR, TR moderate EF 40-45% December 2017 echo LV dysfunction 40-45% moderate AR, MR, May 2018 34-40% AR, MR, TR echo August 2018 moderate LV dysfunction September 2019 moderate to severe left ventricular dysfunction mild AR, Holter May 2018 pauses 3-5 second Code(s): I48.20 - Chronic atrial fibrillation, unspecified Category: Medical Plan: Chronic rate control atrial fibrillation. Continue current metoprolol therapy for rate control. Continue full oral anticoagulation, currently on renally adjusted dose of Eliquis. Quarterly renal function test should be pursued. Will follow up in the clinic in 6 months time after an echocardiogram. Thank you for allowing me to partake in his care Orders: Orders Basic Metabolic Panel Today I50.20 - Unspecified systolic (congestive) heart failure CA echo transthoracic complete 6 Months I50.20 - Unspecified systolic (congestive) heart failure Coding Level of Care Code Est Pt Level 4 (88900) Complex EM visit Add On G2211 Diagnoses Heart failure with reduced ejection fraction I50.20 Chronic atrial fibrillation I48.20
== END 2024-10-16 14:30 | disposition home or self-care (01) ==
LOC: HO.HCS 13:57
PROVIDERS: PCP Internal Medicine; Visit Provider Internal Medicine Cardiovascular Disease
DX: I50.20 Unspecified systolic (congestive) heart failure (principal); I48.20 Chronic atrial fibrillation, unspecified
CPT/HCPCS: 99214; G2211

== ENCOUNTER 2024-10-16 13:56 | Outpatient (REF) | payer MEDICARE, OTHER, SELFPAY ==
[2024-10-16 15:20] LABS: Anion Gap 15 (12-20); Blood Urea Nitrogen 34 mg/dL (9-16); Calcium 9.5 mg/dL (8.4-10.2); Carbon Dioxide 27 mmol/L (22-29); Chloride 103 mmol/L (96-108); Estimated Glomerular Filt Rate 41; Glucose Random 84 mg/dL (60-115); Potassium 4.8 mmol/L (3.3-5.1); Sodium 140 mmol/L (135-145)
== END 2024-10-16 13:57 | disposition home or self-care (01) ==
LOC: HO.LAB 13:56
PROVIDERS: PCP Internal Medicine; Visit Provider Internal Medicine Cardiovascular Disease
DX: I11.0 Hypertensive heart disease with heart failure (principal); I50.20 Unspecified systolic (congestive) heart failure; I48.20 Chronic atrial fibrillation, unspecified
CPT/HCPCS: 36415; 80048; 99212

== ENCOUNTER 2025-01-24 10:01 | Outpatient (REF) | payer MEDICARE, OTHER, SELFPAY ==
[2025-01-24 11:03] LABS: MANUAL DIFF FLAG NO
[2025-01-24 11:10] LABS: Hematocrit 38.9 % (42.0-52.0); Hemoglobin 13.2 g/dl (14.0-18.0); Imm Gran Abs Auto 0.03 X10*3/uL (0.00-0.03); Imm Gran Pct Auto 0.5 % (0.0-0.4); Lymphocytes Absolute Auto 1.1 X10*3/uL (1.2-4.9); Mean Corpuscular HGB Conc 33.9 g/dl (31.0-36.0); Mean Corpuscular Hemoglobin 32.2 pg (27.0-33.0); Mean Corpuscular Volume 94.9 fL (80.0-98.0); NRBC Abs Auto 0.000 X10*3/uL (0.0-0.012); NRBC Pct Auto 0.0 /100WBC (0.0-0.2); Platelet Count 197 X10*3/uL (160-400); Red Blood Count 4.10 X10*6/uL (4.60-5.80); White Blood Count 6.6 X10*3/uL (4.8-10.8)
[2025-01-24 11:29] LABS: Alanine Aminotransferase 31 U/L (0-40); Albumin Level 4.5 g/dL (3.5-5.0); Alkaline Phosphatase 94 U/L (39-117); Anion Gap 14 (12-20); Aspartate Amino Transferase 37 U/L (5-37); Blood Urea Nitrogen 35 mg/dL (9-16); Calcium 8.9 mg/dL (8.4-10.2); Carbon Dioxide 25 mmol/L (22-29); Chloride 105 mmol/L (96-108); Cholesterol 172 mg/dL (<200); Estimated Glomerular Filt Rate 41; HDL Cholesterol 46 mg/dL (>40); Potassium 4.2 mmol/L (3.3-5.1); Sodium 140 mmol/L (135-145); Total Protein 7.4 g/dL (6.5-8.0); Triglycerides 142 mg/dL (<150)
[2025-01-24 11:38] LABS: B Type Natriuretic Peptide 232 pg/mL (<100)
[2025-01-24 11:47] LABS: Free T4 (Free Thyroxine) 0.92 ng/dL (0.71-1.85); Thyroid Stimulating Hormone 3.75 uIU/mL (0.32-4.0)
== END 2025-01-24 10:02 | disposition home or self-care (01) ==
LOC: HO.HMGCLDS 10:01
PROVIDERS: PCP Internal Medicine; Visit Provider Internal Medicine
DX: E78.00 Pure hypercholesterolemia, unspecified (principal)
CPT/HCPCS: 36415; 80053; 80061; 83880; 84439; 84443; 85025

== ENCOUNTER 2025-01-30 12:27 | Outpatient (AMB) | payer MEDICARE, OTHER, SELFPAY ==
[2025-01-30 12:31] VITALS: BP 106/62; PULSE 54; O2SAT 95; BMI 21.5
--- NOTE | 2025-01-30 12:31 | A.OFFPC_ITS ---
Vital Signs 01/30/25 12:31 Height 5 ft 11 in Weight 154 lb BMI 21.5 BP 106/62 Blood Pressure Location Lt brachial Position Sitting Pulse 54 Pulse Source Pulse Oximeter Pulse Oximetry (%) 95 Oxygen Delivery Method Room Air Intake Visit Reasons: 4 month Allergies Kota Inhibitor Allergy (Intermediate, Verified 01/30/25 12:32) cough Diltiazem HCl CD Allergy (Unknown, Verified 01/30/25 12:32) unknown lisinopril Allergy (Unknown, Verified 01/30/25 12:32) cough dorzolamide Adverse Reaction (Intermediate, Verified 01/30/25 12:32) red eye Tobacco use date assessed: 10/09/24 Fall risk assessment: No Falls in past year Last assessed Fall Risk: 01/30/25 Dental Screening Dental Screen Date: 10/09/24 [facility] Medical History (Updated 01/30/25 @ 13:00 by Joleen Boyd MD) Hearing deficit Acute on chronic diastolic (congestive) heart failure Congestive heart failure with reduced left ventricular function, NYHA class 3 Hypersomnia Anxiety Prostate cancer Aortic regurgitation CRVO (central retinal vein occlusion) GERD (gastroesophageal reflux disease) Obstructive sleep apnea Cholelithiasis Cognitive impairment Generalized anxiety disorder Insomnia History of prostate cancer Hypercholesterolemia Left bundle branch block Nonischemic cardiomyopathy HTN (hypertension) Chronic atrial fibrillation Surgical History Hx of cholecystectomy History of prostatectomy History of inguinal hernia repair Family History Father Diabetes Stroke Mother Diabetes Other Mental health disorder Substance use disorder Social History Household Members: Spouse Housing: House Do you presently have visiting nurse or other home services: No Alcohol intake: never Patient Tobacco Use Status: Never used Tobacco Tobacco use type: Cigarette e-Cigarette/Vaping Use: Never Used Second Hand Smoke Exposure: No service: Yes Current occupational status: retired Current occupational exposures/hazards: No Cognitive needs: No Hearing needs: Yes Vision needs: Yes Questionnaire Thrive Questionnaire Date Thrive assessed: 10/02/24 I am a: Patient What is your living situation today?: I have a steady place to live Within the past 12 months, did the food you bought not last and you didn't have the money to get more?: Never true Within the past 12 months, did you worry whether your food would run out before you got money to buy more?: Never true Do you have trouble paying for medicines?: No Do you have trouble getting transportation to medical appointments?: No Do you have trouble paying your heating and electricity bill?: No Do you have trouble taking care of your child, family member or friend?: No Do you have trouble with day-to-day activities such as bathing, preparing meals, shopping, managing finances, etc.?: Yes Are you currently unemployed and looking for a job?: No Are you interested in more education?: No Please select the resources that you would like help with: None Currently or been in a relationship where the following occur: No concerns reported THRIVE Score: 0 AUDIT C Alcohol Use Questionnaire (AUDIT-C) 1. How often do you have a drink containing alcohol?: Never 2. How many drinks containing alcohol do you have on a typical day when you are drinking?: 1 or 2 3. How often do you have six or more drinks on one occasion?: Never Total Score: 0 MATTHEW-7 AMB Questionnaire MATTHEW-7 Date MATTHEW - 7 assessed: 07/04/24 Source: Developed by Drs. Ken Iyer, Marycruz Tovar, Hitesh Thompson and colleagues, with an educational junie from [employer]. Physical exam (Primary Care) Vital Signs: Last Vital Signs Pulse 54 01/30/25 12:31 BP 106/62 01/30/25 12:31 Pulse Ox 95 01/30/25 12:31 Oxygen Delivery Method Room Air 01/30/25 12:31 BMI result Body Mass Index 21.5 Tobacco/Smoking Status: Tobacco use Status Tobacco use date assessed 10/09/24 01/30/25 12:38 Patient Tobacco Use Status Never used Tobacco 01/30/25 12:38 Tobacco use type Cigarette 01/30/25 12:38 e-Cigarette/Vaping Use Never Used 01/30/25 12:38 Thrive Assessment: Date of Thrive Assessment Date Thrive assessed 10/02/24 01/30/25 12:38 Currently or been in a relationship where the following occur: No concerns reported Const General: alert; No acute distress Eyes Conjunctivae: conjunctivae normal Resp Auscultation: clear to auscultation bilaterally Cardio Rate: regular rate Rhythm: regular rhythm GI Inspection: Yes normal to inspection Extrem General: Yes normal to inspection and No edema Office Procedures Cerumen Removal From which ear canal was the cerumen removed: bilateral Removal: otoscope w/curette, cerumen loop/spoon and other Notes: patient tolerated procedure well, no complications and ear canal clear [id number] Wax Removal by Spoon/Curette Coding Level of Care Code Est Pt Level 4 (28800) Complex EM visit Add On G2211 Diagnoses Essential hypertension I10 Hypertension type: essential hypertension Heart failure with reduced ejection fraction I50.20 Nonischemic cardiomyopathy I42.8 Chronic atrial fibrillation I48.20 Hypercholesterolemia E78.00 GERD (gastroesophageal reflux disease) K21.9 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 Decrease salt intake and exercise patient is on metoprolol 100 mg once a day Entresto 49/51 twice a day spironolactone 25 mg twice a day (2) Heart failure with reduced ejection fraction: Code(s): I50.20 - Unspecified systolic (congestive) heart failure Category: Medical Plan: Continuing with anticoagulation with furosemide 40 mg once a day Entresto spironolactone 25 mg once a day (3) Nonischemic cardiomyopathy: Comment: 05/2022 EF 51 %, 2023 20-25% Code(s): I42.8 - Other cardiomyopathies Category: Medical Plan: Continue with present medications the diuretic blood pressure medication (4) Chronic atrial fibrillation: Comment: Echo January 2017 aortic regurg, MR, TR moderate EF 40-45% December 2017 echo LV dysfunction 40-45% moderate AR, MR, May 2018 34-40% AR, MR, TR echo August 2018 moderate LV dysfunction September 2019 moderate to severe left ventricular dysfunction mild AR, Holter May 2018 pauses 3-5 second Code(s): I48.20 - Chronic atrial fibrillation, unspecified Category: Medical Plan: Continuing with anticoagulation with Eliquis 2.5 mg twice a day and continuing to monitor renal function quarterly. (5) Hypercholesterolemia: Code(s): E78.00 - Pure hypercholesterolemia, unspecified Category: Medical Plan: Avoid fried foods, chicken skin, eggs, butter margarine, pastries and meat. Be it pork or beef they have a lot of cholesterol on pravastatin 40 mg once a day LDL goal of less than 100 and triglyceride of less than 150 (6) GERD (gastroesophageal reflux disease): Code(s): K21.9 - Gastro-esophageal reflux disease without esophagitis Category: Medical Plan: Avoid the foods that causes that usually spicy foods, tomato products, juices, coffee, soda and foods that your sensitive to. After eating do not lie down, allow 3-4 hours before in lie down. And keep the head of bed above 30 degrees to avoid the acid from going up. (7) Frontal lobe dementia: Code(s): G31.09 - Other frontotemporal neurocognitive disorder; F02.80 - Dementia in other diseases classified elsewhere, unspecified severity, without behavioral disturbance, psychotic disturbance, mood disturbance, and anxiety Category: Medical Plan: Presently on memantine and follows up with Neurology (8) Obstructive sleep apnea: Comment: Severe degree of sleep apnea. The AHI was 47/hr and oxygen jose was 84%. Code(s): G47.33 - Obstructive sleep apnea (adult) (pediatric) Category: Medical Plan: Continue to use the CPAP more than 4 hours a night and benefits from this. (9) Impacted cerumen of both ears: Code(s): H61.23 - Impacted cerumen, bilateral Category: Medical Plan: scoop used with TM intact , no irrigation (10) Hearing deficit: Code(s): H91.90 - Unspecified hearing loss, unspecified ear Category: Medical Plan History of Present Illness The patient is an 84-year-old male presenting for a follow-up visit for multiple chronic conditions including dementia, nonischemic cardiomyopathy, atrial fibrillation, and congestive heart failure. The patient has a history of dementia, which has been progressively worsening, with noted cognitive decline over the summer. He experiences difficulty with his morning routine and increased daytime sleepiness, although he remains alert when awake. The patient has nonischemic cardiomyopathy and atrial fibrillation, managed with medications including metoprolol, spironolactone, and Entresto. He is clinically euvolemic and continues with a chronic diuretic dose and oral anticoagulation with Eliquis. The patient has a history of congestive heart failure with reduced ejection fraction, last evaluated with an echocardiogram in December 2023 showing an ejection fraction of 20-25%. He has moderate to severe decreased right ventricular systolic function and mild dilatation of the ascending aorta. The patient has chronic hypertension and hypercholesterolemia, managed with blood pressure medications and pravastatin, respectively. His LDL cholesterol is currently at 98 mg/dL, meeting the goal of less than 100 mg/dL. The patient has a history of prostate cancer treated in 2001 and generalized anxiety disorder. He also has obstructive sleep apnea, managed with CPAP therapy, which he uses for more than 4 hours a night. Recent blood work from January 24 showed anemia with a hemoglobin of 13.2 g/dL and hematocrit of 38.9%, normal platelet and white blood cell counts, and stable renal function with a BUN of 35 mg/dL and creatinine of 1.61 mg/dL. Blood sugar was mildly elevated at 102 mg/dL, and BNP was stable at 232 pg/mL. The patient reports hearing loss and was found to have earwax accumulation during the examination. Health Maintenance - Vaccinations: Discussed flu, COVID-19, RSV, and shingles vaccinations. - CPAP Therapy: Patient uses CPAP for obstructive sleep apnea more than 4 hours a night. - Lipid Management: LDL cholesterol goal of less than 100 mg/dL achieved with pravastatin. Social History - Exercise: Patient attempts to walk daily but experiences fatigue post- exercise. - Sleep: Patient experiences increased daytime sleepiness and sleeps most of the day. Review of Systems - Neurological: Reports cognitive decline and increased daytime sleepiness. Denies grogginess when awake. - Cardiovascular: Reports irregular heart rhythm. Denies chest pain. - Respiratory: Reports basal crackles. Denies dyspnea. - Ears: Reports hearing loss. Denies ear pain. Physical Exam - Cardiovascular: Irregular rhythm noted, basal crackles present. - Ears: Earwax accumulation observed. Results - Labs: Hemoglobin 13.2 g/dL, Hematocrit 38.9%, BUN 35 mg/dL, Creatinine 1.61 mg/dL, Blood sugar 102 mg/dL, BNP 232 pg/mL, LDL 98 mg/dL. - Imaging: Echocardiogram in December 2023 showing ejection fraction of 20-25%, moderate to severe decreased right ventricular systolic function, mild dilatation of the ascending aorta. Plan Patient was informed and verbally consented to the use of an ambient scribe for clinic note documentation during this visit. 1. Dementia The patient is experiencing progressive cognitive decline, with increased daytime sleepiness and difficulty with morning routines. Continued management with Memantine and follow-up with neurology is advised. 2. Nonischemic Cardiomyopathy The patient is clinically euvolemic and continues on metoprolol, spironolactone, and Entresto. Regular monitoring of renal function and continuation of current medication regimen is recommended. 3. Atrial Fibrillation The patient is on oral anticoagulation with Eliquis to manage atrial fibrillation. Continued monitoring and medication adherence are advised. 4. Congestive Heart Failure The patient has a reduced ejection fraction of 20-25% and is managed with a chronic diuretic dose. Regular follow-up and monitoring of symptoms are recommended. 5. Chronic Hypertension The patient continues on blood pressure medications, including metoprolol and spironolactone. Blood pressure management is stable, and regular monitoring is advised. 6. Hypercholesterolemia The patient is on pravastatin with an LDL goal of less than 100 mg/dL, currently at 98 mg/dL. Continued adherence to medication and regular lipid monitoring are recommended. 7. Obstructive Sleep Apnea The patient uses CPAP therapy for more than 4 hours a night, which is beneficial. Continued use and monitoring of CPAP effectiveness are advised. 8. Anemia Recent labs show anemia with a hemoglobin of 13.2 g/dL. Regular monitoring of hemoglobin levels is recommended. 9. Hearing Loss The patient reports hearing loss, with earwax accumulation noted during exa mination. Earwax removal and further audiological evaluation are advised. Discussion Notes During the visit, we discussed the management of the patient's chronic conditions, including dementia, cardiomyopathy, atrial fibrillation, and heart failure. We reviewed the importance of medication adherence and regular monitoring of renal function and lipid levels. Vaccinations for flu, COVID-19, RSV, and shingles were recommended as part of preventative care. Patient Instructions - Continue taking all prescribed medications as directed. - Use CPAP machine for at least 4 hours each night. - Schedule follow-up appointments with neurology and cardiology as advised. - Monitor blood pressure and report any significant changes. - Maintain regular exercise and monitor for fatigue. - Get vaccinated for flu, COVID-19, RSV, and shingles as discussed. Orders: Orders Complete Blood Count Auto Diff 3 Months I50.20 - Unspecified systolic (congestive) heart failure Comprehensive Met. Panel 3 Months I50.20 - Unspecified systolic (congestive) heart failure Thyroid Stimulating Hormone 3 Months I50.20 - Unspecified systolic (congestive) heart failure Free T4 (Free Thyroxine) 3 Months I50.20 - Unspecified systolic (congestive) heart failure Lipid Panel 3 Months E78.00 - Pure hypercholesterolemia, unspecified, I50.20 - Unspecified systolic (congestive) heart failure B Type Natriuretic Peptide 3 Months I50.20 - Unspecified systolic (congestive) heart failure Referrals Speech and Hearing Referral H91.90 - Unspecified hearing loss, unspecified ear
== END 2025-01-30 13:10 | disposition home or self-care (01) ==
LOC: HO.HMCH 12:28
PROVIDERS: PCP Internal Medicine; Visit Provider Internal Medicine
DX: I11.0 Hypertensive heart disease with heart failure (principal); I50.20 Unspecified systolic (congestive) heart failure; I42.8 Other cardiomyopathies; I48.20 Chronic atrial fibrillation, unspecified; F02.80 Dementia in other diseases classified elsewhere, unspecified severity, without behavioral disturbance, psychotic disturbance, mood disturbance, and anxiety; G31.09 Other frontotemporal neurocognitive disorder; E78.00 Pure hypercholesterolemia, unspecified; K21.9 Gastro-esophageal reflux disease without esophagitis; G47.33 Obstructive sleep apnea (adult) (pediatric); H61.23 Impacted cerumen, bilateral; H91.90 Unspecified hearing loss, unspecified ear

== ENCOUNTER → 2025-01-30 12:27 | Outpatient (BNVA) | payer MEDICARE, OTHER, SELFPAY | PROVIDERS: PCP Internal Medicine; Visit Provider Internal Medicine | DX: H61.23 Impacted cerumen, bilateral (principal); I11.0 Hypertensive heart disease with heart failure; I50.20 Unspecified systolic (congestive) heart failure; I42.8 Other cardiomyopathies; I48.20 Chronic atrial fibrillation, unspecified; E78.00 Pure hypercholesterolemia, unspecified; K21.9 Gastro-esophageal reflux disease without esophagitis; G31.09 Other frontotemporal neurocognitive disorder; F02.80 Dementia in other diseases classified elsewhere, unspecified severity, without behavioral disturbance, psychotic disturbance, mood disturbance, and anxiety; G47.33 Obstructive sleep apnea (adult) (pediatric); D64.9 Anemia, unspecified | CPT/HCPCS: 69210; 99212 ==

== ENCOUNTER 2025-03-17 13:27 | Outpatient (AMB) | payer MEDICARE, OTHER, SELFPAY ==
[2025-03-17 13:31] VITALS: BP 90/60; BMI 21.8
--- NOTE | 2025-03-17 13:31 | MHC.OFFVIS ---
Vital Signs 03/17/25 13:31 Height 5 ft 11 in Weight 156 lb BMI 21.8 BP 90/60 Blood Pressure Location Rt brachial Position Sitting Intake Visit Reasons: 6 mo follow up Intake Note: Patient presents month follow up IVY. Compliance in chart. Byproducts Supervisor Required: No Accompanied by: Self / Same As Patient Allergies Kota Inhibitor Allergy (Intermediate, Verified 03/17/25 13:37) cough Diltiazem HCl CD Allergy (Unknown, Verified 03/17/25 13:37) unknown lisinopril Allergy (Unknown, Verified 03/17/25 13:37) cough dorzolamide Adverse Reaction (Intermediate, Verified 03/17/25 13:37) red eye HPI Comments Details: 84-yr-old male presents for follow-up visit of sleep apnea with REM sleep behaviors. Pt is accompanied by his , who assists w/ history. Patient continues to use CPAP nightly. He often wakes up feeling unrested. Very occasionally may wake up in state that he does not understand why his is waking him up as he did not sleep. Today, review of CPAP compliance report reveals elevated residual AHI of > 18 per hour w/ central > obstructive events. He has 5 episodes of REM sleep behaviors, typically nightmares, in the last 3 months- once he struck his CPAP machine. He has never attempted to leave his bed. He is f/b Dr Veliz at [facility] for his dementia. Continues on memantine 5mg bid w/o adverse effect. Dr Veliz increased the melatonin from 3mg to 4mg qhs. His certified endoscopy technician decreased the donepazil from 10mg to 5mg qhs. Reliable Respiratory Compliance Report Usage 12/17/2024 - 03/16/2025 Overall usage: 100% Usage greater than 4 hours: 100% Average usage (days used) 10 hours and 51 minutes AirSense 10 AutoSet Serial number [id number] Mode AutoSet Min Pressure 5-20 cmH2O EPR Fulltime EPR level 3 standard Maximum pressure 14.3 cm H2O Leaks: Average 6.4 L/min Maximum 116.6 L/min Residual events per hour: AHI 18.8 per hour Apnea index: 17.7 per hour and hypopnea index 1.1 per hour Central 9.7 per hour Obstructive 3.8 per hour Unknown 4.1 per hour [facility] Medical History (Updated 01/30/25 @ 13:00 by Joleen Boyd MD) Hearing deficit Acute on chronic diastolic (congestive) heart failure Congestive heart failure with reduced left ventricular function, NYHA class 3 Hypersomnia Anxiety Prostate cancer Aortic regurgitation CRVO (central retinal vein occlusion) GERD (gastroesophageal reflux disease) Obstructive sleep apnea Cholelithiasis Cognitive impairment Generalized anxiety disorder Insomnia History of prostate cancer Hypercholesterolemia Left bundle branch block Nonischemic cardiomyopathy HTN (hypertension) Chronic atrial fibrillation Surgical History Hx of cholecystectomy History of prostatectomy History of inguinal hernia repair Family History Father Diabetes Stroke Mother Diabetes Other Mental health disorder Substance use disorder Social History Household Members: Spouse Housing: House Do you presently have visiting nurse or other home services: No Alcohol intake: never Patient Tobacco Use Status: Never used Tobacco Tobacco use type: Cigarette e-Cigarette/Vaping Use: Never Used Second Hand Smoke Exposure: No service: Yes Current occupational status: retired Current occupational exposures/hazards: No Cognitive needs: No Hearing needs: Yes Vision needs: Yes Physical Exam Vital Signs: Last Vital Signs BP 90/60 03/17/25 13:31 BMI result Body Mass Index 21.8 Const General: no acute distress Resp Effort & Inspection: able to speak in complete sentences Neuro Other: Alert, confused, however offers simple appropriate responses Stands easily, steady gait General: moves all extremities Psych Mental Status: mental status grossly normal Speech and movement: Clear speech present Attitude: cooperative Assessment & Plan Assessment & Plan (1) Obstructive sleep apnea: Comment: Severe degree of sleep apnea. The AHI was 47/hr and oxygen jose was 84%. Code(s): G47.33 - Obstructive sleep apnea (adult) (pediatric) Category: Medical (2) REM behavioral disorder: Code(s): G47.52 - REM sleep behavior disorder Category: Medical Plan Adjusted PAP setting via Resmed in hopes this reduces residual AHI and central sleep apneas and daytime sleepiness: Discontinue APAP 5-20 cmH2O with EPR 3 Trial CPAP 12 cm H2O with EPR 3- we will check compliance report by the end of the week to check effectiveness of these changes. Continue routine PAP maintenance Clean CPAP machine and supplies routinely. Change CPAP supplies routinely. Continue to use distilled water in CPAP water tank reservoir Pt to contact us or respiratory company with any questions or concerns regarding PAP therapy. Advised the patient's that she does not have to wake patient up during a bad dream unless he is at risk for hurting himself. Continue Melatonin q evening. Previously discussed importance of patient routinely engaging in cognitive and socially stimulating activities during the day, and being exposed to sunlight or even a SAD style lamp. Sleep hygiene and education previously shared w/ /pt. Future considerations: Low-dose clonazepam Will follow-up upon review of above and patient to follow-up in clinic in 6 months or sooner prn. Coding Level of Care Code Est Pt Level 3 (71488) Diagnoses Obstructive sleep apnea G47.33 REM behavioral disorder G47.52
== END 2025-03-17 14:20 | disposition home or self-care (01) ==
LOC: HO.HSMS 13:28
PROVIDERS: PCP Internal Medicine; Visit Provider Nurse Practitioner Family
DX: G47.33 Obstructive sleep apnea (adult) (pediatric) (principal); G47.52 REM sleep behavior disorder
CPT/HCPCS: 99213

== ENCOUNTER → 2025-03-17 13:27 | Outpatient (BNVA) | payer MEDICARE, OTHER, SELFPAY | PROVIDERS: PCP Internal Medicine; Visit Provider Nurse Practitioner Family | DX: G47.33 Obstructive sleep apnea (adult) (pediatric) (principal); G47.52 REM sleep behavior disorder | CPT/HCPCS: 99212 ==

== ENCOUNTER 2025-04-04 08:07 | Emergency (ER) | payer MEDICARE, OTHER, SELFPAY ==
[2025-04-04] VITALS (11 sets, daily range): BP systolic 79–127; BP diastolic 45–64; PULSE 47–75; RESP 12–18; TEMP 36.4–36.6; O2SAT 93–99; BMI 22.8
--- NOTE | ~2025-04-04 | XR_ITS ---
CLINICAL HISTORY: Chest pain, dyspnea on exertion, rule out pneumoni 1 view chest x-ray Comparison: CR/SR - XR CHEST 1 VIEW - 01/12/24 02:42 EDT Findings: Faint left lower lobe density. Normal size heart. No acute fracture. IMPRESSION: Possible left lower lobe infiltrate. Follow-up recommended. This document has been electronically signed by: David Kent MD on 04/04/2025 09:58:05
--- NOTE | 2025-04-04 08:10 | ECG_ITS ---
Test Reason : chest pain Blood Pressure : */* mmHG Vent. Rate : 79 BPM Atrial Rate : * BPM P-R Int : * ms QRS Dur : 136 ms QT Int : 418 ms P-R-T Axes : * -54 129 degrees QTcB Int : 479 ms Atrial fibrillation Left axis deviation Left bundle branch block Abnormal ECG When compared with ECG of 12-Jan-2024 02:27, Left bundle branch block has replaced Non-specific intra-ventricular conduction block Borderline criteria for Lateral infarct are no longer Present Referred By: Generic ED Physician Electronically Signed By: Amilcar Hyman
[2025-04-04 08:37] LABS: MANUAL DIFF FLAG NO
[2025-04-04 08:41] LABS: Hematocrit 37.1 % (42.0-52.0); Hemoglobin 12.2 g/dl (14.0-18.0); Imm Gran Abs Auto 0.03 X10*3/uL (0.00-0.03); Imm Gran Pct Auto 0.4 % (0.0-0.4); Lymphocytes Absolute Auto 0.9 X10*3/uL (1.2-4.9); Mean Corpuscular HGB Conc 32.9 g/dl (31.0-36.0); Mean Corpuscular Hemoglobin 31.4 pg (27.0-33.0); Mean Corpuscular Volume 95.6 fL (80.0-98.0); NRBC Abs Auto 0.000 X10*3/uL (0.0-0.012); NRBC Pct Auto 0.0 /100WBC (0.0-0.2); Platelet Count 183 X10*3/uL (160-400); Red Blood Count 3.88 X10*6/uL (4.60-5.80); White Blood Count 7.4 X10*3/uL (4.8-10.8)
--- NOTE | 2025-04-04 08:45 | ED.CHESTPAIN ---
HPI - Chest Pain General Chief Complaint: Chest Pain Stated Complaint: CHEST PAIN Time Seen by Provider: 04/04/25 08:44 Source: patient and family Mode of arrival: EMS Limitations: no limitations History of Present Illness ED Provider: Dr. José Miguel Ivory HPI narrative: 85-year-old male with a history of chronic diastolic congestive heart failure, nonischemic cardiomyopathy, chronic atrial fibrillation, anxiety, prostate cancer, aortic regurgitation, GERD, obstructive sleep apnea,, dementia, hypercholesterolemia, left bundle-branch block who was brought to emergency department by ambulance for evaluation of chest pain. The patient has significant memory deficits and has no memory of his chest pain in the information came from his . Patient woke up early in the morning had chest pain, went to the bathroom and then went back to bed. He then woke up again at 07:00 hours in complained of chest pain to his . He pointed to his sternum when asked to localize the pain. He is not able to give his any other details regarding the pain. At the time my evaluation he has no complaints. The patient was brought to emergency department by EMS and was given aspirin 324 mg prior to arrival. Related Data Home Medications ?Medication ?Instructions ?Recorded ?Confirmed sertraline 50 mg tablet 50 mg PO DAILY 06/26/22 10/16/24 donepezil 10 mg tablet 5 mg PO BEDTIME 07/19/22 10/16/24 memantine 5 mg tablet 5 mg PO BID 03/28/23 10/16/24 melatonin 1 mg tablet 4 mg PO BEDTIME 01/12/24 10/16/24 vitamin B complex 1 cap PO DAILY 01/12/24 10/16/24 timolol maleate 0.5 % eye drops 1 drp ophthalmic (eye) BID 03/17/25 Previous Rx's ?Medication ?Instructions ?Recorded CPAP #1 ea 10/26/20 cholecalciferol (vitamin D3) 50 50 mcg PO DAILY 90 days #90 caps 01/23/23 mcg (2,000 unit) capsule pravastatin 40 mg tablet 40 mg PO DAILY #90 tabs 10/09/24 apixaban 2.5 mg tablet (Eliquis) 2.5 mg PO BID #180 tabs 11/03/24 sacubitril 49 mg-valsartan 51 mg 1 tab PO BID #180 tabs 06/09/25 tablet (Entresto) furosemide 40 mg tablet 40 mg PO DAILY 90 days #90 tabs 02/21/25 metoprolol succinate 100 mg 100 mg PO DAILY 90 days #90 tabs 02/21/25 tablet,extended release 24 hr (Toprol XL) spironolactone 25 mg tablet 25 mg PO BID 90 days #180 tabs 02/21/25 Allergies Allergy/AdvReac Type Severity Reaction Status Date / Time Kota Inhibitor Allergy Intermediate cough Verified 04/04/25 08:19 Diltiazem HCl CD Allergy Unknown unknown Verified 04/04/25 08:19 lisinopril Allergy Unknown cough Verified 04/04/25 08:19 dorzolamide AdvReac Intermediate red eye Verified 04/04/25 08:19 Review of Systems Review of Systems: Yes all other systems are reviewed and are negative [facility] Past Medical History [facility] Narrative: Social history: The patient lives with his Angela who is here in the emergency department with him. Patient does not smoke cigarettes or drink alcohol. Does not use drugs. Medical History (Updated 04/04/25 @ 12:41 by José Miguel Ivory MD) Hearing deficit Acute on chronic diastolic (congestive) heart failure Congestive heart failure with reduced left ventricular function, NYHA class 3 Hypersomnia Anxiety Prostate cancer Aortic regurgitation CRVO (central retinal vein occlusion) GERD (gastroesophageal reflux disease) Obstructive sleep apnea Cholelithiasis Cognitive impairment Generalized anxiety disorder Insomnia History of prostate cancer Hypercholesterolemia Left bundle branch block Nonischemic cardiomyopathy HTN (hypertension) Chronic atrial fibrillation Surgical History Hx of cholecystectomy History of prostatectomy History of inguinal hernia repair Family History Family History Father Diabetes Stroke Mother Diabetes Other Mental health disorder Substance use disorder Social History Social History Household Members: Spouse Housing: House Do you presently have visiting nurse or other home services: No Alcohol intake: never Patient Tobacco Use Status: Never used Tobacco Tobacco use type: Cigarette e-Cigarette/Vaping Use: Never Used Second Hand Smoke Exposure: No Advance Directives: Yes Advance Directives on File: Yes Advance Directives Date on File: 04/04/25 service: Yes Current occupational status: retired Current occupational exposures/hazards: No Cognitive needs: No Hearing needs: Yes Vision needs: Yes Physical Exam Exam: Exam: Vital signs revealed blood pressure of 102/56 otherwise unremarkable Vital Signs: Vital Signs: Last Vital Signs Temp 97.7 F 04/04/25 11:05 Pulse 57 04/04/25 11:05 Resp 14 04/04/25 11:05 BP 97/47 L 04/04/25 11:18 Pulse Ox 95 04/04/25 11:05 O2 Del Method Room Air 04/04/25 11:05 BMI result Body Mass Index 22.8 Exam: General: Awake, alert in no distress, oriented to person, lacks insight as to why he is here in the emergency environmental department manager: Normocephalic, atraumatic EENT: PERRL, sclera and conjunctiva are normal, mouth with no erythema or exudates Neck: Supple, no adenopathy Lung: breath sounds symmetric, no wheezing, no rales and no rhonchi Chest: symmetric movement, nontender Heart: regular rate and rhythm, normal S1, S2 no murmurs or rubs Abdomen: soft, non-tender, nondistended, normal bowel sounds Back: no vertebral tenderness, no CVAT Extremities: no deformities, moves all extremities symmetrically, no edema Neuro: Awake, alert, oriented, normal speech, cranial nerves 2-12 intact, moves all extremities symmetrically Psych: Pleasant, cooperative Medications Administered Discontinued Medications Generic Name Dose Route Start Last Admin Trade Name Freq PRN Reason Stop Dose Admin Sodium Chloride 500 mls @ 500 mls/hr 04/04/25 10:00 04/04/25 10:21 Ns IV 04/04/25 10:59 Infused .Q1H FILIBERTO Infusion Medical Decision Making Medical Decision Making [facility] Narrative: 85-year-old male with a history of chronic diastolic congestive heart failure, nonischemic cardiomyopathy, chronic atrial fibrillation, anxiety, prostate cancer, aortic regurgitation, GERD, obstructive sleep apnea,, dementia, hypercholesterolemia, left bundle-branch block who was brought to emergency department by ambulance for evaluation of chest pain. The patient has significant memory deficits and has no memory of his chest pain in the information came from his . Patient woke up early in the morning had chest pain, went to the bathroom and then went back to bed. He then woke up again at 07:00 hours in complained of chest pain to his . He pointed to his sternum when asked to localize the pain. He is not able to give his any other details regarding the pain. At the time my evaluation he has no complaints. The patient was brought to emergency department by EMS and was given aspirin 324 mg prior to arrival. Vital signs revealed a slightly low blood pressure otherwise unremarkable. Physical examination was consistent with a his dementia otherwise no significant findings. Differential diagnosis: ?Includes but is not limited to myocardial infarction, myocardial ischemia, Course: 12:33 My independent interpretation patient's laboratory evaluation is as follows normocytic anemia with an H&H of 12 and 37.1 unchanged from baseline. BUN and creatinine elevated 36 and 1.63-unchanged from baseline. First troponin was 4.4 with a repeat 2 hour troponin at 4.4 which is unchanged was is reassuring suggesting the patient has not had myocardial infarction or myocardial injury is the cause of his chest pain. NT-pro BNP elevated at 7 5 3-this is most likely secondary to his cardiomyopathy and I do not think that he has congestive heart failure. Chest x-ray on my review was unremarkable radiologist question left lower lobe infiltrate. This has not fit the patient's clinical picture and I do not think that he has pneumonia. I did discuss the patient's presentation with the covering engineering and scientific programmer, Dr. Hyman. He recommended walking the patient around the emergency department to see if he developed chest pain or shortness of breath. The patient walked 2 laps around the emergency department without any difficulty. At this time the patient will be discharged home. I told the to give him his home medications when he gets home in the make sure that he increases his fluid intake over the next 24 hours. The patient will need to follow up with a his PCP and his engineering and scientific programmer for re-evaluation. Differential Diagnosis Differential Diagnoses: The differential diagnosis associated with the presentation includes (See above) Admission/Observation Consideration of admission/observation: Escalation of care including admission/observation considered (Yes) Consult Healthcare Provider Management of the patient was discussed with: Contract Administration Coordinator (Ride Operator: Dr. Hyman) Lab Data MDM Lab Attestation statement: I reviewed the patient's lab results. 04/04/25 08:32 04/04/25 08:32 Labs: Lab Results 04/04/25 04/04/25 Range/Units 08:32 10:30 WBC 7.4 (4.8-10.8) X10*3/uL RBC 3.88 L (4.60-5.80) X10*6/uL Hgb 12.2 L (14.0-18.0) g/dl Hct 37.1 L (42.0-52.0) % MCV 95.6 (80.0-98.0) fL MCH 31.4 (27.0-33.0) pg MCHC 32.9 (31.0-36.0) g/dl RDW 13.4 (11.0-16.0) % Plt Count 183 (160-400) X10*3/uL MPV 9.6 (9.4-12.4) fL Immature Gran % (Auto) 0.4 (0.0-0.4) % Neut % (Auto) 72.5 (45-73) % Lymph % (Auto) 12.6 L (20-40) % Harvey % (Auto) 11.0 (2-11) % Eos % (Auto) 3.2 (0-4) % Baso % (Auto) 0.3 (0-2) % Lymph # (Auto) 0.9 L (1.2-4.9) X10*3/uL Harvey # (Auto) 0.8 (0.1-1.2) X10*3/uL Eos # (Auto) 0.2 (0.0-0.4) X10*3/uL Baso # (Auto) 0.0 (0.0-0.2) X10*3/uL Abs Immat Gran (auto) 0.03 (0.00-0.03) X10*3/uL Absolute Neuts (auto) 5.4 (2.0-8.3) x10*3/uL Absolute Nucleated RBC 0.000 (0.0-0.012) X10*3/uL Nucleated RBC % (auto) 0.0 (0.0-0.2) /100WBC Sodium 141 (135-145) mmol/L Potassium 4.6 (3.3-5.1) mmol/L Chloride 107 (96-108) mmol/L Carbon Dioxide 24 (22-29) mmol/L Anion Gap 15 (12-20) BUN 36 H (9-16) mg/dL Creatinine 1.63 H (0.5-1.4) mg/dL Estim Creat Clear Calc 33.4 Estimated GFR 40 Random Glucose 95 (60-115) mg/dL Calcium 8.9 (8.4-10.2) mg/dL Total Bilirubin 0.3 (0.0-1.0) mg/dL Direct Bilirubin 0.1 (0.0-0.5) mg/dL AST 29 (5-37) U/L ALT 24 (0-40) U/L Alkaline Phosphatase 84 (39-117) U/L Troponin I High Sens 4.5 D 4.4 (<3.5-35.0) ng/L NT-Pro-B Natriuret Pep 753.5 H (<300) pg/mL Total Protein 6.8 (6.5-8.0) g/dL Albumin 4.2 (3.5-5.0) g/dL Independent Interpretation I performed an independent interpretation of an: EKG Interpretation: My independent interpretation patient's 12 EKG done on 04/04/2025 at 08:13 hours is as follows: Atrial fibrillation with a rate of 79, prolonged QRS 103 milliseconds, prolonged QTC 470 milliseconds, left bundle-branch block, no ST segment elevation, no ST segment depression, compared to previous EKG dated 01/12/2024 there is no significant change. Radiology Impression Discussion of test interpretation with radiology: I have reviewed the radiologist's reading. Radiologist Impression: 1 view chest x-ray Comparison: CR/SR - XR CHEST 1 VIEW - 01/12/24 02:42 EDT Findings: Faint left lower lobe density. Normal size heart. No acute fracture. IMPRESSION: Possible left lower lobe infiltrate. Follow-up recommended. This document has been electronically signed by: David Kent MD on 04/04/2025 09:58:05 Independent Historian Clinical information obtained from an independent historian. History obtained from or confirmed by: Spouse External Record Review External record reviewed: Inpatient record Chronic Conditions Patient?s care impacted by: Other (Chronic atrial fibrillation, cardiomyopathy, dementia) Discharge Plan Discharge Clinical Impression: Chest pain Patient Disposition: Home, Self-Care Additional Instructions: Your blood work was unchanged from your baseline laboratory evaluations in the past. Your high sensitivity troponin I (marker of heart damage) was initially 4.5 and 2 hour repeat was 4.4 which is reassuring. Less than 35 is normal and med in the fact that it did not increased suggests that you did not have heart damage or a heart attack as the cause of your chest pain Your blood pressure was slightly low and we did give you 500 cc of normal saline IV. When you get home I want you to increase your fluid intake and take your morning medications as prescribed. I did discuss your presentation with the covering engineering and scientific programmer, Dr. Patel. Follow-up with your doctor in 2 days. Please return to the emergency department if your symptoms get worse or if you develop any symptoms that are concerning to you. Prescriptions: No Action Entresto 49-51 mg tablet 1 tab PO BID Qty: 180 3RF Eliquis 2.5 mg tablet 2.5 mg PO BID Qty: 180 3RF furosemide 40 mg tablet 40 mg PO DAILY 90 Days Qty: 90 3RF Protocol: Hold for SBP< HOLD for SBP < : 90 metoprolol succinate [Toprol XL] 100 mg tablet extended release 24 hr 100 mg PO DAILY 90 Days Qty: 90 3RF spironolactone 25 mg tablet 25 mg PO BID 90 Days Qty: 180 3RF Protocol: Hold for SBP< HOLD for SBP < : 90 vitamin B complex Capsule 1 cap PO DAILY melatonin 1 mg Tablet 4 mg PO BEDTIME (DME) CPAP See Rx Instructions .Route .MEDSUPPLY Qty: 1 0RF Rx Instructions: As directed cholecalciferol (vitamin D3) 50 mcg (2,000 unit) capsule 50 mcg PO DAILY 90 Days Qty: 90 3RF donepezil 10 mg tablet 5 mg PO BEDTIME sertraline 50 mg tablet 50 mg PO DAILY memantine 5 mg tablet 5 mg PO BID pravastatin 40 mg tablet 40 mg PO DAILY Qty: 90 3RF timolol maleate 0.5 % drops 1 drp ophthalmic (eye) BID Referrals: Mor Mehta MD [Physician, Cardiology] Referral Note: Presented to ED with 2 episodes of chest pain, difficult to characterize secondary to dementia. Troponins were flat x2. Print Language: Estonian
[2025-04-04 09:15] LABS: Alanine Aminotransferase 24 U/L (0-40); Albumin Level 4.2 g/dL (3.5-5.0); Alkaline Phosphatase 84 U/L (39-117); Anion Gap 15 (12-20); Aspartate Amino Transferase 29 U/L (5-37); Blood Urea Nitrogen 36 mg/dL (9-16); Calcium 8.9 mg/dL (8.4-10.2); Carbon Dioxide 24 mmol/L (22-29); Chloride 107 mmol/L (96-108); Creatinine Clr Calc Pharmacy 33.4; Estimated Glomerular Filt Rate 40; Potassium 4.6 mmol/L (3.3-5.1); Sodium 141 mmol/L (135-145); Total Protein 6.8 g/dL (6.5-8.0)
--- NOTE | 2025-04-04 09:22 | PC.NURSE ---
patient noted to be hypotensive, patient remains at baseline, denies any chest pain/sob. Ed provider made aware, requested 500cc normal saline bolus.
[2025-04-04 09:46] LABS: Troponin-I High Sensitivity 4.5 ng/L (<3.5-35.0)
[2025-04-04 09:56] LABS: NT Pro B Type Natriuretic Pept 753.5 pg/mL (<300)
[2025-04-04 11:10] LABS: Troponin-I High Sensitivity 4.4 ng/L (<3.5-35.0)
--- NOTE | 2025-04-04 12:49 | PC.NURSE ---
patient ambulated around ED x2, did well. cleared for dc by ED attending
== END 2025-04-04 12:50 | disposition home or self-care (01) ==
PROVIDERS: Emergency Provider Emergency Medicine Emergency Medical Services; PCP Internal Medicine
DX: R07.9 Chest pain, unspecified (principal); I11.0 Hypertensive heart disease with heart failure; I50.32 Chronic diastolic (congestive) heart failure; I42.8 Other cardiomyopathies; I48.20 Chronic atrial fibrillation, unspecified; I35.1 Nonrheumatic aortic (valve) insufficiency; I44.7 Left bundle-branch block, unspecified; F03.90 Unspecified dementia, unspecified severity, without behavioral disturbance, psychotic disturbance, mood disturbance, and anxiety
CPT/HCPCS: 36415; 71045; 80053; 82248; 83880; 84484; 85025; 93005; 96360; 99284

== ENCOUNTER → 2025-04-04 08:10 | Outpatient (BNV) | payer MEDICARE, OTHER, SELFPAY | PROVIDERS: Emergency Provider Emergency Medicine Emergency Medical Services; PCP Internal Medicine; Visit Provider Internal Medicine Cardiovascular Disease | DX: I48.91 Unspecified atrial fibrillation (principal); I44.7 Left bundle-branch block, unspecified | CPT/HCPCS: 93010 ==

== ENCOUNTER → 2025-04-04 09:15 | Outpatient (BNV) | payer MEDICARE, OTHER, SELFPAY | PROVIDERS: Emergency Provider Emergency Medicine Emergency Medical Services; PCP Internal Medicine; Visit Provider Radiology Vascular & Interventional Radiology | DX: R07.9 Chest pain, unspecified (principal); R06.09 Other forms of dyspnea | CPT/HCPCS: 71045 ==

== ENCOUNTER → 2025-04-06 12:54 | Outpatient (REF) | payer SELFPAY ==
--- NOTE | 2025-04-06 13:00 | CA_ITS ---
Transthoracic Echocardiogram Patient (Last, First, Middle): Ki Tellez D Gender: M Date of : 1940 Age: 85 Procedure Date: 04/06/2025 Procedure Type: Transthoracic Echocardiogram Location: OP Height: 180.34 cm Weight: 68.49 kg BSA: 1.87 m2 Heart Rate: 67 bpm BP: 118 / 60 mmHg Psychiatry Instructor: Referring MD: Mor Mehta MD Neurology Hospitalist: Mor Mehta MD Symptoms: I50.20 - Unspecified systolic (congestive) heart failure Study Quality: Fair but adequate ECG Rhythm: Atrial Fibrillation Conclusions: - 1. Mildly reduced LV EF of 45-50% 2. Moderate left atrial enlargement 3. Mild mitral regurgitation 4. Normal RV systolic pressure 5. Mildly dilated ascending aorta at 3.9 cm 6. No gross pericardial effusion Findings Procedure Information The patient declines contrast. Left Ventricle Normal left ventricular cavity size. There is normal left ventricular wall thickness. The left ventricular systolic function is mildly decreased. The visually estimated ejection fraction is between 45-50%. Diastolic function is indeterminate on the basis of available data. Right Ventricle Normal right ventricular cavity size and systolic function. Atria The left atrium is moderately dilated. There is no evidence of interatrial shunt. The right atrium is mildly dilated. Aortic Valve Normal aortic valve structure and function. There is no aortic valve stenosis. There is no aortic valve regurgitation. Mitral Valve There is mild anterior and posterior mitral leaflet thickening. There is mild mitral valve regurgitation. There is no mitral valve stenosis. Pulmonic Valve The pulmonic valve is likely normal. Tricuspid Valve Normal tricuspid valve structure. There is mild tricuspid valve regurgitation. The right ventricular systolic pressure is normal. The right ventricular systolic pressure is 26 mmHg. Normal right atrial pressure. There is no evidence of pulmonary hypertension. Great Vessels The pulmonary artery was not well visualized. There is mild dilatation of the ascending aorta measuring 3.90 cm. Venous The inferior vena cava is normal in size and collapses greater than 50% with inspiration. Pericardium/Pleural There is no evidence of pericardial effusion. Prior Study Comparison Changes noted compared to prior study dated: 01/14/2024. LV ejection fraction has improved Measurements 2D Linear Measurements IVSd: 1.00 0.6-0.9/0.6-1.0 cm LVIDd: 4.60 3.9-5.3/4.2-5.9 cm LVIDd Index: 2.46 2.4-3.2/2.2-3.1 cm/m2 LVIDs: 3.62 2.0-3.6 cm LVPWd: 1.00 0.7-1.1 cm LA Diam: 4.20 2.7-3.8/3.0-4.0 cm LAIDs Index: 2.25 1.5-2.3 cm/m2 LV Mass: 197.77 67-162/88-224 g LV Mass Index: 105.76 43-95/49-115 g/m2 LVOT Diam: 2.20 3.0+(-)1.3 cm 2D Systolic Function EF 4C: 50.00 >55% EF 2C: 47.80 >55% EF BiP: 49.80 >55% Mitral Valve MV Pk E: 1.03 MV Decel Time: 181.00 E'Lateral: 10.40 E'Medial: 8.16 E/E' Med: 12.60 E/E' Lat: 9.90 PHT: 53.00 MVA PHT: 4.15 Decel Eaton: 5.73 Aortic Valve AoV Pk Bo: 1.20 AoV Mn Bo: 0.78 AoV VTI: 0.28 AoV Pk Grad: 6.00 Aov Mn Grad: 3.00 YUDELKA Cont.VTI: 2.24 LVOT LVOT Pk Bo: 0.69 LVOT Mn Bo: 0.45 LVOT VTI: 0.17 LVOT Pk Grad: 2.00 LVOT Mn Grad: 1.00 LVOT Diam: 2.20 LVOT Area: 3.80 Diastolic Function MV Pk E: 1.03 E'Medial: 8.16 E/E' Med: 12.60 E' Laterial: 10.40 E/E' Lat: 9.90 Right Ventricle TAPSE (mm): 27.20 TVS' Bo: 13.70 Tricuspid Valve TR Pk Bo: 2.38 TR Pk Grad: 23.00 RA Press: 3.00 RVSP: 26.00 Great Vessels Aorta Sinus of Valsalva: 3.70 2.0-3.5 cm Ao Asc: 3.90 2.1-3.4 cm Pulmonary Valve PV Pk Bo: 0.96 Peak PV Grad: 4.00 Updated in Other Vendor System with Status of Final Mor Mehta MD electronically signed on 04/06/2025 4:35:52 PM with status of Final
== END ==
LOC: HO.CARD 12:54
PROVIDERS: PCP Internal Medicine; Visit Provider Internal Medicine Cardiovascular Disease
DX: I50.20 Unspecified systolic (congestive) heart failure (principal)
CPT/HCPCS: 93306

== ENCOUNTER → 2025-04-06 13:00 | Outpatient (BNV) | payer MEDICARE, OTHER, SELFPAY | PROVIDERS: PCP Internal Medicine; Visit Provider Internal Medicine Cardiovascular Disease | DX: I51.7 Cardiomegaly (principal); I34.0 Nonrheumatic mitral (valve) insufficiency; I77.810 Thoracic aortic ectasia | CPT/HCPCS: 93306 ==

== ENCOUNTER 2025-04-07 09:53 | Outpatient (REF) | payer SELFPAY | END 2025-04-07 09:54 | disposition home or self-care (01) | LOC: HO.HAP 09:53 | PROVIDERS: Visit Provider Internal Medicine | DX: Z13.89 Encounter for screening for other disorder (principal) ==

== ENCOUNTER 2025-04-09 13:25 | Outpatient (REF) | payer SELFPAY | END 2025-04-09 13:26 | disposition home or self-care (01) | LOC: HO.HAP 13:25 | PROVIDERS: Visit Provider Internal Medicine | DX: Z46.1 Encounter for fitting and adjustment of hearing aid (principal); H90.3 Sensorineural hearing loss, bilateral | CPT/HCPCS: V5299 ==

== ENCOUNTER 2025-04-14 12:31 | Outpatient (AMB) | payer MEDICARE, OTHER, SELFPAY ==
--- NOTE | 2025-04-14 12:33 | MHC.OFFVIS ---
Vital Signs 04/14/25 12:34 Height 5 ft 11 in Weight 158 lb 11.725 oz BMI 22.1 BP 110/70 Blood Pressure Location Lt brachial Position Sitting Pulse 72 Intake Visit Reasons: 6m follow up/labs Intake Note: 6 month follow-up has been to the ED for chest pain Obstetrics Gyn Physician Required: No Hop Picker: Hop Picker Present Accompanied by: Spouse Allergies Kota Inhibitor Allergy (Intermediate, Verified 04/04/25 08:19) cough Diltiazem HCl CD Allergy (Unknown, Verified 04/04/25 08:19) unknown lisinopril Allergy (Unknown, Verified 04/04/25 08:19) cough dorzolamide Adverse Reaction (Intermediate, Verified 04/04/25 08:19) red eye Medication List - Last Reconciled 04/14/25 by Mor Mehta MD apixaban (Eliquis) 2.5 mg PO BID ascorbic acid (vitamin C) mg PO cholecalciferol (vitamin D3) 50 mcg PO DAILY 90 days [CPAP As directed] donepezil 5 mg PO BEDTIME furosemide 40 mg See Protocol PO DAILY 90 days melatonin 4 mg PO BEDTIME memantine 5 mg PO BID metoprolol succinate ER (Toprol XL) 100 mg PO DAILY 90 days pravastatin 40 mg PO DAILY sacubitril-valsartan 49-51 mg (Entresto) 1 tab PO BID sertraline 50 mg PO DAILY spironolactone 25 mg See Protocol PO BID 90 days timolol maleate 0.5% 1 drp ophthalmic (eye) BID vitamin B complex 1 cap PO DAILY HPI Comments Details: Ki comes for follow-up after recent echocardiogram. This showed mildly reduced LV ejection fraction 45-50% with left atrial enlargement. He was noted at that time to have bluish discoloration of fingers and oxygen saturation done on the synchronous was low. However subsequently when he went home in his finger color and had improved his oxygen saturation improved. Patient has no worsening symptoms of heart failure. No orthopnea, PND, leg edema. He was in the emergency recently because of chest pain syndrome which time he had workup including troponins which were negative. No recurrent chest pain syndrome since then. Patient denies any palpitations. Takes all his medications. No bleeding issues or neurologic events. No falling issues. [facility] Medical History (Updated 04/05/25 @ 00:01 by Background Daemon) Hearing deficit Acute on chronic diastolic (congestive) heart failure Congestive heart failure with reduced left ventricular function, NYHA class 3 Hypersomnia Anxiety Prostate cancer Aortic regurgitation CRVO (central retinal vein occlusion) GERD (gastroesophageal reflux disease) Obstructive sleep apnea Cholelithiasis Cognitive impairment Generalized anxiety disorder Insomnia History of prostate cancer Hypercholesterolemia Left bundle branch block Nonischemic cardiomyopathy HTN (hypertension) Chronic atrial fibrillation Surgical History Hx of cholecystectomy History of prostatectomy History of inguinal hernia repair Family History Father Diabetes Stroke Mother Diabetes Other Mental health disorder Substance use disorder Social History Household Members: Spouse Housing: House Do you presently have visiting nurse or other home services: No Alcohol intake: never Patient Tobacco Use Status: Never used Tobacco Tobacco use type: Cigarette e-Cigarette/Vaping Use: Never Used Second Hand Smoke Exposure: No Advance Directives Date on File: 04/04/25 service: Yes Current occupational status: retired Current occupational exposures/hazards: No Cognitive needs: No Hearing needs: Yes Vision needs: Yes Review of Systems Const Denies chills, Denies fatigue, Denies fever(s), Denies frequent falls, Denies weakness, Denies weight gain and Denies weight loss ENT Denies dizziness Card Denies chest pain, Denies leg edema, Denies lightheadedness, Denies palpitations, Denies dyspnea, Denies dyspnea on exertion, Denies orthopnea and Denies other (loss of consciousness) Resp Denies cough, Denies dyspnea and Denies dyspnea on exertion GI Denies hematochezia and Denies change in stool character Musc Denies abnormal gait, Denies muscle weakness, Denies numbness, Denies radiating pain into limb and Denies tingling Neuro Denies abnormal gait, Reports confusion, Denies dizziness, Denies frequent falls, Denies numbness, Denies tingling and Denies weakness Psych Reports confusion Endo Denies fatigue and Denies palpitations Physical Exam Vital Signs: Last Vital Signs Pulse 72 04/14/25 12:34 BP 110/70 04/14/25 12:34 BMI result Body Mass Index 22.1 Const Other: Has dementia - forgetfull General: cooperative, healthy appearing, comfortable, no acute distress, confusion, well groomed and other (Acrocyanosis noted) Nutritional Appearance: thin Orientation/consciousness: confusion Limitations: no limitations Neck Neck: Yes trachea midline, Yes supple and Yes no JVD Resp Effort & Inspection: normal respiratory effort Auscultation: clear to auscultation bilaterally, no rales, no rhonchi and no wheezes Cardio Jugular venous distension: no JVD Rhythm: abnormal rhythm irregularly irregular Heart sounds: S1 normal heart sound present, S2 normal heart sound present, no murmurs and no rubs GI Inspection: Yes normal to inspection Skin General skin exam: no rashes or lesions noted Neuro General: no focal motor deficits and confusion Extrem General: Yes normal to inspection and No no pedal edema Psych Appearance: grossly normal Mental Status: mental status grossly normal Speech and movement: Normal speech and movement present Assessment & Plan Assessment & Plan (1) Chronic atrial fibrillation: Comment: Echo January 2017 aortic regurg, MR, TR moderate EF 40-45% December 2017 echo LV dysfunction 40-45% moderate AR, MR, May 2018 34-40% AR, MR, TR echo August 2018 moderate LV dysfunction September 2019 moderate to severe left ventricular dysfunction mild AR, Holter May 2018 pauses 3-5 second Code(s): I48.20 - Chronic atrial fibrillation, unspecified Category: Medical Plan: Chronic rate control atrial fibrillation. Clinically no issues at all. Continue current rate control strategy. Continue full oral anticoagulation, currently on Eliquis 2.5 mg b.i.d.. Quarterly renal function test should be pursued. Overall has failed rhythm control in the past and likelihood of pursuing rhythm control approach is extremely low. (2) Heart failure with reduced ejection fraction: Code(s): I50.20 - Unspecified systolic (congestive) heart failure Category: Medical Plan: Heart failure with mid-range EF, EF of 45-50%. Clinically appears to be euvolemic well compensated. Continue current neurohormonal modulation with spironolactone, metoprolol as well as Entresto therapy. Continue current diuretic regimen. He has multiple comorbidities including advancing age, frailty, chronic atrial fibrillation, cognitive issues and chronic kidney disease that impact his overall prognosis. Heart failure symptoms and management were discussed. Maintain activity level as tolerated. (3) Ascending aorta dilatation: Comment: Code(s): I77.810 - Thoracic aortic ectasia Category: Medical Plan: Mildly dilated ascending aorta. No change. Continue aggressive blood pressure control. Will follow up in the clinic in 6 months time on 's request. Thank you for allowing me to partake in his care Coding Level of Care Code Est Pt Level 4 (48784) Complex EM visit Add On G2211 Diagnoses Chronic atrial fibrillation I48.20 Heart failure with reduced ejection fraction I50.20 Ascending aorta dilatation I77.810
[2025-04-14 12:34] VITALS: BP 110/70; PULSE 72; BMI 22.1
== END 2025-04-14 12:57 | disposition home or self-care (01) ==
LOC: HO.HCS 12:32
PROVIDERS: PCP Internal Medicine; Visit Provider Internal Medicine Cardiovascular Disease
DX: I48.20 Chronic atrial fibrillation, unspecified (principal); I50.20 Unspecified systolic (congestive) heart failure; I77.810 Thoracic aortic ectasia
CPT/HCPCS: 99214; G2211

== ENCOUNTER → 2025-04-14 12:31 | Outpatient (BNVA) | payer MEDICARE, OTHER, SELFPAY | PROVIDERS: PCP Internal Medicine; Visit Provider Internal Medicine Cardiovascular Disease | DX: I48.20 Chronic atrial fibrillation, unspecified (principal); I11.0 Hypertensive heart disease with heart failure; I50.20 Unspecified systolic (congestive) heart failure; I77.810 Thoracic aortic ectasia | CPT/HCPCS: 99212 ==

== ENCOUNTER 2025-04-30 09:55 | Outpatient (REF) | payer MEDICARE, OTHER, SELFPAY ==
[2025-04-30 10:16] LABS: MANUAL DIFF FLAG NO
[2025-04-30 10:48] LABS: Hematocrit 41.4 % (42.0-52.0); Hemoglobin 13.6 g/dl (14.0-18.0); Imm Gran Abs Auto 0.03 X10*3/uL (0.00-0.03); Imm Gran Pct Auto 0.4 % (0.0-0.4); Lymphocytes Absolute Auto 1.0 X10*3/uL (1.2-4.9); Mean Corpuscular HGB Conc 32.9 g/dl (31.0-36.0); Mean Corpuscular Hemoglobin 31.5 pg (27.0-33.0); Mean Corpuscular Volume 95.8 fL (80.0-98.0); NRBC Abs Auto 0.000 X10*3/uL (0.0-0.012); NRBC Pct Auto 0.0 /100WBC (0.0-0.2); Platelet Count 225 X10*3/uL (160-400); Red Blood Count 4.32 X10*6/uL (4.60-5.80); White Blood Count 7.6 X10*3/uL (4.8-10.8)
[2025-04-30 11:58] LABS: Alanine Aminotransferase 32 U/L (0-40); Albumin Level 4.8 g/dL (3.5-5.0); Alkaline Phosphatase 92 U/L (39-117); Anion Gap 13 (12-20); Aspartate Amino Transferase 38 U/L (5-37); Blood Urea Nitrogen 38 mg/dL (9-16); Calcium 9.6 mg/dL (8.4-10.2); Carbon Dioxide 25 mmol/L (22-29); Chloride 106 mmol/L (96-108); Cholesterol 183 mg/dL (<200); Estimated Glomerular Filt Rate 39; HDL Cholesterol 52 mg/dL (>40); Potassium 4.9 mmol/L (3.3-5.1); Sodium 139 mmol/L (135-145); Total Protein 7.8 g/dL (6.5-8.0); Triglycerides 139 mg/dL (<150)
[2025-04-30 12:02] LABS: Free T4 (Free Thyroxine) 0.90 ng/dL (0.71-1.85); Thyroid Stimulating Hormone 3.93 uIU/mL (0.32-4.0)
== END 2025-04-30 09:56 | disposition home or self-care (01) ==
LOC: HO.LAB 09:55
PROVIDERS: PCP Internal Medicine; Visit Provider Internal Medicine
DX: I50.20 Unspecified systolic (congestive) heart failure (principal); E78.00 Pure hypercholesterolemia, unspecified
CPT/HCPCS: 36415; 80053; 80061; 84439; 84443; 85025